=== PATIENT | female | born 1960 | race Hispanic/Latino ===

== ENCOUNTER 2018-03-04 13:10 | Emergency (ER) | payer OTHER ==
--- OUTSIDE RECORDS SUMMARY | 2018-03-04 13:13 | XMS REPORT | Clinical Summary ---
:1960 Author Organization [facility] Address [address] [place] [address] Phone Care Team Providers Name Role Phone Unavailable Primary Care Provider Unavailable Allergies Active Allergy Reactions Severity Noted Date Comments Meperidine (Pf) 02/25/2017 Morphine 02/25/2017 Promethazine-Dm 02/25/2017 Adhesive Tape 02/25/2017 Current Medications Prescription Sig. Disp. Refills Start End Status Date Date nystatin Apply topically 2 15 g 0 03/07/20 Active (MYCOSTATIN) (two) times 17 018 100,000 unit/gram daily. powder senna-docusate Take 1 tablet by 60 tablet 1 03/07/20 Active (SENOKOT S) 8.6-50 mouth 2 (two) 17 018 mg per tablet times daily. pyridoxine, Take 1 tablet (50 1 tablet 0 03/07/20 Active vitamin B6, (B-6) mg total) by 17 018 50 MG tablet mouth daily. acetaminophen Take 2 tablets 30 tablet 0 03/22/20 Active (TYLENOL) 325 MG (650 mg total) by 17 018 tablet mouth every 6 (six) hours as needed for Fever for up to 360 days. ferrous sulfate Take 1 tablet 30 tablet 1 03/22/20 Active 325 (65 FE) MG (325 mg total) by 17 018 tablet mouth daily. gabapentin Take 1 capsule 180 capsule 1 03/22/20 Active (NEURONTIN) 400 MG (400 mg total) by 17 018 capsule mouth 3 (three) times daily. dexamethasone Take 2 mg PO BID 7 tablet 0 03/22/20 Active (DECADRON) 2 MG x 2 days, then 2 17 tablet mg Po daily x 3 days then stop. cyclobenzaprine Take 1 tablet (10 30 tablet 0 03/07/20 Discontinued (FLEXERIL) 10 MG mg total) by 17 017 tablet mouth 2 (two) times daily as needed for Muscle spasms for up to 10 days. gabapentin Take 2 capsules 180 capsule 1 03/07/20 Discontinued (NEURONTIN) 100 MG (200 mg total) by 17 017 capsule mouth 3 (three) times daily. HYDROcodone-acetam Take 1 tablet by 30 tablet 0 03/07/20 Discontinued inophen (NORCO mouth every 4 17 017 10-325) 10-325 mg (four) hours as per tablet needed for up to 10 days. Max Daily Amount: 6 tablets polyethylene Take 17 g by 14 each 0 03/07/20 glycol (GLYCOLAX) mouth daily for 3 17 017 17 gram packet days. ethambutol Take 3 tablets 1 tablet 0 03/07/20 (MYAMBUTOL) 400 MG (1,200 mg total) 17 017 tablet by mouth daily for 30 days. isoniazid Take 1 tablet 1 tablet 0 03/07/20 Discontinued (NYDRAZID) 300 MG (300 mg total) by 17 017 tablet mouth daily for 14 days. pyrazinamide 500 Take 3 tablets 1 tablet 0 03/07/202 mg tablet (1,500 mg total) 17 017 by mouth daily for 30 days. rifAMPin (RIFADIN) Take 2 capsules 1 capsule 0 03/07/20 Discontinued 300 MG capsule (600 mg total) by 17 017 mouth daily for 10 days. bisacodyl Take 1 tablet (5 30 tablet 0 03/22/20 (DULCOLAX) 5 mg EC mg total) by 17 017 tablet mouth daily as needed for Constipation for up to [address] 1 12 suppository 0 03/22/20 (DULCOLAX) 10 mg suppository (10 017 suppository mg total) rectally daily as needed for up to 10 days. cyclobenzaprine Take 1 tablet (10 30 tablet 0 03/22/20 (FLEXERIL) 10 MG mg total) by 17 017 tablet mouth 2 (two) times daily as needed for Muscle spasms for up to 10 days. enoxaparin Inject 0.4 mLs 12 mL 0 03/22/20 (LOVENOX) 40 (40 mg total) 17 017 mg/0.4 mL Syrg subcutaneously daily for 30 days. isoniazid Take 1 tablet 1 tablet 0 03/22/20 (NYDRAZID) 300 MG (300 mg total) by 17 017 tablet mouth daily for [address] 2 patches 30 patch 0 03/22/20 (LIDODERM) 5 % onto the skin 017 patch daily for 30 days Remove & Discard patch within 12 hours or as directed by MD. oxyCODONE (OXY-IR) Take 1 tablet (10 30 tablet 0 03/22/20 10 mg tablet mg total) by 17 017 mouth every 4 (four) hours as needed for up to 10 days. Max Daily Amount: 60 mg oxyCODONE Take 1 tablet (15 30 tablet 0 03/22/20 (ROXICODONE) 15 MG mg total) by 17 017 immediate release mouth every 6 tablet (six) hours for 10 days. Max Daily Amount: 60 mg pantoprazole Take 1 tablet (40 30 tablet 1 03/22/20 (PROTONIX) 40 MG mg total) by 17 017 tablet mouth daily for 30 days. polyethylene Take 17 g by 14 each 0 03/22/20 glycol (GLYCOLAX) mouth daily for 3 17 017 17 gram packet days. rifAMPin (RIFADIN) Take 2 capsules 1 capsule 0 03/22/20 300 MG capsule (600 mg total) by 17 017 mouth daily for [address] rectally 2 30 g 0 03/22/20 (ANUSOL-HC) 2.5 % (two) times daily 17 017 rectal cream for 10 days. 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 Spondylodiscitis 02/25/2017 Encounters Date Type Specialty Care Team Description 06/07/2017 Outside Orders Central Scheduling Ray Villafuerte Fusion of spine, MD Gabino thoracic region (Primary Dx) 03/12/2017 - Hospital Encounter General Internal Vani Pulliam MD Acute midline back 03/22/2017 Medicine Aristides Corrigan pain, unspecified MD Jayson back location Leeann Mullins, (Primary Dx);Cord MD compression Yin Cartagena, ([facility]);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);Spina l cord injury, thoracic region, initial encounter ([facility]);Morbid obesity with BMI of 40.0-44.9, adult ([facility]);Gait abnormality;Osteomy elitis of other site, unspecified type ([facility]);Mobility impaired 03/12/2017 Anesthesia Event Krish Swan, PUBLIC SERVICE DIRECTOR 03/12/2017 Procedure Pass 03/12/2017 Surgery Ray Villafuerte LAMINECTOMY,THORACI MD Gabino C W/FUSION 02/25/2017 - Hospital Encounter General Internal Srini Rebolledo, Spondylodiscitis;Ch 03/07/2017 Medicine Tigist Wright thoracic back MMD Charlie pain;Primary Luis Elias, insomnia;Constipati on, unspecified constipation type;Acute midline back pain, unspecified back location;Lesion of vertebra;Paraspinal mass after 03/03/2017 Social History Tobacco Use Types Packs/Day Years Used Date Former Smoker Smokeless Tobacco: Never Used Alcohol Use Drinks/Week oz/Week Comments No Sex Assigned at Date Recorded Not on file Last Filed Vital Signs Vital Sign Reading Time Taken Blood Pressure 120/56 03/22/2017 11:00 AM CDT Pulse 80 03/22/2017 11:00 AM CDT Temperature 36.7 C (98.1 F) 03/22/2017 11:00 AM CDT Respiratory Rate 19 03/22/2017 11:00 AM CDT Oxygen Saturation 98% 03/22/2017 11:00 AM CDT Inhaled Oxygen Concentration - - Weight 107.4 kg (236 lb 12.4 oz) 03/13/2017 12:00 AM CDT Height 154.9 cm (5' 1") 03/12/2017 3:40 PM CDT Body Mass Index 44.74 03/13/2017 12:00 AM CDT Plan of Treatment Not on file Implants Implanted Type Area Light Technician Device Expiration Model / Serial Identifier Date / Lot Tiss Live Puty Dbm Optium 10cc Tput10 - [id number] Bone N/A: Spine LIFENET: LIFENET 10/03/2019 TPUT10 / Implanted: Qty: 1 on 03/12/2017 by Ray Villafuerte MD Thoracic TRANSPLANT SRV / Tiss Live Puty Dbm Optium 10cc Tput10 - [id number] Bone N/A: Spine LIFENET: LIFENET 10/03/2019 TPUT10 / Implanted: Qty: 1 on 03/12/2017 by Ray Villafuerte MD Thoracic TRANSPLANT SRV / Bone Chip Canc 1.7-10mm 30ml [id number] - [id number] Bone N/A: Spine MUSCULOSKELETAL 10/26/2019 [id number] / Implanted: Qty: 1 on 03/12/2017 by Ray Villafuerte MD Thoracic TRANSPLANT FND [id number] / 1110 Bone Chip Canc 1.7-10mm 30ml [id number] - [id number] Bone N/A: Spine MUSCULOSKELETAL 10/03/2019 [id number] / Implanted: Qty: 1 on 03/12/2017 by Ray Villafuerte MD Thoracic TRANSPLANT FND [id number] / 3010 Matrix Floseal Hemo W/O Ndl 10 [id number] - [id number] Cement/ N/A: Spine ORTEGA :BIOSCI 07/25/2018 [id number] / Implanted: Qty: 1 on 03/12/2017 by Ray Villafuerte MD Filler/ Thoracic / Adhesiv [id number] Scr Mas 5.5x40mm [id number] - [id number] Spine N/A: Spine MEDTRONIC:SPINAL [id number] / Implanted: Qty: 4 on 03/12/2017 by Ray Villafuerte MD Thoracic BIOLOGICS / [id number] Scr Mas 4.5x30mm [id number] - [id number] Spine N/A: Spine MEDTRONIC:SPINAL [id number] / Implanted: Qty: 2 on 03/12/2017 by Ray Villafuerte MD Thoracic BIOLOGICS / [id number] Scr Mas 4.5x25mm [id number] - [id number] Spine N/A: Spine MEDTRONIC:SPINAL [id number] / Implanted: Qty: 1 on 03/12/2017 by Ray Villafuerte MD Thoracic BIOLOGICS / [id number] Scr Mas 5.5x35mm [id number] - [id number] Spine N/A: Spine MEDTRONIC:SPINAL [id number] / Implanted: Qty: 3 on 03/12/2017 by Ray Villafuerte MD Thoracic BIOLOGICS / [id number] Scr Mas 5.5x35mm [id number] - [id number] Spine N/A: Spine MEDTRONIC:SPINAL [id number] / Implanted: Qty: 3 on 03/12/2017 by Ray Villafuerte MD Thoracic BIOLOGICS / [id number] Screw Set Ti Ns Brk Off 5.5 - [id number] Spine N/A: Spine MEDTRONIC:SPINAL [id number] / Implanted: Qty: 7 on 03/12/2017 by Ray Villafuerte MD Thoracic BIOLOGICS / [id number] Screw Set Ti Ns Brk Off 5.5 - [id number] Spine N/A: Spine MEDTRONIC:SPINAL [id number] / Implanted: Qty: 6 on 03/12/2017 by Ray Villafuerte MD Thoracic BIOLOGICS / [id number] 5.5 Ti Luis Miguel N/A: Spine MEDTRONIC [id number] / Implanted: Qty: 1 on 03/12/2017 by Ray Villafuerte MD Thoracic / [id number] Procedures Procedure Name Priority Date/Time Associated Diagnosis Comments PROCEDURE W/ STEALTH 03/12/2017 8:00 AM CDT T5 OSTEOMYELITIS Special Needs REQ KRISTI TABLE,MEDTRONIC SCREWS,O-ARM,STEALTH;REQ TF LAMINECTOMY,THORACIC W/FUSION 03/12/2017 8:00 AM CDT T5 OSTEOMYELITIS Special Needs REQ KRISTI TABLE,MEDTRONIC SCREWS,O-ARM,STEALTH;REQ TF after 03/03/2017 Results ECHOCARDIOGRAM REPORT - SCAN (04/15/2017 10:10 AM)RHYTHM STRIP - SCAN (2016 3:09 PM)Only the most recent of2 resultswithin the time period is included.POC-Glucose meter (03/22/2017 11:28 AM)Only the most recent of53 resultswithin the time period is included. Component Value Ref Range POC-Glucose Meter 113 (H)Comment: TESTED AT [address] 70 - 110 mg/[place] [address] Specimen Performing Laboratory Blood [facility] [address] [address] CBC with platelet count + automated diff (03/22/2017 4:40 AM)Only the most recent of14 resultswithin the time period is included. Component Value Ref Range WBC 6.5 3.5 - 10.5 K/L RBC 3.38 (L) 3.93 - 5.22 M/L Hemoglobin 9.6 (L) 11.2 - 15.7 GM/DL Hematocrit 30.9 (L) 34.1 - 44.9 % MCV 91.4 79.4 - 94.8 fL MCH 28.4 25.6 - 32.2 pg MCHC 31.1 (L) 32.2 - 35.5 GM/DL RDW 15.6 (H) 11.7 - 14.4 % Platelets 340 150 - 450 K/CU MM MPV 8.6 (L) 9.4 - 12.3 fL nRBC 0 0 - 0 /100 WBC % Neutros 73 % % Lymphs 14 % % Monos 7 % % Eos 3 % % Baso 1 % # Neutros 4.75 1.56 - 6.13 K/L # Lymphs 0.91 (L) 1.18 - 3.74 K/L # Monos 0.44 (H) 0.24 - 0.36 K/L # Eos 0.20 0.04 - 0.36 K/L # Baso 0.05 0.01 - 0.08 K/L Immature Granulocytes-Relative 3 (H) 0 - 1 % Specimen Performing Laboratory Blood - Arm, [address] [address] CBC with platelet count + automated diff (03/22/2017 4:40 AM)Only the most recent of14 resultswithin the time period is included. Specimen Performing Laboratory Blood Narrative The following orders were created for panel order CBC with platelet count + automated diff. Procedure Abnormality Status --------- ------ CBC with platelet count ...[[id number]]AbnormalFinal result Please view results for these tests on the individual orders. Phosphorus (03/22/2017 4:40 AM)Only the most recent of10 resultswithin the time period is included. Component Value Ref Range Phosphorus 3.9 2.3 - 4.7 mg/dL Specimen Performing Laboratory Blood - Arm, [address] [address] Magnesium (03/22/2017 4:40 AM)Only the most recent of11 resultswithin the time period is included. Component Value Ref Range Magnesium 1.8 1.6 - 2.6 mg/dL Specimen Performing Laboratory Blood - Arm, [address] [address] Basic Metabolic Panel (03/22/2017 4:40 AM)Only the most recent of10 resultswithin the time period is included. Component Value Ref Range Sodium 137 136 - 145 meq/L Potassium 4.1 3.5 - 5.1 meq/L Chloride 105 98 - 107 meq/L CO2 25 22 - 29 meq/L BUN 16 7 - 21 mg/dL Creatinine 0.63 0.57 - 1.25 mg/dL Glucose 120 (H) 70 - 105 mg/dL Calcium 8.7 8.4 - 10.2 mg/dL EGFR 97Comment: ESTIMATED GFR IS NOT ACCURATE mL/min/1.73 sq m CREATININE CLEARANCE IN PREDICTING GLOMERULAR FILTRATION RATE. ESTIMATED GFR IS NOT APPLICABLE FOR DIALYSIS PATIENTS. Specimen Performing Laboratory Blood - Arm, [address] [address] TRANSFUSION SERVICE REPORT - SCAN (03/19/2017 4:02 PM)Only the most recent of3 resultswithin the time period is included.Prepare Leuko-Red RBC (03/16/2017 11: 54 PM) Component Value Ref Range CROSSMATCH COMPATIBLE Unit ABO A Pos UNIT NUMBER [id number] Status TRANSFUSED Blood Bank Product RED BLOOD CELLS PRODUCT CODE [id number] Specimen Performing Laboratory Other [employer] [place] Manual Differential (03/16/2017 5:53 AM)Only the most recent of4 resultswithin the time period is included. Component Value Ref Range % Neutros (manual) 78 % % Lymphs (manual) 10 % % Monos (manual) 3 % % Eos (manual) 2 % % Baso (manual) 1 % % Metamyelo (manual) 1 (H) 0 - 0 % % Bands (manual) 5 0 - 10 % # Neutros (manual) 5.77 1.80 - 8.00 K/L # Lymphs (manual) 0.74 (L) 1.48 - 4.50 K/L # Monos (manual) 0.22 0.00 - 1.30 K/L # Eos (manual) 0.15 0.00 - 0.50 K/L # Baso (manual) 0.07 0.00 - 0.20 K/L # Metamyelo (manual) 0.07 (H) 0.00 - 0.00 K/L # Bands (manual) 0.4 0.0 - 0.8 K/L Total Counted 100 Bands plus Segmented Neutrophils 6.14 WBC Morphology Normal Platelet Morphology Normal Anisocytosis 1+ few Hypochromia 1+ few Poikilocytes 1+ few Polychromasia 1+ few Specimen Performing Laboratory Blood - Arm, [address] [address] Iron, TIBC, % sat. (without ferritin) (03/16/2017 5:53 AM) Component Value Ref Range Iron 28 (L) 40 - 160 ug/dL TIBC 128 (L) 250 - 450 ug/dL Iron % Saturation 22 20 - 55 % Specimen Performing Laboratory Blood - Arm, [address] [address] Comprehensive metabolic panel (03/16/2017 5:53 AM)Only the most recent of3 resultswithin the time period is included. Component Value Ref Range Protein, Total 6.4 6.0 - 8.3 gm/dL Albumin 2.6 (L) 3.5 - 5.0 g/dL Alkaline Phosphatase 72 40 - 150 U/L Total Bilirubin 0.3 0.2 - 1.2 mg/dL Sodium 134 (L) 136 - 145 meq/L Potassium 4.4 3.5 - 5.1 meq/L Chloride 106 98 - 107 meq/L CO2 21 (L) 22 - 29 meq/L BUN 10 7 - 21 mg/dL Creatinine 0.55 (L) 0.57 - 1.25 mg/dL Glucose 104 70 - 105 mg/dL Calcium 8.4 8.4 - 10.2 mg/dL AST 37 (H) 5 - 34 U/L ALT 52 6 - 55 U/L EGFR 114Comment: ESTIMATED GFR IS NOT ACCURATE mL/min/1.73 sq m CREATININE CLEARANCE IN PREDICTING GLOMERULAR FILTRATION RATE. ESTIMATED GFR IS NOT APPLICABLE FOR DIALYSIS PATIENTS. Specimen Performing Laboratory Blood - Arm, Right [address] [address] Transfuse Leuko-Red RBC (03/15/2017 12:49 PM)Hemoglobin and hematocrit (2016 4:14 PM) Component Value Ref Range Hemoglobin 7.3 (L) 11.2 - 15.7 GM/DL Hematocrit 22.8 (L) 34.1 - 44.9 % Specimen Performing Laboratory Blood - Central Venous Line [address] [address] Osmolality, urine (03/13/2017 10:59 AM) Component Value Ref Range Osmolality, Ur 295 40 - 1400 mOsm/kg Specimen Performing Laboratory Urine - Urine, [place] [address] [address] HIV-1 Antigen with HIV-1/2 Antibody (03/12/2017 8:11 PM) Component Value Ref Range HIV-1 Antigen with HIV 1&2 Antibody Nonreactive Nonreactive Specimen Performing Laboratory Blood - Line, Arterial [address] [address] XR chest 1 view portable / bedside (03/12/2017 8:00 PM) Specimen Performing Laboratory GE RIS Narrative FINAL REPORT Chest one view AP 03/12/2017 8:15 PM CLINICAL INDICATION: cough, evaluate for pneumonia COMPARISON: 03/02/2017 IMPRESSION: Subsegmental opacity in the retrocardiac left lower lobe suggests atelectasis. The right lung is well aerated. Cardiomediastinal contours are within normal limits. The central pulmonary vasculature is not engorged. There are postsurgical changes in the thoracic spine, with partially visualized catheter tubing in the right neck and upper thorax. There are surgical clips in the gallbladder fossa. Signed: Italo Vieira MD Report Verified Date/Time:03/12/2017 20:16:07 Reading Location: [facility] Radiology Reading Room Procedure Note Interface, External Ris In - 03/12/2017 8:18 PM CDT FINAL REPORT Chest one view AP 03/12/2017 8:15 PM CLINICAL INDICATION: cough, evaluate for pneumonia COMPARISON: 03/02/2017 IMPRESSION: Subsegmental opacity in the retrocardiac left lower lobe suggests atelectasis. The right lung is well aerated. Cardiomediastinal contours are within normal limits. The central pulmonary vasculature is not engorged. There are postsurgical changes in the thoracic spine, with partially visualized catheter tubing in the right neck and upper thorax. There are surgical clips in the gallbladder fossa. Signed: Italo Vieira MD Report Verified Date/Time: 03/12/2017 20:16:07 Reading Location: [facility] Radiology Reading Room radiographer cardiac catheterization in or 30 minute increments (03/12/2017 1:38 PM)Only the most recent of2 resultswithin the time period is included. Specimen Performing Laboratory GE RIS Narrative FINAL REPORT Intraoperative fluoroscopy films performed by the referring physician. Number of images: 3 Fluoroscopic time: 7.3 seconds The films were submitted to PACS postprocedure. The radiologist was not present at the time of examination. An interpretation was not requested. The submitted images are nondiagnostic without real-time visualization. Please refer to the performing physician's dictation for any and all details regarding the procedure including the submitted images. The radiologist did not perform fluoroscopy. Signed: Vandana Yung MD Report Verified Date/Time:03/12/2017 15:01:36 Reading Location: [facility] Consult Reading Room Procedure Note Interface, External Ris In - 03/12/2017 3:03 PM CDT FINAL REPORT Intraoperative fluoroscopy films performed by the referring physician. Number of images: 3 Fluoroscopic time: 7.3 seconds The films were submitted to PACS postprocedure. The radiologist was not present at the time of examination. An interpretation was not requested. The submitted images are nondiagnostic without real-time visualization. Please refer to the performing physician's dictation for any and all details regarding the procedure including the submitted images. The radiologist did not perform fluoroscopy. Signed: Vandana Yung MD Report Verified Date/Time: 03/12/2017 15:01:36 Reading Location: [facility] Consult Reading Room T LATENCY SEP ALL LIMBS (03/12/2017 1:17 PM) Specimen Performing Laboratory GE RIS Narrative INTRAOPERATIVE MONITORING REPORT Patient Name: Nannette Wolf [facility] Surgery Date: March 12, 2017 [place] [id number] Monitoring began at 09:21 and ended at 13:17 Surgeon: Ray Villafuerte M.D. Examining Neurologist: Gabino Kaye M.D. Monitoring Technologist: Byron Irwin, [facility] Procedure: T3-8 Fixation and Evacutation of Infection Stimulation Parameters: Ulnar nerves individually stimulated at the wrist Rate 4.7Hz, Intensity 35mA, Duration 0.3ms Posterior Tibial nerves individually stimulated at the ankle Rate 4.7Hz, Intensity 70mA, Duration 0.3ms Filters 30-500Hz, Notch Off Motor strip stimulated anterior to C3 and C4 with alternating polarities Intensity 100-500V, Train Rate 4-5, CATHY 2-3ms Filters 30-2KHz, Notch Off Recording Parameters: EP1, EP2, CV, CP3, CP4, CPz, and FPz Transcranial electrical Motor Evoked Potentials recorded from Abductor Pollicis Brevis referenced to the Abductor Digiti Quinti Minimi muscle groups and Tibialis Anterior, Abductor Hallucis referenced to Abductor Digiti Minimi muscle groups Description : Intraoperative neurophysiological monitoring was performed using a combination of upper and lower extremity somatosensory evoked potentials and transcranial electrical motor evoked potentials. A real-time connection with the examining neurologist was established and maintained throughout the operative procedure by the monitoring technologist. Upper extremity somatosensory evoked potentials were recorded peripherally at Erbs point and centrally at the cervical and cortical levels following ulnar nerve stimulation at the wrist. Lower extremity somatosensory evoked potentials were recorded centrally at the cervical and cortical levels following posterior tibial nerve stimulation at the ankle. TceMEPs were recorded peripherally from the upper and lower extremities following alternating polarity motor strip stimulation. TceMEP recording responses to motor cortex stimulation were attempted but not obtained from the lower extremities. Surgeon notified. No significant surgically related changes in amplitude or latency of the somatosensory evoked responses or TceMEPs were noted throughout the surgical procedure. At closing, responses were judged to be essentially unchanged from those of post-positioning baselines. Gabino Kaye M.D. G95.20 Procedure Note Interface, External Ris In - 04/16/2017 4:01 PM CDT INTRAOPERATIVE MONITORING REPORT Patient Name: Nannette Wolf [facility] Surgery Date: March 12, 2017 [place] [id number] Monitoring began at 09:21 and ended at 13:17 Surgeon: Rya Villafuerte M.D. Examining Neurologist: Gabino Kaye M.D. Monitoring Technologist: Byron Irwin, [facility] Procedure: T3-8 Fixation and Evacutation of Infection Stimulation Parameters: Ulnar nerves individually stimulated at the wrist Rate 4.7Hz, Intensity 35mA, Duration 0.3ms Posterior Tibial nerves individually stimulated at the ankle Rate 4.7Hz, Intensity 70mA, Duration 0.3ms Filters 30-500Hz, Notch Off Motor strip stimulated anterior to C3 and C4 with alternating polarities Intensity 100-500V, Train Rate 4-5, CATHY 2-3ms Filters 30-2KHz, Notch Off Recording Parameters: EP1, EP2, CV, CP3, CP4, CPz, and FPz Transcranial electrical Motor Evoked Potentials recorded from Abductor Pollicis Brevis referenced to the Abductor Digiti Quinti Minimi muscle groups and Tibialis Anterior, Abductor Hallucis referenced to Abductor Digiti Minimi muscle groups Description : Intraoperative neurophysiological monitoring was performed using a combination of upper and lower extremity somatosensory evoked potentials and transcranial electrical motor evoked potentials. A real-time connection with the examining neurologist was established and maintained throughout the operative procedure by the monitoring technologist. Upper extremity somatosensory evoked potentials were recorded peripherally at Erbs point and centrally at the cervical and cortical levels following ulnar nerve stimulation at the wrist. Lower extremity somatosensory evoked potentials were recorded centrally at the cervical and cortical levels following posterior tibial nerve stimulation at the ankle. TceMEPs were recorded peripherally from the upper and lower extremities following alternating polarity motor strip stimulation. TceMEP recording responses to motor cortex stimulation were attempted but not obtained from the lower extremities. Surgeon notified. No significant surgically related changes in amplitude or latency of the somatosensory evoked responses or TceMEPs were noted throughout the surgical procedure. At closing, responses were judged to be essentially unchanged from those of post-positioning baselines. Gabino Kaye M.D. G95.20 Tissue Exam (03/12/2017 12:43 PM) Component Value Ref Range Case Report Surgical Pathology Report Case: [id number] Authorizing Provider:Ray Villafuerte MDCollected: 03/12/2017 1243 Ordering Location: [facility] PERIOPERATIVE Received: 03/12/2017 1349 SERVICES Pathologist: Edmond Grewal MD Specimens: A) - Soft Tissue, Other, thoracic epidural tissue and bone B) - Soft Tissue, Other, thoracic epidural tissue # 2 DIAGNOSIS A. BONE, THORACIC, BIOPSY: -GRANULOMATOUS INFLAMMATION WITH NECROSIS -SPECIAL STAINS FOR ORGANISMS ARE NEGATIVE, PLEASE SEE MICROSCOPIC DESCRIPTION B.SOFT TISSUE, THORACIC, BIOPSY: -GRANULOMATOUS INFLAMMATION WITH NECROSIS -SPECIAL STAINS FOR ORGANISMS ARE NEGATIVE Signing Pathologist Direct Phone Line: [phone] CPT Code(s) 47185 [id number] x6 CLINICAL HISTORY T5 osteomyelitis SPECIMEN SOURCE A. Thoracic epidural tissue and bone; B. Thoracic epidural tissue #2 GROSS DESCRIPTION The specimen is received in a fluidless container labeled with the patient's information. Part A labeled "thoracic epidural tissue and bone" consists of a single segment of bone with attached soft tissue measuring 1.5 x 1 x 0.5 cm. The specimen is sectioned, submitted entirely A1 and A2 for decalcification. Part B labeled "thoracic epidural tissue #2" consists of red soft tissue measuring 1.2 x 1 x 0.3 cm, submitted entirely B1. There is no bone present. CG/ pl MICROSCOPIC DESCRIPTION A.The sections show bone with marrow necrosis, extensive remodeling and casseous granuloma formation.Special stains for organisms (PAS, GMS, and Maeve) are negative for organisms but these result s should be correlated with microbiologic cultures. B.The tissue consists of soft tissue with granuloma formation and the bug stains listed above are negative in this tissue as well. Specimen Performing Laboratory Tissue - Soft Tissue, Other [address] [address] AFB culture + smear (03/12/2017 12:42 PM) Component Value Ref Range Result No acid-fast bacilli isolated in 42 days AFB Smear No acid fast bacilli seen Specimen Performing Laboratory Tissue - Other [address] [address] Anaerobic culture (03/12/2017 12:42 PM) Component Value Ref Range Result No anaerobes isolated Specimen Performing Laboratory Other [address] [address] Surgically obtained culture + gram stain (03/12/2017 12:42 PM) Component Value Ref Range Result No growth Gram Stain Result <1+ WBCs Gram Stain Result No organisms seen Specimen Performing Laboratory Tissue - Other [address] [address] Fungus culture + smear (03/12/2017 12:42 PM) Component Value Ref Range Result No fungus isolated in 28 days Fungus Smear No fungi seen Specimen Performing Laboratory Tissue - Other [address] [address] SPIN/CONCENTRATION CHARGE (03/12/2017 12:42 PM) Component Value Ref Range Concentration charged Done Specimen Performing Laboratory Tissue - Other [address] [address] Type and screen, automated (03/12/2017 9:45 AM) Component Value Ref Range ABO/RH AUTOMATED (BEAKER) A POSITIVE Ab Scrn NEGATIVE Specimen Performing Laboratory Blood [address] [address] TSH/Free T4 If Indicated (03/12/2017 4:36 AM) Component Value Ref Range TSH 1.63 0.35 - 4.94 uIU/mL Specimen Performing Laboratory Blood [address] [address] Prothrombin time/INR (03/12/2017 4:36 AM) Component Value Ref Range Protime 13.5 11.7 - 14.7 seconds INR 1.0 <=5.9 Specimen Performing Laboratory Blood [address] [address] Narrative RECOMMENDED COUMADIN/WARFARIN INR THERAPY RANGES STANDARD DOSE: 2.0 - 3.0 Includes: PROPHYLAXIS for venous thrombosis, systemic embolization; TREATMENT for venous thrombosis and/or pulmonary embolus. HIGH RISK: Target INR is 2.5-3.5 for patients with mechanical heart valves. MR thoracic spine without & with IV contrast (03/12/2017 3:41 AM) Specimen Performing Laboratory GE EpiEP Narrative FINAL REPORT MRI of the thoracic spine pre and postcontrast Comparison:February 27, 2017 Reason for exam: Presurgical evaluation, newly diagnosed proximal disease, worsening lower extremity weakness Discussion: Sagittal and axial multisequence MR imaging of the thoracic spine was provided pre and postcontrast. Initial evaluation by Dr. Pitts. Details of final report discussed with neurosurgery resident at 0810 hours. There is a destructive process centered at the C5/6 disc level in keeping with discitis and osteomyelitis. Paraspinal loculated abscess collections are noted, minimally worse circumferentially. Epidural infection is noted with circumferential epidural region thickening and enhancement with probable collection loculated in the ventral, left lateral, and left posterior lateral regions. There is a moderate to severe resulting central canal stenosis with cord deformity. Intramedullary signal alterations are now seen within the cord extending from the T4/5 disc level to the T6/7 disc level. Findings are concerning for acute myelopathy. The remainder of the thoracic spine is unremarkable with no other canal or cord compromise. There is bilateral pleural effusions left greater than right. Correlate clinically for pleural space infection. 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 Signed: Barber Cooper MD Report Verified Date/Time:03/12/2017 08:16:53 Reading Location: [address] Neuro Reading Room Procedure Note Interface, External Ris In - 03/12/2017 8:18 AM CDT FINAL REPORT MRI of the thoracic spine pre and postcontrast Comparison: February 27, 2017 Reason for exam: Presurgical evaluation, newly diagnosed proximal disease, worsening lower extremity weakness Discussion: Sagittal and axial multisequence MR imaging of the thoracic spine was provided pre and postcontrast. Initial evaluation by Dr. Pitts. Details of final report discussed with neurosurgery resident at 0810 hours. There is a destructive process centered at the C5/6 disc level in keeping with discitis and osteomyelitis. Paraspinal loculated abscess collections are noted, minimally worse circumferentially. Epidural infection is noted with circumferential epidural region thickening and enhancement with probable collection loculated in the ventral, left lateral, and left posterior lateral regions. There is a moderate to severe resulting central canal stenosis with cord deformity. Intramedullary signal alterations are now seen within the cord extending from the T4/5 disc level to the T6/7 disc level. Findings are concerning for acute myelopathy. The remainder of the thoracic spine is unremarkable with no other canal or cord compromise. There is bilateral pleural effusions left greater than right. Correlate clinically for pleural space infection. 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 Signed: Barber Cooper MD Report Verified Date/Time: 03/12/2017 08:16:53 Reading Location: [place] [id number] Neuro Reading Room Vancomycin level, trough (03/05/2017 1:26 PM) Component Value Ref Range Vancomycin Tr 20.4 (H) 10.0 - 20.0 ug/mL Specimen Performing Laboratory [place] [address] Narrative IMMEDIATELY PRIOR TO NEXT DOSE 2D Echo W/O Doppler(No Doppler) (03/05/2017 9:31 AM) Component Value Ref Range Ejection Fraction Specimen Performing Laboratory [facility] ECHO [facility]ART[facility] MKCKESSON CPA Narrative Transthoracic Echocardiography Report (TTE) Demographics Patient NameNANNETTE WOLF Date of Study 03/05 GenderFemale Visit [id number] RaceUnknown Number [id number] Number Date of 1960 Referring Physician Srini Rebolledo Age 56 year(s) Gambreler Interpreting Jami Lux MD Physician Aj ONEIL Procedure Type of Study TTE procedure:ECHO2D MODE W/O DOPPLER (Routine) Indications:Suspected infective endocarditis with positive cultures or new murmur. Clinical History HGB 10.4 HCT 32.1 % Diabetes Morbid obesity Back pain Multiple back surgeries Thyroid disease Height: 61 inches Weight: 99.79 kg (220 lbs) BSA: 1.97 m^2 BMI: 41.57 kg/m^2 HR: 79 bpm BP: 119/58 mmHg Summary Technically difficult study due to patient body habitus 1. The left ventricle is chamber size (by PSLAX dimension) is normal (female - LVIDd 3.8-5.2cm) . Mild concentric LV hypertrophy. All of the LV segments contract normally . Estimated LVEF by qualitative assessment is normal (>60%) . Impaired relaxation. Undetermined filling pressures. 2. The right ventricular chamber size and systolic function are within normal limits. 3. Imaging is suboptimal to measure the LA, RA volumes. Grossly both the LA and RA are normal in size. 4. No significant valvular stenosis or regurgitation noted on limited evaluation of the valves on this technically difficult study. Previous Study No prior echocardiograms available for comparison. Signature Findings Rhythm/BPRegular sinus rhythm during the exam. Left Ventricle The LV endocardium is partially visualized by adequate parasternal but limited apical views. The left ventricle is chamber size (by PSLAX dimension) is normal (female - LVIDd 3.8-5.2cm) . Mild concentric LV hypertrophy. All of the LV segments contract normally . Estimated LVEF by qualitative assessment is normal (>60%) . Impaired relaxation. Undetermined filling pressures. Left AtriumLA is partially visualized. LA size by qualitative assessment (unable to measure). LA size is normal . Right VentricleThe right ventricular chamber size and systolic function are within normal limits. Right Atrium The RA is partially visualized. RA cavity size is normal . Aortic Valve Normal AoV structure and function by limited views and Doppler. Mitral Valve MV is partially visualized. No evidence of mitral regurgitation. No evidence of mitral stenosis. Normal MV structure. Tricuspid ValveNormal TV structure and function by available views and Doppler. No evidence of tricuspid regurgitation. Unable to estimate peak systolic PA pressure; inadequate TR velocity signal. Pulmonic Valve PV is not well visualized. PericardiumNo significant pericardial effusion is visualized. An echo lucent space is noted consistent with prominent pericardial fat pad. IVC/SVC/PA/PV/PleuralThe inferior vena cava is not well visualized. Chambers/Structures Left Ventricle LVIDd: 4.59 cm LV Septum Diastolic: 0.76 cm LV PW Diastolic: 1.32 cm LVOT Diameter: 2.4 cm Shunts QS:82.61 ml Doppler/Quantitative Measurements Mitral Valve MV Peak E-Wave: 0.6 m/sMV Peak A-Wave: 0.7 m/s E/A Ratio: 0.86 Peak Gradient: 1.45 mmHg Aortic Valve Peak Velocity: 1.16 m/sMean Velocity: 0.67 m/s Peak Gradient: 5.36 mmHg Mean Gradient: 2.21 mmHg AV Area (continuity): 4.73 cm^2 AV VTI: 17.47 cm AV DVI: 1.05 LVOT Peak Velocity: 0.86 m/s Peak Gradient: 2.96 mmHg Mean Velocity: 0.57 m/s Mean Gradient: 1.55 mmHg LVOT Diameter: 2.4 cm LVOT VTI: 18.26 cm LVOT Area: 4.52 cm^2LVOT SV:82.56 ml LVOT CO: 6.52 l/min LVOT CI: 3.31 l/min/m^2 Procedure Note Interface, External Ris In - 03/05/2017 2:08 PM CDT Transthoracic Echocardiography Report (TTE) Demographics Patient Name NANNETTE WOLF Date of Study 03/05/2017 Gender Female Visit Number [id number] Race Unknown Room Number [id number] Number Date of 1960 Referring Physician Srini Rebolledo Age 56 year(s) Gambreler Interpreting Jami Lux MD Physician Fellow Kristine ONEIL Procedure Type of Study TTE procedure:ECHO2D MODE W/O DOPPLER (Routine) Indications:Suspected infective endocarditis with positive cultures or new murmur. Clinical History HGB 10.4 HCT 32.1 % Diabetes Morbid obesity Back pain Multiple back surgeries Thyroid disease Height: 61 inches Weight: 99.79 kg (220 lbs) BSA: 1.97 m^2 BMI: 41.57 kg/m^2 HR: 79 bpm BP: 119/58 mmHg Summary Technically difficult study due to patient body habitus 1. The left ventricle is chamber size (by PSLAX dimension) is normal (female - LVIDd 3.8-5.2cm) . Mild concentric LV hypertrophy. All of the LV segments contract normally . Estimated LVEF by qualitative assessment is normal (>60%) . Impaired relaxation. Undetermined filling pressures. 2. The right ventricular chamber size and systolic function are within normal limits. 3. Imaging is suboptimal to measure the LA, RA volumes. Grossly both the LA and RA are normal in size. 4. No significant valvular stenosis or regurgitation noted on limited evaluation of the valves on this technically difficult study. Previous Study No prior echocardiograms available for comparison. Signature Findings Rhythm/BP Regular sinus rhythm during the exam. Left Ventricle The LV endocardium is partially visualized by adequate parasternal but limited apical views. The left ventricle is chamber size (by PSLAX dimension) is normal (female - LVIDd 3.8-5.2cm) . Mild concentric LV hypertrophy. All of the LV segments contract normally . Estimated LVEF by qualitative assessment is normal (>60%) . Impaired relaxation. Undetermined filling pressures. Left Atrium LA is partially visualized. LA size by qualitative assessment (unable to measure). LA size is normal . Right Ventricle The right ventricular chamber size and systolic function are within normal limits. Right Atrium The RA is partially visualized. RA cavity size is normal . Aortic Valve Normal AoV structure and function by limited views and Doppler. Mitral Valve MV is partially visualized. No evidence of mitral regurgitation. No evidence of mitral stenosis. Normal MV structure. Tricuspid Valve Normal TV structure and function by available views and Doppler. No evidence of tricuspid regurgitation. Unable to estimate peak systolic PA pressure; inadequate TR velocity signal. Pulmonic Valve PV is not well visualized. Pericardium No significant pericardial effusion is visualized. An echo lucent space is noted consistent with prominent pericardial fat pad. IVC/SVC/PA/PV/Pleural The inferior vena cava is not well visualized. Chambers/Structures Left Ventricle LVIDd: 4.59 cm LV Septum Diastolic: 0.76 cm LV PW Diastolic: 1.32 cm LVOT Diameter: 2.4 cm Shunts QS:82.61 ml Doppler/Quantitative Measurements Mitral Valve MV Peak E-Wave: 0.6 m/s MV Peak A-Wave: 0.7 m/s E/A Ratio: 0.86 Peak Gradient: 1.45 mmHg Aortic Valve Peak Velocity: 1.16 m/s Mean Velocity: 0.67 m/s Peak Gradient: 5.36 mmHg Mean Gradient: 2.21 mmHg AV Area (continuity): 4.73 cm^2 AV VTI: 17.47 cm AV DVI: 1.05 LVOT Peak Velocity: 0.86 m/s Peak Gradient: 2.96 mmHg Mean Velocity: 0.57 m/s Mean Gradient: 1.55 mmHg LVOT Diameter: 2.4 cm LVOT VTI: 18.26 cm LVOT Area: 4.52 cm^2 LVOT SV:82.56 ml LVOT CO: 6.52 l/min LVOT CI: 3.31 l/min/m^2 after 03/03/2017
--- OUTSIDE RECORDS SUMMARY | 2018-03-04 13:15 | XMS REPORT ---
:1960 [facility] Address [address] [place] [address] Dr. [address] [place] [address] Care Team Providers Name Role Phone PILAR BRISENO Unavailable Unavailable JOON ALTAMIRANO Unavailable Unavailable Problems This patient has no known problems. Allergies, Adverse Reactions, Alerts This patient has no known allergies or adverse reactions. Medications This patient has no known medications. Results Test Description Test Time Test Comments Text Results Atomic Results Result Comments AFB CULTURE + SMEAR 2017-05-10 18:02:00 Test Item Value Reference Range Comments CULTURE (BEAKER) (test cmlq=1968) Pyrazinamide (test nnck=489) Rifampin (test code=43) CULTURE (BEAKER) (test Mycobacterium tuberculosis imsh=1839) complexIdentification performed by:[facility], [address] [place] [address] AFB SMEAR (BEAKER) (test No acid fast bacilli gbaq=197) seen AFB CULTURE + [id number] 16:36:00 Test Item Value Reference Range Comments CULTURE (BEAKER) (test No acid-fast bacilli isolated ebia=9958) in 42 days AFB SMEAR (BEAKER) (test No acid fast bacilli seen lfbm=869) SHORT-LATENCY SPE, ALL [id number] 16:01:00INTRAOPERATIVE MONITORING REPORT Patient Name: Nannette Wolf [facility] Surgery Date: March 12, 2017 [employer] [place] [id number] Monitoring began at 09:21 and ended at 13:17 Surgeon: Ray Villafuerte M.D. Examining Neurologist: Gabino Kaye M.D. Monitoring Technologist: Byron Irwin, CNIM Procedure: T3-8 Fixation and Evacutation of Infection Stimulation Parameters: Ulnar nerves individually stimulated at the wrist Rate 4.7Hz, Intensity 35mA, Duration 0.3ms Posterior Tibial nerves individually stimulated at the ankle Rate 4.7Hz, Intensity 70mA, Duration 0.3ms Filters 30- 500Hz, Notch Off Motor strip stimulated anterior to C3 and C4 with alternating polarities Intensity 100-500V, Train Rate 4-5, CATHY 2-3ms Filters 30-2KHz, Notch Off Recording Parameters: EP1, EP2, CV, CP3, CP4, CPz, and FPz Transcranial electrical Motor Evoked Potentials recorded from Abductor Pollicis Brevis referenced to the Abductor Digiti Quinti Minimi musclegroups and Tibialis Anterior, Abductor Hallucis referenced to Abductor Digiti Minimi muscle groupsDescription : Intraoperative neurophysiological monitoring was performed using a combination of upper and lower extremity somatosensory evoked potentials and transcranial electrical motor evoked potentials. A real-time connection with the examining neurologist was established and maintained throughoutthe operative procedure by the monitoring technologist. Upper [...] somatosensory evoked responses or TceMEPs were noted throughoutthe surgical procedure. At closing, responses were judged to be essentially unchanged from those of post-positioning baselines. _ Gabino Kaye M.D. G95.20 FUNGUS CULTURE + [id number] 11:14:00 Test Item Value Reference Range Comments CULTURE (BEAKER) (test No fungus isolated in 28 days cvah=6506) FUNGUS SMEAR (BEAKER) (test No fungi seen orne=8729) FUNGUS CULTURE + [id number] 10:27:00 Test Item Value Reference Range Comments CULTURE (BEAKER) (test No fungus isolated in 28 days zuie=9466) FUNGUS SMEAR (BEAKER) (test No fungi seen nnuu=4316) POCT-GLUCOSE [id number] 11:56:00 Test Item Value Reference Range Comments POC-GLUCOSE METER (BEAKER) 113 mg/dL 70-110 TESTED AT [facility] [address] [facility] (test tajl=8554) [facility] [address] POCT-GLUCOSE [id number] 08:02:00 Test Item Value Reference Range Comments POC-GLUCOSE METER (BEAKER) 95 mg/dL 70-110 TESTED AT [place] [id number] [facility] (test pbbp=3767) [facility] [address] [id number] 07:03:00 Test Item Value Reference Range Comments PHOSPHORUS (BEAKER) (test fjyj=863) 3.9 mg/dL 2.3-4.7 [id number] 07:03:00 Test Item Value Reference Range Comments MAGNESIUM (BEAKER) (test mkpa=430) 1.8 mg/dL 1.6-2.6 BASIC METABOLIC [id number] 07:03:00 Test Item Value Reference Range Comments SODIUM (BEAKER) (test 137 meq/L 136-145 pwea=475) POTASSIUM (BEAKER) (test 4.1 meq/L 3.5-5.1 ypxh=638) CHLORIDE (BEAKER) (test 105 meq/L 98-107 wwbb=779) CO2 (BEAKER) (test 25 meq/L 22-29 pafx=347) BLOOD UREA NITROGEN 16 mg/dL 7-21 (BEAKER) (test anib=488) CREATININE (BEAKER) (test 0.63 mg/dL 0.57-1.25 bowq=266) GLUCOSE RANDOM (BEAKER) 120 mg/dL 70-105 (test cbtc=773) CALCIUM (BEAKER) (test 8.7 mg/dL 8.4-10.2 xxlq=122) EGFR (BEAKER) (test 97 mL/min/1.73 sq m ESTIMATED GFR IS NOT oyqq=6958) ACCURATE CREATININE CLEARANCE IN PREDICTING GLOMERULAR FILTRATION RATE. ESTIMATED GFR IS NOT APPLICABLE FOR DIALYSIS PATIENTS. CBC W/PLT COUNT & AUTO [id number] 06:36:00 Test Item Value Reference Range Comments WHITE BLOOD CELL COUNT (BEAKER) (test fobn=857) 6.5 K/ L 3.5-10.5 RED BLOOD CELL COUNT (BEAKER) (test qnfy=569) 3.38 M/ L 3.93-5.22 HEMOGLOBIN (BEAKER) (test ludr=548) 9.6 GM/DL 11.2-15.7 HEMATOCRIT (BEAKER) (test mmlk=096) 30.9 % 34.1-44.9 MEAN CORPUSCULAR VOLUME (BEAKER) (test aovk=072) 91.4 fL 79.4-94.8 MEAN CORPUSCULAR HEMOGLOBIN (BEAKER) (test 28.4 pg 25.6-32.2 hdrj=114) MEAN CORPUSCULAR HEMOGLOBIN CONC (BEAKER) (test 31.1 GM/DL 32.2-35.5 stda=352) RED CELL DISTRIBUTION WIDTH (BEAKER) (test 15.6 % 11.7-14.4 vpjr=634) PLATELET COUNT (BEAKER) (test rxco=371) 340 K/CU MM 150-450 MEAN PLATELET VOLUME (BEAKER) (test wdhf=291) 8.6 fL 9.4-12.3 NUCLEATED RED BLOOD CELLS (BEAKER) (test 0 /100 WBC 0-0 mxrl=812) NEUTROPHILS RELATIVE PERCENT (BEAKER) (test 73 % jwyc=061) LYMPHOCYTES RELATIVE PERCENT (BEAKER) (test 14 % chjk=995) MONOCYTES RELATIVE PERCENT (BEAKER) (test 7 % yufc=203) EOSINOPHILS RELATIVE PERCENT (BEAKER) (test 3 % ofdh=393) BASOPHILS RELATIVE PERCENT (BEAKER) (test 1 % dagn=713) NEUTROPHILS ABSOLUTE COUNT (BEAKER) (test 4.75 K/ L 1.56-6.13 zgtq=374) LYMPHOCYTES ABSOLUTE COUNT (BEAKER) (test 0.91 K/ L 1.18-3.74 wzsw=567) MONOCYTES ABSOLUTE COUNT (BEAKER) (test 0.44 K/ L 0.24-0.36 fpku=620) EOSINOPHILS ABSOLUTE COUNT (BEAKER) (test 0.20 K/ L 0.04-0.36 dhok=953) BASOPHILS ABSOLUTE COUNT (BEAKER) (test 0.05 K/ L 0.01-0.08 ofyg=276) IMMATURE GRANULOCYTES-RELATIVE PERCENT (BEAKER) 3 % 0-1 (test knxy=9959) POCT-GLUCOSE [id number] 05:22:00 Test Item Value Reference Range Comments POC-GLUCOSE METER (BEAKER) 186 mg/dL 70-110 TESTED AT [facility] [address] [facility] (test smkj=1510) [place] [id number] POCT-GLUCOSE [id number] 21:10:00 Test Item Value Reference Range Comments POC-GLUCOSE METER (BEAKER) 173 mg/dL 70-110 TESTED AT [facility] [address] [facility] (test nidq=2233) [place] [id number] TISSUE [id number] 13:55:00Surgical Pathology Report Case: [id number] Authorizing Provider: Ray Villafuerte MD Collected: 03/12/2017 1243 Ordering Location: [facility] PERIOPERATIVE Received: 03/12/2017 1349 SERVICES Pathologist: Edmond Gerwal MD Specimens: A) - Soft Tissue, Other, thoracic epidural tissue and bone B) -Soft Tissue , Other, thoracic epidural tissue #2 A. BONE, THORACIC, BIOPSY: -GRANULOMATOUS INFLAMMATION WITH NECROSIS -SPECIAL STAINS FOR ORGANISMS ARE NEGATIVE, PLEASE SEE MICROSCOPIC DESCRIPTIONB. SOFT TISSUE, THORACIC, BIOPSY: -GRANULOMATOUS INFLAMMATION WITH NECROSIS - SPECIAL STAINS FOR ORGANISMS ARE NEGATIVE Signing Pathologist Direct Phone Line: [phone] signed by Edmond Grewal MD on 2016 at 1:55 [id number] osteomyelitis A. Thoracic epidural tissue and bone; B. Thoracic epidural tissue #2The specimen is received in a fluidless container labeled with the patient's information.Part A labeled "thoracic epidural tissue and bone" consists of a single segment of bone with attached soft tissue measuring 1.5 x 1 x 0.5 cm. The specimen is sectioned, submitted entirely A1 and A2 for decalcification.Part B labeled "thoracic epidural tissue #2" consists of red soft tissue measuring 1.2 x 1 x 0.3 cm, submitted entirely B1. There is no bone present. CG/pl A. The sections show bone with marrow necrosis, extensive remodeling and casseous granuloma formation. Special stains for organisms (PAS, GMS, and Maeve) are negative for organisms but these results should be correlated with microbiologic cultures.B. The tissue consists of soft tissue with granuloma formation and the bug stains listed above arenegative in this tissue as well.POCT-GLUCOSE [id number] 12:31:00 Test Item Value Reference Range Comments POC-GLUCOSE METER (BEAKER) 108 mg/dL 70-110 TESTED AT [facility] [address] [facility] (test zzko=0188) [facility] [address] POCT-GLUCOSE [id number] 07:40:00 Test Item Value Reference Range Comments POC-GLUCOSE METER (BEAKER) 114 mg/dL 70-110 TESTED AT [address] (test abaa=1906) [facility] [address] [id number] 07:19:00 Test Item Value Reference Range Comments PHOSPHORUS (BEAKER) (test anwr=531) 3.7 mg/dL 2.3-4.7 [id number] 07:19:00 Test Item Value Reference Range Comments MAGNESIUM (BEAKER) (test njvx=739) 1.6 mg/dL 1.6-2.6 BASIC METABOLIC [id number] 07:19:00 Test Item Value Reference Range Comments SODIUM (BEAKER) (test 134 meq/L 136-145 uvar=263) POTASSIUM (BEAKER) (test 4.1 meq/L 3.5-5.1 uypu=383) CHLORIDE (BEAKER) (test 103 meq/L 98-107 oysv=049) CO2 (BEAKER) (test 27 meq/L 22-29 vfey=584) BLOOD UREA NITROGEN 13 mg/dL 7-21 (BEAKER) (test elyi=569) CREATININE (BEAKER) (test 0.61 mg/dL 0.57-1.25 tqoj=822) GLUCOSE RANDOM (BEAKER) 112 mg/dL 70-105 (test mfoc=739) CALCIUM (BEAKER) (test 8.6 mg/dL 8.4-10.2 gnof=433) EGFR (BEAKER) (test 101 mL/min/1.73 sq m ESTIMATED GFR IS NOT dbfy=2643) ACCURATE CREATININE CLEARANCE IN PREDICTING GLOMERULAR FILTRATION RATE. ESTIMATED GFR IS NOT APPLICABLE FOR DIALYSIS PATIENTS. CBC W/PLT COUNT & AUTO [id number] 07:01:00 Test Item Value Reference Range Comments WHITE BLOOD CELL COUNT (BEAKER) (test yidk=078) 8.0 K/ L 3.5-10.5 RED BLOOD CELL COUNT (BEAKER) (test tdki=570) 2.98 M/ L 3.93-5.22 HEMOGLOBIN (BEAKER) (test iqam=965) 8.7 GM/DL 11.2-15.7 HEMATOCRIT (BEAKER) (test ptus=943) 27.1 % 34.1-44.9 MEAN CORPUSCULAR VOLUME (BEAKER) (test wtch=150) 90.9 fL 79.4-94.8 MEAN CORPUSCULAR HEMOGLOBIN (BEAKER) (test 29.2 pg 25.6-32.2 mman=272) MEAN CORPUSCULAR HEMOGLOBIN CONC (BEAKER) (test 32.1 GM/DL 32.2-35.5 wooa=923) RED CELL DISTRIBUTION WIDTH (BEAKER) (test 15.5 % 11.7-14.4 rbpv=933) PLATELET COUNT (BEAKER) (test syhi=352) 360 K/CU MM 150-450 MEAN PLATELET VOLUME (BEAKER) (test rtjv=207) 8.6 fL 9.4-12.3 NUCLEATED RED BLOOD CELLS (BEAKER) (test 0 /100 WBC 0-0 yvml=843) NEUTROPHILS RELATIVE PERCENT (BEAKER) (test 76 % ytgu=271) LYMPHOCYTES RELATIVE PERCENT (BEAKER) (test 13 % sqqd=467) MONOCYTES RELATIVE PERCENT (BEAKER) (test 7 % umew=108) EOSINOPHILS RELATIVE PERCENT (BEAKER) (test 2 % pbgq=703) BASOPHILS RELATIVE PERCENT (BEAKER) (test 0 % lmxx=889) NEUTROPHILS ABSOLUTE COUNT (BEAKER) (test 6.04 K/ L 1.56-6.13 iwjm=592) LYMPHOCYTES ABSOLUTE COUNT (BEAKER) (test 1.00 K/ L 1.18-3.74 hdkx=472) MONOCYTES ABSOLUTE COUNT (BEAKER) (test 0.58 K/ L 0.24-0.36 uxkp=318) EOSINOPHILS ABSOLUTE COUNT (BEAKER) (test 0.17 K/ L 0.04-0.36 necr=203) BASOPHILS ABSOLUTE COUNT (BEAKER) (test 0.02 K/ L 0.01-0.08 oknd=658) IMMATURE GRANULOCYTES-RELATIVE PERCENT (BEAKER) 2 % 0-1 (test dhcw=5463) POCT-GLUCOSE [id number] 20:46:00 Test Item Value Reference Range Comments POC-GLUCOSE METER (BEAKER) 166 mg/dL 70-110 TESTED AT [facility] [address] [facility] (test buqf=1740) [facility] [address] POCT-GLUCOSE [id number] 17:33:00 Test Item Value Reference Range Comments POC-GLUCOSE METER (BEAKER) 143 mg/dL 70-110 TESTED AT [place] [id number] [facility] (test minc=2338) [facility] [address] POCT-GLUCOSE [id number] 12:40:00 Test Item Value Reference Range Comments POC-GLUCOSE METER (BEAKER) 120 mg/dL 70-110 TESTED AT [facility] [address] [facility] (test ecbp=9884) [facility] [address] [id number] 11:23:00 Test Item Value Reference Range Comments MAGNESIUM (BEAKER) (test 1.8 mg/dL 1.6-2.6 Specimen slightly hemolyzed imdv=331) [id number] 11:23:00 Test Item Value Reference Range Comments PHOSPHORUS (BEAKER) (test 3.3 mg/dL 2.3-4.7 Specimen slightly hemolyzed amda=840) BASIC METABOLIC [id number] 11:23:00 Test Item Value Reference Range Comments SODIUM (BEAKER) (test 135 meq/L 136-145 hxgc=158) POTASSIUM (BEAKER) (test 4.6 meq/L 3.5-5.1 Specimen slightly mvun=330) hemolyzed CHLORIDE (BEAKER) (test 104 meq/L 98-107 uhow=090) CO2 (BEAKER) (test 22 meq/L 22-29 ojhi=461) BLOOD UREA NITROGEN 16 mg/dL 7-21 (BEAKER) (test wwjb=900) CREATININE (BEAKER) (test 0.65 mg/dL 0.57-1.25 Specimen slightly eshz=116) hemolyzed GLUCOSE RANDOM (BEAKER) 85 mg/dL 70-105 (test sfnp=293) CALCIUM (BEAKER) (test 9.0 mg/dL 8.4-10.2 egwq=093) EGFR (BEAKER) (test 94 mL/min/1.73 sq m ESTIMATED GFR IS NOT hfle=4614) ACCURATE CREATININE CLEARANCE IN PREDICTING GLOMERULAR FILTRATION RATE. ESTIMATED GFR IS NOT APPLICABLE FOR DIALYSIS PATIENTS. CBC W/PLT COUNT & AUTO [id number] 10:48:00 Test Item Value Reference Range Comments WHITE BLOOD CELL COUNT (BEAKER) (test uqfh=915) 9.1 K/ L 3.5-10.5 RED BLOOD CELL COUNT (BEAKER) (test oeda=764) 3.44 M/ L 3.93-5.22 HEMOGLOBIN (BEAKER) (test rkxu=938) 10.0 GM/DL 11.2-15.7 HEMATOCRIT (BEAKER) (test eano=318) 32.4 % 34.1-44.9 MEAN CORPUSCULAR VOLUME (BEAKER) (test myey=741) 94.2 fL 79.4-94.8 MEAN CORPUSCULAR HEMOGLOBIN (BEAKER) (test 29.1 pg 25.6-32.2 yzwc=074) MEAN CORPUSCULAR HEMOGLOBIN CONC (BEAKER) (test 30.9 GM/DL 32.2-35.5 rrae=164) RED CELL DISTRIBUTION WIDTH (BEAKER) (test 15.5 % 11.7-14.4 jctt=130) PLATELET COUNT (BEAKER) (test tvdi=452) 423 K/CU MM 150-450 MEAN PLATELET VOLUME (BEAKER) (test fekt=463) 8.7 fL 9.4-12.3 NUCLEATED RED BLOOD CELLS (BEAKER) (test 0 /100 WBC 0-0 fdnm=620) NEUTROPHILS RELATIVE PERCENT (BEAKER) (test 73 % uois=392) LYMPHOCYTES RELATIVE PERCENT (BEAKER) (test 15 % dcnf=044) MONOCYTES RELATIVE PERCENT (BEAKER) (test 7 % keke=825) EOSINOPHILS RELATIVE PERCENT (BEAKER) (test 2 % geza=523) BASOPHILS RELATIVE PERCENT (BEAKER) (test 1 % mnwq=656) NEUTROPHILS ABSOLUTE COUNT (BEAKER) (test 6.67 K/ L 1.56-6.13 hnds=181) LYMPHOCYTES ABSOLUTE COUNT (BEAKER) (test 1.34 K/ L 1.18-3.74 vcvh=420) MONOCYTES ABSOLUTE COUNT (BEAKER) (test 0.65 K/ L 0.24-0.36 eqzj=411) EOSINOPHILS ABSOLUTE COUNT (BEAKER) (test 0.21 K/ L 0.04-0.36 pals=924) BASOPHILS ABSOLUTE COUNT (BEAKER) (test 0.06 K/ L 0.01-0.08 kewv=139) IMMATURE GRANULOCYTES-RELATIVE PERCENT (BEAKER) 2 % 0-1 (test nwla=1248) POCT-GLUCOSE [id number] 07:49:00 Test Item Value Reference Range Comments POC-GLUCOSE METER (BEAKER) 112 mg/dL 70-110 TESTED AT [address] (test xowq=6630) [facility] [address] POCT-GLUCOSE [id number] 20:36:00 Test Item Value Reference Range Comments POC-GLUCOSE METER (BEAKER) 166 mg/dL 70-110 TESTED AT [address] (test rtxp=4584) [facility] [address] POCT-GLUCOSE [id number] 16:55:00 Test Item Value Reference Range Comments POC-GLUCOSE METER (BEAKER) 131 mg/dL 70-110 TESTED AT [address] (test ozdh=0455) [facility] [address] POCT-GLUCOSE [id number] 11:56:00 Test Item Value Reference Range Comments POC-GLUCOSE METER (BEAKER) 150 mg/dL 70-110 TESTED AT [address] (test suzk=4884) [facility] [address] POCT-GLUCOSE [id number] 07:35:00 Test Item Value Reference Range Comments POC-GLUCOSE METER (BEAKER) 105 mg/dL 70-110 TESTED AT [address] (test yprk=3512) [facility] [address] [id number] 07:03:00 Test Item Value Reference Range Comments PHOSPHORUS (BEAKER) (test vckw=916) 3.6 mg/dL 2.3-4.7 [id number] 07:03:00 Test Item Value Reference Range Comments MAGNESIUM (BEAKER) (test mpbv=995) 1.6 mg/dL 1.6-2.6 BASIC METABOLIC [id number] 07:03:00 Test Item Value Reference Range Comments SODIUM (BEAKER) (test 136 meq/L 136-145 rrxm=746) POTASSIUM (BEAKER) (test 4.3 meq/L 3.5-5.1 nbiu=932) CHLORIDE (BEAKER) (test 107 meq/L 98-107 ljzf=087) CO2 (BEAKER) (test 24 meq/L 22-29 mwtf=783) BLOOD UREA NITROGEN 14 mg/dL 7-21 (BEAKER) (test iwlx=712) CREATININE (BEAKER) (test 0.59 mg/dL 0.57-1.25 knts=235) GLUCOSE RANDOM (BEAKER) 113 mg/dL 70-105 (test kqzn=002) CALCIUM (BEAKER) (test 8.7 mg/dL 8.4-10.2 mokt=953) EGFR (BEAKER) (test 105 mL/min/1.73 sq m ESTIMATED GFR IS NOT lqqg=3690) ACCURATE CREATININE CLEARANCE IN PREDICTING GLOMERULAR FILTRATION RATE. ESTIMATED GFR IS NOT APPLICABLE FOR DIALYSIS PATIENTS. CBC W/PLT COUNT & AUTO [id number] 06:49:00 Test Item Value Reference Range Comments WHITE BLOOD CELL COUNT (BEAKER) (test tscv=615) 7.9 K/ L 3.5-10.5 RED BLOOD CELL COUNT (BEAKER) (test rqbc=910) 3.10 M/ L 3.93-5.22 HEMOGLOBIN (BEAKER) (test zaex=318) 8.8 GM/DL 11.2-15.7 HEMATOCRIT (BEAKER) (test ihcu=332) 28.3 % 34.1-44.9 MEAN CORPUSCULAR VOLUME (BEAKER) (test xzqe=495) 91.3 fL 79.4-94.8 MEAN CORPUSCULAR HEMOGLOBIN (BEAKER) (test 28.4 pg 25.6-32.2 qgce=307) MEAN CORPUSCULAR HEMOGLOBIN CONC (BEAKER) (test 31.1 GM/DL 32.2-35.5 zqll=367) RED CELL DISTRIBUTION WIDTH (BEAKER) (test 14.9 % 11.7-14.4 ezdv=085) PLATELET COUNT (BEAKER) (test ydqz=463) 371 K/CU MM 150-450 MEAN PLATELET VOLUME (BEAKER) (test kpon=074) 8.5 fL 9.4-12.3 NUCLEATED RED BLOOD CELLS (BEAKER) (test 0 /100 WBC 0-0 tdej=328) NEUTROPHILS RELATIVE PERCENT (BEAKER) (test 73 % zerr=614) LYMPHOCYTES RELATIVE PERCENT (BEAKER) (test 14 % apbn=325) MONOCYTES RELATIVE PERCENT (BEAKER) (test 8 % joxs=487) EOSINOPHILS RELATIVE PERCENT (BEAKER) (test 3 % fdhz=302) BASOPHILS RELATIVE PERCENT (BEAKER) (test 0 % vyie=115) NEUTROPHILS ABSOLUTE COUNT (BEAKER) (test 5.71 K/ L 1.56-6.13 bxoz=381) LYMPHOCYTES ABSOLUTE COUNT (BEAKER) (test 1.10 K/ L 1.18-3.74 jjol=748) MONOCYTES ABSOLUTE COUNT (BEAKER) (test 0.59 K/ L 0.24-0.36 wkcu=829) EOSINOPHILS ABSOLUTE COUNT (BEAKER) (test 0.25 K/ L 0.04-0.36 vvuq=441) BASOPHILS ABSOLUTE COUNT (BEAKER) (test 0.03 K/ L 0.01-0.08 kyhn=478) IMMATURE GRANULOCYTES-RELATIVE PERCENT (BEAKER) 2 % 0-1 (test rjwj=5856) POCT-GLUCOSE [id number] 21:16:00 Test Item Value Reference Range Comments POC-GLUCOSE METER (BEAKER) 159 mg/dL 70-110 TESTED AT [address] (test tlmt=8746) [place] [id number] POCT-GLUCOSE [id number] 16:57:00 Test Item Value Reference Range Comments POC-GLUCOSE METER (BEAKER) 185 mg/dL 70-110 TESTED AT [address] (test pfbv=1191) [place] [address] POCT-GLUCOSE [id number] 11:30:00 Test Item Value Reference Range Comments POC-GLUCOSE METER (BEAKER) 142 mg/dL 70-110 TESTED AT [address] (test qvvm=0407) [place] [address] POCT-GLUCOSE [id number] 07:34:00 Test Item Value Reference Range Comments POC-GLUCOSE METER (BEAKER) 119 mg/dL 70-110 TESTED AT [address] (test twbh=6035) [place] [address] [id number] 07:15:00 Test Item Value Reference Range Comments MAGNESIUM (BEAKER) (test 1.9 mg/dL 1.6-2.6 Specimen moderately hemolyzed iuaj=749) [id number] 07:15:00 Test Item Value Reference Range Comments PHOSPHORUS (BEAKER) (test 3.9 mg/dL 2.3-4.7 Specimen moderately hemolyzed vkeh=598) BASIC METABOLIC [id number] 07:15:00 Test Item Value Reference Range Comments SODIUM (BEAKER) (test 135 meq/L 136-145 znex=396) POTASSIUM (BEAKER) (test 4.8 meq/L 3.5-5.1 Specimen moderately uens=890) hemolyzed CHLORIDE (BEAKER) (test 105 meq/L 98-107 tovf=877) CO2 (BEAKER) (test 22 meq/L 22-29 uvvw=720) BLOOD UREA NITROGEN 11 mg/dL 7-21 (BEAKER) (test prxj=198) CREATININE (BEAKER) (test 0.59 mg/dL 0.57-1.25 Specimen moderately cvbz=475) hemolyzed GLUCOSE RANDOM (BEAKER) 130 mg/dL 70-105 (test abpn=601) CALCIUM (BEAKER) (test 8.4 mg/dL 8.4-10.2 omxt=637) EGFR (BEAKER) (test 105 mL/min/1.73 sq m ESTIMATED GFR IS NOT slnu=2011) ACCURATE CREATININE CLEARANCE IN PREDICTING GLOMERULAR FILTRATION RATE. ESTIMATED GFR IS NOT APPLICABLE FOR DIALYSIS PATIENTS. CBC W/PLT COUNT & AUTO [id number] 06:34:00 Test Item Value Reference Range Comments WHITE BLOOD CELL COUNT (BEAKER) (test lejc=369) 7.7 K/ L 3.5-10.5 RED BLOOD CELL COUNT (BEAKER) (test xufo=080) 3.03 M/ L 3.93-5.22 HEMOGLOBIN (BEAKER) (test mskd=092) 8.8 GM/DL 11.2-15.7 HEMATOCRIT (BEAKER) (test xbrj=499) 27.9 % 34.1-44.9 MEAN CORPUSCULAR VOLUME (BEAKER) (test ymkx=368) 92.1 fL 79.4-94.8 MEAN CORPUSCULAR HEMOGLOBIN (BEAKER) (test 29.0 pg 25.6-32.2 zbto=888) MEAN CORPUSCULAR HEMOGLOBIN CONC (BEAKER) (test 31.5 GM/DL 32.2-35.5 rztz=249) RED CELL DISTRIBUTION WIDTH (BEAKER) (test 14.7 % 11.7-14.4 jetu=066) PLATELET COUNT (BEAKER) (test sldy=055) 361 K/CU MM 150-450 MEAN PLATELET VOLUME (BEAKER) (test qcwc=598) 9.5 fL 9.4-12.3 NUCLEATED RED BLOOD CELLS (BEAKER) (test 0 /100 WBC 0-0 aeex=965) NEUTROPHILS RELATIVE PERCENT (BEAKER) (test 76 % flrz=795) LYMPHOCYTES RELATIVE PERCENT (BEAKER) (test 12 % pqjf=296) MONOCYTES RELATIVE PERCENT (BEAKER) (test 7 % crxr=090) EOSINOPHILS RELATIVE PERCENT (BEAKER) (test 3 % ojji=602) BASOPHILS RELATIVE PERCENT (BEAKER) (test 0 % exvb=244) NEUTROPHILS ABSOLUTE COUNT (BEAKER) (test 5.86 K/ L 1.56-6.13 kimk=739) LYMPHOCYTES ABSOLUTE COUNT (BEAKER) (test 0.95 K/ L 1.18-3.74 rmzn=165) MONOCYTES ABSOLUTE COUNT (BEAKER) (test 0.54 K/ L 0.24-0.36 ujcz=157) EOSINOPHILS ABSOLUTE COUNT (BEAKER) (test 0.20 K/ L 0.04-0.36 avuu=408) BASOPHILS ABSOLUTE COUNT (BEAKER) (test 0.03 K/ L 0.01-0.08 ojgk=033) IMMATURE GRANULOCYTES-RELATIVE PERCENT (BEAKER) 2 % 0-1 (test dbyj=7227) POCT-GLUCOSE [id number] 21:24:00 Test Item Value Reference Range Comments POC-GLUCOSE METER (BEAKER) 119 mg/dL 70-110 TESTED AT [address] (test ukkr=3658) [place] [address] ANAEROBIC [id number] 18:58:00 Test Item Value Reference Range Comments CULTURE (BEAKER) (test jssb=8945) No anaerobes isolated POCT-GLUCOSE [id number] 18:10:00 Test Item Value Reference Range Comments POC-GLUCOSE METER (BEAKER) 153 mg/dL 70-110 TESTED AT [address] (test zfkp=2200) [place] [address] POCT-GLUCOSE [id number] 12:14:00 Test Item Value Reference Range Comments POC-GLUCOSE METER (BEAKER) 176 mg/dL 70-110 TESTED AT [address] (test msrv=7663) [place] [address] POCT-GLUCOSE [id number] 08:13:00 Test Item Value Reference Range Comments POC-GLUCOSE METER (BEAKER) 149 mg/dL 70-110 TESTED AT [facility] [address] (test jdow=8030) [facility] [address] [id number] 05:36:00 Test Item Value Reference Range Comments PHOSPHORUS (BEAKER) (test plcn=939) 4.1 mg/dL 2.3-4.7 [id number] 05:36:00 Test Item Value Reference Range Comments MAGNESIUM (BEAKER) (test oxew=463) 1.6 mg/dL 1.6-2.6 BASIC METABOLIC [id number] 05:36:00 Test Item Value Reference Range Comments SODIUM (BEAKER) (test 136 meq/L 136-145 sftq=340) POTASSIUM (BEAKER) (test 4.5 meq/L 3.5-5.1 dvgt=073) CHLORIDE (BEAKER) (test 104 meq/L 98-107 gkgh=586) CO2 (BEAKER) (test 26 meq/L 22-29 oazy=011) BLOOD UREA NITROGEN 12 mg/dL 7-21 (BEAKER) (test oocz=805) CREATININE (BEAKER) (test 0.61 mg/dL 0.57-1.25 trbj=835) GLUCOSE RANDOM (BEAKER) 127 mg/dL 70-105 (test yrmv=711) CALCIUM (BEAKER) (test 8.8 mg/dL 8.4-10.2 lerz=392) EGFR (BEAKER) (test 101 mL/min/1.73 sq m ESTIMATED GFR IS NOT ifcv=2816) ACCURATE CREATININE CLEARANCE IN PREDICTING GLOMERULAR FILTRATION RATE. ESTIMATED GFR IS NOT APPLICABLE FOR DIALYSIS PATIENTS. CBC W/PLT COUNT & AUTO [id number] 05:13:00 Test Item Value Reference Range Comments WHITE BLOOD CELL COUNT (BEAKER) (test tbaw=151) 9.0 K/ L 3.5-10.5 RED BLOOD CELL COUNT (BEAKER) (test ehxy=256) 3.12 M/ L 3.93-5.22 HEMOGLOBIN (BEAKER) (test teti=336) 8.9 GM/DL 11.2-15.7 HEMATOCRIT (BEAKER) (test tshr=789) 27.9 % 34.1-44.9 MEAN CORPUSCULAR VOLUME (BEAKER) (test bccv=431) 89.4 fL 79.4-94.8 MEAN CORPUSCULAR HEMOGLOBIN (BEAKER) (test 28.5 pg 25.6-32.2 thdg=400) MEAN CORPUSCULAR HEMOGLOBIN CONC (BEAKER) (test 31.9 GM/DL 32.2-35.5 taxf=532) RED CELL DISTRIBUTION WIDTH (BEAKER) (test 14.7 % 11.7-14.4 ddiq=825) PLATELET COUNT (BEAKER) (test xnln=819) 433 K/CU MM 150-450 MEAN PLATELET VOLUME (BEAKER) (test bhim=927) 8.4 fL 9.4-12.3 NUCLEATED RED BLOOD CELLS (BEAKER) (test 0 /100 WBC 0-0 mmjd=061) NEUTROPHILS RELATIVE PERCENT (BEAKER) (test 76 % gfua=048) LYMPHOCYTES RELATIVE PERCENT (BEAKER) (test 11 % mypy=259) MONOCYTES RELATIVE PERCENT (BEAKER) (test 6 % xgbb=222) EOSINOPHILS RELATIVE PERCENT (BEAKER) (test 3 % adnj=738) BASOPHILS RELATIVE PERCENT (BEAKER) (test 0 % xwpm=264) NEUTROPHILS ABSOLUTE COUNT (BEAKER) (test 6.87 K/ L 1.56-6.13 rsha=578) LYMPHOCYTES ABSOLUTE COUNT (BEAKER) (test 1.02 K/ L 1.18-3.74 vywu=676) MONOCYTES ABSOLUTE COUNT (BEAKER) (test 0.56 K/ L 0.24-0.36 mtvg=894) EOSINOPHILS ABSOLUTE COUNT (BEAKER) (test 0.29 K/ L 0.04-0.36 atbe=773) BASOPHILS ABSOLUTE COUNT (BEAKER) (test 0.03 K/ L 0.01-0.08 whth=173) IMMATURE GRANULOCYTES-RELATIVE PERCENT (BEAKER) 3 % 0-1 (test bjla=3797) POCT-GLUCOSE [id number] 21:49:00 Test Item Value Reference Range Comments POC-GLUCOSE METER (BEAKER) 175 mg/dL 70-110 TESTED AT [address] (test kfhk=3162) [place] [address] POCT-GLUCOSE [id number] 16:39:00 Test Item Value Reference Range Comments POC-GLUCOSE METER (BEAKER) 171 mg/dL 70-110 TESTED AT [address] (test afla=6827) [place] [address] CBC W/PLT COUNT & AUTO [id number] 13:31:00 Test Item Value Reference Range Comments WHITE BLOOD CELL COUNT (BEAKER) (test tbmq=834) 7.4 K/ L 3.5-10.5 RED BLOOD CELL COUNT (BEAKER) (test jpxl=381) 2.90 M/ L 3.93-5.22 HEMOGLOBIN (BEAKER) (test pdzy=578) 8.5 GM/DL 11.2-15.7 HEMATOCRIT (BEAKER) (test zkws=657) 26.2 % 34.1-44.9 MEAN CORPUSCULAR VOLUME (BEAKER) (test jodd=977) 90.3 fL 79.4-94.8 MEAN CORPUSCULAR HEMOGLOBIN (BEAKER) (test 29.3 pg 25.6-32.2 wnon=826) MEAN CORPUSCULAR HEMOGLOBIN CONC (BEAKER) (test 32.4 GM/DL 32.2-35.5 tasa=027) RED CELL DISTRIBUTION WIDTH (BEAKER) (test 14.7 % 11.7-14.4 ypce=837) PLATELET COUNT (BEAKER) (test eonj=084) 380 K/CU MM 150-450 MEAN PLATELET VOLUME (BEAKER) (test mdrb=634) 8.4 fL 9.4-12.3 NUCLEATED RED BLOOD CELLS (BEAKER) (test 0 /100 WBC 0-0 qvut=428) NEUTROPHILS RELATIVE PERCENT (BEAKER) (test 73 % tlqb=422) LYMPHOCYTES RELATIVE PERCENT (BEAKER) (test 13 % ryuv=357) MONOCYTES RELATIVE PERCENT (BEAKER) (test 7 % kapc=290) EOSINOPHILS RELATIVE PERCENT (BEAKER) (test 3 % nkdt=180) BASOPHILS RELATIVE PERCENT (BEAKER) (test 1 % tgbw=463) NEUTROPHILS ABSOLUTE COUNT (BEAKER) (test 5.37 K/ L 1.56-6.13 ojze=515) LYMPHOCYTES ABSOLUTE COUNT (BEAKER) (test 0.96 K/ L 1.18-3.74 hdex=968) MONOCYTES ABSOLUTE COUNT (BEAKER) (test 0.49 K/ L 0.24-0.36 ochu=786) EOSINOPHILS ABSOLUTE COUNT (BEAKER) (test 0.24 K/ L 0.04-0.36 noli=683) BASOPHILS ABSOLUTE COUNT (BEAKER) (test 0.04 K/ L 0.01-0.08 ccdj=937) IMMATURE GRANULOCYTES-RELATIVE PERCENT (BEAKER) 4 % 0-1 (test zqre=3157) (MANUAL DIFFERENTIAL)2017-03-16 13:31:00 Test Item Value Reference Range Comments NEUTROPHILS - REL (DIFF) (BEAKER) (test puut=8377) 78 % LYMPHOCYTES - REL (DIFF) (BEAKER) (test flmi=6030) 10 % MONOCYTES - REL (DIFF) (BEAKER) (test buyu=4117) 3 % EOSINOPHILS - REL (DIFF) (BEAKER) (test xtkg=3718) 2 % BASOPHILS - REL (DIFF) (BEAKER) (test zzvz=3776) 1 % METAMYELOCYTES-REL (DIFF) (BEAKER) (test pwud=154) 1 % 0-0 BANDS - REL (DIFF) (BEAKER) (test tbax=3188) 5 % 0-10 NEUTROPHILS - ABS (DIFF) (BEAKER) (test payz=3020) 5.77 K/ L 1.80-8.00 LYMPHOCYTES - ABS (DIFF) (BEAKER) (test tyui=7305) 0.74 K/ L 1.48-4.50 MONOCYTES - ABS (DIFF) (BEAKER) (test wnyn=0322) 0.22 K/ L 0.00-1.30 EOSINOPHILS - ABS (DIFF) (BEAKER) (test cysk=5685) 0.15 K/ L 0.00-0.50 BASOPHILS - ABS (DIFF) (BEAKER) (test ylkr=6453) 0.07 K/ L 0.00-0.20 METAMYELOCTYES - ABS (DIFF) (BEAKER) (test 0.07 K/ L 0.00-0.00 ofzj=279) BANDS-ABS (DIFF) (BEAKER) (test eful=5015) 0.4 K/ L 0.0-0.8 TOTAL COUNTED (BEAKER) (test lkon=2795) 100 BANDS + SEGMENTED NEUTROPHILS (BEAKER) (test 6.14 kqim=2047) WBC MORPHOLOGY (BEAKER) (test ucip=213) Normal PLT MORPHOLOGY (BEAKER) (test ajjg=178) Normal ANISOCYTOSIS (BEAKER) (test uzfe=621) 1+ few HYPOCHROMIA (BEAKER) (test ennw=467) 1+ few POIKILOCYTES (BEAKER) (test rhsd=803) 1+ few POLYCHROMATOPHILLIC RBCS(BEAKER) (test pmnt=386) 1+ few POCT-GLUCOSE [id number] 12:33:00 Test Item Value Reference Range Comments POC-GLUCOSE METER (BEAKER) 121 mg/dL 70-110 TESTED AT [facility] [address] [facility] (test cfou=8853) [facility] [address] POCT-GLUCOSE [id number] 08:46:00 Test Item Value Reference Range Comments POC-GLUCOSE METER (BEAKER) 94 mg/dL 70-110 TESTED AT [place] [id number] [facility] (test okpe=8996) [facility] [address] [id number] 07:18:00 Test Item Value Reference Range Comments PHOSPHORUS (BEAKER) (test iymc=447) 3.5 mg/dL 2.3-4.7 [id number] 07:18:00 Test Item Value Reference Range Comments MAGNESIUM (BEAKER) (test totn=748) 1.7 mg/dL 1.6-2.6 COMPREHENSIVE METABOLIC [id number] 07:18:00 Test Item Value Reference Range Comments TOTAL PROTEIN (BEAKER) 6.4 gm/dL 6.0-8.3 (test juof=559) ALBUMIN (BEAKER) (test 2.6 g/dL 3.5-5.0 mmbk=5539) ALKALINE PHOSPHATASE 72 U/L 40-150 (BEAKER) (test qbjr=620) BILIRUBIN TOTAL (BEAKER) 0.3 mg/dL 0.2-1.2 (test wqpd=281) SODIUM (BEAKER) (test 134 meq/L 136-145 ftso=223) POTASSIUM (BEAKER) (test 4.4 meq/L 3.5-5.1 xgyz=578) CHLORIDE (BEAKER) (test 106 meq/L 98-107 qsbu=325) CO2 (BEAKER) (test 21 meq/L 22-29 lfyp=094) BLOOD UREA NITROGEN 10 mg/dL 7-21 (BEAKER) (test arbj=531) CREATININE (BEAKER) (test 0.55 mg/dL 0.57-1.25 jrlj=809) GLUCOSE RANDOM (BEAKER) 104 mg/dL 70-105 (test kobb=353) CALCIUM (BEAKER) (test 8.4 mg/dL 8.4-10.2 qrms=013) AST (SGOT) (BEAKER) (test 37 U/L 5-34 djxk=592) ALT (SGPT) (BEAKER) (test 52 U/L 6-55 xegk=032) EGFR (BEAKER) (test 114 mL/min/1.73 sq ESTIMATED GFR IS NOT yode=6776) m ACCURATE CREATININE CLEARANCE IN PREDICTING GLOMERULAR FILTRATION RATE. ESTIMATED GFR IS NOT APPLICABLE FOR DIALYSIS PATIENTS. IRON, TIBC, % SAT. (WITHOUT FERRITIN)2017-03-16 06:46:00 Test Item Value Reference Range Comments IRON (BEAKER) (test cpwa=121) 28 ug/dL 40-160 TOTAL IRON BINDING CAPACITY (BEAKER) (test 128 ug/dL 250-450 poca=070) IRON % SATURATION (2) (BEAKER) (test drkh=7094) 22 % 20-55 POCT-GLUCOSE [id number] 23:36:00 Test Item Value Reference Range Comments POC-GLUCOSE METER (BEAKER) 174 mg/dL 70-110 TESTED AT [address] (test aetj=4505) [facility] [address] SURGICALLY OBTAINED CULTURE + GRAM [id number] 07:50:00 Test Item Value Reference Range Comments CULTURE (BEAKER) (test yzdm=1881) No growth GRAM STAIN RESULT (BEAKER) (test <1+ WBCs gljv=4327) GRAM STAIN RESULT (BEAKER) (test No organisms seen myuu=14685) [id number] 05:40:00 Test Item Value Reference Range Comments PHOSPHORUS (BEAKER) (test cncg=878) 3.2 mg/dL 2.3-4.7 [id number] 05:40:00 Test Item Value Reference Range Comments MAGNESIUM (BEAKER) (test tfte=801) 1.7 mg/dL 1.6-2.6 BASIC METABOLIC [id number] 05:40:00 Test Item Value Reference Range Comments SODIUM (BEAKER) (test 135 meq/L 136-145 dwru=158) POTASSIUM (BEAKER) (test 4.1 meq/L 3.5-5.1 vdyl=061) CHLORIDE (BEAKER) (test 104 meq/L 98-107 juwd=266) CO2 (BEAKER) (test 24 meq/L 22-29 cpiq=520) BLOOD UREA NITROGEN 11 mg/dL 7-21 (BEAKER) (test yaph=658) CREATININE (BEAKER) (test 0.56 mg/dL 0.57-1.25 drqs=887) GLUCOSE RANDOM (BEAKER) 128 mg/dL 70-105 (test kkrj=324) CALCIUM (BEAKER) (test 8.2 mg/dL 8.4-10.2 itta=502) EGFR (BEAKER) (test 112 mL/min/1.73 sq m ESTIMATED GFR IS NOT xjet=5579) ACCURATE CREATININE CLEARANCE IN PREDICTING GLOMERULAR FILTRATION RATE. ESTIMATED GFR IS NOT APPLICABLE FOR DIALYSIS PATIENTS. CBC W/PLT COUNT & AUTO [id number] 05:37:00 Test Item Value Reference Range Comments WHITE BLOOD CELL COUNT (BEAKER) (test zqay=400) 7.5 K/ L 3.5-10.5 RED BLOOD CELL COUNT (BEAKER) (test qhqy=826) 2.47 M/ L 3.93-5.22 HEMOGLOBIN (BEAKER) (test xlzk=474) 7.0 GM/DL 11.2-15.7 HEMATOCRIT (BEAKER) (test gtce=729) 21.9 % 34.1-44.9 MEAN CORPUSCULAR VOLUME (BEAKER) (test hchf=124) 88.7 fL 79.4-94.8 MEAN CORPUSCULAR HEMOGLOBIN (BEAKER) (test 28.3 pg 25.6-32.2 rfrr=602) MEAN CORPUSCULAR HEMOGLOBIN CONC (BEAKER) (test 32.0 GM/DL 32.2-35.5 ugcb=092) RED CELL DISTRIBUTION WIDTH (BEAKER) (test 14.6 % 11.7-14.4 yvmc=153) PLATELET COUNT (BEAKER) (test zdmn=724) 376 K/CU MM 150-450 MEAN PLATELET VOLUME (BEAKER) (test qgyi=313) 8.7 fL 9.4-12.3 NUCLEATED RED BLOOD CELLS (BEAKER) (test 0 /100 WBC 0-0 cwcm=640) NEUTROPHILS RELATIVE PERCENT (BEAKER) (test 74 % vpkm=052) LYMPHOCYTES RELATIVE PERCENT (BEAKER) (test 12 % kmbq=781) MONOCYTES RELATIVE PERCENT (BEAKER) (test 7 % buuw=026) EOSINOPHILS RELATIVE PERCENT (BEAKER) (test 2 % mcja=934) BASOPHILS RELATIVE PERCENT (BEAKER) (test 0 % mhdb=498) NEUTROPHILS ABSOLUTE COUNT (BEAKER) (test 5.58 K/ L 1.56-6.13 eces=487) LYMPHOCYTES ABSOLUTE COUNT (BEAKER) (test 0.90 K/ L 1.18-3.74 mqzy=903) MONOCYTES ABSOLUTE COUNT (BEAKER) (test 0.54 K/ L 0.24-0.36 npav=120) EOSINOPHILS ABSOLUTE COUNT (BEAKER) (test 0.17 K/ L 0.04-0.36 qptc=714) BASOPHILS ABSOLUTE COUNT (BEAKER) (test 0.03 K/ L 0.01-0.08 iyvd=646) IMMATURE GRANULOCYTES-RELATIVE PERCENT (BEAKER) 4 % 0-1 (test ugdg=6361) POCT-GLUCOSE [id number] 17:52:00 Test Item Value Reference Range Comments POC-GLUCOSE METER (BEAKER) 120 mg/dL 70-110 TESTED AT [address] (test pfjo=1521) [place] [address] HEMOGLOBIN AND [id number] 16:27:00 Test Item Value Reference Range Comments HEMOGLOBIN (BEAKER) (test canu=364) 7.3 GM/DL 11.2-15.7 HEMATOCRIT (BEAKER) (test hdjz=343) 22.8 % 34.1-44.9 POCT-GLUCOSE [id number] 14:45:00 Test Item Value Reference Range Comments POC-GLUCOSE METER (BEAKER) 127 mg/dL 70-110 TESTED AT [address] (test eadu=8117) [place] [address] POCT-GLUCOSE [id number] 11:32:00 Test Item Value Reference Range Comments POC-GLUCOSE METER (BEAKER) 196 mg/dL 70-110 TESTED AT [address] (test ugdf=8967) [place] [address] POCT-GLUCOSE [id number] 08:24:00 Test Item Value Reference Range Comments POC-GLUCOSE METER (BEAKER) 114 mg/dL 70-110 TESTED AT [address] (test vecj=0894) [place] [address] CBC W/PLT COUNT & AUTO [id number] 05:46:00 Test Item Value Reference Range Comments WHITE BLOOD CELL COUNT (BEAKER) (test lrir=787) 8.7 K/ L 3.5-10.5 RED BLOOD CELL COUNT (BEAKER) (test rqyr=282) 2.71 M/ L 3.93-5.22 HEMOGLOBIN (BEAKER) (test paja=047) 7.7 GM/DL 11.2-15.7 HEMATOCRIT (BEAKER) (test janm=265) 23.5 % 34.1-44.9 MEAN CORPUSCULAR VOLUME (BEAKER) (test mrom=253) 86.7 fL 79.4-94.8 MEAN CORPUSCULAR HEMOGLOBIN (BEAKER) (test 28.4 pg 25.6-32.2 oyue=202) MEAN CORPUSCULAR HEMOGLOBIN CONC (BEAKER) (test 32.8 GM/DL 32.2-35.5 seaz=704) RED CELL DISTRIBUTION WIDTH (BEAKER) (test 14.0 % 11.7-14.4 gzzh=153) PLATELET COUNT (BEAKER) (test fvoh=874) 345 K/CU MM 150-450 MEAN PLATELET VOLUME (BEAKER) (test cugt=505) 8.8 fL 9.4-12.3 NUCLEATED RED BLOOD CELLS (BEAKER) (test 0 /100 WBC 0-0 mfyb=522) NEUTROPHILS RELATIVE PERCENT (BEAKER) (test 83 % rzoa=354) LYMPHOCYTES RELATIVE PERCENT (BEAKER) (test 8 % uxnk=997) MONOCYTES RELATIVE PERCENT (BEAKER) (test 7 % pitd=576) EOSINOPHILS RELATIVE PERCENT (BEAKER) (test 1 % bshm=137) BASOPHILS RELATIVE PERCENT (BEAKER) (test 0 % khkr=814) NEUTROPHILS ABSOLUTE COUNT (BEAKER) (test 7.19 K/ L 1.56-6.13 gqxk=629) LYMPHOCYTES ABSOLUTE COUNT (BEAKER) (test 0.68 K/ L 1.18-3.74 ivtp=779) MONOCYTES ABSOLUTE COUNT (BEAKER) (test 0.63 K/ L 0.24-0.36 krfq=839) EOSINOPHILS ABSOLUTE COUNT (BEAKER) (test 0.04 K/ L 0.04-0.36 tbbe=737) BASOPHILS ABSOLUTE COUNT (BEAKER) (test 0.01 K/ L 0.01-0.08 jtmx=127) IMMATURE GRANULOCYTES-RELATIVE PERCENT (BEAKER) 2 % 0-1 (test kodk=6265) [id number] 05:39:00 Test Item Value Reference Range Comments PHOSPHORUS (BEAKER) (test teow=226) 2.8 mg/dL 2.3-4.7 [id number] 05:39:00 Test Item Value Reference Range Comments MAGNESIUM (BEAKER) (test tfud=837) 1.7 mg/dL 1.6-2.6 BASIC METABOLIC [id number] 05:39:00 Test Item Value Reference Range Comments SODIUM (BEAKER) (test 134 meq/L 136-145 tdbt=072) POTASSIUM (BEAKER) (test 4.2 meq/L 3.5-5.1 hawg=848) CHLORIDE (BEAKER) (test 104 meq/L 98-107 gqbh=600) CO2 (BEAKER) (test 25 meq/L 22-29 rdev=339) BLOOD UREA NITROGEN 10 mg/dL 7-21 (BEAKER) (test mndn=650) CREATININE (BEAKER) (test 0.57 mg/dL 0.57-1.25 vqds=133) GLUCOSE RANDOM (BEAKER) 131 mg/dL 70-105 (test oxjh=843) CALCIUM (BEAKER) (test 8.2 mg/dL 8.4-10.2 bzzw=966) EGFR (BEAKER) (test 109 mL/min/1.73 sq m ESTIMATED GFR IS NOT qupr=2578) ACCURATE CREATININE CLEARANCE IN PREDICTING GLOMERULAR FILTRATION RATE. ESTIMATED GFR IS NOT APPLICABLE FOR DIALYSIS PATIENTS. POCT-GLUCOSE [id number] 23:07:00 Test Item Value Reference Range Comments POC-GLUCOSE METER (BEAKER) 166 mg/dL 70-110 TESTED AT [address] (test zybj=2790) [place] [id number] POCT-GLUCOSE [id number] 18:11:00 Test Item Value Reference Range Comments POC-GLUCOSE METER (BEAKER) 155 mg/dL 70-110 TESTED AT [address] (test okfm=6985) [facility] [address] SPIN/CONCENTRATION [id number] 16:53:00 Test Item Value Reference Range Comments CONCENTRATION CHARGED (BEAKER) (test ttqb=9306) Done OSMOLALITY, [id number] 12:42:00 Test Item Value Reference Range Comments OSMOLALITY URINE (BEAKER) (test puku=136) 295 mOsm/kg 40-1400 POCT-GLUCOSE [id number] 12:13:00 Test Item Value Reference Range Comments POC-GLUCOSE METER (BEAKER) 137 mg/dL 70-110 TESTED AT [address] (test ziss=2651) [place] [address] [id number] 12:05:00 Test Item Value Reference Range Comments MAGNESIUM (BEAKER) (test rjgz=658) 1.8 mg/dL 1.6-2.6 POCT-GLUCOSE [id number] 08:19:00 Test Item Value Reference Range Comments POC-GLUCOSE METER (BEAKER) 151 mg/dL 70-110 TESTED AT [address] (test gizr=8891) [place] [id number] BASIC METABOLIC [id number] 04:02:00 Test Item Value Reference Range Comments SODIUM (BEAKER) (test 132 meq/L 136-145 fflo=967) POTASSIUM (BEAKER) (test 4.6 meq/L 3.5-5.1 nzie=063) CHLORIDE (BEAKER) (test 105 meq/L 98-107 zrul=082) CO2 (BEAKER) (test 21 meq/L 22-29 ffkj=008) BLOOD UREA NITROGEN 9 mg/dL 7-21 (BEAKER) (test twel=294) CREATININE (BEAKER) (test 0.62 mg/dL 0.57-1.25 ngnt=386) GLUCOSE RANDOM (BEAKER) 138 mg/dL 70-105 (test gdvv=013) CALCIUM (BEAKER) (test 8.2 mg/dL 8.4-10.2 innk=198) EGFR (BEAKER) (test 99 mL/min/1.73 sq m ESTIMATED GFR IS NOT jfnf=5755) ACCURATE CREATININE CLEARANCE IN PREDICTING GLOMERULAR FILTRATION RATE. ESTIMATED GFR IS NOT APPLICABLE FOR DIALYSIS PATIENTS. [id number] 04:00:00 Test Item Value Reference Range Comments PHOSPHORUS (BEAKER) (test wpvf=192) 3.6 mg/dL 2.3-4.7 [id number] 04:00:00 Test Item Value Reference Range Comments MAGNESIUM (BEAKER) (test vdom=267) 1.6 mg/dL 1.6-2.6 CBC W/PLT COUNT & AUTO [id number] 03:53:00 Test Item Value Reference Range Comments WHITE BLOOD CELL COUNT (BEAKER) (test tslw=966) 8.4 K/ L 3.5-10.5 RED BLOOD CELL COUNT (BEAKER) (test mlid=249) 2.92 M/ L 3.93-5.22 HEMOGLOBIN (BEAKER) (test eozr=017) 8.3 GM/DL 11.2-15.7 HEMATOCRIT (BEAKER) (test wrze=162) 25.5 % 34.1-44.9 MEAN CORPUSCULAR VOLUME (BEAKER) (test dide=464) 87.3 fL 79.4-94.8 MEAN CORPUSCULAR HEMOGLOBIN (BEAKER) (test 28.4 pg 25.6-32.2 vulu=057) MEAN CORPUSCULAR HEMOGLOBIN CONC (BEAKER) (test 32.5 GM/DL 32.2-35.5 xsnb=089) RED CELL DISTRIBUTION WIDTH (BEAKER) (test 13.4 % 11.7-14.4 kthy=442) PLATELET COUNT (BEAKER) (test ixaz=062) 327 K/CU MM 150-450 MEAN PLATELET VOLUME (BEAKER) (test nuvv=794) 8.9 fL 9.4-12.3 NUCLEATED RED BLOOD CELLS (BEAKER) (test 0 /100 WBC 0-0 teyy=743) NEUTROPHILS RELATIVE PERCENT (BEAKER) (test 92 % xjge=209) LYMPHOCYTES RELATIVE PERCENT (BEAKER) (test 4 % xcmf=203) MONOCYTES RELATIVE PERCENT (BEAKER) (test 3 % xtje=586) EOSINOPHILS RELATIVE PERCENT (BEAKER) (test 0 % fzga=216) BASOPHILS RELATIVE PERCENT (BEAKER) (test 0 % bzaf=274) NEUTROPHILS ABSOLUTE COUNT (BEAKER) (test 7.75 K/ L 1.56-6.13 xugl=582) LYMPHOCYTES ABSOLUTE COUNT (BEAKER) (test 0.37 K/ L 1.18-3.74 zlfm=858) MONOCYTES ABSOLUTE COUNT (BEAKER) (test 0.26 K/ L 0.24-0.36 awnt=793) EOSINOPHILS ABSOLUTE COUNT (BEAKER) (test 0.00 K/ L 0.04-0.36 nded=321) BASOPHILS ABSOLUTE COUNT (BEAKER) (test 0.01 K/ L 0.01-0.08 mcov=785) IMMATURE GRANULOCYTES-RELATIVE PERCENT (BEAKER) 1 % 0-1 (test qbnk=6253) POCT-GLUCOSE [id number] 22:18:00 Test Item Value Reference Range Comments POC-GLUCOSE METER (BEAKER) 178 mg/dL 70-110 TESTED AT [address] (test prfa=9765) [facility] [address] HIV-1 ANTIGEN WITH HIV-1/2 [id number] 21:37:00 Test Item Value Reference Range Comments HIV-1 ANTIGEN WITH HIV 1\\T\\2 ANTIBODY (2) Nonreactive Nonreactive (BEAKER) (test tvmf=0960) RAD, CHEST, 1 VIEW, NON [id number] 20:16:00Reason for exam:->cough, evaluate for pneumoniaShould this be performed at the bedside?->YesFINAL REPORT Chest one view AP 03/12/2017 8:15 PM CLINICAL INDICATION: cough, evaluate for pneumonia COMPARISON: 03/02/2017 IMPRESSION: Subsegmental opacity in the retrocardiac leftlower lobe suggests atelectasis. The right lung is well aerated. Cardiomediastinal contours are within normal limits. The central pulmonary vasculature is not engorged. There are postsurgical changes in the thoracic spine, with partially visualized catheter tubing in the right neck and upper thorax. There are surgical clips in the gallbladder fossa. Signed: Italo Vieira Verified Date/Time: 2016 20:16:07 Reading Location: [facility] Radiology Reading Room POCT- GLUCOSE [id number] 16:53:00 Test Item Value Reference Range Comments POC-GLUCOSE METER (BEAKER) 139 mg/dL 70-110 TESTED AT [address] (test hdqu=8087) [facility] [address] [place] [employer] IN OR/30 MINUTE [id number] 15:01:00Reason for exam:-> stenosisIs the patient ?->NoWhen was patient's last menstrual cycle?- >03/12/17FINAL REPORT Intraoperative fluoroscopy films performed by the referring physician. Number of images: 3Fluoroscopic time: 7.3 seconds The films were submitted to PACS postprocedure. The radiologist was not present at the time of examination. An interpretation was not requested.The submitted images are nondiagnostic without real-time visualization. Please refer to the performing physician's dictation for any and all details regarding the procedure including the submitted images. The radiologist did not perform fluoroscopy. Signed: Vandana Yung Verified Date/Time:03/12/2017 15:01 :36 Reading Location: [address] Consult Reading Room [facility], [employer] IN OR/30 MINUTE [id number] 11:28:00Reason for exam:->thoracic laminectomy; fusion.FINAL REPORT Single fluoroscopic frontal upper thoracic spine image. Fluoroscopy was not performed by the undersigned. Fluoroscopy time 4.8 seconds. A curette projects along the upper thoracic paraspinal region. Vertebral level determination is not definitive. Curette is probably at the T2 level. Imaging details and level uncertainty were discussed with Dr. Villafuerte in the operating room who was in agreement. Signed: Barber Cooper Verified Date/Time: 03/12/2017 11:28:06Reading Location: [facility] C013V Neuro Reading Room Electronically signed by: BARBER COOPER M.D.on 11:28 AMTSH/FREE T4 IF [id number] 05:48:00 Test Item Value Reference Range Comments THYROID STIMULATING HORMONE (BEAKER) (test 1.63 uIU/mL 0.35-4.94 esvi=560) COMPREHENSIVE METABOLIC [id number] 05:18:00 Test Item Value Reference Range Comments TOTAL PROTEIN (BEAKER) 8.1 gm/dL 6.0-8.3 (test xgrm=926) ALBUMIN (BEAKER) (test 3.3 g/dL 3.5-5.0 chmx=6668) ALKALINE PHOSPHATASE 125 U/L 40-150 (BEAKER) (test ndqc=916) BILIRUBIN TOTAL (BEAKER) 0.4 mg/dL 0.2-1.2 (test oojn=275) SODIUM (BEAKER) (test 136 meq/L 136-145 aogw=908) POTASSIUM (BEAKER) (test 4.4 meq/L 3.5-5.1 bnyx=890) CHLORIDE (BEAKER) (test 104 meq/L 98-107 awaz=047) CO2 (BEAKER) (test 23 meq/L 22-29 eafs=764) BLOOD UREA NITROGEN 8 mg/dL 7-21 (BEAKER) (test pimv=776) CREATININE (BEAKER) (test 0.67 mg/dL 0.57-1.25 kshx=393) GLUCOSE RANDOM (BEAKER) 115 mg/dL 70-105 (test bqqo=035) CALCIUM (BEAKER) (test 9.7 mg/dL 8.4-10.2 siao=407) AST (SGOT) (BEAKER) (test 61 U/L 5-34 revp=368) ALT (SGPT) (BEAKER) (test 63 U/L 6-55 fpsq=412) EGFR (BEAKER) (test 91 mL/min/1.73 sq m ESTIMATED GFR IS NOT uctv=1714) ACCURATE CREATININE CLEARANCE IN PREDICTING GLOMERULAR FILTRATION RATE. ESTIMATED GFR IS NOT APPLICABLE FOR DIALYSIS PATIENTS. CBC W/PLT COUNT & AUTO [id number] 05:04:00 Test Item Value Reference Range Comments WHITE BLOOD CELL COUNT (BEAKER) (test coeh=310) 7.0 K/ L 3.5-10.5 RED BLOOD CELL COUNT (BEAKER) (test afns=419) 3.92 M/ L 3.93-5.22 HEMOGLOBIN (BEAKER) (test mwjs=676) 11.1 GM/DL 11.2-15.7 HEMATOCRIT (BEAKER) (test cwtv=321) 33.5 % 34.1-44.9 MEAN CORPUSCULAR VOLUME (BEAKER) (test qtif=647) 85.5 fL 79.4-94.8 MEAN CORPUSCULAR HEMOGLOBIN (BEAKER) (test 28.3 pg 25.6-32.2 hxlr=035) MEAN CORPUSCULAR HEMOGLOBIN CONC (BEAKER) (test 33.1 GM/DL 32.2-35.5 rerk=006) RED CELL DISTRIBUTION WIDTH (BEAKER) (test 13.4 % 11.7-14.4 teku=404) PLATELET COUNT (BEAKER) (test kmfm=807) 362 K/CU MM 150-450 MEAN PLATELET VOLUME (BEAKER) (test focm=264) 9.0 fL 9.4-12.3 NUCLEATED RED BLOOD CELLS (BEAKER) (test 0 /100 WBC 0-0 doai=407) NEUTROPHILS RELATIVE PERCENT (BEAKER) (test 84 % tjuw=188) LYMPHOCYTES RELATIVE PERCENT (BEAKER) (test 9 % sbto=996) MONOCYTES RELATIVE PERCENT (BEAKER) (test 4 % gdad=793) EOSINOPHILS RELATIVE PERCENT (BEAKER) (test 3 % umlp=602) BASOPHILS RELATIVE PERCENT (BEAKER) (test 0 % sslp=787) NEUTROPHILS ABSOLUTE COUNT (BEAKER) (test 5.88 K/ L 1.56-6.13 cmrj=629) LYMPHOCYTES ABSOLUTE COUNT (BEAKER) (test 0.63 K/ L 1.18-3.74 hhwc=540) MONOCYTES ABSOLUTE COUNT (BEAKER) (test 0.29 K/ L 0.24-0.36 ghyv=486) EOSINOPHILS ABSOLUTE COUNT (BEAKER) (test 0.18 K/ L 0.04-0.36 oahx=038) BASOPHILS ABSOLUTE COUNT (BEAKER) (test 0.01 K/ L 0.01-0.08 kknq=130) IMMATURE GRANULOCYTES-RELATIVE PERCENT (BEAKER) 1 % 0-1 (test nrvj=2213) PROTHROMBIN [id number] 05:01:00 Test Item Value Reference Range Comments PROTIME (BEAKER) (test dqni=784) 13.5 seconds 11.7-14.7 INR (BEAKER) (test hsey=585) 1.0 <=5.9 RECOMMENDED COUMADIN/WARFARIN INR THERAPY RANGESSTANDARD DOSE: 2.0 - 3.0 Includes: PROPHYLAXIS forvenous thrombosis, systemic embolization; TREATMENT for venous thrombosis and/or pulmonary embolus.HIGH RISK: Target INR is 2.5-3.5 for patients with mechanical heart valves.CBC W/PLT COUNT & AUTO [id number] 12:19:00 Test Item Value Reference Range Comments WHITE BLOOD CELL COUNT (BEAKER) (test vfvr=713) 5.5 K/ L 3.5-10.5 RED BLOOD CELL COUNT (BEAKER) (test dfpw=476) 3.27 M/ L 3.93-5.22 HEMOGLOBIN (BEAKER) (test mufg=051) 9.2 GM/DL 11.2-15.7 HEMATOCRIT (BEAKER) (test hrwb=975) 28.2 % 34.1-44.9 MEAN CORPUSCULAR VOLUME (BEAKER) (test zvtc=403) 86.2 fL 79.4-94.8 MEAN CORPUSCULAR HEMOGLOBIN (BEAKER) (test 28.1 pg 25.6-32.2 zovh=030) MEAN CORPUSCULAR HEMOGLOBIN CONC (BEAKER) (test 32.6 GM/DL 32.2-35.5 sdmb=433) RED CELL DISTRIBUTION WIDTH (BEAKER) (test 13.2 % 11.7-14.4 rksk=996) PLATELET COUNT (BEAKER) (test dwkp=778) 147 K/CU MM 150-450 MEAN PLATELET VOLUME (BEAKER) (test jhfb=423) 9.6 fL 9.4-12.3 NUCLEATED RED BLOOD CELLS (BEAKER) (test 0 /100 WBC 0-0 fzej=852) NEUTROPHILS RELATIVE PERCENT (BEAKER) (test 83 % bgnf=885) LYMPHOCYTES RELATIVE PERCENT (BEAKER) (test 12 % mrcg=422) MONOCYTES RELATIVE PERCENT (BEAKER) (test 4 % cyqo=590) EOSINOPHILS RELATIVE PERCENT (BEAKER) (test 1 % wmwi=226) BASOPHILS RELATIVE PERCENT (BEAKER) (test 0 % hnes=136) NEUTROPHILS ABSOLUTE COUNT (BEAKER) (test 4.59 K/ L 1.56-6.13 evpm=807) LYMPHOCYTES ABSOLUTE COUNT (BEAKER) (test 0.64 K/ L 1.18-3.74 xvee=631) MONOCYTES ABSOLUTE COUNT (BEAKER) (test 0.24 K/ L 0.24-0.36 wiax=635) EOSINOPHILS ABSOLUTE COUNT (BEAKER) (test 0.03 K/ L 0.04-0.36 wdxa=582) BASOPHILS ABSOLUTE COUNT (BEAKER) (test 0.00 K/ L 0.01-0.08 ztoj=209) IMMATURE GRANULOCYTES-RELATIVE PERCENT (BEAKER) 0 % 0-1 (test smqb=1853) (MANUAL DIFFERENTIAL)2017-03-07 12:19:00 Test Item Value Reference Range Comments TOTAL COUNTED (BEAKER) (test zzna=4424) WBC MORPHOLOGY (BEAKER) (test wrqo=463) Normal PLT MORPHOLOGY (BEAKER) (test jaly=442) Normal RBC MORPHOLOGY (BEAKER) (test mdih=091) Normal POCT-GLUCOSE [id number] 11:50:00 Test Item Value Reference Range Comments POC-GLUCOSE METER (BEAKER) 138 mg/dL 70-110 TESTED AT [facility] [address] [facility] (test yghu=1314) [facility] [address] POCT-GLUCOSE [id number] 07:31:00 Test Item Value Reference Range Comments POC-GLUCOSE METER (BEAKER) 98 mg/dL 70-110 TESTED AT [place] [id number] [facility] (test qycf=4567) [facility] [address] (MANUAL DIFFERENTIAL)2017-03-07 07:10:00 Test Item Value Reference Range Comments TOTAL COUNTED (BEAKER) (test xunx=6725) BANDS + SEGMENTED NEUTROPHILS (BEAKER) (test c jwsn=9079) MANUAL NRBC PER 100 CELLS (BEAKER) (test /100 WBC 0-0 c izzx=9281) WBC MORPHOLOGY (BEAKER) (test seyj=002) Normal PLT MORPHOLOGY (BEAKER) (test lrso=477) Normal RBC MORPHOLOGY (BEAKER) (test oepd=589) Normal CBC W/PLT COUNT & AUTO [id number] 07:09:00 Test Item Value Reference Range Comments WHITE BLOOD CELL COUNT K/ L 3.5-10.5 cThis is a corrected result. (BEAKER) (test kxsu=225) Previous result was 5.4 K/ L on 03/07/2017 at 0455 CDT RED BLOOD CELL COUNT (BEAKER) M/ L 3.93-5.22 cThis is a corrected result. (test jgnr=808) Previous result was 3.50 M/ L on 03/07/2017 at 0455 CDT HEMOGLOBIN (BEAKER) (test GM/DL 11.2-15.7 cThis is a corrected result. rjtr=811) Previous result was 9.9 GM/DL on 03/07/2017 at 0455 CDT HEMATOCRIT (BEAKER) (test % 34.1-44.9 clottedThis is a corrected pqnb=698) result. Previous result was 30.8 % on 03/07/2017 at 0455 CDT MEAN CORPUSCULAR VOLUME fL 79.4-94.8 cThis is a corrected result. (BEAKER) (test moln=325) Previous result was 88.0 fL on 03/07/2017 at 0455 CDT MEAN CORPUSCULAR HEMOGLOBIN pg 25.6-32.2 cThis is a corrected result. (BEAKER) (test cqjr=949) Previous result was 28.3 pg on 03/07/2017 at 0455 CDT MEAN CORPUSCULAR HEMOGLOBIN GM/DL 32.2-35.5 cThis is a corrected result. CONC (BEAKER) (test fuws=172) Previous result was 32.1 GM/DL on 03/07/2017 at 0455 CDT RED CELL DISTRIBUTION WIDTH % 11.7-14.4 cThis is a corrected result. (BEAKER) (test qpvf=116) Previous result was 13.2 % on 03/07/2017 at 0455 CDT PLATELET COUNT (BEAKER) (test K/CU MM 150-450 cThis is a corrected result. mgkr=180) Previous result was 55 K/CU MM on 03/07/2017 at 0455 CDT MEAN PLATELET VOLUME (BEAKER) fL 9.4-12.3 cThis is a corrected result. (test buqr=389) Previous result was 11.5 fL on 03/07/2017 at 0455 CDT NUCLEATED RED BLOOD CELLS /100 WBC 0-0 cThis is a corrected result. (BEAKER) (test ewod=936) Previous result was 0 /100 WBC on 03/07/2017 at 0455 CDT NEUTROPHILS RELATIVE PERCENT % c (BEAKER) (test vgdo=656) LYMPHOCYTES RELATIVE PERCENT % c (BEAKER) (test rjyn=529) MONOCYTES RELATIVE PERCENT % c (BEAKER) (test ogvb=782) EOSINOPHILS RELATIVE PERCENT % c (BEAKER) (test qpsv=357) BASOPHILS RELATIVE PERCENT % c (BEAKER) (test kdfv=725) NEUTROPHILS ABSOLUTE COUNT K/ L 1.56-6.13 c (BEAKER) (test btyn=402) LYMPHOCYTES ABSOLUTE COUNT K/ L 1.18-3.74 cc (BEAKER) (test fuiw=167) MONOCYTES ABSOLUTE COUNT K/ L 0.24-0.36 c (BEAKER) (test bquh=923) EOSINOPHILS ABSOLUTE COUNT K/ L 0.04-0.36 c (BEAKER) (test gdbw=634) BASOPHILS ABSOLUTE COUNT K/ L 0.01-0.08 c (BEAKER) (test xnvr=317) IMMATURE GRANULOCYTES-RELATIVE % 0-1 cThis is a corrected result. PERCENT (BEAKER) (test Previous result was 1 % on yxhi=3995) 03/07/2017 at 0455 CDT Clotted specimen called to Faith at 0545.COMPREHENSIVE METABOLIC [id number] 05:05:00 Test Item Value Reference Range Comments TOTAL PROTEIN (BEAKER) 6.3 gm/dL 6.0-8.3 (test fcrc=270) ALBUMIN (BEAKER) (test 2.9 g/dL 3.5-5.0 zodf=5677) ALKALINE PHOSPHATASE 77 U/L 40-150 (BEAKER) (test wrgg=818) BILIRUBIN TOTAL (BEAKER) 0.8 mg/dL 0.2-1.2 (test zrms=236) SODIUM (BEAKER) (test 133 meq/L 136-145 bnng=773) POTASSIUM (BEAKER) (test 4.3 meq/L 3.5-5.1 dnik=491) CHLORIDE (BEAKER) (test 104 meq/L 98-107 mfqk=913) CO2 (BEAKER) (test 22 meq/L 22-29 zltp=490) BLOOD UREA NITROGEN 13 mg/dL 7-21 (BEAKER) (test yosy=523) CREATININE (BEAKER) (test 0.60 mg/dL 0.57-1.25 tayh=076) GLUCOSE RANDOM (BEAKER) 111 mg/dL 70-105 (test kgsn=992) CALCIUM (BEAKER) (test 8.2 mg/dL 8.4-10.2 fram=209) AST (SGOT) (BEAKER) (test 25 U/L 5-34 zpix=965) ALT (SGPT) (BEAKER) (test 22 U/L 6-55 usrq=866) EGFR (BEAKER) (test 103 mL/min/1.73 sq ESTIMATED GFR IS NOT ekqe=3758) m ACCURATE CREATININE CLEARANCE IN PREDICTING GLOMERULAR FILTRATION RATE. ESTIMATED GFR IS NOT APPLICABLE FOR DIALYSIS PATIENTS. POCT-GLUCOSE [id number] 16:45:00 Test Item Value Reference Range Comments POC-GLUCOSE METER (BEAKER) 135 mg/dL 70-110 TESTED AT [facility] [address] (test njih=5861) [facility] [address] TISSUE [id number] 15:53:00Surgical Pathology Report Case: [id number] Authorizing Provider: Jaycob Cifuentes MD Collected: 02/28/2017 1050 Ordering Location: [address] Received: 03/01/2017 0743 Service Pathologist: Pritesh Ahn MD Specimen: Spine, Thoracic, T Spine biopsy BONE, THORACIC SPINE, BIOPSY: - GRANULOMATOUS INFLAMMATION - ACID FAST ORGANISMS IDENTIFIED (SEE COMMENT) - NEGATIVE FOR MALIGNANCY Signing Pathologist Direct Phone Line: Preliminary result electronically signed by Pritesh Ahn MD on 2016 at 11:42 AMCorrelation with culture results is recommended to confirm the etiology of the acid fast organisms. Dr. Marilia Dewitt of the neurosurgery service was verbally notified ofthe diagnosis on 03/06/17 at 3:50 pm.[id number], [id number] , [address] biopsy of T-spineThe specimen isreceived in a formalin- filled container labeled with the patient's information and labeled "CT biopsy T -spine" and consists of an off-white bone core biopsy measuring 1.1 cm, submitted entirely in A1 for light decalcification. CG/ewThe bone biopsy contain several well-formed non-caseating granulomas composed of epithelioid histiocytes and multinucleated giant cells surrounded by chronic inflammation. Separate foci of necrosis are identified in the fibrous tissue. No polarizable foreign material isidentified in the granulomas. The AFB stain demonstrates groups thin acid fast organisms. The GMS stain is negative for fungal organisms. In addition, there is no malignancyANAEROBIC [id number] 15:34 :00 Test Item Value Reference Range Comments CULTURE (BEAKER) (test ptwf=1459) No anaerobes isolated POCT-GLUCOSE [id number] 12:23:00 Test Item Value Reference Range Comments POC-GLUCOSE METER (BEAKER) 137 mg/dL 70-110 TESTED AT [facility] [address] (test caao=3768) [facility] [address] POCT-GLUCOSE [id number] 08:35:00 Test Item Value Reference Range Comments POC-GLUCOSE METER (BEAKER) 111 mg/dL 70-110 TESTED AT [facility] [address] (test nlqj=0393) [place] [address] CBC W/PLT COUNT & AUTO [id number] 08:14:00 Test Item Value Reference Range Comments WHITE BLOOD CELL COUNT (BEAKER) (test qnvx=188) 3.6 K/ L 3.5-10.5 RED BLOOD CELL COUNT (BEAKER) (test nuxe=386) 3.00 M/ L 3.93-5.22 HEMOGLOBIN (BEAKER) (test rsfu=964) 8.4 GM/DL 11.2-15.7 HEMATOCRIT (BEAKER) (test qfjj=162) 26.7 % 34.1-44.9 MEAN CORPUSCULAR VOLUME (BEAKER) (test pmpa=098) 89.0 fL 79.4-94.8 MEAN CORPUSCULAR HEMOGLOBIN (BEAKER) (test 28.0 pg 25.6-32.2 xhgv=665) MEAN CORPUSCULAR HEMOGLOBIN CONC (BEAKER) (test 31.5 GM/DL 32.2-35.5 rnif=088) RED CELL DISTRIBUTION WIDTH (BEAKER) (test 13.1 % 11.7-14.4 kmuw=484) PLATELET COUNT (BEAKER) (test spcw=422) 72 K/CU MM 150-450 MEAN PLATELET VOLUME (BEAKER) (test dsio=076) 12.3 fL 9.4-12.3 NUCLEATED RED BLOOD CELLS (BEAKER) (test 0 /100 WBC 0-0 lkap=640) IMMATURE GRANULOCYTES-RELATIVE PERCENT (BEAKER) 3 % 0-1 (test iuqp=7637) (MANUAL DIFFERENTIAL)2017-03-06 08:14:00 Test Item Value Reference Range Comments NEUTROPHILS - REL (DIFF) (BEAKER) (test rerx=5376) 87 % LYMPHOCYTES - REL (DIFF) (BEAKER) (test zhjy=1068) 5 % MONOCYTES - REL (DIFF) (BEAKER) (test wnvc=8092) 5 % METAMYELOCYTES-REL (DIFF) (BEAKER) (test lieo=264) 3 % 0-0 NEUTROPHILS - ABS (DIFF) (BEAKER) (test joli=7275) 3.13 K/ L 1.80-8.00 LYMPHOCYTES - ABS (DIFF) (BEAKER) (test gxiz=5361) 0.18 K/ L 1.48-4.50 MONOCYTES - ABS (DIFF) (BEAKER) (test uqtv=3750) 0.18 K/ L 0.00-1.30 METAMYELOCTYES - ABS (DIFF) (BEAKER) (test 0.11 K/ L 0.00-0.00 mfis=891) TOTAL COUNTED (BEAKER) (test qeve=8030) 100 WBC MORPHOLOGY (BEAKER) (test ewzx=138) Normal PLT MORPHOLOGY (BEAKER) (test urqh=935) Normal RBC MORPHOLOGY (BEAKER) (test wwix=690) Normal BASIC METABOLIC [id number] 05:47:00 Test Item Value Reference Range Comments SODIUM (BEAKER) (test 131 meq/L 136-145 kjvw=599) POTASSIUM (BEAKER) (test 3.2 meq/L 3.5-5.1 cbrm=485) CHLORIDE (BEAKER) (test 109 meq/L 98-107 njpb=865) CO2 (BEAKER) (test 17 meq/L 22-29 lzqr=755) BLOOD UREA NITROGEN 11 mg/dL 7-21 (BEAKER) (test hpwl=412) CREATININE (BEAKER) (test 0.53 mg/dL 0.57-1.25 lute=108) GLUCOSE RANDOM (BEAKER) 101 mg/dL 70-105 (test efng=692) CALCIUM (BEAKER) (test 6.4 mg/dL 8.4-10.2 boud=480) EGFR (BEAKER) (test 119 mL/min/1.73 sq m ESTIMATED GFR IS NOT irre=7718) ACCURATE CREATININE CLEARANCE IN PREDICTING GLOMERULAR FILTRATION RATE. ESTIMATED GFR IS NOT APPLICABLE FOR DIALYSIS PATIENTS. BODY FLUID CULTURE + GRAM [id number] 22:47:00 Test Item Value Reference Range Comments CULTURE (BEAKER) (test mals=9799) No growth GRAM STAIN RESULT (BEAKER) (test <1+ White blood cells seen vxvi=9198) GRAM STAIN RESULT (BEAKER) (test No organisms seen rcua=55947) POCT-GLUCOSE [id number] 21:43:00 Test Item Value Reference Range Comments POC-GLUCOSE METER (BEAKER) 164 mg/dL 70-110 TESTED AT [address] (test yavt=1162) [facility] [address] POCT-GLUCOSE [id number] 18:43:00 Test Item Value Reference Range Comments POC-GLUCOSE METER (BEAKER) 140 mg/dL 70-110 TESTED AT [address] (test irrq=3799) [facility] [address] VANCOMYCIN LEVEL, [id number] 13:59:00 Test Item Value Reference Range Comments VANCOMYCIN TROUGH (BEAKER) (test vngs=542) 20.4 ug/mL 10.0-20.0 IMMEDIATELY PRIOR TO NEXT DOSEPOCT-GLUCOSE [id number] 11:57:00 Test Item Value Reference Range Comments POC-GLUCOSE METER (BEAKER) 146 mg/dL 70-110 TESTED AT [address] (test gdbb=8685) [facility] [address] POCT-GLUCOSE [id number] 08:34:00 Test Item Value Reference Range Comments POC-GLUCOSE METER (BEAKER) 130 mg/dL 70-110 TESTED AT [address] (test opqw=9472) [facility] [address] POCT-GLUCOSE [id number] 21:38:00 Test Item Value Reference Range Comments POC-GLUCOSE METER (BEAKER) 187 mg/dL 70-110 TESTED AT [address] (test kekr=5455) [facility] [address] POCT-GLUCOSE [id number] 12:24:00 Test Item Value Reference Range Comments POC-GLUCOSE METER (BEAKER) 121 mg/dL 70-110 TESTED AT [address] (test eqgv=4685) [facility] [address] POCT-GLUCOSE [id number] 08:47:00 Test Item Value Reference Range Comments POC-GLUCOSE METER (BEAKER) 144 mg/dL 70-110 TESTED AT [address] (test iyym=9796) [facility] [address] POCT-GLUCOSE [id number] 23:49:00 Test Item Value Reference Range Comments POC-GLUCOSE METER (BEAKER) 135 mg/dL 70-110 TESTED AT [address] (test omik=2921) [facility] [address] POCT-GLUCOSE [id number] 20:50:00 Test Item Value Reference Range Comments POC-GLUCOSE METER (BEAKER) 151 mg/dL 70-110 TESTED AT [address] (test djmn=9392) [place] [address] POCT-GLUCOSE [id number] 17:58:00 Test Item Value Reference Range Comments POC-GLUCOSE METER (BEAKER) 129 mg/dL 70-110 TESTED AT [address] (test uenz=3271) [place] [address] BLOOD [id number] 11:00:00 Test Item Value Reference Range Comments CULTURE (BEAKER) (test stvc=8269) No growth in 5 days BLOOD [id number] 11:00:00 Test Item Value Reference Range Comments CULTURE (BEAKER) (test vujb=8879) No growth in 5 days POCT-GLUCOSE [id number] 07:42:00 Test Item Value Reference Range Comments POC-GLUCOSE METER (BEAKER) 108 mg/dL 70-110 TESTED AT [address] (test yghp=7369) [place] [address] POCT-GLUCOSE [id number] 20:59:00 Test Item Value Reference Range Comments POC-GLUCOSE METER (BEAKER) 131 mg/dL 70-110 TESTED AT [address] (test fflx=2847) [place] [address] BASIC METABOLIC [id number] 13:38:00 Test Item Value Reference Range Comments SODIUM (BEAKER) (test 133 meq/L 136-145 yemw=667) POTASSIUM (BEAKER) (test 4.1 meq/L 3.5-5.1 ckft=118) CHLORIDE (BEAKER) (test 103 meq/L 98-107 zpmg=808) CO2 (BEAKER) (test 24 meq/L 22-29 hnne=230) BLOOD UREA NITROGEN 12 mg/dL 7-21 (BEAKER) (test fgxz=843) CREATININE (BEAKER) (test 0.66 mg/dL 0.57-1.25 jtxu=677) GLUCOSE RANDOM (BEAKER) 109 mg/dL 70-105 (test sife=900) CALCIUM (BEAKER) (test 8.5 mg/dL 8.4-10.2 snyj=541) EGFR (BEAKER) (test 92 mL/min/1.73 sq m ESTIMATED GFR IS NOT vvrv=7367) ACCURATE CREATININE CLEARANCE IN PREDICTING GLOMERULAR FILTRATION RATE. ESTIMATED GFR IS NOT APPLICABLE FOR DIALYSIS PATIENTS. VANCOMYCIN LEVEL, [id number] 13:35:00 Test Item Value Reference Range Comments VANCOMYCIN TROUGH (BEAKER) (test oihc=773) 14.0 ug/mL 10.0-20.0 Draw before vanc doseCBC W/PLT COUNT & AUTO [id number] 13:15:00 Test Item Value Reference Range Comments WHITE BLOOD CELL COUNT (BEAKER) (test vzyk=104) 5.0 K/ L 3.5-10.5 RED BLOOD CELL COUNT (BEAKER) (test flqn=206) 3.70 M/ L 3.93-5.22 HEMOGLOBIN (BEAKER) (test tlad=164) 10.4 GM/DL 11.2-15.7 HEMATOCRIT (BEAKER) (test hddx=119) 32.1 % 34.1-44.9 MEAN CORPUSCULAR VOLUME (BEAKER) (test mqvp=297) 86.8 fL 79.4-94.8 MEAN CORPUSCULAR HEMOGLOBIN (BEAKER) (test 28.1 pg 25.6-32.2 nyma=831) MEAN CORPUSCULAR HEMOGLOBIN CONC (BEAKER) (test 32.4 GM/DL 32.2-35.5 alnb=629) RED CELL DISTRIBUTION WIDTH (BEAKER) (test 13.1 % 11.7-14.4 gdye=895) PLATELET COUNT (BEAKER) (test qzjr=528) 262 K/CU MM 150-450 MEAN PLATELET VOLUME (BEAKER) (test wrqx=372) 9.0 fL 9.4-12.3 NUCLEATED RED BLOOD CELLS (BEAKER) (test 0 /100 WBC 0-0 dbgh=069) NEUTROPHILS RELATIVE PERCENT (BEAKER) (test 74 % inlz=378) LYMPHOCYTES RELATIVE PERCENT (BEAKER) (test 15 % pqmv=946) MONOCYTES RELATIVE PERCENT (BEAKER) (test 8 % ybtw=257) EOSINOPHILS RELATIVE PERCENT (BEAKER) (test 3 % sszu=814) BASOPHILS RELATIVE PERCENT (BEAKER) (test 0 % vpww=103) NEUTROPHILS ABSOLUTE COUNT (BEAKER) (test 3.65 K/ L 1.56-6.13 ktnu=797) LYMPHOCYTES ABSOLUTE COUNT (BEAKER) (test 0.74 K/ L 1.18-3.74 pbgo=773) MONOCYTES ABSOLUTE COUNT (BEAKER) (test 0.39 K/ L 0.24-0.36 fvda=554) EOSINOPHILS ABSOLUTE COUNT (BEAKER) (test 0.14 K/ L 0.04-0.36 fulw=653) BASOPHILS ABSOLUTE COUNT (BEAKER) (test 0.02 K/ L 0.01-0.08 wahh=391) IMMATURE GRANULOCYTES-RELATIVE PERCENT (BEAKER) 1 % 0-1 (test qmrw=1256) VANCOMYCIN LEVEL, [id number] 08:53:00 Test Item Value Reference Range Comments VANCOMYCIN TROUGH (BEAKER) (test gcuk=958) 5.5 ug/mL 10.0-20.0 BASIC METABOLIC [id number] 09:17:00 Test Item Value Reference Range Comments SODIUM (BEAKER) (test 133 meq/L 136-145 xknl=881) POTASSIUM (BEAKER) (test 4.2 meq/L 3.5-5.1 tvcu=496) CHLORIDE (BEAKER) (test 104 meq/L 98-107 csns=469) CO2 (BEAKER) (test 23 meq/L 22-29 eoad=085) BLOOD UREA NITROGEN 11 mg/dL 7-21 (BEAKER) (test broo=686) CREATININE (BEAKER) (test 0.69 mg/dL 0.57-1.25 pygf=565) GLUCOSE RANDOM (BEAKER) 101 mg/dL 70-105 (test oyjb=556) CALCIUM (BEAKER) (test 8.2 mg/dL 8.4-10.2 zveh=204) EGFR (BEAKER) (test 88 mL/min/1.73 sq m ESTIMATED GFR IS NOT nikz=6784) ACCURATE CREATININE CLEARANCE IN PREDICTING GLOMERULAR FILTRATION RATE. ESTIMATED GFR IS NOT APPLICABLE FOR DIALYSIS PATIENTS. PROTHROMBIN [id number] 09:12:00 Test Item Value Reference Range Comments PROTIME (BEAKER) (test lazw=613) 14.0 seconds 11.7-14.7 INR (BEAKER) (test jkat=095) 1.1 <=5.9 RECOMMENDED COUMADIN/WARFARIN INR THERAPY RANGESSTANDARD DOSE: 2.0 - 3.0 Includes: PROPHYLAXIS forvenous thrombosis, systemic embolization; TREATMENT for venous thrombosis and/or pulmonary embolus.HIGH RISK: Target INR is 2.5-3.5 for patients with mechanical heart valves.CBC W/PLT COUNT & AUTO [id number] 09:00:00 Test Item Value Reference Range Comments WHITE BLOOD CELL COUNT (BEAKER) (test fmlg=758) 4.3 K/ L 3.5-10.5 RED BLOOD CELL COUNT (BEAKER) (test fcel=085) 3.76 M/ L 3.93-5.22 HEMOGLOBIN (BEAKER) (test nwpo=379) 10.7 GM/DL 11.2-15.7 HEMATOCRIT (BEAKER) (test sfdo=513) 32.4 % 34.1-44.9 MEAN CORPUSCULAR VOLUME (BEAKER) (test wcsj=607) 86.2 fL 79.4-94.8 MEAN CORPUSCULAR HEMOGLOBIN (BEAKER) (test 28.5 pg 25.6-32.2 lrcn=893) MEAN CORPUSCULAR HEMOGLOBIN CONC (BEAKER) (test 33.0 GM/DL 32.2-35.5 uvja=639) RED CELL DISTRIBUTION WIDTH (BEAKER) (test 13.2 % 11.7-14.4 ekfw=448) PLATELET COUNT (BEAKER) (test zhxm=014) 295 K/CU MM 150-450 MEAN PLATELET VOLUME (BEAKER) (test tbug=056) 8.9 fL 9.4-12.3 NUCLEATED RED BLOOD CELLS (BEAKER) (test 0 /100 WBC 0-0 nbqe=662) NEUTROPHILS RELATIVE PERCENT (BEAKER) (test 71 % dhpv=736) LYMPHOCYTES RELATIVE PERCENT (BEAKER) (test 17 % clgq=404) MONOCYTES RELATIVE PERCENT (BEAKER) (test 10 % iwjv=498) EOSINOPHILS RELATIVE PERCENT (BEAKER) (test 1 % osmi=069) BASOPHILS RELATIVE PERCENT (BEAKER) (test 1 % xsoq=451) NEUTROPHILS ABSOLUTE COUNT (BEAKER) (test 3.07 K/ L 1.56-6.13 rguy=108) LYMPHOCYTES ABSOLUTE COUNT (BEAKER) (test 0.72 K/ L 1.18-3.74 ciuz=934) MONOCYTES ABSOLUTE COUNT (BEAKER) (test 0.42 K/ L 0.24-0.36 jqol=895) EOSINOPHILS ABSOLUTE COUNT (BEAKER) (test 0.05 K/ L 0.04-0.36 byxp=362) BASOPHILS ABSOLUTE COUNT (BEAKER) (test 0.02 K/ L 0.01-0.08 bjnt=464) IMMATURE GRANULOCYTES-RELATIVE PERCENT (BEAKER) 1 % 0-1 (test mwzl=2660) POCT-GLUCOSE [id number] 18:20:00 Test Item Value Reference Range Comments POC-GLUCOSE METER (BEAKER) 96 mg/dL 70-110 TESTED AT [facility] [address] (test mtie=9319) [facility] [address] URINE [id number] 11:20:00 Test Item Value Reference Range Comments CULTURE (BEAKER) (test gcfq=8433) No growth [id number] 16:14:00 Test Item Value Reference Range Comments PROTIME (BEAKER) (test kvrn=212) 13.8 seconds 11.7-14.7 INR (BEAKER) (test hern=116) 1.1 <=5.9 PARTIAL THROMBOPLASTIN TIME (BEAKER) (test 34.7 seconds 22.5-36.0 jmyg=647) RECOMMENDED COUMADIN/WARFARIN INR THERAPY RANGESSTANDARD DOSE: 2.0 - 3.0 Includes: PROPHYLAXIS forvenous thrombosis, systemic embolization; TREATMENT for venous thrombosis and/or pulmonary embolus.HIGH RISK: Target INR is 2.5-3.5 for patients with mechanical heart valves.PROTHROMBIN TIME/[id number] 16:12: 00 Test Item Value Reference Range Comments PROTIME (BEAKER) (test gyik=866) 13.8 seconds 11.7-14.7 INR (BEAKER) (test lcik=472) 1.1 <=5.9 RECOMMENDED COUMADIN/WARFARIN INR THERAPY RANGESSTANDARD DOSE: 2.0 - 3.0 Includes: PROPHYLAXIS forvenous thrombosis, systemic embolization; TREATMENT for venous thrombosis and/or pulmonary embolus.HIGH RISK: Target INR is 2.5-3.5 for patients with mechanical heart valves.HEMOGLOBIN [id number] 08:32:00 Test Item Value Reference Range Comments HEMOGLOBIN A1C (BEAKER) (test fsqd=885) 5.9 % 4.3-6.1 C-REACTIVE [id number] 07:46:00 Test Item Value Reference Range Comments C-REACTIVE PROTEIN (BEAKER) (test jsts=714) 4.38 mg/dL 0.00-0.50 CBC W/PLT COUNT & AUTO [id number] 07:37:00 Test Item Value Reference Range Comments WHITE BLOOD CELL COUNT (BEAKER) (test dicu=795) 4.1 K/ L 3.5-10.5 RED BLOOD CELL COUNT (BEAKER) (test xyso=120) 4.26 M/ L 3.93-5.22 HEMOGLOBIN (BEAKER) (test fkpe=949) 12.0 GM/DL 11.2-15.7 HEMATOCRIT (BEAKER) (test bulb=676) 36.1 % 34.1-44.9 MEAN CORPUSCULAR VOLUME (BEAKER) (test jmtz=063) 84.7 fL 79.4-94.8 MEAN CORPUSCULAR HEMOGLOBIN (BEAKER) (test 28.2 pg 25.6-32.2 erud=584) MEAN CORPUSCULAR HEMOGLOBIN CONC (BEAKER) (test 33.2 GM/DL 32.2-35.5 bpaw=878) RED CELL DISTRIBUTION WIDTH (BEAKER) (test 12.9 % 11.7-14.4 jasl=800) PLATELET COUNT (BEAKER) (test unoh=726) 400 K/CU MM 150-450 MEAN PLATELET VOLUME (BEAKER) (test temq=196) 9.2 fL 9.4-12.3 NUCLEATED RED BLOOD CELLS (BEAKER) (test 0 /100 WBC 0-0 sruu=470) NEUTROPHILS RELATIVE PERCENT (BEAKER) (test 87 % snpr=611) LYMPHOCYTES RELATIVE PERCENT (BEAKER) (test 11 % crwo=356) MONOCYTES RELATIVE PERCENT (BEAKER) (test 2 % ysrv=505) EOSINOPHILS RELATIVE PERCENT (BEAKER) (test 0 % ubdg=260) BASOPHILS RELATIVE PERCENT (BEAKER) (test 0 % oefj=883) NEUTROPHILS ABSOLUTE COUNT (BEAKER) (test 3.56 K/ L 1.56-6.13 lzax=747) LYMPHOCYTES ABSOLUTE COUNT (BEAKER) (test 0.45 K/ L 1.18-3.74 ebqh=898) MONOCYTES ABSOLUTE COUNT (BEAKER) (test 0.06 K/ L 0.24-0.36 efwe=460) EOSINOPHILS ABSOLUTE COUNT (BEAKER) (test 0.00 K/ L 0.04-0.36 houl=488) BASOPHILS ABSOLUTE COUNT (BEAKER) (test 0.00 K/ L 0.01-0.08 mqww=585) IMMATURE GRANULOCYTES-RELATIVE PERCENT (BEAKER) 1 % 0-1 (test cgwn=0504) HEPATIC FUNCTION [id number] 06:20:00 Test Item Value Reference Range Comments TOTAL PROTEIN (BEAKER) (test hugi=119) 8.0 gm/dL 6.0-8.3 ALBUMIN (BEAKER) (test cyjl=7790) 3.6 g/dL 3.5-5.0 BILIRUBIN TOTAL (BEAKER) (test pexj=770) 0.3 mg/dL 0.2-1.2 BILIRUBIN DIRECT (BEAKER) (test fqcm=603) 0.2 mg/dL 0.1-0.5 ALKALINE PHOSPHATASE (BEAKER) (test pqll=453) 107 U/L 40-150 AST (SGOT) (BEAKER) (test tctp=673) 44 U/L 5-34 ALT (SGPT) (BEAKER) (test wuja=083) 61 U/L 6-55 BASIC METABOLIC [id number] 06:20:00 Test Item Value Reference Range Comments SODIUM (BEAKER) (test 135 meq/L 136-145 npds=211) POTASSIUM (BEAKER) (test 4.6 meq/L 3.5-5.1 qipg=833) CHLORIDE (BEAKER) (test 106 meq/L 98-107 ryfm=527) CO2 (BEAKER) (test 20 meq/L 22-29 pvss=264) BLOOD UREA NITROGEN 13 mg/dL 7-21 (BEAKER) (test hkwe=410) CREATININE (BEAKER) (test 0.79 mg/dL 0.57-1.25 ehbu=023) GLUCOSE RANDOM (BEAKER) 196 mg/dL 70-105 (test oyeo=407) CALCIUM (BEAKER) (test 8.9 mg/dL 8.4-10.2 ntqa=979) EGFR (BEAKER) (test 75 mL/min/1.73 sq m ESTIMATED GFR IS NOT rysd=2345) ACCURATE CREATININE CLEARANCE IN PREDICTING GLOMERULAR FILTRATION RATE. ESTIMATED GFR IS NOT APPLICABLE FOR DIALYSIS PATIENTS.
--- NOTE | 2018-03-04 13:46 | RAD REPORT ---
EXAM DESCRIPTION: CT - Abdomen Pelvis Wo Contrast - 03/04/2018 1:38 pm CLINICAL HISTORY: Abdominal pain. ABD PAIN COMPARISON: [facility] Protocol dated 03/24/2017 TECHNIQUE: CT imaging of the abdomen and pelvis was performed without contrast. Solid organ, bowel a nd vascular assessment is limited due to lack of IV and oral contrast. All CT scans are performed using dose optimization technique as appropriate and may include automated exposure control or mA/KV adjustment according to patient size. FINDINGS: The lower lung noble are clear.Cholecystectomy clips. The liver, spleen, pancreas, adrenal glands and kidneys are within normal limits for a limited non-co ntrast examination. No bowel obstruction, free air, free fluid or abscess. Appendectomy. Prominent degenerative change in the lumbar spine. IMPRESSION: An acute abnormality is not identified. A limited non-contrast examination was performed as detailed.
--- NOTE | 2018-03-04 13:49 | RAD REPORT ---
EXAM DESCRIPTION: CT - Thoracic Spine W/o Cont - 03/04/2018 1:35 pm CLINICAL HISTORY: Radiculopathy. PAIN. History of Jiang disease. COMPARISON: Head C Spine Mpr Wo Con dated 02/25/2017; [id number] dated 02/02/2010; Thoracic Spine W/Wo Contr dated 03/11/2017; Thoracic Spine W/Wo Contr dated 02/25/2017 TECHNIQUE: Axial CT imaging through the thoracic spine was performed with coronal and sagittal re-fo rmatted images. All CT scans are performed using dose optimization technique as appropriate and may include automated exposure control or mA/KV adjustment according to patient size. 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 No hardware fractures present. No paraspinal fluid collec tions or hematoma. No evidence of spinal canal compromise seen. IMPRESSION: No acute abnormality is discerned.
[2018-03-04] MEDS ORDERED: FENTANYL CITR 100 MCG/2 ML ONE (14:28)
--- NOTE | 2018-03-04 14:45 | ER ---
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 Transition of care: patient was not received from another setting of care. Onset of symptoms was March 04, 2018. Risk Assessment: Do you want to hurt yourself or someone else? Patient reports no desire to harm self or others. Initial Sepsis Screen: Does the patient meet any 2 criteria? No. Patient's initial sepsis screen is negative. Does the patient have a suspected source of infection? No. Patient's initial sepsis screen is negative. Care prior to arrival: None. 14:14 Method Of Arrival: EMS kr2 14:14 Acuity: TRAN 4 kr2 Triage Assessment: 14:15 General: Appears in no apparent distress. uncomfortable, obese, well groomed, Behavior kr2 is calm, cooperative, appropriate for age. Pain: Complains of pain in mid lower back Pain currently is 8 out of 10 on a pain scale. Quality of pain is described as aching, Is continuous, Alleviated by nothing. Aggravated by increased activity, repositioning. EENT: Oral mucosa is moist. Lesions noted. Neuro: Level of Consciousness is awake, alert, obeys commands, Intact. Cardiovascular: Capillary refill < 3 seconds in bilateral fingers Patient's skin is warm and dry. Respiratory: Airway is patent Respiratory effort is even, unlabored, Respiratory pattern is regular, symmetrical. GI: Abdomen is non-distended, obese. : Urine is cloudy, Denies burning with urination. Derm: Skin is intact, is healthy with good turgor, Skin is pink, warm \T\ dry. Musculoskeletal: Circulation, motion, and sensation intact. Historical: - Allergies: 14:20 Morphine; kr2 14:20 Phenergan; kr2 14:20 surgical tape; kr2 - Home Meds: 14:20 acetaminophen 325 mg Oral tab 2 tabs every 6 hours [Active]; kr2 - PMHx: 14:20 Diabetes - IDDM; insomnia; Pott's Disease-TB of spine; Thyroid problem; kr2 - PSHx: 14:20 Back surgery; kr2 - Immunization history:: Adult Immunizations unknown. - Social history:: Smoking status: Patient/guardian denies using tobacco. - Ebola Screening: : No symptoms or risks identified at this time. Screenin:15 Abuse screen: Denies threats or abuse. Denies injuries from another. Nutritional kr2 screening: No deficits noted. Tuberculosis screening: No symptoms or risk factors identified. Fall Risk None identified. Assessment: 13:20 Reassessment: See triage assessment. kr2 14:30 Reassessment: Patient appears in no apparent distress at this time. Patient and/or kr2 family updated on plan of care and expected duration. Pain level reassessed. Patient is alert, oriented x 3, equal unlabored respirations, skin warm/dry/pink. Patient states symptoms have improved. 15:06 Reassessment: Patient states her will be picking her up. Reports she is unable kr2 to sit up and cannot walk. Awaiting transportation prior to discharge. 16:30 Reassessment: Patient appears in no apparent distress at this time. Patient and/or kr2 family updated on plan of care and expected duration. Pain level reassessed. Patient is alert, oriented x 3, equal unlabored respirations, skin warm/dry/pink. Patient states feeling better. Vital Signs: 13:20 BP 111 / 62; Pulse 90; Resp 17; Temp 98.2; Pulse Ox 100% ; Pain 8/10; kr2 14:30 BP 108 / 56; Pulse 86; Resp 17; Pulse Ox 99% on R/A; kr2 15:17 BP 114 / 61; Pulse 87; Resp 16; Pulse Ox 99% on R/A; kr2 ED Course: 13:16 Patient arrived in ED. iw 13:17 [facility] snw 13:17 Wiley Jain MD is Attending Physician. snw 13:36 CT Thoracic Spine Wo Cont In Process Unspecified. EDMS 13:36 CT Abd/Pelvis - Without Cont In Process Unspecified. EDMS 13:51 Abbey Scales, RN is Primary Nurse. kr2 14:15 Triage completed. kr2 14:18 Arm band placed on left wrist. kr2 14:20 Patient has correct armband on for positive identification. Bed in low position. Call kr2 light in reach. Side rails up X 1. Pulse ox on. NIBP on. 15:44 No provider procedures requiring assistance completed. Patient did not have IV access mg2 during this emergency room visit. Administered Medications: 10:24 Drug: Rocephin (cefTRIAXone) 1 grams Route: IM; Site: right gluteus; aj 16:31 Follow up: Response: No adverse reaction aj 14:31 Drug: fentaNYL (PF) 75 mcg Route: IM; Site: left gluteus; kr2 16:28 Follow up: Response: Pain is decreased aj 14:48 Drug: Flexeril 10 mg Route: PO; aj 16:28 Follow up: Response: Pain is decreased aj Outcome: 14:44 Discharge ordered by MD. snw 15:44 Discharged to home mg2 16:30 Condition: good aj 16:30 Discharge instructions given to patient, family, Instructed on discharge instructions, follow up and referral plans. medication usage, Demonstrated understanding of instructions, follow-up care, medications, Prescriptions given X 3. 16:31 Patient left the ED. aj Signatures: Dispatcher [employer] EDRI Ophelia Dey RN RN aj Ivania Caballero, CAREGIVER ASSISTED LIVING-C C[employer]IST[employer]IVING-Csnw Rossy Vásquez RN RN Abbey Scales, RN RN kr2 Per Monahan RN RN mg2 Corrections: (The following items were deleted from the chart) 15:08 14:22 BP 111 / 62; Pulse 90bpm; Resp 17bpm; Pulse Ox 100%; Temp 98.2F; Pain 8/10; kr2 kr2 15:10 14:14 Presenting complaint: Patient states: she has a history of multiple back kr2 surgeries due to Pott's disease, when she was turning in bed today, she felt a pop and started having severe pain kr2 15:10 14:14 Transition of care: patient was not received from another setting of care. kr2 kr2 15:10 14:14 Onset of symptoms was March 04, 2018 kr2 kr2 15:10 14:14 Risk Assessment: Do you want to hurt yourself or someone else? Patient reports no kr2 desire to harm self or others. kr2 15:10 14:14 Initial Sepsis Screen: Does the patient meet any 2 criteria? No. Patient's kr2 initial sepsis screen is negative. Does the patient have a suspected source of infection? No. Patient's initial sepsis screen is negative. kr2 15:10 14:14 Care prior to arrival: None. kr2 kr2 16:31 16:30 Discharge instructions given to patient, family, Instructed on discharge aj instructions, follow up and referral plans. medication usage, Demonstrated understanding of instructions, follow-up care, medications, Prescriptions given X 2, aj
--- NOTE | 2018-03-04 14:45 | EDPHYS ---
Physician Documentation [facility] Name: Nannette Hampton Age: 57 yrs Sex: Female : 1960 Arrival Date: 03/04/2018 Time: 13:16 Bed 11 Private MD: ED Physician Wiley Jain HPI: 03/04 13:20 This 57 yrs old Female presents to ER via Unassigned with complaints of back snw pain, lower abdominal pain. 13:20 The patient presents with pain that is acute, and decreased range of motion, and snw tenderness. The symptoms are located in the thoracic area. Onset: The symptoms/episode began/occurred suddenly, 1 week(s) ago, and became persistent. Associated signs and symptoms: The patient has no apparent associated signs or symptoms. The problem was sustained from twisting. Modifying factors: The patient symptoms are alleviated by nothing, the patient symptoms are aggravated by movement. Severity of symptoms: At their worst the symptoms were moderate, severe. The patient has experienced similar episodes in the past. The patient has not recently seen a physician. Pain to right lower quadrant as well as mid-upper back. Historical: - Allergies: 14:20 Morphine; kr2 14:20 Phenergan; kr2 14:20 surgical tape; kr2 - Home Meds: 14:20 acetaminophen 325 mg Oral tab 2 tabs every 6 hours [Active]; kr2 - PMHx: 14:20 Diabetes - IDDM; insomnia; Pott's Disease-TB of spine; Thyroid problem; kr2 - PSHx: 14:20 Back surgery; kr2 - Immunization history:: Adult Immunizations unknown. - Social history:: Smoking status: Patient/guardian denies using tobacco. - Ebola Screening: : No symptoms or risks identified at this time. ROS: 13:23 Constitutional: Negative for fever, chills, and weight loss, Eyes: Negative for injury, snw pain, redness, and discharge, ENT: Negative for injury, pain, and discharge, Neck: Negative for injury, pain, and swelling, Cardiovascular: Negative for chest pain, palpitations, and edema, Respiratory: Negative for shortness of breath, cough, wheezing, and pleuritic chest pain, : Negative for injury, bleeding, discharge, and swelling, MS/Extremity: Negative for injury and deformity, Skin: Negative for injury, rash, and discoloration, Neuro: Negative for headache, weakness, numbness, tingling, and seizure. 13:23 Abdomen/GI: Positive for abdominal pain. 13:23 Back: Positive for decreased range of motion, pain at rest, pain with movement, of the thoracic area. Exam: 13:24 Constitutional: This is a well developed, well nourished patient who is awake, alert, snw and in no acute distress. Head/Face: Normocephalic, atraumatic. Eyes: Pupils equal round and reactive to light, extra-ocular motions intact. Lids and lashes normal. Conjunctiva and sclera are non-icteric and not injected. Cornea within normal limits. Periorbital areas with no swelling, redness, or edema. ENT: Nares patent. No nasal discharge, no septal abnormalities noted. Tympanic membranes are normal and external auditory canals are clear. Oropharynx with no redness, swelling, or masses, exudates, or evidence of obstruction, uvula midline. Mucous membranes moist. Neck: Trachea midline, no thyromegaly or masses palpated, and no cervical lymphadenopathy. Supple, full range of motion without nuchal rigidity, or vertebral point tenderness. No Meningismus. Chest/axilla: Normal chest wall appearance and motion. Nontender with no deformity. No lesions are appreciated. Cardiovascular: Regular rate and rhythm with a normal S1 and S2. No gallops, murmurs, or rubs. Normal PMI, no JVD. No pulse deficits. Respiratory: Lungs have equal breath sounds bilaterally, clear to auscultation and percussion. No rales, rhonchi or wheezes noted. No increased work of breathing, no retractions or nasal flaring. Skin: Warm, dry with normal turgor. Normal color with no rashes, no lesions, and no evidence of cellulitis. MS/ Extremity: Pulses equal, no cyanosis. Neurovascular intact. Full, normal range of motion. Neuro: Awake and alert, GCS 15, oriented to person, place, time, and situation. Cranial nerves II-XII grossly intact. Motor strength 5/5 in all extremities. Sensory grossly intact. Cerebellar exam normal. Normal gait. Psych: Awake, alert, with orientation to person, place and time. Behavior, mood, and affect are within normal limits. 13:24 Abdomen/GI: Inspection: obese Bowel sounds: normal, Palpation: moderate abdominal tenderness, in the right lower quadrant. 13:24 Back: ROM is painful, with all movement, normal spinal alignment noted. Vital Signs: 13:20 BP 111 / 62; Pulse 90; Resp 17; Temp 98.2; Pulse Ox 100% ; Pain 8/10; kr2 14:30 BP 108 / 56; Pulse 86; Resp 17; Pulse Ox 99% on R/A; kr2 15:17 BP 114 / 61; Pulse 87; Resp 16; Pulse Ox 99% on R/A; kr2 MDM: 13:17 Patient medically screened. snw 15:10 Data reviewed: vital signs, nurses notes. Data interpreted: Pulse oximetry: on room air snw is 100 %. Interpretation: normal. Counseling: I had a detailed discussion with the patient and/or guardian regarding: the historical points, exam findings, and any diagnostic results supporting the discharge/admit diagnosis, lab results, radiology results, the need for outpatient follow up, to return to the emergency department if symptoms worsen or persist or if there are any questions or concerns that arise at home. Special discussion: Based on the patient's Hx, exam, and Dx evaluation, there is no indication for emergent surgery or inpatient Tx. It is understood by the patient/guardian that if the Sx's persist or worsen they need to return immediately for re-evaluation. Based on the history and exam findings, there is no indication for further emergent testing or inpatient evaluation. I discussed with the patient/guardian the need to see the primary care provider for further evaluation of the symptoms. 03/04 15:29 Order name: Urine Dipstick--Ancillary (enter results); Complete Time: 16:01 bd 03/04 13:17 Order name: CT Thoracic Spine Wo Cont; Complete Time: 13:54 snw 03/04 13:17 Order name: CT Abd/Pelvis - Without Cont; Complete Time: 13:47 snw 03/04 13:55 Order name: Urine Dipstick-Ancillary (obtain specimen); Complete Time: 14:13 snw Administered Medications: 10:24 Drug: Rocephin (cefTRIAXone) 1 grams Route: IM; Site: right gluteus; aj 16:31 Follow up: Response: No adverse reaction aj 14:31 Drug: fentaNYL (PF) 75 mcg Route: IM; Site: left gluteus; kr2 16:28 Follow up: Response: Pain is decreased aj 14:48 Drug: Flexeril 10 mg Route: PO; aj 16:28 Follow up: Response: Pain is decreased aj Disposition: 16:36 Co-signature as Attending Physician, Wiley Jain MD I agree with the assessment and kdr plan of care. Disposition: 03/04/18 14:44 Discharged to Home. Impression: Thoracic, thoracolumbar and lumbosacral intervertebral disc disorders with radiculopathy, Lower abdominal pain, unspecified, Urinary tract infection, site not specified. - Condition is Stable. - Discharge Instructions: Abdominal Pain, Adult, Back Pain, Adult, Pain Without a Known Cause, Urinary Tract Infection, Adult. - Prescriptions for Diclofenac Sodium 75 mg Oral Tablet Sustained Release - take 1 tablet by ORAL route 2 times per day; 30 tablet. orphenadrine citrate 100 mg Oral Tablet Sustained Release - take 1 tablet by ORAL route 2 times per day As needed; 20 tablet. Macrobid 100 mg Oral Capsule - take 1 capsule by ORAL route every 12 hours for 10 days; 20 capsule. - Medication Reconciliation Form, Thank You Letter, Antibiotic Education, Prescription Opioid Use form. - Follow up: Private Physician; When: 2 - 3 days; Reason: Recheck today's complaints, Continuance of care, Re-evaluation by your physician. Follow up: Emergency Department; When: As needed; Reason: Worsening of condition. Signatures: Dispatcher [employer] EDOphelia Prather RN RN aj Rittger, Kevin, MD MD [facility] Ivania Caballero, NATURAL GAS TREATING UNIT OPERATOR-C NATURAL GAS TREATING UNIT OPERATOR-Csnw Abbey Scales RN RN kr2 Corrections: (The following items were deleted from the chart) 16:04 14:44 03/04/2018 14:44 Discharged to Home. Impression: Thoracic, thoracolumbar and snw lumbosacral intervertebral disc disorders with radiculopathy; Lower abdominal pain, unspecified. Condition is Stable. Forms are Medication Reconciliation Form, Thank You Letter, Antibiotic Education, Prescription Opioid Use. Follow up: Private Physician; When: 2 - 3 days; Reason: Recheck today's complaints, Continuance of care, Re-evaluation by your physician. Follow up: Emergency Department; When: As needed; Reason: Worsening of condition. snw 16:31 16:04 03/04/2018 14:44 Discharged to Home. Impression: Thoracic, thoracolumbar and aj lumbosacral intervertebral disc disorders with radiculopathy; Lower abdominal pain, unspecified; Urinary tract infection, site not specified. Condition is Stable. Discharge Instructions: Abdominal Pain, Adult, Back Pain, Adult, Pain Without a Known Cause. Prescriptions for Diclofenac Sodium 75 mg Oral Tablet Sustained Release - take 1 tablet by ORAL route 2 times per day; 30 tablet, orphenadrine citrate 100 mg Oral Tablet Sustained Release - take 1 tablet by ORAL route 2 times per day As needed; 20 tablet, Macrobid 100 mg Oral Capsule - take 1 capsule by ORAL route every 12 hours for 10 days; 20 capsule. and Forms are Medication Reconciliation Form, Thank You Letter, Antibiotic Education, Prescription Opioid Use. Follow up: Private Physician; When: 2 - 3 days; Reason: Recheck today's complaints, Continuance of care, Re-evaluation by your physician. Follow up: Emergency Department; When: As needed; Reason: Worsening of condition. chintan
[2018-03-04] MEDS ORDERED: CYCLOBENZAPRINE 10 MG TAB ONE (14:52)
[2018-03-04 15:41] LABS: Urine Blood NEGATIVE (NEG); Urine Glucose NEGATIVE (NEG); Urine Protein NEGATIVE (NEG)
[2018-03-04] MEDS ORDERED: CEFTRIAXONE 1000 MG/VIAL ONE (16:19)
[2018-03-04] MEDS ORDERED: WATER FOR INJ,STERILE 10 ML ONE (16:20)
[2018-03-04 16:44] VITALS: TEMP 98.2
[2018-03-04 16:45] VITALS: O2SAT 99
[2018-03-04 16:46] VITALS: BP 114/61
== END 2018-03-04 16:31 | disposition home or self-care (01) ==
LOC: ER 13:10
DX: M51.14 Intervertebral disc disorders with radiculopathy, thoracic region (principal); M51.15 Intervertebral disc disorders with radiculopathy, thoracolumbar region; M51.16 Intervertebral disc disorders with radiculopathy, lumbar region; N39.0 Urinary tract infection, site not specified; Z88.5 Allergy status to narcotic agent; Z88.8 Allergy status to other drugs, medicaments and biological substances; Z91.048 Other nonmedicinal substance allergy status
CPT/HCPCS: 72128; 74176; 81003; J3010; 96372; 99284

== ENCOUNTER 2019-03-28 13:16 | Observation (INO) | payer OTHER ==
--- OUTSIDE RECORDS SUMMARY | 2019-03-28 13:17 | XMS REPORT | Clinical Summary ---
:1960 Author Organization [facility] Address [address] [place] [id number] Care Team Providers Name Role Phone Hardeep Primary Care Provider Allergies Active Allergy Reactions Severity Noted Date Comments Meperidine (Pf) 02/25/2017 Morphine 02/25/2017 Promethazine-Dm 02/25/2017 Adhesive Tape 02/25/2017 Medications Medication Sig Dispensed Refills Start Date End Date Status dexamethasone (DECADRON) Take 2 mg PO BID 7 tablet 0 03/22/2017 Active 2 MG tablet x 2 days, then 2 mg Po daily x 3 days then stop. Active Problems Problem Noted Date Acute midline back pain, unspecified back location 03/12/2017 Hypoalbuminemia 03/11/2017 Morbid obesity with BMI of 40.0-44.9, adult 03/11/2017 Hypokalemia 03/06/2017 Back pain, acute 03/06/2017 Rash 03/06/2017 Paraspinal mass 03/06/2017 Lesion of vertebra 03/06/2017 Retroperitoneal lymphadenopathy 03/06/2017 Anemia 03/06/2017 Hyponatremia 03/06/2017 History of back surgery 03/06/2017 Rib pain 03/06/2017 Fall 03/06/2017 TB lung, latent 03/06/2017 Cord compression 03/06/2017 Elevated LFTs 03/06/2017 Insomnia 03/06/2017 Pott's disease 03/06/2017 Spondylodiscitis 02/25/2017 Social History Tobacco Use Types Packs/Day Years Used Date Former Smoker Smokeless Tobacco: Never Used Alcohol Use Drinks/Week oz/Week Comments No Sex Assigned at Date Recorded Not on file Job Start Date Occupation Industry Not on file Not on file Not on file Travel History Travel Start Travel End No recent travel history available. Last Filed Vital Signs Not on file Plan of Treatment Not on file Implants Implanted Type Area Water Quality Technician Device Shelf Model / Serial Identifier Expiration / Lot Date Tiss Live Puty Dbm Optium 10cc Tput10 - [id number] Bone N/A: Spine LIFENET: LIFENET 10/03/2019 TPUT10 / Implanted: Qty: 1 on 03/12/2017 by Ray Villafuerte MD Thoracic TRANSPLANT SRV / Tiss Live Puty Dbm Optium 10cc Tput10 - [id number] Bone N/A: Spine LIFENET: LIFENET 10/03/2019 TPUT10 / Implanted: Qty: 1 on 03/12/2017 by Ray Villafuerte MD Thoracic TRANSPLANT SRV / Bone Chip Canc 1.7-10mm 30ml [id number] - [id number] Bone N/A: Spine MUSCULOSKELETAL 10/26/2019 [id number] / Implanted: Qty: 1 on 03/12/2017 by Ray Villafuerte MD Thoracic TRANSPLANT FND [id number] / 1110 Bone Chip Canc 1.7-10mm 30ml [id number] - [id number] Bone N/A: Spine MUSCULOSKELETAL 10/03/2019 [id number] / Implanted: Qty: 1 on 03/12/2017 by Ray Villafuerte MD Thoracic TRANSPLANT FND [id number] / 3010 Matrix Floseal Hemo W/O Ndl 10 [id number] - [id number] Cement/ N/A: Spine ORTEGA :BIOSCI 07/25/2018 [id number] / Implanted: Qty: 1 on 03/12/2017 by Ray Villafuerte MD Filler/ Thoracic / Adhesiv [id number] Scr Mas 5.5x40mm [id number] - [id number] Spine N/A: Spine MEDTRONIC:SPINAL [id number] / Implanted: Qty: 4 on 03/12/2017 by Ray Villafuerte MD Thoracic BIOLOGICS / [id number] Scr Mas 4.5x30mm [id number] - [id number] Spine N/A: Spine MEDTRONIC:SPINAL [id number] / Implanted: Qty: 2 on 03/12/2017 by Ray Villafuerte MD Thoracic BIOLOGICS / [id number] Scr Mas 4.5x25mm [id number] - [id number] Spine N/A: Spine MEDTRONIC:SPINAL [id number] / Implanted: Qty: 1 on 03/12/2017 by Ray Villafuerte MD Thoracic BIOLOGICS / [id number] Scr Mas 5.5x35mm [id number] - [id number] Spine N/A: Spine MEDTRONIC:SPINAL [id number] / Implanted: Qty: 3 on 03/12/2017 by Ray Villafuerte MD Thoracic BIOLOGICS / [id number] Scr Mas 5.5x35mm [id number] - [id number] Spine N/A: Spine MEDTRONIC:SPINAL [id number] / Implanted: Qty: 3 on 03/12/2017 by Ray Villafuerte MD Thoracic BIOLOGICS / [id number] Screw Set Ti Ns Brk Off 5.5 - [id number] Spine N/A: Spine MEDTRONIC:SPINAL [id number] / Implanted: Qty: 7 on 03/12/2017 by Ray Villafuerte MD Thoracic BIOLOGICS / [id number] Screw Set Ti Ns Brk Off 5.5 - [id number] Spine N/A: Spine MEDTRONIC:SPINAL [id number] / Implanted: Qty: 6 on 03/12/2017 by Ray Villafuerte MD Thoracic BIOLOGICS / [id number] 5.5 Ti Luis Miguel N/A: Spine MEDTRONIC [id number] / Implanted: Qty: 1 on 03/12/2017 by Ray Villafuerte MD Thoracic / [id number] Results Not on fileafter 03/27/2018 Insurance Payer Benefit Plan / Group Subscriber ID Type Phone Address MEDICARE MEDICARE A B xxxxxxxxxx Medicare MEDICAID [place]ICAID [place] xxxxxxxxx Medicaid (Home) [id number] [place] [address] Advance Directives For more information, please contact:[place] [address] [address] [facility] [place] [phone] Code Status Date Activated Date Inactivated Comments Full Code 03/12/2017 1:52 AM 03/22/2017 3:44 PM This code status was determined by: Patient Full Code 02/25/2017 11:16 PM 03/07/2017 5:36 PM This code status was determined by: Patient
--- OUTSIDE RECORDS SUMMARY | 2019-03-28 13:20 | XMS REPORT ---
:1960 [facility] Address [address] [place] [address] Dr. Alaniz [address] [place] [address] Care Team Providers Name Role Phone PILAR [...] Value Reference Range Comments CULTURE (BEAKER) (test xdmh=8921) Pyrazinamide (test nwvp=141) Rifampin (test code=43) CULTURE (BEAKER) (test Mycobacterium tuberculosis dpel=8920) complexIdentification performed by:[facility], [address] [place] [address] AFB SMEAR (BEAKER) (test No acid fast bacilli nxnu=204) seen AFB CULTURE + [id number] 16:36:00 Test Item Value Reference Range Comments CULTURE (BEAKER) (test No acid-fast bacilli isolated gmrn=7854) in 42 days AFB SMEAR (BEAKER) (test No acid fast bacilli seen ggso=090) SHORT-LATENCY SPE, ALL [id number] 16:01:00INTRAOPERATIVE MONITORING REPORT Patient Name: Nannette Wolf [facility] Surgery Date: March 12, 2017 [place] [id number] Monitoring began at 09:21 and ended at 13:17 Surgeon: Ray Villafuerte M.D. Examining Neurologist: Gabino Kaye M.D. Monitoring Technologist: Byron Irwin, CN Procedure: T3-8 Fixation and Evacutation of Infection [...] Gabino Kaye M.D. G95.20 FUNGUS CULTURE + [id number] 11:14:00 Test Item Value Reference Range Comments CULTURE (BEAKER) (test No fungus isolated in 28 days cwyb=2686) FUNGUS SMEAR (BEAKER) (test No fungi seen nkan=6077) FUNGUS CULTURE + [id number] 10:27:00 Test Item Value Reference Range Comments CULTURE (BEAKER) (test No fungus isolated in 28 days oqnp=1535) FUNGUS SMEAR (BEAKER) (test No fungi seen pwuz=7623) POCT-GLUCOSE [id number] 11:56:00 Test Item Value Reference Range Comments POC-GLUCOSE METER (BEAKER) 113 mg/dL 70-110 TESTED AT [address] (test wbxd=1488) [facility] [address] POCT-GLUCOSE [id number] 08:02:00 Test Item Value Reference Range Comments POC-GLUCOSE METER (BEAKER) 95 mg/dL 70-110 TESTED AT [address] (test tbfs=1668) [facility] [address] [id number] 07:03:00 Test Item Value Reference Range Comments PHOSPHORUS (BEAKER) (test qkli=961) 3.9 mg/dL 2.3-4.7 [id number] 07:03:00 Test Item Value Reference Range Comments MAGNESIUM (BEAKER) (test xgnt=668) 1.8 mg/dL 1.6-2.6 BASIC METABOLIC [id number] 07:03:00 Test Item Value Reference Range Comments SODIUM (BEAKER) (test 137 meq/L 136-145 mfgf=377) POTASSIUM (BEAKER) (test 4.1 meq/L 3.5-5.1 ahck=567) CHLORIDE (BEAKER) (test 105 meq/L 98-107 opnn=560) CO2 (BEAKER) (test 25 meq/L 22-29 hcnl=450) BLOOD UREA NITROGEN 16 mg/dL 7-21 (BEAKER) (test imlo=078) CREATININE (BEAKER) (test 0.63 mg/dL 0.57-1.25 phmn=966) GLUCOSE RANDOM (BEAKER) 120 mg/dL 70-105 (test jmwy=113) CALCIUM (BEAKER) (test 8.7 mg/dL 8.4-10.2 apac=486) EGFR (BEAKER) (test 97 mL/min/1.73 sq m ESTIMATED GFR IS NOT cwvg=8403) ACCURATE CREATININE CLEARANCE IN PREDICTING GLOMERULAR FILTRATION RATE. ESTIMATED GFR IS NOT APPLICABLE FOR DIALYSIS PATIENTS. CBC W/PLT COUNT & AUTO [id number] 06:36:00 Test Item Value Reference Range Comments WHITE BLOOD CELL COUNT (BEAKER) (test onuj=861) 6.5 K/ L 3.5-10.5 RED BLOOD CELL COUNT (BEAKER) (test qsls=479) 3.38 M/ L 3.93-5.22 HEMOGLOBIN (BEAKER) (test jdvp=077) 9.6 GM/DL 11.2-15.7 HEMATOCRIT (BEAKER) (test qpsj=496) 30.9 % 34.1-44.9 MEAN CORPUSCULAR VOLUME (BEAKER) (test wgvm=820) 91.4 fL 79.4-94.8 MEAN CORPUSCULAR HEMOGLOBIN (BEAKER) (test 28.4 pg 25.6-32.2 owuj=145) MEAN CORPUSCULAR HEMOGLOBIN CONC (BEAKER) (test 31.1 GM/DL 32.2-35.5 bttw=381) RED CELL DISTRIBUTION WIDTH (BEAKER) (test 15.6 % 11.7-14.4 rfig=241) PLATELET COUNT (BEAKER) (test fzui=235) 340 K/CU MM 150-450 MEAN PLATELET VOLUME (BEAKER) (test nnly=387) 8.6 fL 9.4-12.3 NUCLEATED RED BLOOD CELLS (BEAKER) (test 0 /100 WBC 0-0 akin=627) NEUTROPHILS RELATIVE PERCENT (BEAKER) (test 73 % dzgz=040) LYMPHOCYTES RELATIVE PERCENT (BEAKER) (test 14 % nqcm=129) MONOCYTES RELATIVE PERCENT (BEAKER) (test 7 % aimy=771) EOSINOPHILS RELATIVE PERCENT (BEAKER) (test 3 % bfoh=179) BASOPHILS RELATIVE PERCENT (BEAKER) (test 1 % uzti=569) NEUTROPHILS ABSOLUTE COUNT (BEAKER) (test 4.75 K/ L 1.56-6.13 hgmm=300) LYMPHOCYTES ABSOLUTE COUNT (BEAKER) (test 0.91 K/ L 1.18-3.74 sbrg=554) MONOCYTES ABSOLUTE COUNT (BEAKER) (test 0.44 K/ L 0.24-0.36 orfw=745) EOSINOPHILS ABSOLUTE COUNT (BEAKER) (test 0.20 K/ L 0.04-0.36 hzcs=309) BASOPHILS ABSOLUTE COUNT (BEAKER) (test 0.05 K/ L 0.01-0.08 ssqs=193) IMMATURE GRANULOCYTES-RELATIVE PERCENT (BEAKER) 3 % 0-1 (test nedp=9572) POCT-GLUCOSE [id number] 05:22:00 Test Item Value Reference Range Comments POC-GLUCOSE METER (BEAKER) 186 mg/dL 70-110 [facility]ED AT [facility] [address] [facility] (test bpje=2901) [facility] [address] POCT-GLUCOSE [id number] 21:10:00 Test Item Value Reference Range Comments POC-GLUCOSE METER (BEAKER) 173 mg/dL 70-110 TESTED AT [facility] [address] (test tgih=1724) [facility] [address] TISSUE [id number] 13:55:00Surgical Pathology Report Case: [id number] Authorizing Provider: Ray Villafuerte MD Collected: 03/12/2017 1243 Ordering Location: [facility] PERIOPERATIVE Received: 03/12/2017 1349 SERVICES [...] ARE NEGATIVE Signing Pathologist Direct Phone Line: [phone] signed by Edmond Grewal MD on 2016 at 1:55 [id number] osteomyelitis A. Thoracic epidural tissue and [...] above arenegative in this tissue as well.POCT-GLUCOSE [id number] 12:31:00 Test Item Value Reference Range Comments POC-GLUCOSE METER (BEAKER) 108 mg/dL 70-110 TESTED AT [facility] [address] (test hnbl=4080) [facility] [address] POCT-GLUCOSE [id number] 07:40:00 Test Item Value Reference Range Comments POC-GLUCOSE METER (BEAKER) 114 mg/dL 70-110 TESTED AT [facility] [address] (test lame=6864) [facility] [address] [id number] 07:19:00 Test Item Value Reference Range Comments PHOSPHORUS (BEAKER) (test whwv=584) 3.7 mg/dL 2.3-4.7 [id number] 07:19:00 Test Item Value Reference Range Comments MAGNESIUM (BEAKER) (test beri=254) 1.6 mg/dL 1.6-2.6 BASIC METABOLIC [id number] 07:19:00 Test Item Value Reference Range Comments SODIUM (BEAKER) (test 134 meq/L 136-145 aetk=924) POTASSIUM (BEAKER) (test 4.1 meq/L 3.5-5.1 whsd=331) CHLORIDE (BEAKER) (test 103 meq/L 98-107 faak=785) CO2 (BEAKER) (test 27 meq/L 22-29 pgaz=464) BLOOD UREA NITROGEN 13 mg/dL 7-21 (BEAKER) (test osub=515) CREATININE (BEAKER) (test 0.61 mg/dL 0.57-1.25 fnaj=399) GLUCOSE RANDOM (BEAKER) 112 mg/dL 70-105 (test ywml=653) CALCIUM (BEAKER) (test 8.6 mg/dL 8.4-10.2 tfnc=492) EGFR (BEAKER) (test 101 mL/min/1.73 sq m ESTIMATED GFR IS NOT lwlj=5537) ACCURATE CREATININE CLEARANCE IN PREDICTING GLOMERULAR FILTRATION RATE. ESTIMATED GFR IS NOT APPLICABLE FOR DIALYSIS PATIENTS. CBC W/PLT COUNT & AUTO [id number] 07:01:00 Test Item Value Reference Range Comments WHITE BLOOD CELL COUNT (BEAKER) (test ydtv=129) 8.0 K/ L 3.5-10.5 RED BLOOD CELL COUNT (BEAKER) (test tody=037) 2.98 M/ L 3.93-5.22 HEMOGLOBIN (BEAKER) (test irmv=848) 8.7 GM/DL 11.2-15.7 HEMATOCRIT (BEAKER) (test dayu=219) 27.1 % 34.1-44.9 MEAN CORPUSCULAR VOLUME (BEAKER) (test xary=771) 90.9 fL 79.4-94.8 MEAN CORPUSCULAR HEMOGLOBIN (BEAKER) (test 29.2 pg 25.6-32.2 xbce=702) MEAN CORPUSCULAR HEMOGLOBIN CONC (BEAKER) (test 32.1 GM/DL 32.2-35.5 ncws=056) RED CELL DISTRIBUTION WIDTH (BEAKER) (test 15.5 % 11.7-14.4 nrff=229) PLATELET COUNT (BEAKER) (test vkww=720) 360 K/CU MM 150-450 MEAN PLATELET VOLUME (BEAKER) (test gzmn=264) 8.6 fL 9.4-12.3 NUCLEATED RED BLOOD CELLS (BEAKER) (test 0 /100 WBC 0-0 mlrq=535) NEUTROPHILS RELATIVE PERCENT (BEAKER) (test 76 % tmta=052) LYMPHOCYTES RELATIVE PERCENT (BEAKER) (test 13 % mwvx=586) MONOCYTES RELATIVE PERCENT (BEAKER) (test 7 % wihl=141) EOSINOPHILS RELATIVE PERCENT (BEAKER) (test 2 % sijr=898) BASOPHILS RELATIVE PERCENT (BEAKER) (test 0 % hurp=588) NEUTROPHILS ABSOLUTE COUNT (BEAKER) (test 6.04 K/ L 1.56-6.13 yafr=547) LYMPHOCYTES ABSOLUTE COUNT (BEAKER) (test 1.00 K/ L 1.18-3.74 lneh=698) MONOCYTES ABSOLUTE COUNT (BEAKER) (test 0.58 K/ L 0.24-0.36 enxk=807) EOSINOPHILS ABSOLUTE COUNT (BEAKER) (test 0.17 K/ L 0.04-0.36 vpqw=437) BASOPHILS ABSOLUTE COUNT (BEAKER) (test 0.02 K/ L 0.01-0.08 ruwf=257) IMMATURE GRANULOCYTES-RELATIVE PERCENT (BEAKER) 2 % 0-1 (test cmmi=5137) POCT-GLUCOSE [id number] 20:46:00 Test Item Value Reference Range Comments POC-GLUCOSE METER (BEAKER) 166 mg/dL 70-110 TESTED AT [address] (test ntog=6631) [facility] [address] POCT-GLUCOSE [id number] 17:33:00 Test Item Value Reference Range Comments POC-GLUCOSE METER (BEAKER) 143 mg/dL 70-110 TESTED AT [address] (test kfke=8509) [facility] [address] POCT-GLUCOSE [id number] 12:40:00 Test Item Value Reference Range Comments POC-GLUCOSE METER (BEAKER) 120 mg/dL 70-110 TESTED AT [address] (test liws=0841) [facility] [address] [id number] 11:23:00 Test Item Value Reference Range Comments MAGNESIUM (BEAKER) (test 1.8 mg/dL 1.6-2.6 Specimen slightly hemolyzed gyxi=749) [id number] 11:23:00 Test Item Value Reference Range Comments PHOSPHORUS (BEAKER) (test 3.3 mg/dL 2.3-4.7 Specimen slightly hemolyzed zmay=202) BASIC METABOLIC [id number] 11:23:00 Test Item Value Reference Range Comments SODIUM (BEAKER) (test 135 meq/L 136-145 jgrj=279) POTASSIUM (BEAKER) (test 4.6 meq/L 3.5-5.1 Specimen slightly edgc=781) hemolyzed CHLORIDE (BEAKER) (test 104 meq/L 98-107 vcoa=794) CO2 (BEAKER) (test 22 meq/L 22-29 fwon=067) BLOOD UREA NITROGEN 16 mg/dL 7-21 (BEAKER) (test kgmx=793) CREATININE (BEAKER) (test 0.65 mg/dL 0.57-1.25 Specimen slightly tqqo=488) hemolyzed GLUCOSE RANDOM (BEAKER) 85 mg/dL 70-105 (test bcga=773) CALCIUM (BEAKER) (test 9.0 mg/dL 8.4-10.2 fqse=706) EGFR (BEAKER) (test 94 mL/min/1.73 sq m ESTIMATED GFR IS NOT aoxn=8870) ACCURATE CREATININE CLEARANCE IN PREDICTING GLOMERULAR FILTRATION RATE. ESTIMATED GFR IS NOT APPLICABLE FOR DIALYSIS PATIENTS. CBC W/PLT COUNT & AUTO [id number] 10:48:00 Test Item Value Reference Range Comments WHITE BLOOD CELL COUNT (BEAKER) (test lzvk=614) 9.1 K/ L 3.5-10.5 RED BLOOD CELL COUNT (BEAKER) (test grqb=639) 3.44 M/ L 3.93-5.22 HEMOGLOBIN (BEAKER) (test omzy=734) 10.0 GM/DL 11.2-15.7 HEMATOCRIT (BEAKER) (test ffyx=612) 32.4 % 34.1-44.9 MEAN CORPUSCULAR VOLUME (BEAKER) (test ltwc=579) 94.2 fL 79.4-94.8 MEAN CORPUSCULAR HEMOGLOBIN (BEAKER) (test 29.1 pg 25.6-32.2 dtrq=450) MEAN CORPUSCULAR HEMOGLOBIN CONC (BEAKER) (test 30.9 GM/DL 32.2-35.5 wpew=457) RED CELL DISTRIBUTION WIDTH (BEAKER) (test 15.5 % 11.7-14.4 nbqf=335) PLATELET COUNT (BEAKER) (test pitr=601) 423 K/CU MM 150-450 MEAN PLATELET VOLUME (BEAKER) (test uiem=647) 8.7 fL 9.4-12.3 NUCLEATED RED BLOOD CELLS (BEAKER) (test 0 /100 WBC 0-0 trcy=280) NEUTROPHILS RELATIVE PERCENT (BEAKER) (test 73 % kilp=238) LYMPHOCYTES RELATIVE PERCENT (BEAKER) (test 15 % oaxc=270) MONOCYTES RELATIVE PERCENT (BEAKER) (test 7 % jump=074) EOSINOPHILS RELATIVE PERCENT (BEAKER) (test 2 % susz=177) BASOPHILS RELATIVE PERCENT (BEAKER) (test 1 % grqb=242) NEUTROPHILS ABSOLUTE COUNT (BEAKER) (test 6.67 K/ L 1.56-6.13 forg=132) LYMPHOCYTES ABSOLUTE COUNT (BEAKER) (test 1.34 K/ L 1.18-3.74 lxou=814) MONOCYTES ABSOLUTE COUNT (BEAKER) (test 0.65 K/ L 0.24-0.36 kmwd=028) EOSINOPHILS ABSOLUTE COUNT (BEAKER) (test 0.21 K/ L 0.04-0.36 yoie=837) BASOPHILS ABSOLUTE COUNT (BEAKER) (test 0.06 K/ L 0.01-0.08 kuip=476) IMMATURE GRANULOCYTES-RELATIVE PERCENT (BEAKER) 2 % 0-1 (test vasp=3335) POCT-GLUCOSE [id number] 07:49:00 Test Item Value Reference Range Comments POC-GLUCOSE METER (BEAKER) 112 mg/dL 70-110 TESTED AT [address] (test ibji=2896) [facility] [address] POCT-GLUCOSE [id number] 20:36:00 Test Item Value Reference Range Comments POC-GLUCOSE METER (BEAKER) 166 mg/dL 70-110 TESTED AT [address] (test nwul=8077) [place] [address] POCT-GLUCOSE [id number] 16:55:00 Test Item Value Reference Range Comments POC-GLUCOSE METER (BEAKER) 131 mg/dL 70-110 TESTED AT [address] (test uskl=2886) [place] [address] POCT-GLUCOSE [id number] 11:56:00 Test Item Value Reference Range Comments POC-GLUCOSE METER (BEAKER) 150 mg/dL 70-110 TESTED AT [address] (test zwrm=6961) [place] [address] POCT-GLUCOSE [id number] 07:35:00 Test Item Value Reference Range Comments POC-GLUCOSE METER (BEAKER) 105 mg/dL 70-110 TESTED AT [address] (test ncbw=6267) [place] [address] [id number] 07:03:00 Test Item Value Reference Range Comments PHOSPHORUS (BEAKER) (test rpbm=435) 3.6 mg/dL 2.3-4.7 [id number] 07:03:00 Test Item Value Reference Range Comments MAGNESIUM (BEAKER) (test zter=210) 1.6 mg/dL 1.6-2.6 BASIC METABOLIC [id number] 07:03:00 Test Item Value Reference Range Comments SODIUM (BEAKER) (test 136 meq/L 136-145 alty=478) POTASSIUM (BEAKER) (test 4.3 meq/L 3.5-5.1 nuxr=600) CHLORIDE (BEAKER) (test 107 meq/L 98-107 bnpb=795) CO2 (BEAKER) (test 24 meq/L 22-29 mavi=411) BLOOD UREA NITROGEN 14 mg/dL 7-21 (BEAKER) (test axqy=030) CREATININE (BEAKER) (test 0.59 mg/dL 0.57-1.25 ghbh=611) GLUCOSE RANDOM (BEAKER) 113 mg/dL 70-105 (test jyse=487) CALCIUM (BEAKER) (test 8.7 mg/dL 8.4-10.2 qljz=752) EGFR (BEAKER) (test 105 mL/min/1.73 sq m ESTIMATED GFR IS NOT qmni=1341) ACCURATE CREATININE CLEARANCE IN PREDICTING GLOMERULAR FILTRATION RATE. ESTIMATED GFR IS NOT APPLICABLE FOR DIALYSIS PATIENTS. CBC W/PLT COUNT & AUTO [id number] 06:49:00 Test Item Value Reference Range Comments WHITE BLOOD CELL COUNT (BEAKER) (test yjqx=421) 7.9 K/ L 3.5-10.5 RED BLOOD CELL COUNT (BEAKER) (test mvpz=715) 3.10 M/ L 3.93-5.22 HEMOGLOBIN (BEAKER) (test czax=165) 8.8 GM/DL 11.2-15.7 HEMATOCRIT (BEAKER) (test lsmh=007) 28.3 % 34.1-44.9 MEAN CORPUSCULAR VOLUME (BEAKER) (test wvlk=583) 91.3 fL 79.4-94.8 MEAN CORPUSCULAR HEMOGLOBIN (BEAKER) (test 28.4 pg 25.6-32.2 zops=869) MEAN CORPUSCULAR HEMOGLOBIN CONC (BEAKER) (test 31.1 GM/DL 32.2-35.5 ixpa=557) RED CELL DISTRIBUTION WIDTH (BEAKER) (test 14.9 % 11.7-14.4 qamd=955) PLATELET COUNT (BEAKER) (test fcxj=199) 371 K/CU MM 150-450 MEAN PLATELET VOLUME (BEAKER) (test qfiu=195) 8.5 fL 9.4-12.3 NUCLEATED RED BLOOD CELLS (BEAKER) (test 0 /100 WBC 0-0 kkjk=096) NEUTROPHILS RELATIVE PERCENT (BEAKER) (test 73 % kpwb=747) LYMPHOCYTES RELATIVE PERCENT (BEAKER) (test 14 % zaxi=716) MONOCYTES RELATIVE PERCENT (BEAKER) (test 8 % ktva=610) EOSINOPHILS RELATIVE PERCENT (BEAKER) (test 3 % rocr=595) BASOPHILS RELATIVE PERCENT (BEAKER) (test 0 % fgdx=183) NEUTROPHILS ABSOLUTE COUNT (BEAKER) (test 5.71 K/ L 1.56-6.13 zkrh=866) LYMPHOCYTES ABSOLUTE COUNT (BEAKER) (test 1.10 K/ L 1.18-3.74 tvhj=747) MONOCYTES ABSOLUTE COUNT (BEAKER) (test 0.59 K/ L 0.24-0.36 dlhf=126) EOSINOPHILS ABSOLUTE COUNT (BEAKER) (test 0.25 K/ L 0.04-0.36 oslv=060) BASOPHILS ABSOLUTE COUNT (BEAKER) (test 0.03 K/ L 0.01-0.08 soip=438) IMMATURE GRANULOCYTES-RELATIVE PERCENT (BEAKER) 2 % 0-1 (test wmro=2780) POCT-GLUCOSE [id number] 21:16:00 Test Item Value Reference Range Comments POC-GLUCOSE METER (BEAKER) 159 mg/dL 70-110 TESTED AT [address] (test egzw=4389) [place] [id number] POCT-GLUCOSE [id number] 16:57:00 Test Item Value Reference Range Comments POC-GLUCOSE METER (BEAKER) 185 mg/dL 70-110 TESTED AT [address] (test bsol=5257) [place] [address] POCT-GLUCOSE [id number] 11:30:00 Test Item Value Reference Range Comments POC-GLUCOSE METER (BEAKER) 142 mg/dL 70-110 TESTED AT [address] (test dxkk=0573) [place] [address] POCT-GLUCOSE [id number] 07:34:00 Test Item Value Reference Range Comments POC-GLUCOSE METER (BEAKER) 119 mg/dL 70-110 TESTED AT [address] (test xfto=5998) [place] [address] [id number] 07:15:00 Test Item Value Reference Range Comments MAGNESIUM (BEAKER) (test 1.9 mg/dL 1.6-2.6 Specimen moderately hemolyzed gdga=867) [id number] 07:15:00 Test Item Value Reference Range Comments PHOSPHORUS (BEAKER) (test 3.9 mg/dL 2.3-4.7 Specimen moderately hemolyzed ysld=298) BASIC METABOLIC [id number] 07:15:00 Test Item Value Reference Range Comments SODIUM (BEAKER) (test 135 meq/L 136-145 iyyc=467) POTASSIUM (BEAKER) (test 4.8 meq/L 3.5-5.1 Specimen moderately vnbs=533) hemolyzed CHLORIDE (BEAKER) (test 105 meq/L 98-107 zqzo=638) CO2 (BEAKER) (test 22 meq/L 22-29 xpkr=295) BLOOD UREA NITROGEN 11 mg/dL 7-21 (BEAKER) (test zxxz=539) CREATININE (BEAKER) (test 0.59 mg/dL 0.57-1.25 Specimen moderately qmtq=506) hemolyzed GLUCOSE RANDOM (BEAKER) 130 mg/dL 70-105 (test yidr=135) CALCIUM (BEAKER) (test 8.4 mg/dL 8.4-10.2 amvk=380) EGFR (BEAKER) (test 105 mL/min/1.73 sq m ESTIMATED GFR IS NOT zxmu=4515) ACCURATE CREATININE CLEARANCE IN PREDICTING GLOMERULAR FILTRATION RATE. ESTIMATED GFR IS NOT APPLICABLE FOR DIALYSIS PATIENTS. CBC W/PLT COUNT & AUTO [id number] 06:34:00 Test Item Value Reference Range Comments WHITE BLOOD CELL COUNT (BEAKER) (test iicz=048) 7.7 K/ L 3.5-10.5 RED BLOOD CELL COUNT (BEAKER) (test qtoq=864) 3.03 M/ L 3.93-5.22 HEMOGLOBIN (BEAKER) (test egvj=066) 8.8 GM/DL 11.2-15.7 HEMATOCRIT (BEAKER) (test wdwy=601) 27.9 % 34.1-44.9 MEAN CORPUSCULAR VOLUME (BEAKER) (test aeyl=855) 92.1 fL 79.4-94.8 MEAN CORPUSCULAR HEMOGLOBIN (BEAKER) (test 29.0 pg 25.6-32.2 hmne=744) MEAN CORPUSCULAR HEMOGLOBIN CONC (BEAKER) (test 31.5 GM/DL 32.2-35.5 hvyl=306) RED CELL DISTRIBUTION WIDTH (BEAKER) (test 14.7 % 11.7-14.4 rzbx=815) PLATELET COUNT (BEAKER) (test xrfc=705) 361 K/CU MM 150-450 MEAN PLATELET VOLUME (BEAKER) (test hanq=921) 9.5 fL 9.4-12.3 NUCLEATED RED BLOOD CELLS (BEAKER) (test 0 /100 WBC 0-0 rmdu=387) NEUTROPHILS RELATIVE PERCENT (BEAKER) (test 76 % cqay=756) LYMPHOCYTES RELATIVE PERCENT (BEAKER) (test 12 % qgkw=949) MONOCYTES RELATIVE PERCENT (BEAKER) (test 7 % xkmy=665) EOSINOPHILS RELATIVE PERCENT (BEAKER) (test 3 % ieng=912) BASOPHILS RELATIVE PERCENT (BEAKER) (test 0 % dhfb=463) NEUTROPHILS ABSOLUTE COUNT (BEAKER) (test 5.86 K/ L 1.56-6.13 xmks=488) LYMPHOCYTES ABSOLUTE COUNT (BEAKER) (test 0.95 K/ L 1.18-3.74 xbcu=091) MONOCYTES ABSOLUTE COUNT (BEAKER) (test 0.54 K/ L 0.24-0.36 hmvn=180) EOSINOPHILS ABSOLUTE COUNT (BEAKER) (test 0.20 K/ L 0.04-0.36 fsrk=673) BASOPHILS ABSOLUTE COUNT (BEAKER) (test 0.03 K/ L 0.01-0.08 xiwt=795) IMMATURE GRANULOCYTES-RELATIVE PERCENT (BEAKER) 2 % 0-1 (test jhki=6303) POCT-GLUCOSE [id number] 21:24:00 Test Item Value Reference Range Comments POC-GLUCOSE METER (BEAKER) 119 mg/dL 70-110 TESTED AT [address] (test vgii=9750) [place] [address] ANAEROBIC [id number] 18:58:00 Test Item Value Reference Range Comments CULTURE (BEAKER) (test uisf=2078) No anaerobes isolated POCT-GLUCOSE [id number] 18:10:00 Test Item Value Reference Range Comments POC-GLUCOSE METER (BEAKER) 153 mg/dL 70-110 TESTED AT [address] (test qeuv=1601) [place] [address] POCT-GLUCOSE [id number] 12:14:00 Test Item Value Reference Range Comments POC-GLUCOSE METER (BEAKER) 176 mg/dL 70-110 TESTED AT [address] (test lqyj=2123) [place] [address] POCT-GLUCOSE [id number] 08:13:00 Test Item Value Reference Range Comments POC-GLUCOSE METER (BEAKER) 149 mg/dL 70-110 TESTED AT [address] (test dtks=0533) [place] [address] [id number] 05:36:00 Test Item Value Reference Range Comments PHOSPHORUS (BEAKER) (test rdhl=501) 4.1 mg/dL 2.3-4.7 [id number] 05:36:00 Test Item Value Reference Range Comments MAGNESIUM (BEAKER) (test blbb=373) 1.6 mg/dL 1.6-2.6 BASIC METABOLIC [id number] 05:36:00 Test Item Value Reference Range Comments SODIUM (BEAKER) (test 136 meq/L 136-145 slyi=080) POTASSIUM (BEAKER) (test 4.5 meq/L 3.5-5.1 xpgq=862) CHLORIDE (BEAKER) (test 104 meq/L 98-107 pbph=834) CO2 (BEAKER) (test 26 meq/L 22-29 qmpg=728) BLOOD UREA NITROGEN 12 mg/dL 7-21 (BEAKER) (test ujmh=984) CREATININE (BEAKER) (test 0.61 mg/dL 0.57-1.25 xfiv=743) GLUCOSE RANDOM (BEAKER) 127 mg/dL 70-105 (test rpjp=160) CALCIUM (BEAKER) (test 8.8 mg/dL 8.4-10.2 xbyz=190) EGFR (BEAKER) (test 101 mL/min/1.73 sq m ESTIMATED GFR IS NOT hecn=0493) ACCURATE CREATININE CLEARANCE IN PREDICTING GLOMERULAR FILTRATION RATE. ESTIMATED GFR IS NOT APPLICABLE FOR DIALYSIS PATIENTS. CBC W/PLT COUNT & AUTO [id number] 05:13:00 Test Item Value Reference Range Comments WHITE BLOOD CELL COUNT (BEAKER) (test xczr=978) 9.0 K/ L 3.5-10.5 RED BLOOD CELL COUNT (BEAKER) (test vovi=304) 3.12 M/ L 3.93-5.22 HEMOGLOBIN (BEAKER) (test mxhy=475) 8.9 GM/DL 11.2-15.7 HEMATOCRIT (BEAKER) (test unbq=190) 27.9 % 34.1-44.9 MEAN CORPUSCULAR VOLUME (BEAKER) (test mtmy=737) 89.4 fL 79.4-94.8 MEAN CORPUSCULAR HEMOGLOBIN (BEAKER) (test 28.5 pg 25.6-32.2 astg=145) MEAN CORPUSCULAR HEMOGLOBIN CONC (BEAKER) (test 31.9 GM/DL 32.2-35.5 jocz=316) RED CELL DISTRIBUTION WIDTH (BEAKER) (test 14.7 % 11.7-14.4 vbhm=741) PLATELET COUNT (BEAKER) (test yvwe=876) 433 K/CU MM 150-450 MEAN PLATELET VOLUME (BEAKER) (test xvtq=116) 8.4 fL 9.4-12.3 NUCLEATED RED BLOOD CELLS (BEAKER) (test 0 /100 WBC 0-0 wvlf=253) NEUTROPHILS RELATIVE PERCENT (BEAKER) (test 76 % lxho=708) LYMPHOCYTES RELATIVE PERCENT (BEAKER) (test 11 % yssg=329) MONOCYTES RELATIVE PERCENT (BEAKER) (test 6 % zujg=838) EOSINOPHILS RELATIVE PERCENT (BEAKER) (test 3 % bzzg=536) BASOPHILS RELATIVE PERCENT (BEAKER) (test 0 % uynu=505) NEUTROPHILS ABSOLUTE COUNT (BEAKER) (test 6.87 K/ L 1.56-6.13 kwan=719) LYMPHOCYTES ABSOLUTE COUNT (BEAKER) (test 1.02 K/ L 1.18-3.74 bdqk=032) MONOCYTES ABSOLUTE COUNT (BEAKER) (test 0.56 K/ L 0.24-0.36 wcdu=590) EOSINOPHILS ABSOLUTE COUNT (BEAKER) (test 0.29 K/ L 0.04-0.36 jvbf=562) BASOPHILS ABSOLUTE COUNT (BEAKER) (test 0.03 K/ L 0.01-0.08 pyjk=868) IMMATURE GRANULOCYTES-RELATIVE PERCENT (BEAKER) 3 % 0-1 (test cbjj=6052) POCT-GLUCOSE [id number] 21:49:00 Test Item Value Reference Range Comments POC-GLUCOSE METER (BEAKER) 175 mg/dL 70-110 TESTED AT [address] (test zrab=8096) [place] [id number] POCT-GLUCOSE [id number] 16:39:00 Test Item Value Reference Range Comments POC-GLUCOSE METER (BEAKER) 171 mg/dL 70-110 TESTED AT [address] (test dkck=4341) [facility] [address] CBC W/PLT COUNT & AUTO [id number] 13:31:00 Test Item Value Reference Range Comments WHITE BLOOD CELL COUNT (BEAKER) (test ttpc=613) 7.4 K/ L 3.5-10.5 RED BLOOD CELL COUNT (BEAKER) (test lahz=842) 2.90 M/ L 3.93-5.22 HEMOGLOBIN (BEAKER) (test qpeg=095) 8.5 GM/DL 11.2-15.7 HEMATOCRIT (BEAKER) (test lwgu=629) 26.2 % 34.1-44.9 MEAN CORPUSCULAR VOLUME (BEAKER) (test qrdv=050) 90.3 fL 79.4-94.8 MEAN CORPUSCULAR HEMOGLOBIN (BEAKER) (test 29.3 pg 25.6-32.2 dgbk=269) MEAN CORPUSCULAR HEMOGLOBIN CONC (BEAKER) (test 32.4 GM/DL 32.2-35.5 sxqp=634) RED CELL DISTRIBUTION WIDTH (BEAKER) (test 14.7 % 11.7-14.4 ltcm=789) PLATELET COUNT (BEAKER) (test onhh=769) 380 K/CU MM 150-450 MEAN PLATELET VOLUME (BEAKER) (test ghia=226) 8.4 fL 9.4-12.3 NUCLEATED RED BLOOD CELLS (BEAKER) (test 0 /100 WBC 0-0 ofkg=455) NEUTROPHILS RELATIVE PERCENT (BEAKER) (test 73 % uwwk=775) LYMPHOCYTES RELATIVE PERCENT (BEAKER) (test 13 % oonn=766) MONOCYTES RELATIVE PERCENT (BEAKER) (test 7 % hdti=843) EOSINOPHILS RELATIVE PERCENT (BEAKER) (test 3 % wcoz=064) BASOPHILS RELATIVE PERCENT (BEAKER) (test 1 % nrue=279) NEUTROPHILS ABSOLUTE COUNT (BEAKER) (test 5.37 K/ L 1.56-6.13 nsml=939) LYMPHOCYTES ABSOLUTE COUNT (BEAKER) (test 0.96 K/ L 1.18-3.74 hbsj=191) MONOCYTES ABSOLUTE COUNT (BEAKER) (test 0.49 K/ L 0.24-0.36 ngbm=705) EOSINOPHILS ABSOLUTE COUNT (BEAKER) (test 0.24 K/ L 0.04-0.36 kzdx=881) BASOPHILS ABSOLUTE COUNT (BEAKER) (test 0.04 K/ L 0.01-0.08 mbgg=624) IMMATURE GRANULOCYTES-RELATIVE PERCENT (BEAKER) 4 % 0-1 (test hqht=8781) (MANUAL DIFFERENTIAL)2017-03-16 13:31:00 Test Item Value Reference Range Comments NEUTROPHILS - REL (DIFF) (BEAKER) (test pqvb=2518) 78 % LYMPHOCYTES - REL (DIFF) (BEAKER) (test wsjn=8735) 10 % MONOCYTES - REL (DIFF) (BEAKER) (test trfe=8595) 3 % EOSINOPHILS - REL (DIFF) (BEAKER) (test dckb=8204) 2 % BASOPHILS - REL (DIFF) (BEAKER) (test wqgu=5975) 1 % METAMYELOCYTES-REL (DIFF) (BEAKER) (test rlmb=723) 1 % 0-0 BANDS - REL (DIFF) (BEAKER) (test vglr=3955) 5 % 0-10 NEUTROPHILS - ABS (DIFF) (BEAKER) (test sgbz=3437) 5.77 K/ L 1.80-8.00 LYMPHOCYTES - ABS (DIFF) (BEAKER) (test dvok=5277) 0.74 K/ L 1.48-4.50 MONOCYTES - ABS (DIFF) (BEAKER) (test gnmw=1105) 0.22 K/ L 0.00-1.30 EOSINOPHILS - ABS (DIFF) (BEAKER) (test obyh=4439) 0.15 K/ L 0.00-0.50 BASOPHILS - ABS (DIFF) (BEAKER) (test kamw=7403) 0.07 K/ L 0.00-0.20 METAMYELOCTYES - ABS (DIFF) (BEAKER) (test 0.07 K/ L 0.00-0.00 vnhg=563) BANDS-ABS (DIFF) (BEAKER) (test rydl=2198) 0.4 K/ L 0.0-0.8 TOTAL COUNTED (BEAKER) (test xujd=1654) 100 BANDS + SEGMENTED NEUTROPHILS (BEAKER) (test 6.14 owoq=4852) WBC MORPHOLOGY (BEAKER) (test smaz=388) Normal PLT MORPHOLOGY (BEAKER) (test ysyk=388) Normal ANISOCYTOSIS (BEAKER) (test kzlb=988) 1+ few HYPOCHROMIA (BEAKER) (test ivok=440) 1+ few POIKILOCYTES (BEAKER) (test hzux=993) 1+ few POLYCHROMATOPHILLIC RBCS(BEAKER) (test ooya=939) 1+ few POCT-GLUCOSE [id number] 12:33:00 Test Item Value Reference Range Comments POC-GLUCOSE METER (BEAKER) 121 mg/dL 70-110 TESTED AT [facility] [address] (test fxvs=2397) [facility] [address] POCT-GLUCOSE [id number] 08:46:00 Test Item Value Reference Range Comments POC-GLUCOSE METER (BEAKER) 94 mg/dL 70-110 TESTED AT [place] [id number] (test qlav=2374) [facility] [address] [id number] 07:18:00 Test Item Value Reference Range Comments PHOSPHORUS (BEAKER) (test uawt=852) 3.5 mg/dL 2.3-4.7 [id number] 07:18:00 Test Item Value Reference Range Comments MAGNESIUM (BEAKER) (test xnbx=090) 1.7 mg/dL 1.6-2.6 COMPREHENSIVE METABOLIC [id number] 07:18:00 Test Item Value Reference Range Comments TOTAL PROTEIN (BEAKER) 6.4 gm/dL 6.0-8.3 (test hptj=835) ALBUMIN (BEAKER) (test 2.6 g/dL 3.5-5.0 jhiy=5182) ALKALINE PHOSPHATASE 72 U/L 40-150 (BEAKER) (test txmj=990) BILIRUBIN TOTAL (BEAKER) 0.3 mg/dL 0.2-1.2 (test strl=657) SODIUM (BEAKER) (test 134 meq/L 136-145 yggw=121) POTASSIUM (BEAKER) (test 4.4 meq/L 3.5-5.1 vcfi=612) CHLORIDE (BEAKER) (test 106 meq/L 98-107 irgg=611) CO2 (BEAKER) (test 21 meq/L 22-29 qolr=936) BLOOD UREA NITROGEN 10 mg/dL 7-21 (BEAKER) (test hdxy=280) CREATININE (BEAKER) (test 0.55 mg/dL 0.57-1.25 acvy=232) GLUCOSE RANDOM (BEAKER) 104 mg/dL 70-105 (test fhhr=869) CALCIUM (BEAKER) (test 8.4 mg/dL 8.4-10.2 ptqm=165) AST (SGOT) (BEAKER) (test 37 U/L 5-34 ltmx=461) ALT (SGPT) (BEAKER) (test 52 U/L 6-55 ucqw=737) EGFR (BEAKER) (test 114 mL/min/1.73 sq ESTIMATED GFR IS NOT xlot=7411) m ACCURATE CREATININE CLEARANCE IN PREDICTING GLOMERULAR FILTRATION RATE. ESTIMATED GFR IS NOT APPLICABLE FOR DIALYSIS PATIENTS. IRON, TIBC, % SAT. (WITHOUT FERRITIN)2017-03-16 06:46:00 Test Item Value Reference Range Comments IRON (BEAKER) (test tpvh=660) 28 ug/dL 40-160 TOTAL IRON BINDING CAPACITY (BEAKER) (test 128 ug/dL 250-450 dxzw=043) IRON % SATURATION (2) (BEAKER) (test oixo=7191) 22 % 20-55 POCT-GLUCOSE [id number] 23:36:00 Test Item Value Reference Range Comments POC-GLUCOSE METER (BEAKER) 174 mg/dL 70-110 TESTED AT [address] (test oaxh=1530) [facility] [address] SURGICALLY OBTAINED CULTURE + GRAM [id number] 07:50:00 Test Item Value Reference Range Comments CULTURE (BEAKER) (test iwpf=0932) No growth GRAM STAIN RESULT (BEAKER) (test <1+ WBCs akyx=4012) GRAM STAIN RESULT (BEAKER) (test No organisms seen zsxo=45605) [id number] 05:40:00 Test Item Value Reference Range Comments PHOSPHORUS (BEAKER) (test mvtf=822) 3.2 mg/dL 2.3-4.7 [id number] 05:40:00 Test Item Value Reference Range Comments MAGNESIUM (BEAKER) (test luui=429) 1.7 mg/dL 1.6-2.6 BASIC METABOLIC [id number] 05:40:00 Test Item Value Reference Range Comments SODIUM (BEAKER) (test 135 meq/L 136-145 uzuu=973) POTASSIUM (BEAKER) (test 4.1 meq/L 3.5-5.1 rtzm=865) CHLORIDE (BEAKER) (test 104 meq/L 98-107 irck=498) CO2 (BEAKER) (test 24 meq/L 22-29 gyhe=019) BLOOD UREA NITROGEN 11 mg/dL 7-21 (BEAKER) (test bemg=379) CREATININE (BEAKER) (test 0.56 mg/dL 0.57-1.25 hwev=071) GLUCOSE RANDOM (BEAKER) 128 mg/dL 70-105 (test olvt=327) CALCIUM (BEAKER) (test 8.2 mg/dL 8.4-10.2 lgyq=387) EGFR (BEAKER) (test 112 mL/min/1.73 sq m ESTIMATED GFR IS NOT fzpw=1505) ACCURATE CREATININE CLEARANCE IN PREDICTING GLOMERULAR FILTRATION RATE. ESTIMATED GFR IS NOT APPLICABLE FOR DIALYSIS PATIENTS. CBC W/PLT COUNT & AUTO [id number] 05:37:00 Test Item Value Reference Range Comments WHITE BLOOD CELL COUNT (BEAKER) (test jeaz=660) 7.5 K/ L 3.5-10.5 RED BLOOD CELL COUNT (BEAKER) (test huxy=049) 2.47 M/ L 3.93-5.22 HEMOGLOBIN (BEAKER) (test nloh=753) 7.0 GM/DL 11.2-15.7 HEMATOCRIT (BEAKER) (test fsjv=493) 21.9 % 34.1-44.9 MEAN CORPUSCULAR VOLUME (BEAKER) (test mfmc=027) 88.7 fL 79.4-94.8 MEAN CORPUSCULAR HEMOGLOBIN (BEAKER) (test 28.3 pg 25.6-32.2 hdxi=457) MEAN CORPUSCULAR HEMOGLOBIN CONC (BEAKER) (test 32.0 GM/DL 32.2-35.5 xifo=050) RED CELL DISTRIBUTION WIDTH (BEAKER) (test 14.6 % 11.7-14.4 lkyi=077) PLATELET COUNT (BEAKER) (test qkyx=095) 376 K/CU MM 150-450 MEAN PLATELET VOLUME (BEAKER) (test jusn=305) 8.7 fL 9.4-12.3 NUCLEATED RED BLOOD CELLS (BEAKER) (test 0 /100 WBC 0-0 nsvy=263) NEUTROPHILS RELATIVE PERCENT (BEAKER) (test 74 % njnd=062) LYMPHOCYTES RELATIVE PERCENT (BEAKER) (test 12 % rcck=967) MONOCYTES RELATIVE PERCENT (BEAKER) (test 7 % cwop=554) EOSINOPHILS RELATIVE PERCENT (BEAKER) (test 2 % xvqv=119) BASOPHILS RELATIVE PERCENT (BEAKER) (test 0 % qwnq=469) NEUTROPHILS ABSOLUTE COUNT (BEAKER) (test 5.58 K/ L 1.56-6.13 vtwi=510) LYMPHOCYTES ABSOLUTE COUNT (BEAKER) (test 0.90 K/ L 1.18-3.74 yejd=555) MONOCYTES ABSOLUTE COUNT (BEAKER) (test 0.54 K/ L 0.24-0.36 duhl=432) EOSINOPHILS ABSOLUTE COUNT (BEAKER) (test 0.17 K/ L 0.04-0.36 vtlw=124) BASOPHILS ABSOLUTE COUNT (BEAKER) (test 0.03 K/ L 0.01-0.08 rpbl=001) IMMATURE GRANULOCYTES-RELATIVE PERCENT (BEAKER) 4 % 0-1 (test lknn=3730) POCT-GLUCOSE [id number] 17:52:00 Test Item Value Reference Range Comments POC-GLUCOSE METER (BEAKER) 120 mg/dL 70-110 TESTED AT [address] (test ztrz=3400) [place] [address] HEMOGLOBIN AND [id number] 16:27:00 Test Item Value Reference Range Comments HEMOGLOBIN (BEAKER) (test cqup=357) 7.3 GM/DL 11.2-15.7 HEMATOCRIT (BEAKER) (test dpwn=650) 22.8 % 34.1-44.9 POCT-GLUCOSE [id number] 14:45:00 Test Item Value Reference Range Comments POC-GLUCOSE METER (BEAKER) 127 mg/dL 70-110 TESTED AT [address] (test qpvj=9565) [place] [id number] POCT-GLUCOSE [id number] 11:32:00 Test Item Value Reference Range Comments POC-GLUCOSE METER (BEAKER) 196 mg/dL 70-110 TESTED AT [address] (test zpym=2376) [place] [id number] POCT-GLUCOSE [id number] 08:24:00 Test Item Value Reference Range Comments POC-GLUCOSE METER (BEAKER) 114 mg/dL 70-110 TESTED AT [address] (test dwmy=0413) [place] [id number] CBC W/PLT COUNT & AUTO [id number] 05:46:00 Test Item Value Reference Range Comments WHITE BLOOD CELL COUNT (BEAKER) (test pwkl=869) 8.7 K/ L 3.5-10.5 RED BLOOD CELL COUNT (BEAKER) (test rxyl=178) 2.71 M/ L 3.93-5.22 HEMOGLOBIN (BEAKER) (test rmds=163) 7.7 GM/DL 11.2-15.7 HEMATOCRIT (BEAKER) (test kfdn=386) 23.5 % 34.1-44.9 MEAN CORPUSCULAR VOLUME (BEAKER) (test pokm=399) 86.7 fL 79.4-94.8 MEAN CORPUSCULAR HEMOGLOBIN (BEAKER) (test 28.4 pg 25.6-32.2 okya=931) MEAN CORPUSCULAR HEMOGLOBIN CONC (BEAKER) (test 32.8 GM/DL 32.2-35.5 tyma=356) RED CELL DISTRIBUTION WIDTH (BEAKER) (test 14.0 % 11.7-14.4 bjkl=645) PLATELET COUNT (BEAKER) (test rjji=723) 345 K/CU MM 150-450 MEAN PLATELET VOLUME (BEAKER) (test hghb=974) 8.8 fL 9.4-12.3 NUCLEATED RED BLOOD CELLS (BEAKER) (test 0 /100 WBC 0-0 ljsb=216) NEUTROPHILS RELATIVE PERCENT (BEAKER) (test 83 % ypim=290) LYMPHOCYTES RELATIVE PERCENT (BEAKER) (test 8 % xrnq=582) MONOCYTES RELATIVE PERCENT (BEAKER) (test 7 % tdkd=334) EOSINOPHILS RELATIVE PERCENT (BEAKER) (test 1 % sske=250) BASOPHILS RELATIVE PERCENT (BEAKER) (test 0 % tqfm=470) NEUTROPHILS ABSOLUTE COUNT (BEAKER) (test 7.19 K/ L 1.56-6.13 fxlo=372) LYMPHOCYTES ABSOLUTE COUNT (BEAKER) (test 0.68 K/ L 1.18-3.74 oxdu=944) MONOCYTES ABSOLUTE COUNT (BEAKER) (test 0.63 K/ L 0.24-0.36 mqjv=234) EOSINOPHILS ABSOLUTE COUNT (BEAKER) (test 0.04 K/ L 0.04-0.36 cpfo=568) BASOPHILS ABSOLUTE COUNT (BEAKER) (test 0.01 K/ L 0.01-0.08 xmvi=241) IMMATURE GRANULOCYTES-RELATIVE PERCENT (BEAKER) 2 % 0-1 (test ndjc=7788) [id number] 05:39:00 Test Item Value Reference Range Comments PHOSPHORUS (BEAKER) (test inud=700) 2.8 mg/dL 2.3-4.7 [id number] 05:39:00 Test Item Value Reference Range Comments MAGNESIUM (BEAKER) (test ulby=684) 1.7 mg/dL 1.6-2.6 BASIC METABOLIC [id number] 05:39:00 Test Item Value Reference Range Comments SODIUM (BEAKER) (test 134 meq/L 136-145 iaca=036) POTASSIUM (BEAKER) (test 4.2 meq/L 3.5-5.1 bvpg=237) CHLORIDE (BEAKER) (test 104 meq/L 98-107 yboe=580) CO2 (BEAKER) (test 25 meq/L 22-29 hjfx=593) BLOOD UREA NITROGEN 10 mg/dL 7-21 (BEAKER) (test ofkt=133) CREATININE (BEAKER) (test 0.57 mg/dL 0.57-1.25 lrwc=952) GLUCOSE RANDOM (BEAKER) 131 mg/dL 70-105 (test flww=916) CALCIUM (BEAKER) (test 8.2 mg/dL 8.4-10.2 kkxl=786) EGFR (BEAKER) (test 109 mL/min/1.73 sq m ESTIMATED GFR IS NOT wptm=8684) ACCURATE CREATININE CLEARANCE IN PREDICTING GLOMERULAR FILTRATION RATE. ESTIMATED GFR IS NOT APPLICABLE FOR DIALYSIS PATIENTS. POCT-GLUCOSE [id number] 23:07:00 Test Item Value Reference Range Comments POC-GLUCOSE METER (BEAKER) 166 mg/dL 70-110 TESTED AT [address] (test fmvz=3616) [facility] [address] POCT-GLUCOSE [id number] 18:11:00 Test Item Value Reference Range Comments POC-GLUCOSE METER (BEAKER) 155 mg/dL 70-110 TESTED AT [address] (test imsq=1709) [place] [id number] SPIN/CONCENTRATION [id number] 16:53:00 Test Item Value Reference Range Comments CONCENTRATION CHARGED (BEAKER) (test bmyc=3735) Done OSMOLALITY, [id number] 12:42:00 Test Item Value Reference Range Comments OSMOLALITY URINE (BEAKER) (test nkkg=463) 295 mOsm/kg 40-1400 POCT-GLUCOSE [id number] 12:13:00 Test Item Value Reference Range Comments POC-GLUCOSE METER (BEAKER) 137 mg/dL 70-110 TESTED AT [address] (test bbls=6105) [place] [address] [id number] 12:05:00 Test Item Value Reference Range Comments MAGNESIUM (BEAKER) (test jcik=303) 1.8 mg/dL 1.6-2.6 POCT-GLUCOSE [id number] 08:19:00 Test Item Value Reference Range Comments POC-GLUCOSE METER (BEAKER) 151 mg/dL 70-110 TESTED AT [address] (test kjle=4879) [place] [id number] BASIC METABOLIC [id number] 04:02:00 Test Item Value Reference Range Comments SODIUM (BEAKER) (test 132 meq/L 136-145 ojpb=028) POTASSIUM (BEAKER) (test 4.6 meq/L 3.5-5.1 yhzl=705) CHLORIDE (BEAKER) (test 105 meq/L 98-107 mmwg=217) CO2 (BEAKER) (test 21 meq/L 22-29 obdt=159) BLOOD UREA NITROGEN 9 mg/dL 7-21 (BEAKER) (test mbxr=723) CREATININE (BEAKER) (test 0.62 mg/dL 0.57-1.25 fwxs=214) GLUCOSE RANDOM (BEAKER) 138 mg/dL 70-105 (test teks=421) CALCIUM (BEAKER) (test 8.2 mg/dL 8.4-10.2 gezt=689) EGFR (BEAKER) (test 99 mL/min/1.73 sq m ESTIMATED GFR IS NOT hlzz=5456) ACCURATE CREATININE CLEARANCE IN PREDICTING GLOMERULAR FILTRATION RATE. ESTIMATED GFR IS NOT APPLICABLE FOR DIALYSIS PATIENTS. [id number] 04:00:00 Test Item Value Reference Range Comments PHOSPHORUS (BEAKER) (test hbnk=355) 3.6 mg/dL 2.3-4.7 [id number] 04:00:00 Test Item Value Reference Range Comments MAGNESIUM (BEAKER) (test ufes=101) 1.6 mg/dL 1.6-2.6 CBC W/PLT COUNT & AUTO [id number] 03:53:00 Test Item Value Reference Range Comments WHITE BLOOD CELL COUNT (BEAKER) (test rmex=363) 8.4 K/ L 3.5-10.5 RED BLOOD CELL COUNT (BEAKER) (test wnoy=099) 2.92 M/ L 3.93-5.22 HEMOGLOBIN (BEAKER) (test sruy=581) 8.3 GM/DL 11.2-15.7 HEMATOCRIT (BEAKER) (test noez=422) 25.5 % 34.1-44.9 MEAN CORPUSCULAR VOLUME (BEAKER) (test bpik=029) 87.3 fL 79.4-94.8 MEAN CORPUSCULAR HEMOGLOBIN (BEAKER) (test 28.4 pg 25.6-32.2 awtv=198) MEAN CORPUSCULAR HEMOGLOBIN CONC (BEAKER) (test 32.5 GM/DL 32.2-35.5 iudw=773) RED CELL DISTRIBUTION WIDTH (BEAKER) (test 13.4 % 11.7-14.4 ikks=743) PLATELET COUNT (BEAKER) (test vapc=485) 327 K/CU MM 150-450 MEAN PLATELET VOLUME (BEAKER) (test dzjf=104) 8.9 fL 9.4-12.3 NUCLEATED RED BLOOD CELLS (BEAKER) (test 0 /100 WBC 0-0 eaep=170) NEUTROPHILS RELATIVE PERCENT (BEAKER) (test 92 % qwam=828) LYMPHOCYTES RELATIVE PERCENT (BEAKER) (test 4 % elyh=992) MONOCYTES RELATIVE PERCENT (BEAKER) (test 3 % hbre=797) EOSINOPHILS RELATIVE PERCENT (BEAKER) (test 0 % jnml=422) BASOPHILS RELATIVE PERCENT (BEAKER) (test 0 % skhe=001) NEUTROPHILS ABSOLUTE COUNT (BEAKER) (test 7.75 K/ L 1.56-6.13 yoai=448) LYMPHOCYTES ABSOLUTE COUNT (BEAKER) (test 0.37 K/ L 1.18-3.74 fhox=777) MONOCYTES ABSOLUTE COUNT (BEAKER) (test 0.26 K/ L 0.24-0.36 kesy=495) EOSINOPHILS ABSOLUTE COUNT (BEAKER) (test 0.00 K/ L 0.04-0.36 tsho=298) BASOPHILS ABSOLUTE COUNT (BEAKER) (test 0.01 K/ L 0.01-0.08 lbsn=821) IMMATURE GRANULOCYTES-RELATIVE PERCENT (BEAKER) 1 % 0-1 (test bzrg=9137) POCT-GLUCOSE [id number] 22:18:00 Test Item Value Reference Range Comments POC-GLUCOSE METER (BEAKER) 178 mg/dL 70-110 TESTED AT [address] (test tcmi=4793) [facility] [address] HIV-1 ANTIGEN WITH HIV-1/2 [id number] 21:37:00 Test Item Value Reference Range Comments HIV-1 ANTIGEN WITH HIV 1\\T\\2 ANTIBODY (2) Nonreactive Nonreactive (BEAKER) (test ybnr=4688) RAD, CHEST, 1 VIEW, NON [id number] 20:16:00Reason for exam:->cough, evaluate for pneumoniaShould this [...] clips in the gallbladder fossa. Signed: Italo Vieiraort Verified Date/Time: 2016 20:16:07 Reading Location: [facility] Radiology Reading Room POCT- GLUCOSE [id number] 16:53:00 Test Item Value Reference Range Comments POC-GLUCOSE METER (BEAKER) 139 mg/dL 70-110 TESTED AT [address] (test syvx=4753) [facility] [address] [place], [employer]ER IN OR/30 MINUTE [id number] 15:01:00Reason for exam:-> stenosisIs the patient ?->NoWhen [...] Yung Verified Date/Time:03/12/2017 15:01 :36 Reading Location: [place] [id number] Consult Reading Room [facility] [place] [employer] IN OR/30 MINUTE [id number] 11:28:00Reason for exam:->thoracic laminectomy; fusion.FINAL REPORT Single [...] Barber Cooper Verified Date/Time: 03/12/2017 11:28:06Reading Location: [facility] [id number] Neuro Reading Room Electronically signed by: BARBER COOPER M.D.on 11:28 AMTSH/FREE T4 IF [id number] 05:48:00 Test Item Value Reference Range Comments THYROID STIMULATING HORMONE (BEAKER) (test 1.63 uIU/mL 0.35-4.94 yrlk=775) COMPREHENSIVE METABOLIC [id number] 05:18:00 Test Item Value Reference Range Comments TOTAL PROTEIN (BEAKER) 8.1 gm/dL 6.0-8.3 (test nall=587) ALBUMIN (BEAKER) (test 3.3 g/dL 3.5-5.0 ynoc=8824) ALKALINE PHOSPHATASE 125 U/L 40-150 (BEAKER) (test rers=092) BILIRUBIN TOTAL (BEAKER) 0.4 mg/dL 0.2-1.2 (test nhxj=034) SODIUM (BEAKER) (test 136 meq/L 136-145 pmlv=896) POTASSIUM (BEAKER) (test 4.4 meq/L 3.5-5.1 hepb=226) CHLORIDE (BEAKER) (test 104 meq/L 98-107 gpkj=666) CO2 (BEAKER) (test 23 meq/L 22-29 frzl=306) BLOOD UREA NITROGEN 8 mg/dL 7-21 (BEAKER) (test wkud=773) CREATININE (BEAKER) (test 0.67 mg/dL 0.57-1.25 xzvh=401) GLUCOSE RANDOM (BEAKER) 115 mg/dL 70-105 (test mzzm=717) CALCIUM (BEAKER) (test 9.7 mg/dL 8.4-10.2 wckr=003) AST (SGOT) (BEAKER) (test 61 U/L 5-34 yuuv=790) ALT (SGPT) (BEAKER) (test 63 U/L 6-55 snwb=977) EGFR (BEAKER) (test 91 mL/min/1.73 sq m ESTIMATED GFR IS NOT avyq=1757) ACCURATE CREATININE CLEARANCE IN PREDICTING GLOMERULAR FILTRATION RATE. ESTIMATED GFR IS NOT APPLICABLE FOR DIALYSIS PATIENTS. CBC W/PLT COUNT & AUTO [id number] 05:04:00 Test Item Value Reference Range Comments WHITE BLOOD CELL COUNT (BEAKER) (test wycv=249) 7.0 K/ L 3.5-10.5 RED BLOOD CELL COUNT (BEAKER) (test yasz=965) 3.92 M/ L 3.93-5.22 HEMOGLOBIN (BEAKER) (test vtzn=914) 11.1 GM/DL 11.2-15.7 HEMATOCRIT (BEAKER) (test fffi=405) 33.5 % 34.1-44.9 MEAN CORPUSCULAR VOLUME (BEAKER) (test nfex=749) 85.5 fL 79.4-94.8 MEAN CORPUSCULAR HEMOGLOBIN (BEAKER) (test 28.3 pg 25.6-32.2 cbfy=144) MEAN CORPUSCULAR HEMOGLOBIN CONC (BEAKER) (test 33.1 GM/DL 32.2-35.5 ocww=500) RED CELL DISTRIBUTION WIDTH (BEAKER) (test 13.4 % 11.7-14.4 fqwq=291) PLATELET COUNT (BEAKER) (test rcud=062) 362 K/CU MM 150-450 MEAN PLATELET VOLUME (BEAKER) (test xlxc=126) 9.0 fL 9.4-12.3 NUCLEATED RED BLOOD CELLS (BEAKER) (test 0 /100 WBC 0-0 rsqg=606) NEUTROPHILS RELATIVE PERCENT (BEAKER) (test 84 % bbdr=765) LYMPHOCYTES RELATIVE PERCENT (BEAKER) (test 9 % wisf=993) MONOCYTES RELATIVE PERCENT (BEAKER) (test 4 % fxlx=947) EOSINOPHILS RELATIVE PERCENT (BEAKER) (test 3 % pfpc=575) BASOPHILS RELATIVE PERCENT (BEAKER) (test 0 % ctpu=961) NEUTROPHILS ABSOLUTE COUNT (BEAKER) (test 5.88 K/ L 1.56-6.13 yxzn=188) LYMPHOCYTES ABSOLUTE COUNT (BEAKER) (test 0.63 K/ L 1.18-3.74 rziu=420) MONOCYTES ABSOLUTE COUNT (BEAKER) (test 0.29 K/ L 0.24-0.36 qrvk=180) EOSINOPHILS ABSOLUTE COUNT (BEAKER) (test 0.18 K/ L 0.04-0.36 qfab=455) BASOPHILS ABSOLUTE COUNT (BEAKER) (test 0.01 K/ L 0.01-0.08 vstq=139) IMMATURE GRANULOCYTES-RELATIVE PERCENT (BEAKER) 1 % 0-1 (test epvq=4171) PROTHROMBIN [id number] 05:01:00 Test Item Value Reference Range Comments PROTIME (BEAKER) (test lljs=735) 13.5 seconds 11.7-14.7 INR (BEAKER) (test jvwc=068) 1.0 <=5.9 RECOMMENDED COUMADIN/WARFARIN INR THERAPY RANGESSTANDARD DOSE: 2.0 - 3.0 Includes: PROPHYLAXIS forvenous thrombosis, systemic embolization; TREATMENT for venous thrombosis and/or pulmonary embolus.HIGH RISK: Target INR is 2.5-3.5 for patients with mechanical heart valves.CBC W/PLT COUNT & AUTO [id number] 12:19:00 Test Item Value Reference Range Comments WHITE BLOOD CELL COUNT (BEAKER) (test rqso=576) 5.5 K/ L 3.5-10.5 RED BLOOD CELL COUNT (BEAKER) (test gjxd=474) 3.27 M/ L 3.93-5.22 HEMOGLOBIN (BEAKER) (test vpuj=709) 9.2 GM/DL 11.2-15.7 HEMATOCRIT (BEAKER) (test hcod=701) 28.2 % 34.1-44.9 MEAN CORPUSCULAR VOLUME (BEAKER) (test kchc=857) 86.2 fL 79.4-94.8 MEAN CORPUSCULAR HEMOGLOBIN (BEAKER) (test 28.1 pg 25.6-32.2 zuff=808) MEAN CORPUSCULAR HEMOGLOBIN CONC (BEAKER) (test 32.6 GM/DL 32.2-35.5 ibmc=782) RED CELL DISTRIBUTION WIDTH (BEAKER) (test 13.2 % 11.7-14.4 tsjw=069) PLATELET COUNT (BEAKER) (test vutb=660) 147 K/CU MM 150-450 MEAN PLATELET VOLUME (BEAKER) (test hamg=167) 9.6 fL 9.4-12.3 NUCLEATED RED BLOOD CELLS (BEAKER) (test 0 /100 WBC 0-0 kxiy=218) NEUTROPHILS RELATIVE PERCENT (BEAKER) (test 83 % nfwk=971) LYMPHOCYTES RELATIVE PERCENT (BEAKER) (test 12 % xdsu=187) MONOCYTES RELATIVE PERCENT (BEAKER) (test 4 % qfps=284) EOSINOPHILS RELATIVE PERCENT (BEAKER) (test 1 % zxxk=638) BASOPHILS RELATIVE PERCENT (BEAKER) (test 0 % fjca=960) NEUTROPHILS ABSOLUTE COUNT (BEAKER) (test 4.59 K/ L 1.56-6.13 lrfl=759) LYMPHOCYTES ABSOLUTE COUNT (BEAKER) (test 0.64 K/ L 1.18-3.74 tfsc=177) MONOCYTES ABSOLUTE COUNT (BEAKER) (test 0.24 K/ L 0.24-0.36 zmjo=771) EOSINOPHILS ABSOLUTE COUNT (BEAKER) (test 0.03 K/ L 0.04-0.36 sblf=243) BASOPHILS ABSOLUTE COUNT (BEAKER) (test 0.00 K/ L 0.01-0.08 uvea=475) IMMATURE GRANULOCYTES-RELATIVE PERCENT (BEAKER) 0 % 0-1 (test ngzj=9943) (MANUAL DIFFERENTIAL)2017-03-07 12:19:00 Test Item Value Reference Range Comments TOTAL COUNTED (BEAKER) (test tpzy=6867) WBC MORPHOLOGY (BEAKER) (test wgsf=728) Normal PLT MORPHOLOGY (BEAKER) (test vtxj=710) Normal RBC MORPHOLOGY (BEAKER) (test qsek=271) Normal POCT-GLUCOSE [id number] 11:50:00 Test Item Value Reference Range Comments POC-GLUCOSE METER (BEAKER) 138 mg/dL 70-110 TESTED AT [facility] [address] (test ofmp=9568) [facility] [address] POCT-GLUCOSE [id number] 07:31:00 Test Item Value Reference Range Comments POC-GLUCOSE METER (BEAKER) 98 mg/dL 70-110 TESTED AT [address] (test qwfb=5772) [facility] [address] (MANUAL DIFFERENTIAL)2017-03-07 07:10:00 Test Item Value Reference Range Comments TOTAL COUNTED (BEAKER) (test azap=2699) BANDS + SEGMENTED NEUTROPHILS (BEAKER) (test c adlw=2495) MANUAL NRBC PER 100 CELLS (BEAKER) (test /100 WBC 0-0 c djwo=0904) WBC MORPHOLOGY (BEAKER) (test bixu=129) Normal PLT MORPHOLOGY (BEAKER) (test lady=045) Normal RBC MORPHOLOGY (BEAKER) (test opfq=504) Normal CBC W/PLT COUNT & AUTO [id number] 07:09:00 Test Item Value Reference Range Comments WHITE BLOOD CELL COUNT K/ L 3.5-10.5 cThis is a corrected result. (BEAKER) (test mgop=702) Previous result was 5.4 K/ L on 03/07/2017 at 0455 CDT RED BLOOD CELL COUNT (BEAKER) M/ L 3.93-5.22 cThis is a corrected result. (test mbbo=847) Previous result was 3.50 M/ L on 03/07/2017 at 0455 CDT HEMOGLOBIN (BEAKER) (test GM/DL 11.2-15.7 cThis is a corrected result. klbv=517) Previous result was 9.9 GM/DL on 03/07/2017 at 0455 CDT HEMATOCRIT (BEAKER) (test % 34.1-44.9 clottedThis is a corrected gvup=884) result. Previous result was 30.8 % on 03/07/2017 at 0455 CDT MEAN CORPUSCULAR VOLUME fL 79.4-94.8 cThis is a corrected result. (BEAKER) (test nsmb=226) Previous result was 88.0 fL on 03/07/2017 at 0455 CDT MEAN CORPUSCULAR HEMOGLOBIN pg 25.6-32.2 cThis is a corrected result. (BEAKER) (test gpel=537) Previous result was 28.3 pg on 03/07/2017 at 0455 CDT MEAN CORPUSCULAR HEMOGLOBIN GM/DL 32.2-35.5 cThis is a corrected result. CONC (BEAKER) (test qflz=602) Previous result was 32.1 GM/DL on 03/07/2017 at 0455 CDT RED CELL DISTRIBUTION WIDTH % 11.7-14.4 cThis is a corrected result. (BEAKER) (test kodp=167) Previous result was 13.2 % on 03/07/2017 at 0455 CDT PLATELET COUNT (BEAKER) (test K/CU MM 150-450 cThis is a corrected result. wvnf=136) Previous result was 55 K/CU MM on 03/07/2017 at 0455 CDT MEAN PLATELET VOLUME (BEAKER) fL 9.4-12.3 cThis is a corrected result. (test xrtc=865) Previous result was 11.5 fL on 03/07/2017 at 0455 CDT NUCLEATED RED BLOOD CELLS /100 WBC 0-0 cThis is a corrected result. (BEAKER) (test xtba=936) Previous result was 0 /100 WBC on 03/07/2017 at 0455 CDT NEUTROPHILS RELATIVE PERCENT % c (BEAKER) (test zany=014) LYMPHOCYTES RELATIVE PERCENT % c (BEAKER) (test iyvh=297) MONOCYTES RELATIVE PERCENT % c (BEAKER) (test cdpt=167) EOSINOPHILS RELATIVE PERCENT % c (BEAKER) (test qymo=842) BASOPHILS RELATIVE PERCENT % c (BEAKER) (test pesv=811) NEUTROPHILS ABSOLUTE COUNT K/ L 1.56-6.13 c (BEAKER) (test jlox=197) LYMPHOCYTES ABSOLUTE COUNT K/ L 1.18-3.74 cc (BEAKER) (test amtg=698) MONOCYTES ABSOLUTE COUNT K/ L 0.24-0.36 c (BEAKER) (test ualb=313) EOSINOPHILS ABSOLUTE COUNT K/ L 0.04-0.36 c (BEAKER) (test hesk=598) BASOPHILS ABSOLUTE COUNT K/ L 0.01-0.08 c (BEAKER) (test vhxl=423) IMMATURE GRANULOCYTES-RELATIVE % 0-1 cThis is a corrected result. PERCENT (BEAKER) (test Previous result was 1 % on hsrv=5512) 03/07/2017 at 0455 CDT Clotted specimen called to Faith at 0545.COMPREHENSIVE METABOLIC [id number] 05:05:00 Test Item Value Reference Range Comments TOTAL PROTEIN (BEAKER) 6.3 gm/dL 6.0-8.3 (test ddjn=567) ALBUMIN (BEAKER) (test 2.9 g/dL 3.5-5.0 cgrp=3487) ALKALINE PHOSPHATASE 77 U/L 40-150 (BEAKER) (test xrum=397) BILIRUBIN TOTAL (BEAKER) 0.8 mg/dL 0.2-1.2 (test aign=790) SODIUM (BEAKER) (test 133 meq/L 136-145 sikz=167) POTASSIUM (BEAKER) (test 4.3 meq/L 3.5-5.1 gqoe=683) CHLORIDE (BEAKER) (test 104 meq/L 98-107 tevb=759) CO2 (BEAKER) (test 22 meq/L 22-29 pyuj=708) BLOOD UREA NITROGEN 13 mg/dL 7-21 (BEAKER) (test cwgc=135) CREATININE (BEAKER) (test 0.60 mg/dL 0.57-1.25 qpcm=649) GLUCOSE RANDOM (BEAKER) 111 mg/dL 70-105 (test bnwb=167) CALCIUM (BEAKER) (test 8.2 mg/dL 8.4-10.2 nqlb=938) AST (SGOT) (BEAKER) (test 25 U/L 5-34 uffb=904) ALT (SGPT) (BEAKER) (test 22 U/L 6-55 tqqz=601) EGFR (BEAKER) (test 103 mL/min/1.73 sq ESTIMATED GFR IS NOT rfty=2731) m ACCURATE CREATININE CLEARANCE IN PREDICTING GLOMERULAR FILTRATION RATE. ESTIMATED GFR IS NOT APPLICABLE FOR DIALYSIS PATIENTS. POCT-GLUCOSE [id number] 16:45:00 Test Item Value Reference Range Comments POC-GLUCOSE METER (BEAKER) 135 mg/dL 70-110 TESTED AT [facility] [address] (test xcqx=2390) [facility] [address] TISSUE [id number] 15:53:00Surgical Pathology Report Case: [id number] Authorizing Provider: Jaycob Cifuentes MD Collected: 02/28/2017 1050 Ordering Location: [address] Received: 03/01/2017 0743 Service Pathologist: Pritesh [...] notified ofthe diagnosis on 03/06/17 at 3:50 pm.[id number], [id number] , [id number] biopsy of T-spineThe specimen isreceived in [...] organisms. In addition, there is no malignancyANAEROBIC [id number] 15:34 :00 Test Item Value Reference Range Comments CULTURE (BEAKER) (test sxdq=6195) No anaerobes isolated POCT-GLUCOSE [id number] 12:23:00 Test Item Value Reference Range Comments POC-GLUCOSE METER (BEAKER) 137 mg/dL 70-110 TESTED AT [facility] [address] (test uach=3535) [facility] [address] POCT-GLUCOSE [id number] 08:35:00 Test Item Value Reference Range Comments POC-GLUCOSE METER (BEAKER) 111 mg/dL 70-110 TESTED AT [facility] [address] (test jxlr=2481) [place] [address] CBC W/PLT COUNT & AUTO [id number] 08:14:00 Test Item Value Reference Range Comments WHITE BLOOD CELL COUNT (BEAKER) (test clne=462) 3.6 K/ L 3.5-10.5 RED BLOOD CELL COUNT (BEAKER) (test cxll=344) 3.00 M/ L 3.93-5.22 HEMOGLOBIN (BEAKER) (test iyto=834) 8.4 GM/DL 11.2-15.7 HEMATOCRIT (BEAKER) (test mbxc=931) 26.7 % 34.1-44.9 MEAN CORPUSCULAR VOLUME (BEAKER) (test tzyj=037) 89.0 fL 79.4-94.8 MEAN CORPUSCULAR HEMOGLOBIN (BEAKER) (test 28.0 pg 25.6-32.2 hppt=311) MEAN CORPUSCULAR HEMOGLOBIN CONC (BEAKER) (test 31.5 GM/DL 32.2-35.5 disr=981) RED CELL DISTRIBUTION WIDTH (BEAKER) (test 13.1 % 11.7-14.4 fyll=423) PLATELET COUNT (BEAKER) (test zomp=904) 72 K/CU MM 150-450 MEAN PLATELET VOLUME (BEAKER) (test uird=126) 12.3 fL 9.4-12.3 NUCLEATED RED BLOOD CELLS (BEAKER) (test 0 /100 WBC 0-0 auul=070) IMMATURE GRANULOCYTES-RELATIVE PERCENT (BEAKER) 3 % 0-1 (test tkgj=7873) (MANUAL DIFFERENTIAL)2017-03-06 08:14:00 Test Item Value Reference Range Comments NEUTROPHILS - REL (DIFF) (BEAKER) (test dspy=4224) 87 % LYMPHOCYTES - REL (DIFF) (BEAKER) (test ktzp=2038) 5 % MONOCYTES - REL (DIFF) (BEAKER) (test qubv=8048) 5 % METAMYELOCYTES-REL (DIFF) (BEAKER) (test vwbd=483) 3 % 0-0 NEUTROPHILS - ABS (DIFF) (BEAKER) (test filn=2497) 3.13 K/ L 1.80-8.00 LYMPHOCYTES - ABS (DIFF) (BEAKER) (test dkcc=0225) 0.18 K/ L 1.48-4.50 MONOCYTES - ABS (DIFF) (BEAKER) (test zrjh=0844) 0.18 K/ L 0.00-1.30 METAMYELOCTYES - ABS (DIFF) (BEAKER) (test 0.11 K/ L 0.00-0.00 dolj=245) TOTAL COUNTED (BEAKER) (test mobd=8770) 100 WBC MORPHOLOGY (BEAKER) (test yyxm=013) Normal PLT MORPHOLOGY (BEAKER) (test fssw=752) Normal RBC MORPHOLOGY (BEAKER) (test spao=871) Normal BASIC METABOLIC [id number] 05:47:00 Test Item Value Reference Range Comments SODIUM (BEAKER) (test 131 meq/L 136-145 jomq=623) POTASSIUM (BEAKER) (test 3.2 meq/L 3.5-5.1 qodh=753) CHLORIDE (BEAKER) (test 109 meq/L 98-107 gjzv=722) CO2 (BEAKER) (test 17 meq/L 22-29 kukd=213) BLOOD UREA NITROGEN 11 mg/dL 7-21 (BEAKER) (test wfrl=910) CREATININE (BEAKER) (test 0.53 mg/dL 0.57-1.25 rphp=126) GLUCOSE RANDOM (BEAKER) 101 mg/dL 70-105 (test enfa=838) CALCIUM (BEAKER) (test 6.4 mg/dL 8.4-10.2 yean=189) EGFR (BEAKER) (test 119 mL/min/1.73 sq m ESTIMATED GFR IS NOT tzac=2179) ACCURATE CREATININE CLEARANCE IN PREDICTING GLOMERULAR FILTRATION RATE. ESTIMATED GFR IS NOT APPLICABLE FOR DIALYSIS PATIENTS. BODY FLUID CULTURE + GRAM [id number] 22:47:00 Test Item Value Reference Range Comments CULTURE (BEAKER) (test swum=6823) No growth GRAM STAIN RESULT (BEAKER) (test <1+ White blood cells seen husg=7386) GRAM STAIN RESULT (BEAKER) (test No organisms seen xjdz=56820) POCT-GLUCOSE [id number] 21:43:00 Test Item Value Reference Range Comments POC-GLUCOSE METER (BEAKER) 164 mg/dL 70-110 TESTED AT [facility] [address] (test dmur=4526) [facility] [address] POCT-GLUCOSE [id number] 18:43:00 Test Item Value Reference Range Comments POC-GLUCOSE METER (BEAKER) 140 mg/dL 70-110 TESTED AT [address] (test yndl=5890) [facility] [address] VANCOMYCIN LEVEL, [id number] 13:59:00 Test Item Value Reference Range Comments VANCOMYCIN TROUGH (BEAKER) (test uyxq=571) 20.4 ug/mL 10.0-20.0 IMMEDIATELY PRIOR TO NEXT DOSEPOCT-GLUCOSE [id number] 11:57:00 Test Item Value Reference Range Comments POC-GLUCOSE METER (BEAKER) 146 mg/dL 70-110 TESTED AT [address] (test hmwm=5635) [facility] [address] POCT-GLUCOSE [id number] 08:34:00 Test Item Value Reference Range Comments POC-GLUCOSE METER (BEAKER) 130 mg/dL 70-110 TESTED AT [address] (test ugos=5049) [facility] [address] POCT-GLUCOSE [id number] 21:38:00 Test Item Value Reference Range Comments POC-GLUCOSE METER (BEAKER) 187 mg/dL 70-110 TESTED AT [address] (test wmar=1964) [facility] [address] POCT-GLUCOSE [id number] 12:24:00 Test Item Value Reference Range Comments POC-GLUCOSE METER (BEAKER) 121 mg/dL 70-110 TESTED AT [address] (test jnxv=6262) [facility] [address] POCT-GLUCOSE [id number] 08:47:00 Test Item Value Reference Range Comments POC-GLUCOSE METER (BEAKER) 144 mg/dL 70-110 TESTED AT [address] (test gmco=0583) [facility] [address] POCT-GLUCOSE [id number] 23:49:00 Test Item Value Reference Range Comments POC-GLUCOSE METER (BEAKER) 135 mg/dL 70-110 TESTED AT [address] (test fvoa=5850) [facility] [address] POCT-GLUCOSE [id number] 20:50:00 Test Item Value Reference Range Comments POC-GLUCOSE METER (BEAKER) 151 mg/dL 70-110 TESTED AT [address] (test tpfn=8412) [place] [address] POCT-GLUCOSE [id number] 17:58:00 Test Item Value Reference Range Comments POC-GLUCOSE METER (BEAKER) 129 mg/dL 70-110 TESTED AT [address] (test qzuw=5049) [place] [id number] BLOOD [id number] 11:00:00 Test Item Value Reference Range Comments CULTURE (BEAKER) (test jads=1193) No growth in 5 days BLOOD [id number] 11:00:00 Test Item Value Reference Range Comments CULTURE (BEAKER) (test oexu=1200) No growth in 5 days POCT-GLUCOSE [id number] 07:42:00 Test Item Value Reference Range Comments POC-GLUCOSE METER (BEAKER) 108 mg/dL 70-110 TESTED AT [address] (test ztjp=6532) [place] [address] POCT-GLUCOSE [id number] 20:59:00 Test Item Value Reference Range Comments POC-GLUCOSE METER (BEAKER) 131 mg/dL 70-110 TESTED AT [address] (test xpnt=2274) [place] [address] BASIC METABOLIC [id number] 13:38:00 Test Item Value Reference Range Comments SODIUM (BEAKER) (test 133 meq/L 136-145 wtqd=596) POTASSIUM (BEAKER) (test 4.1 meq/L 3.5-5.1 locb=780) CHLORIDE (BEAKER) (test 103 meq/L 98-107 mtge=708) CO2 (BEAKER) (test 24 meq/L 22-29 fbro=559) BLOOD UREA NITROGEN 12 mg/dL 7-21 (BEAKER) (test zsce=088) CREATININE (BEAKER) (test 0.66 mg/dL 0.57-1.25 lidp=592) GLUCOSE RANDOM (BEAKER) 109 mg/dL 70-105 (test bnvs=315) CALCIUM (BEAKER) (test 8.5 mg/dL 8.4-10.2 ivjw=247) EGFR (BEAKER) (test 92 mL/min/1.73 sq m ESTIMATED GFR IS NOT pegu=7633) ACCURATE CREATININE CLEARANCE IN PREDICTING GLOMERULAR FILTRATION RATE. ESTIMATED GFR IS NOT APPLICABLE FOR DIALYSIS PATIENTS. VANCOMYCIN LEVEL, [id number] 13:35:00 Test Item Value Reference Range Comments VANCOMYCIN TROUGH (BEAKER) (test jtkk=438) 14.0 ug/mL 10.0-20.0 Draw before vanc doseCBC W/PLT COUNT & AUTO [id number] 13:15:00 Test Item Value Reference Range Comments WHITE BLOOD CELL COUNT (BEAKER) (test puih=404) 5.0 K/ L 3.5-10.5 RED BLOOD CELL COUNT (BEAKER) (test mfte=333) 3.70 M/ L 3.93-5.22 HEMOGLOBIN (BEAKER) (test jksr=301) 10.4 GM/DL 11.2-15.7 HEMATOCRIT (BEAKER) (test xgup=356) 32.1 % 34.1-44.9 MEAN CORPUSCULAR VOLUME (BEAKER) (test tphr=307) 86.8 fL 79.4-94.8 MEAN CORPUSCULAR HEMOGLOBIN (BEAKER) (test 28.1 pg 25.6-32.2 tuub=110) MEAN CORPUSCULAR HEMOGLOBIN CONC (BEAKER) (test 32.4 GM/DL 32.2-35.5 tdkz=653) RED CELL DISTRIBUTION WIDTH (BEAKER) (test 13.1 % 11.7-14.4 zadm=333) PLATELET COUNT (BEAKER) (test eeme=302) 262 K/CU MM 150-450 MEAN PLATELET VOLUME (BEAKER) (test mopq=882) 9.0 fL 9.4-12.3 NUCLEATED RED BLOOD CELLS (BEAKER) (test 0 /100 WBC 0-0 iwsb=308) NEUTROPHILS RELATIVE PERCENT (BEAKER) (test 74 % carh=193) LYMPHOCYTES RELATIVE PERCENT (BEAKER) (test 15 % ozyb=467) MONOCYTES RELATIVE PERCENT (BEAKER) (test 8 % zbvs=970) EOSINOPHILS RELATIVE PERCENT (BEAKER) (test 3 % msss=085) BASOPHILS RELATIVE PERCENT (BEAKER) (test 0 % fhlu=404) NEUTROPHILS ABSOLUTE COUNT (BEAKER) (test 3.65 K/ L 1.56-6.13 ltby=977) LYMPHOCYTES ABSOLUTE COUNT (BEAKER) (test 0.74 K/ L 1.18-3.74 qrhh=845) MONOCYTES ABSOLUTE COUNT (BEAKER) (test 0.39 K/ L 0.24-0.36 hdvz=811) EOSINOPHILS ABSOLUTE COUNT (BEAKER) (test 0.14 K/ L 0.04-0.36 uxkp=132) BASOPHILS ABSOLUTE COUNT (BEAKER) (test 0.02 K/ L 0.01-0.08 xkup=413) IMMATURE GRANULOCYTES-RELATIVE PERCENT (BEAKER) 1 % 0-1 (test xwwf=0597) VANCOMYCIN LEVEL, [id number] 08:53:00 Test Item Value Reference Range Comments VANCOMYCIN TROUGH (BEAKER) (test zapd=476) 5.5 ug/mL 10.0-20.0 BASIC METABOLIC [id number] 09:17:00 Test Item Value Reference Range Comments SODIUM (BEAKER) (test 133 meq/L 136-145 myna=526) POTASSIUM (BEAKER) (test 4.2 meq/L 3.5-5.1 orui=266) CHLORIDE (BEAKER) (test 104 meq/L 98-107 dbhf=191) CO2 (BEAKER) (test 23 meq/L 22-29 xdko=036) BLOOD UREA NITROGEN 11 mg/dL 7-21 (BEAKER) (test aigw=694) CREATININE (BEAKER) (test 0.69 mg/dL 0.57-1.25 tiiv=470) GLUCOSE RANDOM (BEAKER) 101 mg/dL 70-105 (test ovkm=401) CALCIUM (BEAKER) (test 8.2 mg/dL 8.4-10.2 jlas=996) EGFR (BEAKER) (test 88 mL/min/1.73 sq m ESTIMATED GFR IS NOT zume=9152) ACCURATE CREATININE CLEARANCE IN PREDICTING GLOMERULAR FILTRATION RATE. ESTIMATED GFR IS NOT APPLICABLE FOR DIALYSIS PATIENTS. PROTHROMBIN [id number] 09:12:00 Test Item Value Reference Range Comments PROTIME (BEAKER) (test nvrx=256) 14.0 seconds 11.7-14.7 INR (BEAKER) (test yamj=034) 1.1 <=5.9 RECOMMENDED COUMADIN/WARFARIN INR THERAPY RANGESSTANDARD DOSE: 2.0 - 3.0 Includes: PROPHYLAXIS forvenous thrombosis, systemic embolization; TREATMENT for venous thrombosis and/or pulmonary embolus.HIGH RISK: Target INR is 2.5-3.5 for patients with mechanical heart valves.CBC W/PLT COUNT & AUTO [id number] 09:00:00 Test Item Value Reference Range Comments WHITE BLOOD CELL COUNT (BEAKER) (test ytbk=232) 4.3 K/ L 3.5-10.5 RED BLOOD CELL COUNT (BEAKER) (test ggyb=259) 3.76 M/ L 3.93-5.22 HEMOGLOBIN (BEAKER) (test ahkt=087) 10.7 GM/DL 11.2-15.7 HEMATOCRIT (BEAKER) (test ohyz=370) 32.4 % 34.1-44.9 MEAN CORPUSCULAR VOLUME (BEAKER) (test yqse=827) 86.2 fL 79.4-94.8 MEAN CORPUSCULAR HEMOGLOBIN (BEAKER) (test 28.5 pg 25.6-32.2 movp=743) MEAN CORPUSCULAR HEMOGLOBIN CONC (BEAKER) (test 33.0 GM/DL 32.2-35.5 apgc=012) RED CELL DISTRIBUTION WIDTH (BEAKER) (test 13.2 % 11.7-14.4 whwg=451) PLATELET COUNT (BEAKER) (test huma=479) 295 K/CU MM 150-450 MEAN PLATELET VOLUME (BEAKER) (test xsam=119) 8.9 fL 9.4-12.3 NUCLEATED RED BLOOD CELLS (BEAKER) (test 0 /100 WBC 0-0 mxrf=322) NEUTROPHILS RELATIVE PERCENT (BEAKER) (test 71 % yrps=111) LYMPHOCYTES RELATIVE PERCENT (BEAKER) (test 17 % clfl=129) MONOCYTES RELATIVE PERCENT (BEAKER) (test 10 % nruu=492) EOSINOPHILS RELATIVE PERCENT (BEAKER) (test 1 % oprv=644) BASOPHILS RELATIVE PERCENT (BEAKER) (test 1 % wzjy=595) NEUTROPHILS ABSOLUTE COUNT (BEAKER) (test 3.07 K/ L 1.56-6.13 llfl=475) LYMPHOCYTES ABSOLUTE COUNT (BEAKER) (test 0.72 K/ L 1.18-3.74 xfmr=978) MONOCYTES ABSOLUTE COUNT (BEAKER) (test 0.42 K/ L 0.24-0.36 pkec=248) EOSINOPHILS ABSOLUTE COUNT (BEAKER) (test 0.05 K/ L 0.04-0.36 zaaa=128) BASOPHILS ABSOLUTE COUNT (BEAKER) (test 0.02 K/ L 0.01-0.08 yeap=565) IMMATURE GRANULOCYTES-RELATIVE PERCENT (BEAKER) 1 % 0-1 (test clqd=2461) POCT-GLUCOSE [id number] 18:20:00 Test Item Value Reference Range Comments POC-GLUCOSE METER (BEAKER) 96 mg/dL 70-110 TESTED AT [facility] [address] (test xvav=4628) [facility] [address] URINE [id number] 11:20:00 Test Item Value Reference Range Comments CULTURE (BEAKER) (test kfqz=7762) No growth [id number] 16:14:00 Test Item Value Reference Range Comments PROTIME (BEAKER) (test aqqr=946) 13.8 seconds 11.7-14.7 INR (BEAKER) (test rdqn=715) 1.1 <=5.9 PARTIAL THROMBOPLASTIN TIME (BEAKER) (test 34.7 seconds 22.5-36.0 txko=054) RECOMMENDED COUMADIN/WARFARIN INR THERAPY RANGESSTANDARD DOSE: 2.0 - 3.0 Includes: PROPHYLAXIS forvenous thrombosis, systemic embolization; TREATMENT for venous thrombosis and/or pulmonary embolus.HIGH RISK: Target INR is 2.5-3.5 for patients with mechanical heart valves.PROTHROMBIN [id number] 16:12: 00 Test Item Value Reference Range Comments PROTIME (BEAKER) (test rzdm=332) 13.8 seconds 11.7-14.7 INR (BEAKER) (test zlgn=532) 1.1 <=5.9 RECOMMENDED COUMADIN/WARFARIN INR THERAPY RANGESSTANDARD DOSE: 2.0 - 3.0 Includes: PROPHYLAXIS forvenous thrombosis, systemic embolization; TREATMENT for venous thrombosis and/or pulmonary embolus.HIGH RISK: Target INR is 2.5-3.5 for patients with mechanical heart valves.HEMOGLOBIN [id number] 08:32:00 Test Item Value Reference Range Comments HEMOGLOBIN A1C (BEAKER) (test imwc=439) 5.9 % 4.3-6.1 C-REACTIVE [id number] 07:46:00 Test Item Value Reference Range Comments C-REACTIVE PROTEIN (BEAKER) (test cyry=691) 4.38 mg/dL 0.00-0.50 CBC W/PLT COUNT & AUTO [id number] 07:37:00 Test Item Value Reference Range Comments WHITE BLOOD CELL COUNT (BEAKER) (test yuyl=122) 4.1 K/ L 3.5-10.5 RED BLOOD CELL COUNT (BEAKER) (test koax=756) 4.26 M/ L 3.93-5.22 HEMOGLOBIN (BEAKER) (test clkv=004) 12.0 GM/DL 11.2-15.7 HEMATOCRIT (BEAKER) (test dprq=113) 36.1 % 34.1-44.9 MEAN CORPUSCULAR VOLUME (BEAKER) (test dbao=253) 84.7 fL 79.4-94.8 MEAN CORPUSCULAR HEMOGLOBIN (BEAKER) (test 28.2 pg 25.6-32.2 zlkb=602) MEAN CORPUSCULAR HEMOGLOBIN CONC (BEAKER) (test 33.2 GM/DL 32.2-35.5 ztwd=832) RED CELL DISTRIBUTION WIDTH (BEAKER) (test 12.9 % 11.7-14.4 prdq=310) PLATELET COUNT (BEAKER) (test xffb=443) 400 K/CU MM 150-450 MEAN PLATELET VOLUME (BEAKER) (test buqw=156) 9.2 fL 9.4-12.3 NUCLEATED RED BLOOD CELLS (BEAKER) (test 0 /100 WBC 0-0 yypd=244) NEUTROPHILS RELATIVE PERCENT (BEAKER) (test 87 % quxy=243) LYMPHOCYTES RELATIVE PERCENT (BEAKER) (test 11 % jyxi=141) MONOCYTES RELATIVE PERCENT (BEAKER) (test 2 % mllh=497) EOSINOPHILS RELATIVE PERCENT (BEAKER) (test 0 % ynqm=766) BASOPHILS RELATIVE PERCENT (BEAKER) (test 0 % lguu=526) NEUTROPHILS ABSOLUTE COUNT (BEAKER) (test 3.56 K/ L 1.56-6.13 xmdb=961) LYMPHOCYTES ABSOLUTE COUNT (BEAKER) (test 0.45 K/ L 1.18-3.74 oqkx=479) MONOCYTES ABSOLUTE COUNT (BEAKER) (test 0.06 K/ L 0.24-0.36 rdvf=275) EOSINOPHILS ABSOLUTE COUNT (BEAKER) (test 0.00 K/ L 0.04-0.36 kfbc=321) BASOPHILS ABSOLUTE COUNT (BEAKER) (test 0.00 K/ L 0.01-0.08 hang=195) IMMATURE GRANULOCYTES-RELATIVE PERCENT (BEAKER) 1 % 0-1 (test sjha=2837) HEPATIC FUNCTION [id number] 06:20:00 Test Item Value Reference Range Comments TOTAL PROTEIN (BEAKER) (test uqcc=669) 8.0 gm/dL 6.0-8.3 ALBUMIN (BEAKER) (test hxxw=9321) 3.6 g/dL 3.5-5.0 BILIRUBIN TOTAL (BEAKER) (test tzvk=798) 0.3 mg/dL 0.2-1.2 BILIRUBIN DIRECT (BEAKER) (test cfrv=685) 0.2 mg/dL 0.1-0.5 ALKALINE PHOSPHATASE (BEAKER) (test fijn=768) 107 U/L 40-150 AST (SGOT) (BEAKER) (test vbdz=530) 44 U/L 5-34 ALT (SGPT) (BEAKER) (test zety=601) 61 U/L 6-55 BASIC METABOLIC [id number] 06:20:00 Test Item Value Reference Range Comments SODIUM (BEAKER) (test 135 meq/L 136-145 lcsp=792) POTASSIUM (BEAKER) (test 4.6 meq/L 3.5-5.1 fimx=087) CHLORIDE (BEAKER) (test 106 meq/L 98-107 sapl=260) CO2 (BEAKER) (test 20 meq/L 22-29 mysq=898) BLOOD UREA NITROGEN 13 mg/dL 7-21 (BEAKER) (test xpus=446) CREATININE (BEAKER) (test 0.79 mg/dL 0.57-1.25 mgsp=845) GLUCOSE RANDOM (BEAKER) 196 mg/dL 70-105 (test ryrr=958) CALCIUM (BEAKER) (test 8.9 mg/dL 8.4-10.2 ovmz=176) EGFR (BEAKER) (test 75 mL/min/1.73 sq m ESTIMATED GFR IS NOT qzzr=0005) ACCURATE CREATININE CLEARANCE IN PREDICTING GLOMERULAR FILTRATION RATE. ESTIMATED GFR IS NOT APPLICABLE FOR DIALYSIS PATIENTS.
[2019-03-28 13:52] LABS: Basophils % 0.8 % (0-1.3); Hematocrit 42.6 % (36.0-45.0); Lymphocytes % 17.7 % (15.3-44.8); MPV 7.7 fL (7.6-11.3); RBC Red Blood Cell Count 4.84 M/uL (3.86-4.86)
[2019-03-28 14:02] LABS: Protime INR 1.11
--- NOTE | 2019-03-28 14:14 | RAD REPORT ---
EXAM DESCRIPTION: RAD - Chest Single View - 03/28/2019 2:08 pm CLINICAL HISTORY: CHEST PAIN Chest pain. COMPARISON: <Comparisons> FINDINGS: Portable technique limits examination quality. The lungs are grossly clear. The heart is normal in size. No displaced fractures.Thoracic spine hardw are. IMPRESSION: No acute intrathoracic process suspected.
[2019-03-28 14:17] LABS: ALT/SGPT 84 U/L (12-78); AST/SGOT 88 U/L (15-37); Albumin 3.5 g/dL (3.4-5.0); Alkaline Phosphatase 170 U/L (45-117); BUN Blood Urea Nitrogen 9 mg/dL (7-18); Bicarbonate 23 mmol/L (21-32); Bilirubin Direct 0.2 mg/dL (0-0.2); Bilirubin Total 0.5 mg/dL (0.2-1.0); Glucose Level 166 mg/dL (74-106); Magnesium 1.9 mg/dL (1.8-2.4); NT PRO-BNP 33 pg/mL (<125); Potassium 3.8 mmol/L (3.5-5.1); Protein, Total 8.9 g/dL (6.4-8.2); Sodium Level 137 mmol/L (136-145); Troponin (Emerg Dept Use Only) < 0.02 ng/mL (0.0-0.045)
[2019-03-28] MEDS ORDERED: LORazepam 2 MG/ML VIAL ONE (14:18)
[2019-03-28] MEDS ORDERED: MORPHINE 4 MG/ML SYR ONE (14:18)
[2019-03-28] MEDS ORDERED: HYDROMORPHONE HCL 0.5 MG/0.5 ML INJ ONE (14:45)
--- NOTE | 2019-03-28 15:30 | EDPHYS ---
Physician Documentation [facility] Name: Nannette Hampton Age: 58 yrs Sex: Female : 1960 Arrival Date: 03/28/2019 Time: 13:17 Bed 5 Private MD: ED Physician Betito Duque HPI: 03/28 15:00 This 58 yrs old Female presents to ER via Wheelchair with complaints of Chest ma2 Pain. 15:00 The patient or guardian reports chest pain that is located primarily in the substernal ma2 area. Onset: gradually, 1 day(s) ago. The pain does not radiate. The chest pain is described as crushing. Severity of pain: At its worst the pain was mild in the emergency department the pain is unchanged. Historical: - Allergies: 13:45 Morphine; ae4 13:45 Phenergan; ae4 13:45 surgical tape; ae4 13:45 Demerol; ae4 - Home Meds: 13:45 acetaminophen 325 mg Oral tab 2 tabs every 6 hours [Active]; ae4 - PMHx: 13:45 Diabetes - IDDM; insomnia; Pott's Disease-TB of spine; Thyroid problem; unknown; ae4 - Immunization history:: Adult Immunizations up to date. - Social history:: Patient/guardian denies using alcohol, street drugs, The patient lives with family, Smoking status: Patient/guardian denies using tobacco. - Ebola Screening: : Patient denies travel to an Ebola-affected area in the 21 days before illness onset No symptoms or risks identified at this time. - Family history:: not pertinent. - Hospitalizations: : No recent hospitalization is reported. ROS: 15:00 Constitutional: Negative for fever, chills, and weight loss, Neck: Negative for injury, ma2 pain, and swelling, Cardiovascular: Negative for chest pain, palpitations, and edema, Respiratory: Negative for shortness of breath, cough, wheezing, and pleuritic chest pain, Abdomen/GI: Negative for abdominal pain, nausea, diarrhea, and constipation, Back: Negative for injury and pain, : Negative for injury, bleeding, discharge, and swelling, MS/Extremity: Negative for injury and deformity, Skin: Negative for injury, rash, and discoloration, Neuro: Negative for headache, weakness, numbness, tingling, and seizure, Allergy/Immunology: Negative for hives, rash, and allergies, Endocrine: Negative for neck swelling, polydipsia, polyuria, polyphagia, and marked weight changes. Exam: 15:00 Constitutional: This is a well developed, well nourished patient who is awake, alert, ma2 and in no acute distress. Chest/axilla: Normal chest wall appearance and motion. Nontender with no deformity. No lesions are appreciated. Cardiovascular: Regular rate and rhythm with a normal S1 and S2. No gallops, murmurs, or rubs. Normal PMI, no JVD. No pulse deficits. Respiratory: Lungs have equal breath sounds bilaterally, clear to auscultation and percussion. No rales, rhonchi or wheezes noted. No increased work of breathing, no retractions or nasal flaring. Abdomen/GI: Soft, non-tender, with normal bowel sounds. No distension or tympany. No guarding or rebound. No evidence of tenderness throughout. Skin: Warm, dry with normal turgor. Normal color with no rashes, no lesions, and no evidence of cellulitis. MS/ Extremity: Pulses equal, no cyanosis. Neurovascular intact. Full, normal range of motion. Vital Signs: 13:42 BP 143 / 75; Pulse 94; Resp 19; Pulse Ox 97% on R/A; Weight 145.15 kg (R); Pain 7/10; ae4 14:15 Temp 98.4(O); ae4 14:54 BP 130 / 80; Pulse 99; Resp 20; Pulse Ox 97% on R/A; ae4 15:00 BP 124 / 78; Pulse 97; Resp 18; Pulse Ox 98% on R/A; ae4 15:15 BP 134 / 70; Pulse 97; Resp 17; Pulse Ox 98% on R/A; ae4 15:45 BP 150 / 75; Pulse 106; Resp 19; Pulse Ox 96% on R/A; ae4 16:00 BP 115 / 83; Pulse 98; Resp 15; Pulse Ox 98% on R/A; ae4 MDM: 13:19 Patient medically screened. ma2 15:00 Differential diagnosis: abnormal EKG, acute pericarditis, anxiety, coronary artery ma2 disease gastroesophageal reflux disease (GERD). Data reviewed: vital signs, nurses notes. 15:28 MELVA Risk Score: 1 - patient's age is greater or equal to 65 years, 1 - Recent [<24hrs] ma2 Severe Angina. Counseling: I had a detailed discussion with the patient and/or guardian regarding: the historical points, exam findings, and any diagnostic results supporting the discharge/admit diagnosis, the presence of at least one elevated blood pressure reading (>120/80) during this emergency department visit, the need for further work-up and treatment in the hospital. 03/28 13:20 Order name: Basic Metabolic Panel; Complete Time: 14:41 [facility] 03/28 13:20 Order name: CBC with Diff; Complete Time: 14:41 [facility] 03/28 13:20 Order name: LFT's; Complete Time: 14:41 [facility] 03/28 13:20 Order name: Magnesium; Complete Time: 14:41 [place]03/28 13:20 Order name: NT PRO-BNP; Complete Time: 14:41 [facility] 03/28 13:20 Order name: PT-INR; Complete Time: 14:41 [facility] 03/28 13:20 Order name: Troponin (emerg Dept Use Only); Complete Time: 14:41 [facility] 03/28 13:20 Order name: XRAY Chest (1 view); Complete Time: 14:41 [facility] 03/28 16:19 Order name: Urine Culture [facility] 03/28 16:19 Order name: Urine Microscopic Only [facility] 03/28 16:20 Order name: Urine Dipstick--Ancillary (enter results) 03/28 16:45 Order name: Urine Microscopic Only [facility] 03/28 18:10 Order name: Urine Dipstick-Ancillary [facility] 03/28 13:20 Order name: EKG; Complete Time: 13:22 [facility] 03/28 13:20 Order name: Cardiac monitoring; Complete Time: 13:42 [facility] 03/28 13:20 Order name: EKG - Nurse/Tech; Complete Time: 13:42 [facility] 03/28 13:20 Order name: IV Saline Lock; Complete Time: 13:42 il03/28 13:20 Order name: Labs collected and sent; Complete Time: 13:42 [facility] 03/28 13:20 Order name: O2 Per Protocol; Complete Time: 13:42 [facility] 03/28 13:20 Order name: O2 Sat Monitoring; Complete Time: 13:42 ma2 03/28 14:01 Order name: Urine Dipstick-Ancillary (obtain specimen); Complete Time: 16:20 ma2 Administered Medications: 14:35 Drug: Ativan 1 mg Route: IVP; Site: left antecubital; ae4 15:59 Follow up: Response: Anxiety decreased ae4 14:40 Drug: Dilaudid 0.5 mg Route: IVP; Site: left antecubital; ae4 15:59 Follow up: Response: Pain is decreased ae4 14:54 Not Given (Physician Discretion): morphine 4 mg IVP once; RASS on ADMIN: Combtv4, Very ae4 Agttd3, Agttd2, Rstlss1, AlertClm0, Drwsy-1, Lt Sdtn-2, Mod Sdtn-3, Dp Sdtn-4, UnArsble-5 Disposition: 03/28/19 15:30 Hospitalization ordered by Jennifer Salas for Observation. Preliminary diagnosis is Other chest pain. - Bed requested for Telemetry/MedSurg (observation). - Status is Observation. ae4 - Condition is Stable. - Problem is new. - Symptoms are unchanged. UTI on Admission? No Signatures: Dispatcher [employer] EDMS Betito Duque MD MD ma2 Sun Davidson Andrea, RN RN ae4 Corrections: (The following items were deleted from the chart) 15:29 15:29 03/28/2019 15:29 Discharged to Home. Impression: Other chest pain. Condition is ma2 Stable. Forms are Medication Reconciliation Form, Thank You Letter, Antibiotic Education, Prescription Opioid Use. Follow up: Private Physician; When: Tomorrow; Reason: Continuance of care. ma2 15:50 15:30 Hospitalization Ordered by Jennifer Salas MD for Observation. Preliminary diagnosis eb is Other chest pain. Bed requested for Telemetry/MedSurg (observation). Status is Observation. Condition is Stable. Problem is new. Symptoms are unchanged. UTI on Admission? No. ma2 17:16 15:50 03/28/2019 15:30 Hospitalization Ordered by Jennifer Salas MD for Observation. eb Preliminary diagnosis is Other chest pain. Bed requested for Telemetry/MedSurg (observation). Status is Observation. Condition is Stable. Problem is new. Symptoms are unchanged. UTI on Admission? No. eb 17:38 17:16 03/28/2019 15:30 Hospitalization Ordered by Jennifer Salas MD for Observation. eb Preliminary diagnosis is Other chest pain. Bed requested for Telemetry/MedSurg (observation). Status is Observation. Condition is Stable. Problem is new. Symptoms are unchanged. UTI on Admission? No. eb 18:14 17:38 03/28/2019 15:30 Hospitalization Ordered by Jennifer Salas MD for Observation. ae4 Preliminary diagnosis is Other chest pain. Bed requested for Telemetry/MedSurg (observation). Status is Observation. Condition is Stable. Problem is new. Symptoms are unchanged. UTI on Admission? No. eb
--- NOTE | 2019-03-28 15:30 | ER ---
Nurse's Notes [facility] Name: Nannette Hampton Age: 58 yrs Sex: Female : 1960 Arrival Date: 03/28/2019 Time: 13:17 Bed 5 Private MD: Diagnosis: Other chest pain Presentation: 03/28 13:43 Presenting complaint: Patient states: Patient reports chest pain to mid-sternal chest ae4 area that radiates from right anterior neck and jaw area. Patient denies nausea, denies SOB. Transition of care: patient was not received from another setting of care. Onset of symptoms was March 27, 2019 at 22:00. 13:43 Acuity: TRAN 3 ae4 13:43 Method Of Arrival: Wheelchair ae4 14:30 Risk Assessment: Do you want to hurt yourself or someone else? Patient reports no ae4 desire to harm self or others. Initial Sepsis Screen: Does the patient meet any 2 criteria? HR > 90 bpm. Does the patient have a suspected source of infection? No. Patient's initial sepsis screen is negative. Care prior to arrival: None. Historical: - Allergies: 13:45 Morphine; ae4 13:45 Phenergan; ae4 13:45 surgical tape; ae4 13:45 Demerol; ae4 - Home Meds: 13:45 acetaminophen 325 mg Oral tab 2 tabs every 6 hours [Active]; ae4 - PMHx: 13:45 Diabetes - IDDM; insomnia; Pott's Disease-TB of spine; Thyroid problem; unknown; ae4 - Immunization history:: Adult Immunizations up to date. - Social history:: Patient/guardian denies using alcohol, street drugs, The patient lives with family, Smoking status: Patient/guardian denies using tobacco. - Ebola Screening: : Patient denies travel to an Ebola-affected area in the 21 days before illness onset No symptoms or risks identified at this time. - Family history:: not pertinent. - Hospitalizations: : No recent hospitalization is reported. Screenin:30 Abuse screen: Denies threats or abuse. Nutritional screening: No deficits noted. ae4 Tuberculosis screening: No symptoms or risk factors identified. Fall Risk Fall in past 12 months (25 points). Secondary diagnosis (15 points) impaired mobility, IV access (20 points). Ambulatory Aid- None/Bed Rest/Nurse Assist (0 pts). Gait- Impaired (20 pts.). Mental Status- Oriented to own ability (0 pts). Assessment: 13:46 General: Appears in no apparent distress. uncomfortable, obese, Behavior is ae4 cooperative, anxious. Pain: Complains of pain in mid-sternal area Pain radiates to neck Radiates FROM neck to midsternal chest. Pain: Pain currently is 7 out of 10 on a pain scale. Pain began suddenly, 1 day ago. Neuro: Level of Consciousness is awake, alert, obeys commands, Oriented to person, place, time, situation, Appropriate for age. Cardiovascular: Patient's skin is warm and dry. Cardiovascular: Heart tones S1 S2 present. Respiratory: Airway is patent Respiratory effort is even, unlabored, Respiratory pattern is regular, symmetrical, Breath sounds are clear bilaterally. GI: Abdomen is round obese. : No signs and/or symptoms were reported regarding the genitourinary system. EENT: No signs and/or symptoms were reported regarding the EENT system. Derm: Skin is pink, warm \T\ dry. 14:29 Reassessment: Patient appears in no apparent distress at this time. Patient and/or ae4 family updated on plan of care and expected duration. Pain level reassessed. Patient assisted onto bedpan to urinate. 14:54 Reassessment: Patient states she is unable to urinate at this time. ae4 17:47 Reassessment: report called to gela German nurse. ae4 Vital Signs: 13:42 BP 143 / 75; Pulse 94; Resp 19; Pulse Ox 97% on R/A; Weight 145.15 kg (R); Pain 7/10; ae4 14:15 Temp 98.4(O); ae4 14:54 BP 130 / 80; Pulse 99; Resp 20; Pulse Ox 97% on R/A; ae4 15:00 BP 124 / 78; Pulse 97; Resp 18; Pulse Ox 98% on R/A; ae4 15:15 BP 134 / 70; Pulse 97; Resp 17; Pulse Ox 98% on R/A; ae4 15:45 BP 150 / 75; Pulse 106; Resp 19; Pulse Ox 96% on R/A; ae4 16:00 BP 115 / 83; Pulse 98; Resp 15; Pulse Ox 98% on R/A; ae4 ED Course: 13:17 Patient arrived in ED. as 13:19 Betito Duque MD is Attending Physician. ma2 13:24 Oral Pollock, RN is Primary Nurse. bp 13:42 Inserted saline lock: 20 gauge in left antecubital area, using aseptic technique. Blood ae4 collected. Missed attempt(s): 22 gauge in left antecubital area. Patient maintains SpO2 saturation greater than 95% on room air. 13:45 Triage completed. ae4 13:45 Patient has correct armband on for positive identification. route sales trainee on. Pulse ae4 ox on. NIBP on. 13:46 Arm band placed on right wrist. EKG completed in triage. Results shown to MD. ae4 14:10 XRAY Chest (1 view) In Process Unspecified. EDMS 15:30 Jennifer Salas MD is Hospitalizing Provider. ma2 16:19 Urine collected: clean catch specimen, cloudy, suman colored. jb1 18:13 No provider procedures requiring assistance completed. Patient admitted, IV remains in ae4 place. Administered Medications: 14:35 Drug: Ativan 1 mg Route: IVP; Site: left antecubital; ae4 15:59 Follow up: Response: Anxiety decreased ae4 14:40 Drug: Dilaudid 0.5 mg Route: IVP; Site: left antecubital; ae4 15:59 Follow up: Response: Pain is decreased ae4 14:54 Not Given (Physician Discretion): morphine 4 mg IVP once; RASS on ADMIN: Combtv4, Very ae4 Agttd3, Agttd2, Rstlss1, AlertClm0, Drwsy-1, Lt Sdtn-2, Mod Sdtn-3, Dp Sdtn-4, UnArsble-5 Outcome: 15:29 Discharge ordered by . ma2 15:30 Decision to Hospitalize by Provider. ma2 18:13 Admitted to Med/surg accompanied by tech, family with patient, via stretcher, room 222, ae4 with chart, Report called to Monserrat 18:13 Condition: stable 18:13 Instructed on the need for admit, Demonstrated understanding of instructions. 18:14 Patient left the ED. ae4 Signatures: Dispatcher [employer] EDMS Aaron Davis jb1 Mecca Miranda Brian, RN RN bp Betito Duque MD MD ma2 Bryant Gordon RN RN ae4
[2019-03-28 16:44] LABS: Urine Bacteria >50 /HPF (<20); Urine Culture Reflex Order REFLEXED; Urine RBC <5 /HPF (NONE SEEN)
[2019-03-28 18:09] LABS: Urine Blood 1+ (NEG); Urine Glucose NEGATIVE (NEG); Urine Protein 1+ (NEG); Urine Specific Gravity 1.025 (1.005-1.030)
[2019-03-28] MEDS: INSULIN -REGULAR HUMAN 50 UNIT/0.5 ML ML SQ SCH ×2 (20:02→21:00)
[2019-03-28] MEDS ORDERED: NITROGLYCERIN 0.4 MG/TAB SL PRN (20:02)
[2019-03-28] MEDS ORDERED: ACETAMINOPHEN 500 MG TAB PO PRN (20:02)
[2019-03-28] MEDS: ATORVASTATIN 40 MG TAB PO SCH (21:29)
[2019-03-28] MEDS: METOPROLOL TAR 50 MG TAB PO SCH (21:30)
[2019-03-28] MEDS: HYDROCODONE/APAP 7.5/325 MG TAB PO PRN (21:30)
[2019-03-28] MEDS: ENOXAPARIN 40 MG/0.4 ML SQ SCH (23:24)
--- NOTE | 2019-03-29 02:10 | HP ---
Date of Admission: 03/28/2019 Chief Complaint: Chest pain. Consultants: Rocky Land MD Primary Care Physician: None. History Of Present Illness: Patient is a 58-year-old female with past medical history of chronic back pain, Pott disease, non insulin-dependent diabetes, chronic back pain, who was in her usual state of health until the day of the night prior to admission when the patient woke up with chest pain. Patient states the pain was intermittent, constant, moderate. Patient did not take any medications to help alleviate her pain. No aggravating or alleviating factors. Patient did not report any nausea, vomiting, fever, chills. Patient did report some shortness of breath. Pain was nonradiating. In the ER, her vital signs were stable. She was afebrile. Her workup revealed negative cardiac enzymes and EKG did not show any ST elevation. Patient was referred for admission. Past Medical History: Chronic back pain, [id number] diabetes, Pott disease, morbid obesity, anemia. Surgical History: Patient has had 8 surgeries on her back, 3 right shoulder surgeries, breast lumpectomy bilaterally, carpal tunnel repair, cysts from the hands and foot removed, and tummy tuck. Allergies: MORPHINE, DEMEROL, AND PHENERGAN. Social History: Patient denies any tobacco use or alcohol use. Patient is , is limited in her inability to ambulate due to her Pott disease. Medications: List reviewed. Family History: Father had heart attack at age of 38, had bypass at the age of 50 and was at age 65. Mother and brother also have coronary artery disease. Review of Systems: Ten-point system reviewed, negative except as per HPI. Physical Examination: Vital Signs: Blood pressure 143/75, pulse 94, respirations 19, OS 97% on room air, temperature 98.4. General: Awake, alert, oriented x3, in some mild distress morbidly obese female. HEENT: Normocephalic, atraumatic, PERRLA, EOMI. Moist mucous membranes. Oropharynx is clear. Poor dentition. Conjunctivae anicteric. Neck: Supple. No JVD. Trachea midline. CV: S1, S2. Regular rate and rhythm. Peripheral pulses present. Respiratory: Moving air well bilaterally. No wheezing or stridor. No use of accessory muscles. Distant breath sounds. Extremities: No clubbing or cyanosis. Trace pedal edema. No calf tenderness. Neurological: Cranial nerves 2 through 12 intact grossly. No focal neurological deficit. The patient does have generalized weakness of the lower extremities. Speech is normal. Skin: No rashes. Normal skin turgor. Psychiatric: Mood is okay. Affect is full. Insight and judgment are good. Laboratory Data: INR 1.11. Sodium 137, potassium 3.8, chloride 103, CO2 of 23 , BUN 9, creatinine 0.93, glucose 166, calcium 8.6, magnesium 1.9, AST 88, ALT 84, alkaline phosphatase 170, total bilirubin 0.5. Troponin less than 0.02, albumin 3.5. WBC 5.7, H and H 14.6 and 42.6, platelets 266. Assessment And Plan: A 58-year-old female with: 1. Chest pain, rule out acute coronary syndrome. Patient has multiple risk factors including morbid obesity. Her father had heart attack at age of 38, has diabetes, high heart score. Patient will be admitted for further evaluation , and we will obtain serial cardiac enzymes and EKG to rule out acute coronary syndrome. We will consult Cardiology. We will start on chest pain guidelines, beta-marylu, aspirin, statin, and MELY inhibitor. 2. Pott disease. Patient is on Downey. 3. Diabetes mellitus [id number]-lmcgacfus with hyperglycemia. We will check hemoglobin A1c. 4. Chronic back pain, midline, with sciatica. We will continue Downey and gabapentin. Patient is also on muscle relaxant. 5. Anemia, likely anemia of chronic disease. We will continue to monitor H and H, transfuse as needed. 6. Morbid obesity. Plan: Admit patient to [facility] as observation. DANIELA Voice ID: [id number] MTDD
[2019-03-29] MEDS: HYDROCODONE/APAP 7.5/325 MG TAB PO PRN ×5 (02:54→19:53)
[2019-03-29 07:01] LABS: Potassium 4.2 mmol/L (3.5-5.1)
[2019-03-29 07:03] LABS: Absolute Lymphocytes (CBC) 1.6 K/uL (0.7-4.9); Basophils % 0.8 % (0-1.3); Hematocrit 39.8 % (36.0-45.0); Lymphocytes % 24.4 % (15.3-44.8); MPV 8.7 fL (7.6-11.3)
[2019-03-29] MEDS: INSULIN -REGULAR HUMAN 50 UNIT/0.5 ML ML SQ SCH ×4 (07:30→21:00)
[2019-03-29] MEDS: ASPIRIN EC 81 MG TAB PO SCH (08:59)
[2019-03-29] MEDS: ENOXAPARIN 40 MG/0.4 ML SQ SCH (08:59)
[2019-03-29] MEDS: METOPROLOL TAR 50 MG TAB PO SCH ×2 (08:59→21:39)
[2019-03-29] MEDS: LISINOPRIL 10 MG TAB PO SCH (08:59)
--- NOTE | 2019-03-29 13:20 | EKG ---
Test Date: 2019-03-28 Test Time: 13:29:05 Cubing Machine Tender: LILLIANA MEASUREMENT RESULTS: Intervals: Rate: 98 KS: 156 QRSD: 90 QT: 362 QTc: 462 [place]: P: 35 KS: 156 QRS: -15 T: 44 INTERPRETIVE STATEMENTS: Normal sinus rhythm Normal ECG Compared to ECG 02/25/2017 14:29:20 Incomplete right bundle-branch block no longer present Electronically Signed On 03-29-19 13:18:49 CDT by Rocky Land
[2019-03-29] MEDS: GABAPENTIN 100 MG CAP PO SCH ×2 (14:58→21:43)
[2019-03-29] MEDS ORDERED: AMITRIPTYLINE 25 MG TAB PO SCH (21:00)
[2019-03-29] MEDS: ATORVASTATIN 40 MG TAB PO SCH (21:39)
[2019-03-29] MEDS: BACLOFEN 10 MG TAB PO SCH (21:39)
[2019-03-30] MEDS: HYDROCODONE/APAP 7.5/325 MG TAB PO PRN ×4 (00:36→13:07)
[2019-03-30 03:06] VITALS: O2SAT 96
--- NOTE | 2019-03-30 03:34 | DS ---
Consultants: Dr. Land. Procedures: None. Discharge Diagnoses: 1. Chest pain, acute coronary syndrome ruled out. 2. Pott disease. 3. Diabetes mellitus type 2, non-insulin requiring with hyperglycemia, stable. 4. Chronic back pain, midline with sciatica. 5. Anemia due to anemia of chronic disease, stable. 6. Morbid obesity, body mass index is 62. Hospital Course: Patient is a 58-year-old female, comes in with chest pain, patient was admitted to the hospital to rule out ACS. Her EKG did not show any acute changes. Cardiac enzymes were negative. Patient was evaluated by Cardiology. Her symptoms improved. She was then cleared for discharge. Patient was sent home in a stable condition. Medications: As per medication reconciliation list. Followup: Follow up with primary care physician 2-3 days. Follow up with packer operator automatic, Dr. Land in 2 weeks, return to ER for worsening condition. Activity: Fall precautions. Physical Examination: General: Awake, alert, oriented, morbidly obese female. CV: S1-S2, no murmurs. Respiratory: Moving air well bilaterally. No wheezing or stridor. Gastrointestinal: Abdomen is soft, nontender, nondistended. Positive bowel sounds. Extremities: No clubbing, cyanosis, edema. Neurologic: Nonfocal. SA/MODL Voice ID: [id number] Report ID: [id number] MTDD
[2019-03-30 04:56] VITALS: BMI 7165.0
[2019-03-30] MEDS: INSULIN -REGULAR HUMAN 50 UNIT/0.5 ML ML SQ SCH ×2 (07:30→11:30)
[2019-03-30] MEDS: LISINOPRIL 10 MG TAB PO SCH (09:00)
[2019-03-30] MEDS: METOPROLOL TAR 50 MG TAB PO SCH (09:23)
[2019-03-30] MEDS: BACLOFEN 10 MG TAB PO SCH (09:24)
[2019-03-30] MEDS: GABAPENTIN 100 MG CAP PO SCH ×2 (09:24→13:08)
[2019-03-30] MEDS: ASPIRIN EC 81 MG TAB PO SCH (09:24)
[2019-03-30] MEDS: ENOXAPARIN 40 MG/0.4 ML SQ SCH (10:34)
--- NOTE | 2019-03-30 10:42 | RAD REPORT ---
EXAM DESCRIPTION: CT - Chest Angio - 03/30/2019 10:22 am CLINICAL HISTORY: Chest pain/elevated D-dimer COMPARISON: None. TECHNIQUE: Dynamically enhanced axial 3 mm thick images of the chest were obtained during administra tion of <100> mL Isovue 370 IV contrast. Coronal and oblique reconstruction images were generated and reviewed. Exam utilizes a protocol for optimal evaluation of pulmonary arterial tree. Maximum intensity projections 3D imaging was utilized All CT scans are performed using dose optimization technique as appropriate and may include automated exposure control or mA/KV adjustment according to patient size. FINDINGS: A pulmonary embolus is not seen. A thoracic aortic aneurysm is not noted. A pleural effusion is not seen. A pericardial effusion is not seen. A lung consolidation is not present. Postsurgical changes involve the spine Fatty liver IMPRESSION: Negative for a pulmonary embolism.
--- NOTE | 2019-03-30 10:56 | CON ---
Date of Consultation: 03/29/[address] Salas's service on 03/28/2019. I saw the patient on 03/29/2019. Reason For Consultation: Chest pain. History Of Present Illness: Ms. Hampton is a 58-year-old woman who has a rather complicated past med ical history, but is noncardiac. She does have a positive family history of heart disease. She smok es. She has a history of diabetes. 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 She also had a history of Pott disease. She has chronic pain from her spine and she is planning to have a pain pump at [place]. She described her chest pain as a Charley horse that com es and goes and occasionally radiates to the right neck. She occasionally has some throat pain. Her symptoms occur intermittently and when they do come, they last about 10 to 15 minutes with some naus ea, but no other symptoms. Denies any diaphoresis. Denies any PND, orthopnea, pedal edema, palpitat ion, or syncope. Past Medical History: As stated above. Allergies: SHE IS ALLERGIC TO MORPHINE, DEMEROL, AND ADHESIVE TAPE. Medications: Medications at home include Elavil and Neurontin. Review of Systems: Negative. Social History: Negative. Family History: Positive for heart disease. Physical Examination: General: Ms. Hampton weighs 320 pounds. HEENT: Negative. Neck: Supple. No bruit. Chest: Clear. Cardiac: Regular rhythm and rate. No murmurs, gallops, or rubs. Abdomen: Obese, but no hepatosplenomegaly. Extremities: No clubbing, cyanosis, or edema. Diagnostic Data: Normal except for mild elevation in liver function test. Impression And Plan: 1.Atypical chest pain in a patient with obesity and diabetes. I am not so sure , she is a candidate for a stress test, but apparently she says she has had some in the past that has been nega tive. 2.History of tobacco use. 3.Family history of heart disease. 4.History of tuberculosis of the spine. 5.Hypothyroidism. 6.History of Pott disease. Ms. Hampton has elevated liver function tests, unknown etiology . She is aware of that. T here is an echocardiogram pending for tomorrow. If her echocardiogram is normal, she can probably go home and follow up with other physicians that I believe she sees in [facility]. I will ch christopher with the nuclear department and see if she can have a stress test that she was recommended to hav e that done as an outpatient. I will discuss the case further with Dr. Salas. RENO/JUNE Voice ID: [id number] Report ID: [id number]
[2019-03-30 12:03] VITALS: BP 104/68; TEMP 97.3
--- NOTE | 2019-03-30 12:31 | RAD REPORT ---
EXAM DESCRIPTION: US - Extrem Venous W Compress Ron - 03/30/2019 12:25 pm CLINICAL HISTORY: lower ext swelling, elevated D dimer Bilateral leg edema and swelling. COMPARISON: Chest Angio dated 03/30/2019 TECHNIQUE: Real-time sonographic interrogation of the left and right lower extremity deep venous sys tems was performed. FINDINGS: Normal compressibility, flow augmentation, phasic flow and spontaneous flow is identified in both the left and right lower extremity deep venous systems. IMPRESSION: No sonographic evidence of left or right lower extremity deep venous thrombosis.
[2019-03-30] MEDS ORDERED: CEFTRIAXONE/SWI 1gm 1 GM/10 ML SYR IV SCH (13:00)
--- NOTE | 2019-03-30 13:09 | ECHO ---
HEIGHT: 5 ft 0 in WEIGHT: 254 lb 0 oz DATE OF STUDY: 03/30/[address]: Jennifer Salas MD 2-DIMENSIONAL: YES M.MODE: YES DOPPLER: YES COLOR FLOW: YES TDS: YES PORTABLE: NO DEFINITY: NO BUBBLE STUDY: NO DIAGNOSIS: CHEST PAIN CARDIAC HISTORY: CATHERIZATION: NO SURGERY: NO PROSTHETIC VALVE: NO PACEMAKER: NO MEASUREMENTS (cm) DIASTOLIC (NORMALS) SYSTOLIC (NORMALS) IVSd 1.0 (0.6-1.2) LA Diam (1.9-4.0) LVEF 54% LVIDd 4.4 (3.5-5.7) LVIDs 3.2 (2.0-3.5) %FS % LVPWd (0.6-1.2) Ao Diam 2.8 (2.0-3.7) 2 DIMENSIONAL ASSESSMENT: RIGHT ATRIUM: NORMAL LEFT ATRIUM: NORMAL RIGHT VENTRICLE: NORMAL LEFT VENTRICLE: NORMAL TRICUSPID VALVE: NORMAL MITRAL VALVE: NORMAL PULMONIC VALVE: NORMAL AORTIC VALVE: NORMAL PERICARDIAL EFFUSION: NONE AORTIC ROOT: NORMAL LEFT VENTRICULAR WALL MOTION: NORMAL. DOPPLER/COLOR FLOW: PHYSIOLOGIC TRICUSPID REGURGITATION. NORMAL RIGHT VENTRICULAR SYSTOLIC PRESSURE. COMMENTS: NORMAL 2D ECHO WITH DOPPLER. TECHNOLOGIST: PHILOMENA SMITH
--- NOTE | 2019-03-30 14:02 | PN ---
Date of Progress Note: 03/30/2019 Subjective: Patient seen and examined. Chart reviewed and case discussed with RN. Patient not discharged yesterday due to continued symptoms. Awaiting echo to rule out wall motion abnormality. Patient is still having some intermittent chest pain seems to be atypical. Medications: List reviewed. Physical Examination: Vital Signs: Temperature 97.1, heart rate 75, blood pressure 98/58, respirations 18, O2 96% on room air. General: Awake, alert, oriented x3. Does not appear to be in any acute distress. Mild discomfort due to pain. Morbidly obese female. CV: S1 and S2. Regular rate and rhythm. Peripheral pulses present. Respiratory: Moving air well bilaterally. No wheezing or stridor. Gastrointestinal: Abdomen is soft, nontender, nondistended. Positive bowel sounds. Extremities: No clubbing, cyanosis, edema. Neurologic: Patient has generalized weakness of the lower extremities. Laboratory Data: D-dimer 1340. Blood sugar levels between 157 and 187. UTI shows E coli, is pansensitive. Imaging studies: CT angio chest shows no pleural effusion. No pulmonary embolism. Doppler sonogram of the lower extremities does not show any DVT. Assessment: A 58-year-old female with: 1. Atypical chest pain. Acute coronary syndrome has been ruled out. Patient continues to have symptoms, especially with deep breathing. D-dimer was checked , which was elevated. CT angio chest was negative for pulmonary embolism, may be related to gastroesophageal reflux disease or esophageal disease. I would recommend GI followup as an outpatient for atypical chest pain. 2. Acute cystitis without hematuria secondary to Escherichia coli. We will start on Rocephin. 3. Diabetes mellitus type 2 [id number] with hyperglycemia, stable. Hemoglobin A1c is 6.9%, well controlled. 4. Chronic back pain, midline with sciatica. We will continue [place]. 5. Pott disease. 6. Anemia of chronic disease, stable. We will monitor her H and H. 7. Morbid obesity, BMI 62. Plan: Follow up on echocardiogram. If there is no wall motion abnormality, we will likely discharge if okay with Cardiology. Patient will likely be set up for stress test as an outpatient. We will transition to oral antibiotics for UTI on discharge. SA/MODL Voice ID: [id number] Report ID: [id number]
== END 2019-03-30 14:03 | disposition home or self-care (01) ==
LOC: ER 13:16 → ERHOLD 15:59 → 2ND 17:47
PROVIDERS: ADMIT Family Medicine; ATTEND Family Medicine
DX: R07.89 Other chest pain (principal); N30.00 Acute cystitis without hematuria; A18.01 Tuberculosis of spine; E66.01 Morbid (severe) obesity due to excess calories; Z68.42 Body mass index [BMI] 45.0-49.9, adult; E11.65 Type 2 diabetes mellitus with hyperglycemia; D63.8 Anemia in other chronic diseases classified elsewhere; M54.30 Sciatica, unspecified side; G89.29 Other chronic pain; E03.9 Hypothyroidism, unspecified; B96.20 Unspecified Escherichia coli [E. coli] as the cause of diseases classified elsewhere
CPT/HCPCS: 36415; 71045; 71275; 80048; 80061; 80076; 81003; 81015; 82962; 83036; 83735; 83880; 84484; 85025; 85379; 85610; 87077; 87086; 87088; 87186; 93005; 93306; 93970; 94760; 96374; 96375; 99285; G0378; J0696; J1170; J1650; Q9967

== ENCOUNTER 2021-03-21 21:33 | Emergency (ER) | payer OTHER ==
--- OUTSIDE RECORDS SUMMARY | 2021-03-21 21:47 | XMS REPORT | Continuity of Care Document ---
:1960 Author Organization [facility] t Address [address] [place] [id number] Care Team Providers Name Role Phone Sam KULKARNI, April Primary Care Physician CHANDRAKANT Attending Clinician Unavailable Leeanne KULKARNI S Attending Clinician Oleg CORONADO, N Attending Clinician Unavailable Sam KULKARNI, April Attending Clinician Chandrakant KULKARNI Attending Clinician Tulio Attending Clinician Doctor Unassigned, Name Attending Clinician Unavailable Chandrakant KULKARNI Attending Clinician Alondra BRISENO Attending Clinician Unavailable Tabatha ALTAMIRANO Attending Clinician Unavailable CHANDRAKANT Admitting Clinician Unavailable Alondra BRISENO Admitting Clinician Unavailable Tabatha ALTAMIRANO Admitting Clinician Unavailable Payers Payer Name Policy Type Policy Number Effective Date Expiration Date S ource Problems Condition Condition Condition Status Onset Resolution Last Treating Co mments Source Name Details Category Date Date Treatment Clinician Date Chronic Chronic Disease Active 2019-[address] [facility] pain pain 1-11 [facility] - disorder disorder 00:00: Medica l 00 [place] Chronic Chronic Disease Active 2019-[address] [facility] pain pain 1-11 [facility] - 00:00: Medical 00 [place] Seborrheic Seborrheic Disease Active U nivers dermatitis dermatitis 4-03 it y of of scalp of scalp 00:00: [place] 00 [facility] Allergic Allergic Disease Active Unive rs conjunctiv conjunctiv 4-03 it y of itis of itis of 00:00: [place] both eyes both eyes 00 [facility] Branch Chronic Chronic Disease Active Univers pain pain 1-16 ity of disorder disorder 00:00: [place] 00 [facility] Pain Pain Disease Active Univers 7-08 ity of 00:00: [place] 00 [facility] Acute Acute Disease Active [facility] midline midline 9 [facility] - back pain, back pain, 00:00: Me dical unspecifie unspecifie 00 Ce nter d back d back location location Hypoalbumi Hypoalbumi Disease Active [facility] nemia nemia 03-11 Lu - 00:00: Medical 00 [place] Morbid Morbid Disease Active [facility] obesity obesity 03-11 Lu - with BMI with BMI 00:00: Medica l of of 00 Center 40.0-44.9, 40.0-44.9, adult adult Hypokalemi Hypokalemi Disease Active [facility] a a 03-06 [facility] - 00:00: Medical 00 Center Back pain, Back pain, Disease Active [facility] acute acute 03-06 [facility] - 00:00: Medical 00 [place] Rash Rash Disease Active [facility] - 00:[facility]: Medical 00 [place] Paraspinal Paraspinal Disease Active [facility] mass mass 03-06 [facility] - 00:00: Medical 00 [place] Lesion of Lesion of Disease Active [facility] vertebra vertebra 03-06 [facility] - 00:00: Medical 00 [place] Retroperit Retroperit Disease Active [facility] urena urena 03-06 [facility] - lymphadeno lymphadeno 00:00: Me dical saloni saloni 00 [place] Anemia Anemia Disease Active [facility] - 00:00: Medical [place] Hyponatrem Hyponatrem Disease Active [facility] ia ia 03-06 [facility] - 00:00: Medical [place] History of History of Disease Active [facility] back back 30 [facility] - surgery surgery 00:00: Medical 00 [place] Rib pain Rib pain Disease Active [facility] - 00:00: Medical [place] Fall Fall Disease Active [facility] 03-06 [facility] - 00:00: Medical [place] TB lung, TB lung, 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 03-06 [facility] - 00:00: Medical [place] 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 Anxiety [facility] All[facility]ies, Adverse Reactions, Alerts Allergy Allergy Status Severity Reaction(s) Onset Inactive Treating Comm ents Source Name Type Date Date Clinician Meperidi Drug Active Palpitations Un bia ne Hcl Allergy 01-05 ity of 00:00: [address] Meperidi Propensi Active Hives [facility] ne (Pf) ty to 8 [facility] - adverse 00:00: Medical reaction 00 [place] s Morphine Propensi Active Hives [facility] ty to 821 [facility] - adverse 00:00: Medical reaction 00 [place] s Adhesive Propensi Active Rash Tolerates [facility] Tape ty to 8-21 paper [facility] - adverse 00:00: tape Medical reaction 00 [place] s Adhesive Propensi Active Itching 2017-0 Unive rs Tape-Constanza ty to 8-12 ity of icones adverse 00:00: [place] reaction 00 Medical s to Branch drug Prometha Propensi Active Hives 2016-0 Univer s zine Hcl ty to 7-30 ity of adverse 00:00: [place] reaction 00 Medical s Branch Morphine Propensi Active Hives 2014- Univer s ty to 1-09 ity of adverse 00:00: [place] reaction 00 Medical s Branch Social History Social Habit Start Date Stop Date Quantity Comments Source History of Cigarette Smoker Universi ty of tobacco use [facility] Exposure to Not sure University of SARS-CoV-2 [facility] (event) [place] Alcohol intake 2020-05-20 2020-05-20 Current non-drinker [facility] - 00:[facility]:00 00:00:00 of alcohol (finding) [facility] Tobacco use and 2020-05-17 2020-05-[address] [facility] [address] Krysta kes - exposure 00:00:00 00:00:00 [facility] Tobacco Comment 2019-09-11 2019-09-[address] [facility] - 00:00:00 00:00:00 as of 09/11/2019 Medical Ce nter Alcohol Comment 2015-05-17 2015-05-17 rarely Universit y of 00:00:00 00:00:00 [facility] Sex Assigned At [address] Krysta kes - 00:00:00 00:00:00 [facility] Smoking Status Start Date Stop Date Source Current some day smoker 2021-03-17 00:00:00 [facility] of [facility] Medications Ordered Filled Start Stop Current Ordering Indication Dosage Frequency Signature Comments Components Source Medication Medication Date Date Medication? Clinician (SIG) Name Name iopamidol 2020- No [id number] 120mL 120 mL, Univers (ISOVUE 03-17 Intravenou ity o f 370-500 mL) 10:00: 08:51 s, ONCE, 1 [place] injection 00 :00 dose, Fri Medic al 120 mL 03/17/21 at [place] 0500, Routine ondansetron 2020- No 4mg 4 mg, Slow Univers (ZOFRAN 03-17 IV Push, ity of (PF)) 09:30: 08:40 ONCE, 1 [place] injection 4 00 :00 dose, Fri Med ical mg 03/17/21 at Branch 0430, KARLO FENTanyl PF 2020-0 2020- No 50ug 50 mcg, Un bia (SUBLIMAZE 03-17 Slow IV ity o f (PF)) 09:30: 08:42 Push, [place] injection 00 :00 ONCE, 1 Medical 50 mcg dose, Fri Branch 03/17/21 at 0430, Routine gabapentin 2019-07 Yes 300mg [id number] Take [address] (NEURONTIN) 1-16 [id number] mg by L ukes - 300 MG 18:12: 3D mouth 3 Medical capsule 31 (three) Center times daily. amitriptyli 2019-07 Yes 25mg QD Take [address] ne (ELAVIL) 1-16 by mouth Luke s - 25 MG 18:12: nightly. Medical tablet 31 Center tiZANidine 2019-07 Yes 2mg Take [address] (ZANAFLEX) 1-16 by mouth [facility] - 2 MG tablet 18:12: every 6 Med ical 31 (six) Center hours as needed. baclofen 2019-07 Yes 10mg Q.[id number] Take [address] [facility] (LIORESAL) 1-16 [id number] by mouth 3 [facility] - 10 MG 18:12: 3D (three) Medical tablet 31 times Center daily. diphenhydrA 2019-07 Yes 25mg Take [address] MINE 1-16 by mouth [facility]ukes - (BENADRYL) 18:12: as needed Me dical 25 mg 31 for Sleep. Center tablet DM/p-ephed/ 2019-07 Yes Take by [facility] acetaminoph 1-16 mouth [facility] - /doxylam 18:12: daily as Medic al (VICKS 31 needed. Center NYQUIL ORAL) gabapentin 2019-07 Yes 300mg Q.[id number] Take [address] (NEURONTIN) 1-16 [id number] mg by L ukes - 300 MG 18:12: 3D mouth 3 Medical capsule 31 (three) Center times daily. amitriptyli 2019-07 Yes 25mg QD Take [address] ne (ELAVIL) 1-16 by mouth Luke s - 25 MG 18:12: nightly. Medical tablet 31 Center tiZANidine 2019-07 Yes 2mg Take [address] (ZANAFLEX) 1-16 by mouth [facility] - 2 MG tablet 18:12: every 6 Med ical 31 (six) Center hours as needed. baclofen 2019-07 Yes 10mg Q.[id number] Take [address] (LIORESAL) 1-16 [id number] by mouth 3 [facility] - 10 MG 18:12: 3D (three) Medical tablet 31 times Center daily. diphenhydrA 2019-07 Yes 25mg Take [address] MINE 1-16 by mouth [facility]ukes - (BENADRYL) 18:12: as needed Me dical 25 mg 31 for Sleep. Center tablet DM/p-ephed/ 2019-07 Yes Take by [facility] acetaminoph 1-16 mouth [facility] - /doxylam 18:12: daily as Medic al (VICKS 31 needed. Center NYQUIL ORAL) HYDROcodone 2019-07 2020- No 1{tbl} Take [address] -acetaminop 1-16 11-16 tablet by Krysta ogden (NORCO 09:05: 00:00 mouth Medic al 7.5-325) 54 :00 every 6 Center 7.5-325 mg (six) per tablet hours as needed for Pain. HYDROcodone 2019-07 2020- No 1{tbl} Take [address] -acetaminop 1-16 11-16 tablet by Krysta ogden (NORCO 09:05: 00:00 mouth Medic al 7.5-325) 54 :00 every 6 Center 7.5-325 mg (six) per tablet hours as needed for Pain. blood sugar 2019-07 Yes 1{strip [address] diagnostic 1-16 } Miscellane Adilia es - (glucose 00:00: ous route Medi izzy blood) Strp 00 4 (four) Cent er times daily with meals and nightly for 30 days. glucometer 2019-[address] (FREESTYLE) 1-16 blood [facility]ukes - Misc 00:00: sugar Medical 00 before Center each meal. lancets 2019-[address] Misc 1-16 blood [facility]ukes - 00:00: sugar Medical 00 before Center each meal. blood sugar 2019-07 Yes 1{strip [address] diagnostic 1-16 } Miscellane Adilia es - (glucose 00:00: ous route Medi izzy blood) Strp 00 4 (four) Cent er times daily with meals and nightly for 30 days. glucometer 2019-[address] [facility] (FREESTYLE) 07-23 blood [facility]ukes - Misc 00:00: sugar Medical 00 before Center each meal. lancets 2019-[address] Misc 07-23 blood [facility]ukes - 00:00: sugar Medical 00 before Center each meal. blood-gluco 2019-07- No Use as [facility] se meter 07-23 instructed Luke s - kit 00:00: 23:59 . Medical 00 :00 Center blood-gluco 2019-07- No Use as [facility] se meter 07-23 instructed Luke s - kit 00:00: 23:59 . Medical 00 :00 Center metFORMIN 2019-07- No 500mg Take [address] [facility] (GLUCOPHAGE 07-23 tablet [facility]ukes - ) 500 MG 00:00: 23:59 (500 mg Medic al tablet 00 :00 total) by Center mouth 2 (two) times daily with breakfast and dinner for 30 days. metFORMIN 2019-07- No 500mg Take [address] [facility] (GLUCOPHAGE 07-23 tablet [facility]ukes - ) 500 MG 00:00: 23:59 (500 mg Medic al tablet 00 :00 total) by Center mouth 2 (two) times daily with breakfast and dinner for 30 days. acetaminoph 2019-07- No 500mg Take [address] en 07-23 tablet [facility]ukes - (TYLENOL) 00:00: 23:59 (500 mg Medi izzy 500 MG 00 :00 total) by Center tablet mouth every 6 (six) hours as needed for Pain for up to 10 days. acetaminoph 2019-07- No 500mg Take [address] en 07-23 tablet [facility]ukes - (TYLENOL) 00:00: 23:59 (500 mg Medi izzy 500 MG 00 :00 total) by Center tablet mouth every 6 (six) hours as needed for Pain for up to 10 days. lancets 2019-07- No Check [facility] Misc 07-23 blood [facility]ukes - 00:00: 00:00 sugar Medical 00 :00 before Center each meal. blood-gluco 2019-07- No Use as [facility] se meter 07-23 instructed Luke s - kit 00:00: 00:00 . Medical 00 :00 Center glucometer 2019-07- No Check [facility]I S t (FREESTYLE) 07-23 blood [facility]ukes - Misc 00:00: 00:00 sugar Medical 00 :00 before Center each meal. lancets 2019-07- No Check [facility] Misc 07-23 blood [facility]ukes - 00:00: 00:00 sugar Medical 00 :00 before Center each meal. blood-gluco 2019-07- No Use as [facility] se meter 07-23 instructed Luke s - kit 00:00: 00:00 . Medical 00 :00 Center glucometer 2019-07- No Check [facility]I S t (FREESTYLE) 07-23 blood [facility]ukes - Misc 00:00: 00:00 sugar Medical 00 :00 before Center each meal. Olopatadine Yes [id number] 1[drp] Place 1 [facility] (PATADAY) 10-08 9102 Drop in ity of 0.2 % 00:00: both eyes [place] ophthalmic 00 daily. Medical drops Branch betamethaso Yes [id number] Apply to [facility] ne, 10-07 area(s) ity of augmented, 00:00: once daily [place] (DIPROLENE) 00 as needed Med ical 0.05 % (scalp Branch lotion irritation ). ketoconazol Yes [id number] Wash hair Univers e 2 % 10-07 with ity of shampoo 00:00: product 2 [place] 00 x a week Medical Branch Immunizations Ordered Filled Immunization Date Status Comments Sour e Immunization Name Name Td 2015-05-17 Completed [facility] 00:00:00 [facility] Vital Signs Vital Name Observation Time Observation Value Comments Source Systolic blood 2021-03-17 10:29:00 125 mm[Hg] Univer sity of pressure [facility] Diastolic blood 2021-03-17 10:29:00 95 mm[Hg] Unive rsity of pressure [facility] Heart rate 2021-03-17 10:29:00 91 /min [facility] Respiratory rate 2021-03-17 10:29:00 18 /min [facility] Oxygen saturation in 2021-03-17 10:29:00 96 /min [facility] Arterial blood by [facility] Pulse oximetry Branch Body temperature 2021-03-17 07:33:00 37.17 Ashley [facility] Body height 2021-03-17 07:33:00 154.9 cm [facility] Body weight 2021-03-17 07:33:00 104.327 kg [facility] BMI 2021-03-17 07:33:00 43.46 kg/m2 [facility] Systolic blood 2020-05-23 14:37:00 159 mm[Hg] [facility] Diastolic blood 2020-05-23 14:37:00 72 mm[Hg] [facility] Heart rate 2020-05-23 14:37:00 66 /min [facility] Body temperature 2020-05-23 14:32:00 36.39 Ashley [facility] Respiratory rate 2020-05-23 14:32:00 18 /min [facility] Oxygen saturation in 2020-05-23 14:32:00 92 /min [facility] Arterial blood by Medical Ce nter Pulse oximetry Body height 2020-05-18 06:00:00 152.4 cm [facility] Body weight 2020-05-18 06:00:00 109.9 kg [facility] BMI 2020-05-18 06:00:00 47.32 kg/m2 [facility] Procedures Procedure Date / Time Performing Clinician Source Performed CT ABDOMEN PELVIS W 2021-03-17 08:54:43 Jo[facility] Fall[facility] CONTR[facility] URINALYSIS 2021-03-17 08:44:00 Jonaie Fallon [facility] [place] LIPASE 2021-03-17 07:46:00 Joanie Fallon [facility] [place] COMP. METABOLIC PANEL 2021-03-17 07:46:00 Joanie Fallon [facility] ([id number]) [facility] CBC WITH DIFF 2021-03-17 07:46:00 Joanie Fallon [facility] [place] [facility] COVID-19 (ID NOW RAPID 2021-03-17 07:46:00 Joanie Fallon [facility] TESTING) Medical Branch NOTICE OF PRIVACY 2021-03-17 07:31:54 [facility] PRACT[facility] [place] [facility] CONSENT/REFUSAL FOR 2021-03-17 07:30:51 Doctor Unassigned, [facility] DIAGNOSIS AND TREATMENT [place] [facility] CONSENT/REFUSAL FOR 2021-03-17 07:30:50 Doctor Unassigned, [facility] DIAGNOSIS AND TREATMENT [place] [facility] CONSENT/REFUSAL FOR 2021-03-17 07:30:48 Doctor Unassigned, [facility] DIAGNOSIS AND TREATMENT [place] [facility] POCT-GLUCOSE METER 2020-05-23 12:24:00 Chandrakant [facility] POCT-GLUCOSE METER 2020-05-23 08:37:00 Chandrakant, [facility] POCT-GLUCOSE METER 2020-05-22 21:25:00 [facility] POCT-GLUCOSE METER 2020-05-22 09:29:00 [facility] CBC W/PLT COUNT & AUTO 2020-05-22 05:55:00 Srini Altamirano [facility] CBC W/PLT COUNT & AUTO 2020-05-22 05:55:00 Srini Altamirano [facility] BASIC METABOLIC PANEL (7) 2020-05-22 05:55:00 Srini Altamirano [facility] VANCOMYCIN LEVEL, TROUGH 2020-05-22 05:55:00 Vanessa Galaviz [facility] POCT-GLUCOSE METER 2020-05-22 00:20:00 [facility] XR CHEST 1 VIEW PORTABLE 2020-05-21 10:35:[address] [facility] / BEDSIDE [facility] POCT-GLUCOSE METER 2020-05-21 09:42:00 [facility] CBC W/PLT COUNT & AUTO 2020-05-21 05:37:00 Srini Altamirano [facility] HEMOGLOBIN A1C 2020-05-21 05:37:00 Srini Altamirano [facility] BASIC METABOLIC PANEL (7) 2020-05-21 05:37:00 Srini Altamirano [facility] CBC W/PLT COUNT & AUTO 2020-05-21 05:37:00 Srini Altamirano [facility] POCT-GLUCOSE METER 2020-05-20 07:56:00 Jerry Stallings [facility] CBC W/PLT COUNT & AUTO 2020-05-20 06:13:00 [facility] W/PLT COUNT & AUTO 2020-05-20 06:13:00 [facility] BASIC METABOLIC PANEL (7) 2020-05-20 06:13:00 Darrius Craven [facility] BLOOD CULTURE 2020-05-20 01:30:00 [facility] BASIC METABOLIC PANEL (7) 2020-05-20 01:14:00 Darrius Craven [facility] CBC W/PLT COUNT & AUTO 2020-05-19 18:31:00 [facility] 2020-05-19 18:31:00 [facility] BLOOD [facility] 2020-05-19 18:31:00 [facility] LACTIC ACID, VENOUS 2020-05-19 18:31:00 [facility] BASIC METABOLIC PANEL (7) 2020-05-19 18:31:00 [facility] CBC W/PLT COUNT & AUTO 2020-05-19 18:31:00 [facility] DIFFERENTIAL [facility] US RENAL COMPLETE 2020-05-19 17:12:00 [facility] SARS-COV2/RT-PCR ([facility] & 2020-05-19 15:58:00 [facility], [facility] - REF LABS) [facility] URINE CULTURE 2020-05-19 14:42:00 Jerry Stallings [facility] URINALYSIS W/ REFLEX 2020-05-19 14:42:[address] [facility] URINE CULTURE [facility] EOSINOPHIL SMEAR, URINE 2020-05-19 14:42:00 [facility] OSMOLALITY, URINE 2020-05-19 14:42:00 [facility] SODIUM, RANDOM URINE 2020-05-19 14:42:00 [facility] CREATININE, RANDOM URINE 2020-05-19 14:42:00 [facility] Osiel, [facility] XR CHEST 1 VIEW PORTABLE 2020-05-19 13:49:00 [facility] Osiel I [facility] - / BEDSIDE [facility] CBC W/PLT COUNT & AUTO 2020-05-19 09:34:[address] [facility] CBC W/PLT COUNT & AUTO 2020-05-19 09:34:[address] [facility] BASIC METABOLIC PANEL (7) 2020-05-19 09:34:00 [place] Stallings [facility] CT BRAIN WITHOUT IV 2020-05-18 16:57:[address] [facility] CONTRAST [facility] FL FLUORO NON-SPECIFIC UP 2020-05-18 08:40:00 [place] Stallings [facility] - TO 1 HOUR Medical Center INSERTION,INTRATHECAL 2020-05-18 07:14:00 Jerry Stallings [facility] PUMP [facility] INSERTION,INTRATHECAL/ 2020-05-18 07:14:[address] [facility] EPIDURAL CATHETER [facility] PROCEDURE W/ C-ARM 2020-05-18 07:14:00 Jerry Stallings [facility] ECG 12-LEAD 2020-05-13 13:04:41 Jerry Stallings [facility] ECG 12-LEAD 2020-05-13 13:04:41 Unknown, Hl7 Doctor [facility] ECG 12-LEAD 2020-05-13 13:04:41 Unknown, Hl7 Doctor [facility] XR CHEST 2 VIEWS 2020-05-13 12:38:00 Chandrakant, Jerry [facility] TYPE AND SCREEN, 2020-05-13 12:04:[address] [facility] AUTOMATED [facility] CBC W/PLT COUNT & AUTO 2020-05-13 12:04:[address] [facility] DIFFERENTIAL [facility] SARS-COV2/RT-PCR ([facility] & 2020-05-13 12:04:00 Chandrakant [facility] - REF LABS) [facility] BASIC METABOLIC PANEL (7) 2020-05-13 12:04:00 [place] Stallings [facility] CBC W/PLT COUNT & AUTO 2020-05-13 12:04:[address] [facility] PT/APTT 2020-05-13 12:04:00 [facility] Jerry [facility] REPORT OF PROCEDURE - 2020-04-14 16:10:19 Provider, Robin [facility] - ENDOSCOPY SCAN Scanning [facility] Plan of Care Planned Activity Planned Date Details Comments Source Future Scheduled 2025-05-17 DTAP/TDAP/TD VACCINES I [facility] - Test 00:00:00 (2 - Td) [code = Medical [facility] ter DTAP/TDAP/TD VACCINES (2 - Td)] Future Scheduled 2025-05-17 DTAP/TDAP/TD VACCINES [facility] Test 00:00:00 (2 - Td) [code = Medical [facility] DTAP/TDAP/TD VACCINES (2 - Td)] Future Scheduled 2020-07-[address] [facility] - Test 00:00:00 (12+) [code = Medical Center DEPRESSION SCREENING (12+)] Future Scheduled 2020-07-[address] [facility] - Test 00:00:00 (12+) [code = Medical Center DEPRESSION SCREENING (12+)] Future Scheduled 2020-03-08 INFLUENZA VACCINE (#1) [facility] - Test 00:00:00 [code = INFLUENZA Medical Ce nter VACCINE (#1)] Future Scheduled 2020-03-08 INFLUENZA VACCINE (#1) [facility] - Test 00:00:00 [code = INFLUENZA Medical Ce nter VACCINE (#1)] Future Scheduled 2011-02-[address] [facility] - Test 00:00:00 WELLNESS (YEAR 2 or Medical Center FIRST YEAR if no IPPE) [code = MEDICARE ANNUAL WELLNESS (YEAR 2 or FIRST YEAR if no IPPE)] Future Scheduled 2011-02-[address] [facility] - Test 00:00:00 WELLNESS (YEAR 2 or Medical Center FIRST YEAR if no IPPE) [code = MEDICARE ANNUAL WELLNESS (YEAR 2 or FIRST YEAR if no IPPE)] Future Scheduled 2009 SHINGLES VACCINES ([address] [facility] - Test 00:00:00 of 2) [code = SHINGLES Medic al Center VACCINES (1 of 2)] Future Scheduled 2009 SHINGLES VACCINES ([address] [facility] - Test 00:00:00 of 2) [code = SHINGLES Medic al Center VACCINES (1 of 2)] Future Scheduled [address] [facility] - Test 00:00:00 (procedure) [code = [facility] [id number]] Future Scheduled [address] [facility] - Test 00:00:00 (procedure) [code = [facility] [id number]] Future Scheduled [address] [facility] - Test 00:00:00 malignant neoplasm of Medica l Center cervix (procedure) [code = 379665437] Future Scheduled [address] [facility] - Test 00:00:00 malignant neoplasm of Medica l Center cervix (procedure) [code = 608067209] Future Scheduled 1977 HEPATITIS C SCREENING [facility] - Test 00:00:00 [code = HEPATITIS C Medical Center SCREENING] Future Scheduled 1977 HEPATITIS C [facility]CRE[facility]ING [facility] - Test 00:00:00 [code = HEPATITIS C Medical Center SCREENING] Future Scheduled [address] [facility] - Test 00:00:00 0-64 YRS (1 of 1 - Medical C enter PPSV23) [code = PNEUMOCOCCAL VACCINE 0-64 YRS (1 of 1 - PPSV23)] Future Scheduled [address] [facility] - Test 00:00:00 0-64 YRS (1 of 1 - Medical C enter PPSV23) [code = PNEUMOCOCCAL VACCINE 0-64 YRS (1 of 1 - PPSV23)] Future Scheduled [address] [facility] - Test 00:00:00 malignant neoplasm of Medica l Center breast (procedure) [code = 656300524] Future Scheduled [address] [facility] - Test 00:00:00 malignant neoplasm of Medica l Center colon (procedure) [code = 520039226] Future Scheduled [address] [facility] - Test 00:00:00 malignant neoplasm of Medica l Center breast (procedure) [code = 963658171] Future Scheduled [address] [facility] - Test 00:00:00 malignant ne[facility] colon (procedure) [code = 975653424] Encounters Start End Encounter Admission Attending Care Care Encounter Source Date/Time Date/Time Type Type Clinicians Facility Department ID 2021-03-17 2021-03-17 Emergency [facility] [id number] [facility] 02:22:00 05:36:00 Joanie Edwards 350.1.13.10 [place] 4.2.7.2.686 [facility] [phone] [facility] 084 Branch 2020-06-06 2020-06-[address] [facility] [id number] [facility] 00[facility]00 [facility] 2020-06-06 2020-06-06 Telephone Oleg [facility] [id number] [facility] 00[facility]00 [facility] 2020-06-06 2020-06-06 Telephone Oleg [facility] [id number] [facility]00 00:[facility]:00 [facility] 2020-06-06 2020-06-06 Telephone Oleg [facility] [id number] [facility]00 00[facility]00 [facility] 2020-05-25 2020-05-25 [facility] [id number] 00:00:00 00:00:00 [facility] 350.1.13.10 [place] 4.2.7.2.686 Professio [phone] nal 044 Office Building One 2020-05-18 2020-05-23 [facility] [id number] [id number] 05:16:00 18:12:00 Encounter , [facility] 2020-05-18 2020-05-23 [facility] [id number] [id number] 05:16:00 18:12:00 Encounter , [facility] 2020-05-19 2020-05-19 [facility] [id number] 00:00:00 00:00:00 [facility] 350.1.13.10 [place] 4.2.7.2.686 Professio [phone] nal 044 Office Building One 2020-05-18 2020-05-18 [id number] [id number] 07:30:00 09:25:00 Event [facility] 2020-05-18 2020-05-18 [facility] [id number] [id number] 07:30:00 09:25:00 Event [facility] 2020-05-18 2020-05-18 Surgery [facility] [id number] 07:30:00 09:05:00 , [facility] 2020-05-18 2020-05-18 Surgery [facility] [id number] 07:30:00 09:05:00 , [facility] 2020-05-18 2020-05-18 Travel [facility] [id number] [facility] 00:[facility]00 00:00:00 [facility] 2020-05-18 2020-05-18 Travel [facility] [id number] [facility] 00:[facility]00 00:00:00 [facility] 2020-05-17 2020-05-17 [facility] [id number] 08:05:00 23:59:00 Encounter [facility] 2020-05-17 2020-05-17 [facility] [id number] 08:05:00 23:59:00 Encounter [facility] 2020-05-13 2020-05-13 [facility] [id number] [id number] 11:49:50 23:59:00 Encounter , [facility] 2020-05-13 2020-05-13 [facility] [id number] [id number] 11:49:50 23:59:00 Encounter , [facility] 2020-05-13 2020-05-13 [facility] [id number] [id number] 11:49:43 23:59:00 Encounter , [facility] 2020-05-13 2020-05-13 [facility] [id number] [id number] 11:49:43 23:59:00 Encounter , [facility] 2020-05-13 2020-05-13 [facility] [id number] [id number] 11:00:00 11:48:00 Encounter , [facility] 2020-05-13 2020-05-13 Hospital [facility] [id number] [id number] 11:00:00 11:48:00 Encounter , [facility] 2020-04-24 2020-04-24 Orders [facility] [id number] 00:00:00 00:00:00 Only , [facility] 2020-04-24 2020-04-24 Orders [facility] [id number] 00:00:00 00:00:00 Only , [facility] 2020-03-15 2020-03-15 Orders Doctor BLANDON 1.2.840.114 [id number] 00:00:00 00:00:00 Only Unassigned, LINDY 350.1.13.10 [place] [facility] 4.2.7.2.686 [id number] 2020-02-26 2020-02-26 Orders Doctor BLANDON 1.2.840.114 [id number] 00:00:00 00:00:00 Only Unassigned, LINDY 350.1.13.10 [place] [facility] 4.2.7.2.686 [id number] 2019-10-08 2019-10-08 [facility] 1.2.840.114 [id number] 07:31:41 17:01:11 ne Visit [facility] [place] 350.1.13.10 [place] 4.2.7.2.686 Professio [phone] [place] [address] Building 2019-10-08 2019-10-08 [facility] 1.2.840.114 [id number] 00:00:00 00:00:00 [facility] [place] 350.1.13.10 [place] 4.2.7.2.686 Professio [phone] [place] [address] Building 2019-10-06 2019-10-06 [facility] 1.2.840.114 [id number] 00:00:00 00:00:00 [facility] 350.1.13.10 [place] 4.2.7.2.686 Professio [phone] [place] [address] Office Building One 2019-07-20 2019-07-20 Office Chandrakant [facility] 1.2.840.114 [id number] 14:09:34 15:51:14 Visit , Jerry AMBULATOR 350.1.13.21 Y 0.2.7.2.686 [id number] Results Test Description Test Test Results Result Source Time Comments Comments CT ABDOMEN 2021-03-08. No acute findings Un iversity of PELVIS W 10 of the abdomen or [place] [facility] CONTRAST 10:03:37 pelvis.2. Diffuse fatty B ranch infiltration of the liver. Indication: Abdominal distension ? Comparison: None RL: [id number] ORDERING PHYSICIAN: AMARJIT LI TECHNIQUE: Axial CT images of the abdomen and pelvis were performed with ivcontrast. Sagittal and coronal reformats were created. Dose reductiontechniques were used (ALARA). FINDINGS: ?There is bibasilar dependent atelectasis. Abdomen/pelvis:Liver: There is diffuse fatty infiltration of the liver. Gallbladder: Normally distended. No calcified stones. Spleen: Normal. Pancreas: Normal. Adrenal glands: Normal. Kidneys: Normal Vasculature: Abdominal aorta is normal in caliber. Bowel: No evidence of bowel obstruction.The appendix is not visualized butno secondary signs of appendicitis. Bladder/reproductive organs: Urinary bladder is unremarkable. Bone and soft tissue: Multilevel degenerative changes of the lumbar spine.Thoracic fusion hardware is partially visualized. [facility], Radiant Results Inft User - 03/17/2021 5:06 AM CDT Indication: Abdominal distension Comparison: NoneRL: [id number] PHYSICIAN: JOANIE FALLON TECHNIQUE: Axial CT images of the abdomen and pelvis were performed with ivcontrast. Sagittal and coronal reformats were created. Dose reductiontechniques were used (ALARA).FINDINGS: There is bibasilar dependent atelectasis.Abdomen/pel vis:Liver: There is diffuse fatty infiltration of the liver.Gallbladder: Normally distended. No calcified stones.Spleen: Normal.Pancreas: Normal.Adrenal glands: Normal.Kidneys: NormalVasculature: Abdominal aorta is normal in caliber.Bowel: No evidence of bowel obstruction.The appendix is not visualized butno secondary signs of appendicitis.Bladder/re productive organs: Urinary bladder is unremarkable. Bone and soft tissue: Multilevel degenerative changes of the lumbar spine.Thoracic fusion hardware is partially visualized.IMPRESSION1. No acute findings of the abdomen or pelvis.2. Diffuse fatty infiltration of the liver. ALYSIS 2021-03-17 08:56:35 Test Item Value Reference Range Interpretation Comme nts APPEARANCE (test code = Clear Clear 2376106822) COLOR (test code = 9711415326) Yellow Yellow PH (test code = 6275013353) 4.8-8.0 SP GRAVITY (test code = 1.003-1.030 1732631855) GLU U QUAL (test code = Normal Normal 2655789419) BLOOD (test code = 7071269967) Negative Negative KETONES (test code = 7034122827) Negative Negative PROTEIN (test code = 2887-8) Negative Negative UROBILIN (test code = Normal Normal 3105545801) BILIRUBIN (test code = Negative Negative 2516509523) NITRITE (test code = 6845627405) Negative Negative LEUK BRENT (test code = Negative Negative 5154606317) RBC/HPF (test code = 7616818453) See_Comment [Automated message] The system which Spontacts nerated this result transmit herlinda reference range: 0 - 3 HP F. The reference range was not used to interpret th is result as normal/abnormal . WBC/HPF (test code = 4383541108) <1 See_Comment [Automated message] The system which Spontacts nerated this result transmit herlinda reference range: 0 - 5 HP F. The reference range was not used to interpret th is result as normal/abnormal . BACTERIA (test code = Negative Negative 5544158667) MUCOUS (test code = 3155661642) Slight Negative LPF A SQ EPITH (test code = HPF 1638874010) Lab Interpretation (test code = Abnormal 92994-6) [facility] TexasComplete Metabolic [id number] 08:14:14 Test Item Value Reference Range Interpretation Comments NA (test code = 136 mmol/L 135-145 0611592464) K (test code = 4.5 mmol/L 3.5-5.0 1051532761) CL (test code = 103 mmol/L 98-108 7234658266) CO2 TOTAL (test code = 28 mmol/L 23-31 2739114478) AGAP (test code = 2-16 5194695224) BUN (test code = 12 mg/dL 7-23 5643630007) GLUCOSE (test code = 145 mg/dL 70-110 H 7808637485) CREATININE (test code = 0.58 mg/dL 0.50-1.04 6302227578) TOTAL BILI (test code = 0.4 mg/dL 0.1-1.7 3576680692) CALCIUM (test code = 8.6 mg/dL 8.6-10.6 0242708945) T PROTEIN (test code = 8.6 g/dL 6.3-8.2 H 8064112714) ALBUMIN (test code = 4.1 g/dL 3.5-5.0 3074465289) ALK PHOS (test code = 110 U/L 34-122 4872995443) ALTv (test code = 20 U/L 5-35 2-6) AST(SGOT) (test code = 33 U/L 13-40 6256077643) eGFR (test code = mL/min/1.73m2 7375725122) ALIE (test code = ALIE) Association of Glomerular Filtration Rate (GFR) and Staging of Kidney Disease* + --+ --+ ------+| GFR (mL/min/1.73 m2) ?| With Kidney Damage ?| ?Without Kidney Damage+ --------+ --------+ +| ?>90 ?| ?Stage one ?| ? Normal ?+ ---+ ---+ -------+| ?60-89 ?| ?Stage two ?| ? Decreased GFR ? + --+ --+ ------+| ?30-59 ?| ?Stage three ?| ? Stage three ? + --+ --+ ------+| ?15-29 ?| ?Stage four ? | ? Stage four ?+ ---+ ---+ -------+| ?<15 (or dialysis) ? ?| ?Stage five ? | ? Stage five ?+ ---+ ---+ -------+ *Each stage assumes the associated GFR level has been in effect for at least three months. ?Stages 1 to 5, with or without kidney disease, indicate chronic kidney disease. Notes: Determination of stages one and two (with eGFR >59mL/min/1.73 m2) requires estimation of kidney damage for at least three months as defined by structural or functional abnormalities of the kidney, manifested by either:Pathological abnormalities or Markers of kidney damage (including abnormalities in the composition of the blood or urine or abnormalities in imaging tests). Lab Interpretation Abnormal (test code = 41413-2) [facility] TexasLipase, [id number] 08:13:39 Test Item Value Reference Range Interpretation Comments LIPASE (test code = 5520652715) 55 U/L 0-220 Lab Interpretation (test code = Normal 41860-1) [facility] TexasCOVID-19 (ID NOW RAPID TESTING)2021-03-17 08:09:37 Test Item Value Reference Range Interpretation Comments SARS-CoV-2 Rapid ID NOW Not Detected Not Detected (test code = 21520-0) ALIE (test code = ALIE) ID NOW COVID-19 Assay is an isothermal nucleic acid amplification test intended for the qualitative detection of nucleic acid from SARS-CoV-2 viral RNA in nasopharyngeal (LANGUAGES AND LITERATURE INSTRUCTOR) specimens. It is used under Emergency Use Authorization (EUA) by FDA. The limit of detection (LOD) of the assay is 125 Genome Equivalents/mL. A positive result is indicative of the presence of SARS-CoV-2 RNA. ?Clinical correlation with patient history and other diagnostic information is necessary to determine patient infection status. A negative (Not Detected) result does not preclude SARS-CoV-2 infection. In patients with a high suspicion of SARS-CoV-2 infection, negative results should be treated as presumptive negative and a new specimen should be tested with alternative nucleic acid amplification molecular test. Invalid: Please collect a new specimen for repeat patient testing if clinically indicated. Lab Interpretation Normal (test code = 50819-7) [facility] TexasCBC with [id number] 07:56:16 Test Item Value Reference Range Interpretation Comments WBC (test code = See_Comment [Automated 8655-2) message] The sy stem which generated this result transmitted reference range : 4.30 - 11.10 10*3/?L. The reference range was not used to interpret this result as normal/abnormal . RBC (test code = See_Comment [Automated 789-8) message] The sy stem which generated this result transmitted reference range : 3.93 - 5.25 10*6/?L. The reference range was not used to interpret this result as normal/abnormal . HGB (test code = 12.6 g/dL 11.6-15.0 718-7) HCT (test code = 37.9 % 35.7-45.2 4544-3) MCV (test code = 89.4 fL 80.6-95.5 787-2) MCH (test code = 29.7 pg 25.9-32.8 785-6) MCHC (test code = 33.2 g/dL 31.6-35.1 786-4) RDW-SD (test code = 43.1 fL 39.0-49.9 12150-1) RDW-CV (test code = 13.2 % 12.0-15.5 788-0) PLT (test code = See_Comment [Automated 777-3) message] The sy stem which generated this result transmitted reference range : 166 - 358 10*3/ ?L. The reference r isaías was not used to interpret this result as normal/abnormal . MPV (test code = 8.6 fL 9.5-12.9 L 18142-9) NRBC/100 WBC (test See_Comment [Automat ed code = 2182084502) message] The system which generated this result transmitted reference range : 0.0 - 10.0 /100 WBCs. The refer ence range was not u sed to interpret th is result as normal/abnormal . NRBC x10^3 (test code <0.01 See_Comment [Auto mated = 9310883332) message] The s ystem which generated this result transmitted reference range : 10*3/?L. The reference range was not used to interpret this result as normal/abnormal . GRAN MAT (NEUT) % 78.3 % (test code = 770-8) IMM GRAN % (test code 0.60 % = 1769512863) LYMPH % (test code = 14.2 % 736-9) MONO % (test code = 3.6 % 5905-5) EOS % (test code = 3.1 % 713-8) BASO % (test code = 0.2 % 706-2) GRAN MAT x10^3(ANC) 7.02 10*3/uL 1.88-7.09 (test code = 6653288330) IMM GRAN x10^3 (test 0.05 10*3/uL 0.00-0.06 code = 7189573680) LYMPH x10^3 (test code 1.27 10*3/uL 1.32-3.29 L = 731-0) MONO x10^3 (test code 0.32 10*3/uL 0.33-0.92 L = 742-7) EOS x10^3 (test code = 0.28 10*3/uL 0.03-0.39 711-2) BASO x10^3 (test code <0.03 0.01-0.07 = 704-7) Lab Interpretation Abnormal (test code = 60636-7) [facility] TexasBLOOD [id number] 09:20:00 Test Item Value Reference Range Interpretation Comments CULTURE (BEAKER) A From Anaero bic (test code = Bottle Only 1095) Bacillus specie s, not anthracis GRAM STAIN RESULT From anaerobic (BEAKER) (test bottle only: gram code = 1123) positive rods Blood Culture - Routine (Left Venipuncture)2020-05-25 03:00:00 Test Item Value Reference Range Interpretation Comments Result (test code = No growth in 5 days 6463-4) [facility] 2020-05-25 03:00:00 Test Item Value Reference Range Interpretation Comments Result (test code = No growth in 5 days 6463-4) [facility] [id number] 03:00:00 Test Item Value Reference Range Interpretation Comments CULTURE (BEAKER) (test No growth in 5 days code = 1095) BLOOD CULTURE IDENTIFICATION [id number] 15:10:00 Test Item Value Reference Range Interpretation Comments LISTERIA MONOCYTOGENES (test code = 20160409) STAPHYLOCOCCUS (test code = 9845551) STAPHYLOCOCCUS AUREUS (test code = 1074324) STREPTOCOCCUS (test code = 9111210) STREPTOCOCCUS AGALACTIAE (GROUP B) (test code = 9080381) STREPTOCOCCUS PNEUMONIAE (test code = 2697457) STREPTOCOCCUS PYOGENES (GROUP A) (test code = 6950471) ACINETOBACTER BAUMANNII (test code = 8659955) HAEMOPHILUS INFLUENZAE (test code = 1866793) NEISSERIA MENINGITIDIS (test code = 0418727) ENTEROBACTERIACEAE (test code = 5073337) ENTEROBACTER CLOACOE COMPLEX (test code = 4305894) KLEBSIELLA OXYTOCA (test code = 7932929) KLEBSIELLA PNEUMONIAE (test code = 1650) PROTEUS (test code = 5965710) SERRATIA MARCESCENS (test code = 0189876) YUMIKO ALBICANS (test code = 2891353) YUMIKO GLABRATA (test code = 9513217) YUMIKO KRUSEI (test code = 5205273) YUMIKO PARAPSILOSIS (test code = 0884726) YUMIKO TROPICALIS (test code = 7988379) ESCHERICHIA COLI (test code = 2747962) METHICILLIN-RESISTANCE GENE (test code = 9805185) VANCOMYCIN-RESISTANCE GENE (test code = 1954811) CARBAPENEM-RESISTANCE GENE (test code = 9157627) ENTEROCOCCUS-BEAKER (test code = 2164048) PSEUDOMONAS AERUGINOSA-BEAKER (test code = 0388041) Charges for this BCID panel are being canceled.Other bacteria and resistance markers not targeted bythis PCR panel cannot be excluded; therefore clinical correlation and follow up of serology, cultureresults, and other molecular studies is required. The results are not intended to be used as the sole means for clinical diagnosis or patient management decisions. This sample was tested at the [facility] using the Sportlyzer Blood Culture ID Panel. It is FDA clearedand has been verified and approved by the [facility] for clinical use. This laboratory is CLIA-certified and [employer] (CAP)-accredited to perform high complexity testing.Blood Culture Panel(BioFire)2020-05-24 15:10:00LISTERIA MONOCYTOGENESCHI [facility] MEDICAL CENTERSTAPHYLOCOCCUSCHI [facility]ALTAPHYLOCOCCUS AUREUSCHI [facility]ITALtreptococcusCHI [facility]ITALTREPTOCOCCUS AGALACTIAE (GROUP B)[facility]ITALTREPTOCOCCUS PNEUMONIAECHI [facility] MEDICAL CENTERtreptococcus pyogenes (Group A)[facility] HOSPITALACINETOBACTER BAUMANNIICHI [facility] MEDICAL MEXIAHAEMOPHILUS INFLUENZAECHI [facility] MEDICAL CENTERNEISSERIA MENINGITIDISCHI [facility] MEDICAL CENTERENTEROBACTERIACEAECHI [facility] MEDICAL CENTERENTEROBACTER CLOACOE COMPLEXCHI [facility] MEDICAL MEXIAKLEBSIELLA OXYTOCACHI [facility] MEDICAL MEXIAKLEBSIELLA PNEUMONIAECHI [facility] MEDICAL CENTERPROTEUSCHI [facility] MEDICAL CENTERSERRATIA MARCESCENSCHI [facility] MEDICAL MEXIACANDIDA ALBICANSCHI [facility] MEDICAL MEXIACANDIDA GLABRATACHI [facility] MEDICAL MEXIACANDIDA KRUSEICHI [facility]ITALEDICAL CENTERCANDIDA PARAPSILOSISCHI [facility] MEDICAL CENTERCANDIDA TROPICALISCHI [facility] MEDICAL CENTERESCHERICHIA COLICHI [facility] MEDICAL MEXIAMETHICILLIN-RESISTANCE GENECHI [facility] MEDICAL MEXIAVANCOMYCIN-RESISTANCE GENECHI [facility] MEDICAL MEXIACARBAPENEM-RESISTANCE GENECHI [facility] MEDICAL CENTERENTEROCOCCUSCHI [facility] MEDICAL CENTERPSEUDOMONAS AERUGINOSACHI [facility] MEDICAL CENTERCharges forthis BCID panel are being canceled.Other bacteria and resistance markers not targeted by this PCR panel cannot be excluded; therefore clinical correlation and follow up of serology, culture results, and other molecular studies is required. The results are not intended to be used as the sole means for clinical diagnosis or patient management decisions. This sample was tested at the [facility]ostics Laboratory using the Sportlyzer Blood Culture ID Panel. It is FDA cleared and has been verified and approved by the [facility] for clinical use. This laboratory is CLIA-certified and [employer] (CAP)-accredited to perform high complexitytesting.[facility] Panel(Astonish ResultsFirIVFXPERT)2020-05-24 15:10:00LISTERIA MONOCYTOGENESCHI [facility]ICAL [facility]ITALTAPHYLOCOCCUSCHI [facility]ITALTAPHYLOCOCCUS AUREUSCHI [facility] MEDICAL CENTERStreptococcusCHI [facility] MEDICAL CENTERSTREPTOCOCCUS AGALACTIAE (GROUP B)[facility] MEDICAL CENTERSTREPTOCOCCUS PNEUMONIAECHI [facility] MEDICAL CENTERStreptococcus pyogenes (Group A)[facility] MEDICAL CENTERACINETOBACTER BAUMANNIICHI [facility] MEDICAL CENTERHAEMOPHILUS INFLUENZAECHI [facility] MEDICAL CENTERNEISSERIA MENINGITIDISCHI [facility] MEDICAL CENTERENTEROBACTERIACEAECHI [facility] MEDICAL CENTERENTEROBACTER CLOACOE COMPLEXCHI [facility] MEDICAL CENTERKLEBSIELLA OXYTOCACHI [facility] MEDICAL CENTERKLEBSIELLA PNEUMONIAENORTHEAST [facility]ISS[facility] MEDICAL CENTERPROTEUSCHI [facility] MEDICAL CENTERSERRATIA MARCESCENSCHI [facility] MEDICAL CENTERCANDIDA ALBICANSCHI [facility] MEDICAL CENTERCANDIDA GLABRATACHI [facility] MEDICAL CENTERCANDIDA KRUSEICHI [facility]ITALEDICAL CENTERCANDIDA PARAPSILOSISCHI [facility] MEDICAL CENTERCANDIDA TROPICALISCHI [facility] MEDICAL CENTERESCHERICHIA COLICHI [facility] MEDICAL CENTERMETHICILLIN-RESISTANCE GENECHI [facility] MEDICAL CENTERVANCOMYCIN-RESISTANCE GENECHI [facility] MEDICAL CENTERCARBAPENEM-RESISTANCE GENECHI [facility] MEDICAL CENTERENTEROCOCCUSCHI [facility] MEDICAL CENTERPSEUDOMONAS AERUGINOSACHI [facility] MEDICAL CENTERCharges forthis BCID panel are being canceled.Other bacteria and resistance markers not targeted by this PCR panel cannot be excluded; therefore clinical correlation and follow up of serology, culture results, and other molecular studies is required. The results are not intended to be used as the sole means for clinical diagnosis or patient management decisions. This sample was tested at the [facility]ostics Laboratory using the Sportlyzer Blood Culture ID Panel. It is FDA cleared and has been verified and approved by the [facility] for clinical use. This laboratory is CLIA-certified and [employer] (CAP)-accredited to perform high complexitytesting.[facility]-Glucose [id number] 12:35:00 Test Item Value Reference Range Interpretation Comments POC-Glucose Meter (test 144 mg/dL 70-110 H : TE STED AT [facility] code = 1538) [address] [facility], 770 30: Solution Coordinator/Techni mirza ID = [id number] for BROWN, ALECIA Lab Interpretation (test Abnormal code = 11089-2) [facility]-Glucose [id number] 12:35:00 Test Item Value Reference Range Interpretation Comments POC-Glucose Meter (test 144 mg/dL 70-110 H : TE STED AT [facility] code = 1538) [address] [facility], 770 30: Solution Coordinator/Techni mirza ID = [id number] for BROWN, ALECIA Lab Interpretation (test Abnormal code = 71579-5) [facility]-GLUCOSE [id number] 12:35:00 Test Item Value Reference Range Interpretation Comments POC-GLUCOSE METER 144 mg/dL 70-110 H : TESTED A T [facility] 6720 (BEAKER) (test code = [facility], 153) 61628: Solution Coordinator/Techni mirza ID = [id number] for BR OWN, ALECIA POCT-GLUCOSE [id number] 08:49:00 Test Item Value Reference Range Interpretation Comments POC-GLUCOSE METER 160 mg/dL 70-110 H : TESTED A T [facility] 6720 (BEAKER) (test code = [facility], 153) 02903: Solution Coordinator/Techni mirza ID = [id number] for BR OWN, ALECIA POCT-GLUCOSE [id number] 21:45:00 Test Item Value Reference Range Interpretation Comments POC-GLUCOSE METER 123 mg/dL 70-110 H : TESTED A T [facility] 6720 (BEAKER) (test code = [facility], 153) 38271: Solution Coordinator/Techni mirza ID = [id number] for DO VE, CHEKARA Urine [id number] 10:14:00 Test Item Value Reference Range Interpretation Comments Result (test code = 6463-4) No growth ALIE (test code = ALIE) [facility] [id number] 10:14:00 Test Item Value Reference Range Interpretation Comments Result (test code = 6463-4) No growth ALIE (test code = ALIE) [facility] [id number] 09:40:00 Test Item Value Reference Range Interpretation Comments POC-GLUCOSE METER 166 mg/dL 70-110 H : TESTED A T [facility] 6720 (BEAKER) (test code = SARAH Fall [place], 1538) [address]: Solution Coordinator/Techni mirza ID = [id number] for BR OWN, ALECIA Vancomycin level, [id number] 07:21:00 Test Item Value Reference Range Interpretation Comments Vancomycin Tr (test code = 13.6 ug/mL 10.0-20.0 4092-3) ALIE (test code = ALIE) Solution Coordinator ID - EDASI Lab Interpretation (test Normal code = 54739-4) [facility] [id number] 07:21:00 Test Item Value Reference Range Interpretation Comments Vancomycin Tr (test code = 13.6 ug/mL 10.0-20.0 4092-3) ALIE (test code = ALIE) Solution Coordinator ID - EDASI Lab Interpretation (test Normal code = 55463-1) [facility] [id number] 07:21:00 Test Item Value Reference Range Interpretation Comments VANCOMYCIN TROUGH (BEAKER) (test 13.6 ug/mL 10.0-20.0 code = 522) Solution Coordinator ID - EDASIBasic Metabolic [id number] 07:00:00 Test Item Value Reference Range Interpretation Comments Sodium (test code = 137 meq/L 432-809 1383-2) Potassium (test code = 4.7 meq/L 3.5-5.1 Speci men slightly 2823-3) hemolyzed Chloride (test code = 112 meq/L 98-107 H 5-0) CO2 (test code = 20 meq/L 22-29 L 8-9) BUN (test code = 9 mg/dL 7-21 3094-0) Creatinine (test code 0.67 mg/dL 0.57-1.25 Specim en slightly = 2160-0) hemolyzed Glucose (test code = 146 mg/dL 70-105 H 2345-7) Calcium (test code = 8.2 mg/dL 8.4-10.2 L 93318-5) EGFR (test code = 90 mL/min/1.73 [place] [address]-5) NOT ACCURATE CREATININE CLEARANCE IN PREDICTING GLOMERULAR FILTRATION RATE . ESTIMATED GFR I S NOT APPLICABLE FOR DIALYSIS PATIENTS. ALIE (test code = ALIE) Solution Coordinator ID - EDASI Lab Interpretation Abnormal (test code = 72778-1) [facility] Metabolic [id number] 07:00:00 Test Item Value Reference Range Interpretation Comments Sodium (test code = 137 meq/L 278-222 5357-2) Potassium (test code = 4.7 meq/L 3.5-5.1 Speci men slightly 2823-3) hemolyzed Chloride (test code = 112 meq/L 98-107 H 5-0) CO2 (test code = 20 meq/L 22-29 L 8-9) BUN (test code = 9 mg/dL 7-21 3094-0) Creatinine (test code 0.67 mg/dL 0.57-1.25 Specim en slightly = 2160-0) hemolyzed Glucose (test code = 146 mg/dL 70-105 H 2345-7) Calcium (test code = 8.2 mg/dL 8.4-10.2 L 17828-9) EGFR (test code = 90 mL/min/1.73 [place] [address]-4) NOT ACCURATE CREATININE CLEARANCE IN PREDICTING GLOMERULAR FILTRATION RATE . ESTIMATED GFR I S NOT APPLICABLE FOR DIALYSIS PATIENTS. ALIE (test code = LAIE) Solution Coordinator ID - EDASI Lab Interpretation Abnormal (test code = 49269-2) [facility] METABOLIC [id number] 07:00:00 Test Item Value Reference Range Interpretation Comments SODIUM (BEAKER) 137 meq/L 136-145 (test code = 381) POTASSIUM (BEAKER) 4.7 meq/L 3.5-5.1 Specimen slightly (test code = 379) hemolyzed CHLORIDE (BEAKER) 112 meq/L 98-107 H (test code = 382) CO2 (BEAKER) (test 20 meq/L 22-29 L code = 355) BLOOD UREA NITROGEN 9 mg/dL 7-21 (BEAKER) (test code = 354) CREATININE (BEAKER) 0.67 mg/dL 0.57-1.25 Specimen slightly (test code = 358) hemolyzed GLUCOSE RANDOM 146 mg/dL 70-105 H (BEAKER) (test code = 652) CALCIUM (BEAKER) 8.2 mg/dL 8.4-10.2 L (test code = 697) EGFR (BEAKER) (test 90 mL/min/1.73 ESTIMA HERLINDA GFR IS code = 1092) sq m NOT ACCURATE CREATININE CLEARANCE IN PREDICTING GLOMERULAR FILTRATION RATE . ESTIMATED GFR I S NOT APPLICABLE FOR DIALYSIS PATIEN TS. Solution Coordinator ID - EDASICBC with platelet count + automated [id number] 06:33:00 Test Item Value Reference Range Interpretation Comments WBC (test code = 6690-2) 4.1 See_Comment [A utomated message] The system [employer] generated this result transmitted ref erence range: 3.5 - 10 .5 K/L. The refe rence range was not u sed to interpret this result as normal/abnor mal. RBC (test code = 789-8) 3.93 See_Comment [Au tomated message] The system [employer] generated this result transmitted ref erence range: 3.93 - 5 .22 M/L. The refe rence range was not u sed to interpret this result as normal/abnor mal. MCHC (test code = 786-4) 31.2 See_Comment L [A utomated message] The system [employer] generated this result transmitted ref erence range: 32.2 - 3 5.5 GM/DL. The refe rence range was not u sed to interpret this result as normal/abnor mal. Hematocrit (test code = 37.5 % 34.1-44.9 4544-3) MCV (test code = 787-2) 95.4 fL 79.4-94.8 H MCH (test code = 785-6) 29.8 pg 25.6-32.2 RDW (test code = 788-0) 13.8 % 11.7-14.4 Platelets (test code = 138 See_Comment L [Aut omated message] 697-3) The system [employer] generated this result transmitted ref erence range: 150 - 45 0 K/CU MM. The referen ce range was not u sed to interpret this result as normal/abnor mal. MPV (test code = 9.4 fL 9.4-12.3 00415-4) nRBC (test code = 413) 0 See_Comment [Aut omated message] The system [employer] generated this result transmitted ref erence range: 0 - 0 /1 00 WBC. The refere nce range was not u sed to interpret this result as normal/abnor mal. % Neutros (test code = 65 % 429) % Lymphs (test code = 26 % 430) % Monos (test code = 5 % 431) % Eos (test code = 432) 4 % % Baso (test code = 437) 0 % # Neutros (test code = 2.65 See_Comment [Aut omated message] 670) The system [employer] generated this result transmitted ref erence range: 1.56 - 6 .13 K/L. The refe rence range was not u sed to interpret this result as normal/abnor mal. # Lymphs (test code = 1.07 See_Comment L [Auto mated message] 414) The system [employer] generated this result transmitted ref erence range: 1.18 - 3 .74 K/L. The refe rence range was not u sed to interpret this result as normal/abnor mal. # Monos (test code = 0.20 See_Comment L [Autom ated message] 415) The system [employer] generated this result transmitted ref erence range: 0.24 - 0 .36 K/L. The refe rence range was not u sed to interpret this result as normal/abnor mal. # Eos (test code = 416) 0.16 See_Comment [Au tomated message] The system [employer] generated this result transmitted ref erence range: 0.04 - 0 .36 K/L. The refe rence range was not u sed to interpret this result as normal/abnor mal. # Baso (test code = 417) 0.01 See_Comment [A utomated message] The system [employer] generated this result transmitted ref erence range: 0.01 - 0 .08 K/L. The refe rence range was not u sed to interpret this result as normal/abnor mal. Immature 1 % 0-1 Granulocytes-Relative (test code = 2801) Lab Interpretation (test Abnormal code = 18580-3) [facility] with platelet count + automated [id number] 06:33:00 Test Item Value Reference Range Interpretation Comments WBC (test code = 6690-2) 4.1 See_Comment [A utomated message] The system [employer] generated this result transmitted ref erence range: 3.5 - 10 .5 K/L. The refe rence range was not u sed to interpret this result as normal/abnor mal. RBC (test code = 789-8) 3.93 See_Comment [Au tomated message] The system [employer] generated this result transmitted ref erence range: 3.93 - 5 .22 M/L. The refe rence range was not u sed to interpret this result as normal/abnor mal. MCHC (test code = 786-4) 31.2 See_Comment L [A utomated message] The system [employer] generated this result transmitted ref erence range: 32.2 - 3 5.5 GM/DL. The refe rence range was not u sed to interpret this result as normal/abnor mal. Hematocrit (test code = 37.5 % 34.1-44.9 4544-3) MCV (test code = 787-2) 95.4 fL 79.4-94.8 H MCH (test code = 785-6) 29.8 pg 25.6-32.2 RDW (test code = 788-0) 13.8 % 11.7-14.4 Platelets (test code = 138 See_Comment L [Aut omated message] 777-3) The system [employer] generated this result transmitted ref erence range: 150 - 45 0 K/CU MM. The referen ce range was not u sed to interpret this result as normal/abnor mal. MPV (test code = 9.4 fL 9.4-12.3 02826-1) nRBC (test code = 413) 0 See_Comment [Aut omated message] The system [employer] generated this result transmitted ref erence range: 0 - 0 /1 00 WBC. The refere nce range was not u sed to interpret this result as normal/abnor mal. % Neutros (test code = 65 % 429) % Lymphs (test code = 26 % 430) % Monos (test code = 5 % 431) % Eos (test code = 432) 4 % % Baso (test code = 437) 0 % # Neutros (test code = 2.65 See_Comment [Aut omated message] 670) The system [employer] generated this result transmitted ref erence range: 1.56 - 6 .13 K/L. The refe rence range was not u sed to interpret this result as normal/abnor mal. # Lymphs (test code = 1.07 See_Comment L [Auto mated message] 414) The system [employer] generated this result transmitted ref erence range: 1.18 - 3 .74 K/L. The refe rence range was not u sed to interpret this result as normal/abnor mal. # Monos (test code = 0.20 See_Comment L [Autom ated message] 415) The system [employer] generated this result transmitted ref erence range: 0.24 - 0 .36 K/L. The refe rence range was not u sed to interpret this result as normal/abnor mal. # Eos (test code = 416) 0.16 See_Comment [Au tomated message] The system [employer] generated this result transmitted ref erence range: 0.04 - 0 .36 K/L. The refe rence range was not u sed to interpret this result as normal/abnor mal. # Baso (test code = 417) 0.01 See_Comment [A utomated message] The system [employer] generated this result transmitted ref erence range: 0.01 - 0 .08 K/L. The refe rence range was not u sed to interpret this result as normal/abnor mal. Immature 1 % 0-1 Granulocytes-Relative (test code = 2801) Lab Interpretation (test Abnormal code = 90023-0) [facility] W/PLT COUNT & AUTO [id number] 06:33:00 Test Item Value Reference Range Interpretation Comments WHITE BLOOD CELL COUNT (BEAKER) 4.1 K/ L 3.5-10.5 (test code = 775) RED BLOOD CELL COUNT (BEAKER) 3.93 M/ L 3.93-5.22 (test code = 761) HEMOGLOBIN (BEAKER) (test code = 11.7 GM/DL 11.2-15.7 410) HEMATOCRIT (BEAKER) (test code = 37.5 % 34.1-44.9 411) MEAN CORPUSCULAR VOLUME (BEAKER) 95.4 fL 79.4-94.8 H (test code = 753) MEAN CORPUSCULAR HEMOGLOBIN 29.8 pg 25.6-32.2 (BEAKER) (test code = 751) MEAN CORPUSCULAR HEMOGLOBIN CONC 31.2 GM/DL 32.2-35.5 L (BEAKER) (test code = 752) RED CELL DISTRIBUTION WIDTH 13.8 % 11.7-14.4 (BEAKER) (test code = 412) PLATELET COUNT (BEAKER) (test 138 K/CU MM 150-450 L code = 756) MEAN PLATELET VOLUME (BEAKER) 9.4 fL 9.4-12.3 (test code = 754) NUCLEATED RED BLOOD CELLS 0 /100 WBC 0-0 (BEAKER) (test code = 413) NEUTROPHILS RELATIVE PERCENT 65 % (BEAKER) (test code = 429) LYMPHOCYTES RELATIVE PERCENT 26 % (BEAKER) (test code = 430) MONOCYTES RELATIVE PERCENT 5 % (BEAKER) (test code = 431) EOSINOPHILS RELATIVE PERCENT 4 % (BEAKER) (test code = 432) BASOPHILS RELATIVE PERCENT 0 % (BEAKER) (test code = 437) NEUTROPHILS ABSOLUTE COUNT 2.65 K/ L 1.56-6.13 (BEAKER) (test code = 670) LYMPHOCYTES ABSOLUTE COUNT 1.07 K/ L 1.18-3.74 L (BEAKER) (test code = 414) MONOCYTES ABSOLUTE COUNT (BEAKER) 0.20 K/ L 0.24-0.36 L (test code = 415) EOSINOPHILS ABSOLUTE COUNT 0.16 K/ L 0.04-0.36 (BEAKER) (test code = 416) BASOPHILS ABSOLUTE COUNT (BEAKER) 0.01 K/ L 0.01-0.08 (test code = 417) IMMATURE GRANULOCYTES-RELATIVE 1 % 0-1 PERCENT (BEAKER) (test code = 2801) POCT-GLUCOSE [id number] 00:32:00 Test Item Value Reference Range Interpretation Comments POC-GLUCOSE METER 170 mg/dL 70-110 H : TESTED A T [facility] 6720 (JOAQUÍN) (test code = SARAH [place], 1538) [address]: Solution Coordinator/Techni mirza ID = [id number] for CANDELARIO HOANG Hemoglobin [id number] 11:58:00 Test Item Value Reference Range Interpretation Comments Hemoglobin A1C (test code = 4548-4) 8.9 % 4.3-6.1 H Lab Interpretation (test code = Abnormal 13650-4) [facility] [id number] 11:58:00 Test Item Value Reference Range Interpretation Comments Hemoglobin A1C (test code = 4548-4) 8.9 % 4.3-6.1 H Lab Interpretation (test code = Abnormal 16189-1) [facility] [id number] 11:58:00 Test Item Value Reference Range Interpretation Comments HEMOGLOBIN A1C (JOAQUÍN) (test code = 8.9 % 4.3-6.1 H 368) RAD, CHEST, 1 VIEW, NON [id number] 11:04:00Reason for exam:- >dyspneaShould this be performed at the bedside?->Yes [facility] : 1960 Sex: FFINAL REPORT Chest dated 05/21/2020 COMPARISON: May 19, 2020 Clinical Information: dyspnea Comment: Heart is enlarged. Pulmonary vasculature is indistinct. Interstitial disease is seen bilaterally suggestive of vascular congestion unchanged from prior study. No pleural effusion or pneumothorax is seen. Impression: No interval change. Signed: Cecy Garza MDReport Verified Date/Time: 05/21/2020 11:04:19 Reading Location: [facility] C013Y CT Body Reading Room -GLUCOSE [id number] 09:54:00 Test Item Value Reference Range Interpretation Comments POC-GLUCOSE METER 117 mg/dL 70-110 H : TESTED A T [facility] 6720 (BEAKER) (test code = SARAH [place], 1538) [address]: Solution Coordinator/Techni mirza ID = [id number] for BR ALECIA GONSALES BASIC METABOLIC [id number] 07:24:00 Test Item Value Reference Range Interpretation Comments SODIUM (BEAKER) 137 meq/L 136-145 (test code = 381) POTASSIUM (BEAKER) 4.3 meq/L 3.5-5.1 (test code = 379) CHLORIDE (BEAKER) 112 meq/L 98-107 H (test code = 382) CO2 (BEAKER) (test 20 meq/L 22-29 L code = 355) BLOOD UREA NITROGEN 12 mg/dL 7-21 (BEAKER) (test code = 354) CREATININE (BEAKER) 0.71 mg/dL 0.57-1.25 (test code = 358) GLUCOSE RANDOM 173 mg/dL 70-105 H (BEAKER) (test code = 652) CALCIUM (BEAKER) 7.5 mg/dL 8.4-10.2 L (test code = 697) EGFR (BEAKER) (test 84 mL/min/1.73 ESTIMA HERLINDA GFR IS code = 1092) sq m NOT ACCURATE CREATININE CLEARANCE IN PREDICTING GLOMERULAR FILTRATION RATE . ESTIMATED GFR I S NOT APPLICABLE FOR DIALYSIS PATIEN TS. Solution Coordinator ID - ADMINCBC W/PLT COUNT & AUTO [id number] 06:11:00 Test Item Value Reference Range Interpretation Comments WHITE BLOOD CELL COUNT (BEAKER) 4.9 K/ L 3.5-10.5 (test code = 775) RED BLOOD CELL COUNT (BEAKER) 3.61 M/ L 3.93-5.22 L (test code = 761) HEMOGLOBIN (BEAKER) (test code = 11.0 GM/DL 11.2-15.7 L 410) HEMATOCRIT (BEAKER) (test code = 34.6 % 34.1-44.9 411) MEAN CORPUSCULAR VOLUME (BEAKER) 95.8 fL 79.4-94.8 H (test code = 753) MEAN CORPUSCULAR HEMOGLOBIN 30.5 pg 25.6-32.2 (BEAKER) (test code = 751) MEAN CORPUSCULAR HEMOGLOBIN CONC 31.8 GM/DL 32.2-35.5 L (BEAKER) (test code = 752) RED CELL DISTRIBUTION WIDTH 14.3 % 11.7-14.4 (BEAKER) (test code = 412) PLATELET COUNT (BEAKER) (test 133 K/CU MM 150-450 L code = 756) MEAN PLATELET VOLUME (BEAKER) 9.3 fL 9.4-12.3 L (test code = 754) NUCLEATED RED BLOOD CELLS 0 /100 WBC 0-0 (BEAKER) (test code = 413) NEUTROPHILS RELATIVE PERCENT 59 % (BEAKER) (test code = 429) LYMPHOCYTES RELATIVE PERCENT 32 % (BEAKER) (test code = 430) MONOCYTES RELATIVE PERCENT 6 % (BEAKER) (test code = 431) EOSINOPHILS RELATIVE PERCENT 3 % (BEAKER) (test code = 432) BASOPHILS RELATIVE PERCENT 0 % (BEAKER) (test code = 437) NEUTROPHILS ABSOLUTE COUNT 2.89 K/ L 1.56-6.13 (BEAKER) (test code = 670) LYMPHOCYTES ABSOLUTE COUNT 1.54 K/ L 1.18-3.74 (BEAKER) (test code = 414) MONOCYTES ABSOLUTE COUNT (BEAKER) 0.28 K/ L 0.24-0.36 (test code = 415) EOSINOPHILS ABSOLUTE COUNT 0.14 K/ L 0.04-0.36 (BEAKER) (test code = 416) BASOPHILS ABSOLUTE COUNT (BEAKER) 0.01 K/ L 0.01-0.08 (test code = 417) IMMATURE GRANULOCYTES-RELATIVE 0 % 0-1 PERCENT (BEAKER) (test code = 2801) BASIC METABOLIC [id number] 10:43:00 Test Item Value Reference Range Interpretation Comments SODIUM (BEAKER) 137 meq/L 136-145 (test code = 381) POTASSIUM (BEAKER) 4.7 meq/L 3.5-5.1 (test code = 379) CHLORIDE (BEAKER) 112 meq/L 98-107 H (test code = 382) CO2 (BEAKER) (test 18 meq/L 22-29 L code = 355) BLOOD UREA NITROGEN 29 mg/dL 7-21 H (BEAKER) (test code = 354) CREATININE (BEAKER) 1.19 mg/dL 0.57-1.25 (test code = 358) GLUCOSE RANDOM 126 mg/dL 70-105 H (BEAKER) (test code = 652) CALCIUM (BEAKER) 7.5 mg/dL 8.4-10.2 L (test code = 697) EGFR (BEAKER) (test 46 mL/min/1.73 ESTIMA HERLINDA GFR IS code = 1092) sq m NOT ACCURATE CREATININE CLEARANCE IN PREDICTING GLOMERULAR FILTRATION RATE . ESTIMATED GFR I S NOT APPLICABLE FOR DIALYSIS PATIEN TS. Solution Coordinator ID - MARLYS CPOCT-GLUCOSE [id number] 08:21:00 Test Item Value Reference Range Interpretation Comments POC-GLUCOSE METER 109 mg/dL 70-110 : TESTED A T [facility] 6720 (BEAKER) (test code [facility], = 1538) [address]: Solution Coordinator/Techni mirza ID = [id number] for LAURIE ABEL SARS-CoV2/RT-PCR (Asymptomatic ONLY)2020-05-20 07:33:00 Test Item Value Reference Range Interpretation Comments SARS-COV2/RT-PCR Negative Not Detected, (test code = Negative, See 89097-4) external report for linked test SARS-COV-2 [facility] AN[facility] PERFORMING LAB (test code = 23653-8) ALIE (test code = Negative result for this ALIE) test determines that SARS-CoV-2 RNA was not present in the specimen above the Limit of Detection (LOD). However, Negative results do not preclude SARS-CoV-2 infection and should not be used as the sole basis for treatment or patient management decisions. Negative results must be combined with clinical observations, patient history, and epidemiological information. A false negative result may occur if a specimen is improperly collected, transported or handled. A false negative result should be considered if patient's recent exposures or clinical presentation indicate that COVID-19 (SARS-CoV-2) is likely and diagnostic tests for other causes of illness are negative. Re-testing should be considered in cases of suspected false negatives. The limit of detection for this assay is 800 copies/mL. This SARS CoV-2 test is a real-time RT-PCR test intended for the qualitative detection of nucleic acid from SARS-CoV-2 in a nasopharyngeal swab specimen collected from individuals suspected of COVID-19 by their healthcare provider. This test has not been Food and Drug Administration (FDA) cleared or approved. This is a modified version of an approved Emergency Use Authorization (EUA) and is in the process of review by the FDA. Once authorized by the FDA, the issued EUA will be effective until the declaration that circumstances exist justifying the authorization of the emergency use of in vitro diagnostic tests for detection and/or diagnosis of COVID-19 is terminated under Section 564(b)(2) of the Act or the EUA is revoked under Section 564(g) of the Act. Fact Sheet for Healthcare Providers:https://www.[employer]/sites/default/f renan/product/documents/F act_Sheet_HC_Providers_L buy_GHQQ-GrG-9.pdf Fact Sheet for Healthcare Patients:https://www.[employer]/sites/default/fi les/product/documents/Fa ct_Sheet_Patients_Lyra_S ARS-CoV-2.pdf Performing Laboratory:[id number] [place], [place] [address]ARS-CoV2/RT-PCR (Asymptomatic ONLY)2020-05-20 07:33:00 Test Item Value Reference Range Interpretation Comments SARS-COV2/RT-PCR Negative Not Detected, (test code = Negative, See 59049-0) external report for linked test SARS-COV-2 [facility] PERFORMING LAB (test code = 49932-9) ALIE (test code = Negative result for this ALIE) test determines that SARS-CoV-2 RNA was not present in the specimen above the Limit of Detection (LOD). However, Negative results do not preclude SARS-CoV-2 infection and should not be used as the sole basis for treatment or patient management decisions. Negative results must be combined with clinical observations, patient history, and epidemiological information. A false negative result may occur if a specimen is improperly collected, transported or handled. A false negative result should be considered if patient's recent exposures or clinical presentation indicate that COVID-19 (SARS-CoV-2) is likely and diagnostic tests for other causes of illness are negative. Re-testing should be considered in cases of suspected false negatives. The limit of detection for this assay is 800 copies/mL. This SARS CoV-2 test is a real-time RT-PCR test intended for the qualitative detection of nucleic acid from SARS-CoV-2 in a nasopharyngeal swab specimen collected from individuals suspected of COVID-19 by their healthcare provider. This test has not been Food and Drug Administration (FDA) cleared or approved. This is a modified version of an approved Emergency Use Authorization (EUA) and is in the process of review by the FDA. Once authorized by the FDA, the issued EUA will be effective until the declaration that circumstances exist justifying the authorization of the emergency use of in vitro diagnostic tests for detection and/or diagnosis of COVID-19 is terminated under Section 564(b)(2) of the Act or the EUA is revoked under Section 564(g) of the Act. Fact Sheet for Healthcare Providers:https://www.[employer]/sites/default/f renan/product/documents/F act_Sheet_HC_Providers_L kkh_LGNB-GcA-1.pdf Fact Sheet for Healthcare Patients:https://www.[employer]/sites/default/fi les/product/documents/Fa ct_Sheet_Patients_Lyra_S ARS-CoV-2.pdf Performing Laboratory:[facility] [place]ía[place], [place] [id number] [place], [place] [address]ARS-COV2/RT-PCR ([facility])2020-05-20 07:33:00 Test Item Value Reference Range Interpretation Comments SARS-COV2/RT-PCR (test Negative Not Detected, Negative, code = 4266512) See external report for linked test SARS-COV-2 PERFORMING LAB [facility] ANUSHA (test code = 9973845) Negative result for this test determines that SARS-CoV-2 RNA was not present in the specimen above the Limit of Detection (LOD). However, Negative results do not preclude SARS-CoV-2 infection and should not be used as the sole basis for treatment or patient management decisions. Negative results mustbe combined with clinical observations, patient history, and epidemiological information. A false negative result may occur if a specimen is improperly collected, transported or handled. A false negative result should be considered if patient's recent exposures or clinical presentation indicate that COVID-19 (SARS-CoV-2) is likely and diagnostic tests for other causes of illness are negative. Re-testing should be considered in cases of suspected false negatives.The limit of detection for this assay is 800 copies/mL.This SARS CoV-2 test is a real-time RT-PCR test intended for the qualitative detection of nucleic acid from SARS-CoV-2 in a nasopharyngeal swab specimen collected from individuals susp ected of COVID-19 by their healthcare provider.This test has not been Food and Drug Administration (FDA) cleared or approved. This is a modified version of an approved Emergency Use Authorization (EUA) and is in the process of review by the FDA. Once authorized by the FDA, the issued EUA will be effective until the declaration that circumstances exist justifying the authorization of the emergency use of in vitro diagnostic tests for detection and/or diagnosis of COVID-19 is terminated under Section 564(b)(2) of the Act or the EUA is revoked under Section 564(g) of the Act.Fact Sheet for Healthcare Providers:https://www.[employer]/sites/default/files/product/documents/Fact_Shee q_FZ_Xfxkguvpk_Rquq_MJEB-QsV-7.pdfFact Sheet for Healthcare Patients:https://www.[employer]/sites/default/files/product/ documents/Suhv_Odpte_Vjmmwacg_Wugp_RTGW-UmU-6.pdfPerforming Laboratory:[facility]. [address] W/PLT COUNT & AUTO [id number] 07:12:00 Test Item Value Reference Range Interpretation Comments WHITE BLOOD CELL COUNT (BEAKER) 6.9 K/ L 3.5-10.5 (test code = 775) RED BLOOD CELL COUNT (BEAKER) 4.09 M/ L 3.93-5.22 (test code = 761) HEMOGLOBIN (BEAKER) (test code = 12.3 GM/DL 11.2-15.7 410) HEMATOCRIT (BEAKER) (test code = 40.7 % 34.1-44.9 411) MEAN CORPUSCULAR VOLUME (BEAKER) 99.5 fL 79.4-94.8 H (test code = 753) MEAN CORPUSCULAR HEMOGLOBIN 30.1 pg 25.6-32.2 (BEAKER) (test code = 751) MEAN CORPUSCULAR HEMOGLOBIN CONC 30.2 GM/DL 32.2-35.5 L (BEAKER) (test code = 752) RED CELL DISTRIBUTION WIDTH 14.4 % 11.7-14.4 (BEAKER) (test code = 412) PLATELET COUNT (BEAKER) (test 120 K/CU MM 150-450 L code = 756) MEAN PLATELET VOLUME (BEAKER) 9.5 fL 9.4-12.3 (test code = 754) NUCLEATED RED BLOOD CELLS 0 /100 WBC 0-0 (BEAKER) (test code = 413) NEUTROPHILS RELATIVE PERCENT 73 % (BEAKER) (test code = 429) LYMPHOCYTES RELATIVE PERCENT 21 % (BEAKER) (test code = 430) MONOCYTES RELATIVE PERCENT 5 % (BEAKER) (test code = 431) EOSINOPHILS RELATIVE PERCENT 0 % (BEAKER) (test code = 432) BASOPHILS RELATIVE PERCENT 0 % (BEAKER) (test code = 437) NEUTROPHILS ABSOLUTE COUNT 5.08 K/ L 1.56-6.13 (BEAKER) (test code = 670) LYMPHOCYTES ABSOLUTE COUNT 1.45 K/ L 1.18-3.74 (BEAKER) (test code = 414) MONOCYTES ABSOLUTE COUNT (BEAKER) 0.36 K/ L 0.24-0.36 (test code = 415) EOSINOPHILS ABSOLUTE COUNT 0.01 K/ L 0.04-0.36 L (BEAKER) (test code = 416) BASOPHILS ABSOLUTE COUNT (BEAKER) 0.01 K/ L 0.01-0.08 (test code = 417) IMMATURE GRANULOCYTES-RELATIVE 0 % 0-1 PERCENT (BEAKER) (test code = 2801) BASIC METABOLIC [id number] 02:09:00 Test Item Value Reference Range Interpretation Comments SODIUM (BEAKER) 136 meq/L 136-145 (test code = 381) POTASSIUM (BEAKER) 5.1 meq/L 3.5-5.1 (test code = 379) CHLORIDE (BEAKER) 111 meq/L 98-107 H (test code = 382) CO2 (BEAKER) (test 19 meq/L 22-29 L code = 355) BLOOD UREA NITROGEN 33 mg/dL 7-21 H (BEAKER) (test code = 354) CREATININE (BEAKER) 1.55 mg/dL 0.57-1.25 H (test code = 358) GLUCOSE RANDOM 161 mg/dL 70-105 H (BEAKER) (test code = 652) CALCIUM (BEAKER) 7.0 mg/dL 8.4-10.2 L (test code = 697) EGFR (BEAKER) (test 34 mL/min/1.73 ESTIMA HERLINDA GFR IS code = 1092) sq m NOT ACCURATE CREATININE CLEARANCE IN PREDICTING GLOMERULAR FILTRATION RATE . ESTIMATED GFR I S NOT APPLICABLE FOR DIALYSIS PATIEN TS. Solution Coordinator ID - DBBASIC METABOLIC [id number] 19:00:00 Test Item Value Reference Range Interpretation Comments SODIUM (BEAKER) 137 meq/L 136-145 (test code = 381) POTASSIUM (BEAKER) 5.2 meq/L 3.5-5.1 H Specimen slightly (test code = 379) hemolyzed CHLORIDE (BEAKER) 107 meq/L 98-107 (test code = 382) CO2 (BEAKER) (test 20 meq/L 22-29 L code = 355) BLOOD UREA NITROGEN 36 mg/dL 7-21 H (BEAKER) (test code = 354) CREATININE (BEAKER) 2.25 mg/dL 0.57-1.25 H Specimen slightly (test code = 358) hemolyzed GLUCOSE RANDOM 123 mg/dL 70-105 H (BEAKER) (test code = 652) CALCIUM (BEAKER) 8.1 mg/dL 8.4-10.2 L (test code = 697) EGFR (BEAKER) (test 22 mL/min/1.73 ESTIMA HERLINDA GFR IS code = 1092) sq m NOT ACCURATE CREATININE CLEARANCE IN PREDICTING GLOMERULAR FILTRATION RATE . ESTIMATED GFR I S NOT APPLICABLE FOR DIALYSIS PATIEN TS. Solution Coordinator ID - DBLactic acid, [id number] 18:56:00 Test Item Value Reference Range Interpretation Comments Lactate, Venous (test code = 1.38 mmol/L 0.50-2.20 2872) ALIE (test code = ALIE) Solution Coordinator ID - DB Lab Interpretation (test Normal code = 33466-6) [facility] [id number] 18:56:00 Test Item Value Reference Range Interpretation Comments Lactate, Venous (test code = 1.38 mmol/L 0.50-2.20 2872) ALIE (test code = ALIE) Solution Coordinator ID - DB Lab Interpretation (test Normal code = 79716-6) [facility], [id number] 18:56:00 Test Item Value Reference Range Interpretation Comments LACTATE BLOOD VENOUS (2) (BEAKER) 1.38 mmol/L 0.50-2.20 (test code = 2872) Solution Coordinator ID - DBCBC W/PLT COUNT & AUTO [id number] 18:51:00 Test Item Value Reference Range Interpretation Comments WHITE BLOOD CELL COUNT (BEAKER) 10.4 K/ L 3.5-10.5 (test code = 775) RED BLOOD CELL COUNT (BEAKER) 4.50 M/ L 3.93-5.22 (test code = 761) HEMOGLOBIN (BEAKER) (test code = 13.3 GM/DL 11.2-15.7 410) HEMATOCRIT (BEAKER) (test code = 42.8 % 34.1-44.9 411) MEAN CORPUSCULAR VOLUME (BEAKER) 95.1 fL 79.4-94.8 H (test code = 753) MEAN CORPUSCULAR HEMOGLOBIN 29.6 pg 25.6-32.2 (BEAKER) (test code = 751) MEAN CORPUSCULAR HEMOGLOBIN CONC 31.1 GM/DL 32.2-35.5 L (BEAKER) (test code = 752) RED CELL DISTRIBUTION WIDTH 14.4 % 11.7-14.4 (BEAKER) (test code = 412) PLATELET COUNT (BEAKER) (test 146 K/CU MM 150-450 L code = 756) MEAN PLATELET VOLUME (BEAKER) 9.3 fL 9.4-12.3 L (test code = 754) NUCLEATED RED BLOOD CELLS 0 /100 WBC 0-0 (BEAKER) (test code = 413) NEUTROPHILS RELATIVE PERCENT 82 % (BEAKER) (test code = 429) LYMPHOCYTES RELATIVE PERCENT 13 % (BEAKER) (test code = 430) MONOCYTES RELATIVE PERCENT 4 % (BEAKER) (test code = 431) EOSINOPHILS RELATIVE PERCENT 0 % (BEAKER) (test code = 432) BASOPHILS RELATIVE PERCENT 0 % (BEAKER) (test code = 437) NEUTROPHILS ABSOLUTE COUNT 8.52 K/ L 1.56-6.13 H (BEAKER) (test code = 670) LYMPHOCYTES ABSOLUTE COUNT 1.39 K/ L 1.18-3.74 (BEAKER) (test code = 414) MONOCYTES ABSOLUTE COUNT (BEAKER) 0.42 K/ L 0.24-0.36 H (test code = 415) EOSINOPHILS ABSOLUTE COUNT 0.00 K/ L 0.04-0.36 L (BEAKER) (test code = 416) BASOPHILS ABSOLUTE COUNT (BEAKER) 0.01 K/ L 0.01-0.08 (test code = 417) IMMATURE GRANULOCYTES-RELATIVE 0 % 0-1 PERCENT (BEAKER) (test code = 2801) Eosinophil [id number] 18:21:00 Test Item Value Reference Range Interpretation Comments Eosinophil Smear (test No EOS seen No EOS seen code = 21781-4) ALIE (test code = ALIE) Many crystals seen Lab Interpretation (test Normal code = 20236-6) [facility] [id number] 18:21:00 Test Item Value Reference Range Interpretation Comments Eosinophil Smear (test No EOS seen No EOS seen code = 93810-3) ALIE (test code = ALIE) Many crystals seen Lab Interpretation (test Normal code = 98645-8) [facility]EOS[facility]HIL SMEAR, [id number] 18:21:00 Test Item Value Reference Range Interpretation Comments EOSINOPHIL SMEAR, URINE (BEAKER) No EOS seen No EOS seen (test code = 1851) Many crystals seenU/S, RENAL, [id number] 17:38:00Reason for exam:->[facility] : 1960 Sex: FFINAL REPORT TECHNIQUE: Grayscale ultrasound of the kidneys and bladder. INDICATION: BIJAN. COMPARISON: None. FINDINGS: RIGHT KIDNEY: The right kidney measures 9.9 x 4.9 x 5.3 cm with a cortical thickness of 1.3 cm. No solid mass lesions. No hydronephrosis. Renal artery andvein are patent. LEFT KIDNEY: The left kidney measures 9.9 x 4.8 x 4.2 cm with a cortical thickness of 1.4 cm. No solid mass lesions. No hydronephrosis. Renal artery and vein are patent. BLADDER: Decompressed by Lind catheter. The liver is diffusely increased in echogenicity. IMPRESSION: 1.No explanation on this ultrasound for the acute kidney injury. Specifically, no hydronephrosis. 2.Diffuse fattyinfiltration of the liver. Signed: Delmar Buchanan MDReport Verified Date/Time: 05/19/2020 17:38:48 Creatinine, random [id number] 17:33:00 Test Item Value Reference Range Interpretation Comments Creatinine, Ur 362.4 mg/dL (test code = 2161-8) ALIE (test code = Reference Range: No ALIE) NormalsOperator ID - DB [facility] [id number] 17:33:00 Test Item Value Reference Range Interpretation Comments Sodium Urine (test 31 meq/L code = 2955-3) ALIE (test code = Reference Range: No ALIE) NormalsOperator ID - DB [facility] HospitalCreatinine, random [id number] 17:33:00 Test Item Value Reference Range Interpretation Comments Creatinine, Ur 362.4 mg/dL (test code = 2161-8) ALIE (test code = Reference Range: No ALIE) NormalsOperator ID - DB [facility], [facility] [id number] 17:33:00 Test Item Value Reference Range Interpretation Comments Sodium Urine (test 31 meq/L code = 2955-3) ALIE (test code = Reference Range: No ALIE) NormalsOperator ID - DB [facility]ANDOM [id number] 17:33:00 Test Item Value Reference Range Interpretation Comments SODIUM URINE (BEAKER) (test code = 31 meq/L 243) Reference Range: No NormalsOperator ID - DBCREATININE, RANDOM [id number] 17:33:00 Test Item Value Reference Range Interpretation Comments CREATININE URINE (BEAKER) (test 362.4 mg/dL code = 375) Reference Range: No NormalsOperator ID - DBUrinalysis w/Microscopic + Reflex to [id number] 16:45:00 Test Item Value Reference Range Interpretation Comments Color, UA (test code Yellow = 5778-6) Clarity, UA (test Cloudy code = 5767-9) Specific [place], UA 1.026 1.001-1.035 (test code = 5811-5) pH, UA (test code = 5.5 5.0-8.0 5803-2) Protein, UA (test 100 mg/dL Negative A code = 53329-3) Glucose, UA (test 30 mg/dL Negative A code = 365) Ketones, UA (test 10 mg/dL Negative A code = 2514-8) Bilirubin, UA (test Negative Negative code = 72842-9) Blood, UA (test code Moderate Negative A = 14974-9) Nitrite, UA (test Negative Negative code = 5802-4) Leukocytes, UA (test Trace Negative A code = 5799-2) Urobilinogen, UA 2.0 mg/dL 0.2-1.0 H (test code = 09271-6) RBC, UA (test code = 5 See_Comment [Autom ated 13711-0) message] The system which generated this result transmit herlinda reference range : /HPF. The reference range was not used to interpret this result as normal/abnormal . WBC, UA (test code = 10 See_Comment [Autom ated 5821-4) message] The system which generated this result transmit herlinda reference range : /HPF. The reference range was not used to interpret this result as normal/abnormal . Bacteria, UA (test Rare code = 10887-6) Mucus (test code = Many 8247-9) Squam Epithel, UA 2 See_Comment [Automate d (test code = 40374-5) messag e] The system which generated this result transmit herlinda reference range : /HPF. The reference range was not used to interpret this result as normal/abnormal . Hyaline Casts, UA 3 See_Comment [Automate d (test code = 91473-2) messag e] The system which generated this result transmit herlinda reference range : /LPF. The reference range was not used to interpret this result as normal/abnormal . Ca Oxalate Joyce, UA Few (test code = 07519-4) Specimen Source (test code = 2795) ALIE (test code = ALIE) Solution Coordinator ID - [auto] Lab Interpretation Abnormal (test code = 11524-1) [facility]/Microscopic + Reflex to Culture 2020-05-19 16:45:00 Test Item Value Reference Range Interpretation Comments Color, UA (test code Yellow = 5778-6) Clarity, UA (test Cloudy code = 5767-9) Specific [place], UA 1.026 1.001-1.035 (test code = 5811-5) pH, UA (test code = 5.5 5.0-8.0 5803-2) Protein, UA (test 100 mg/dL Negative A code = 13621-0) Glucose, UA (test 30 mg/dL Negative A code = 365) Ketones, UA (test 10 mg/dL Negative A code = 2514-8) Bilirubin, UA (test Negative Negative code = 32713-6) Blood, UA (test code Moderate Negative A = 75852-1) Nitrite, UA (test Negative Negative code = 5802-4) Leukocytes, UA (test Trace Negative A code = 5799-2) Urobilinogen, UA 2.0 mg/dL 0.2-1.0 H (test code = 02542-7) RBC, UA (test code = 5 See_Comment [Autom ated 84703-0) message] The system which generated this result transmit herlinda reference range : /HPF. The reference range was not used to interpret this result as normal/abnormal . WBC, UA (test code = 10 See_Comment [Autom ated 5821-4) message] The system which generated this result transmit herlinda reference range : /HPF. The reference range was not used to interpret this result as normal/abnormal . Bacteria, UA (test Rare code = 59328-0) Mucus (test code = Many 8247-9) Squam Epithel, UA 2 See_Comment [Automate d (test code = 32987-4) messag e] The system which generated this result transmit herlinda reference range : /HPF. The reference range was not used to interpret this result as normal/abnormal . Hyaline Casts, UA 3 See_Comment [Automate d (test code = 42879-0) messag e] The system which generated this result transmit herlinda reference range : /LPF. The reference range was not used to interpret this result as normal/abnormal . Ca Oxalate Joyce, UA Few (test code = 44179-2) Specimen Source (test code = 2795) ALIE (test code = ALIE) Solution Coordinator ID - [auto] Lab Interpretation Abnormal (test code = 39375-9) [facility]/ [facility]FLEX URINE [id number] 16:45:00 Test Item Value Reference Range Interpretation Comments COLOR (BEAKER) (test code = 470) Yellow CLARITY (BEAKER) (test code = 469) Cloudy SPECIFIC GRAVITY UA (BEAKER) (test 1.026 1.001-1.035 code = 468) PH UA (BEAKER) (test code = 467) 5.5 5.0-8.0 PROTEIN UA (BEAKER) (test code = 100 mg/dL Negative A 464) GLUCOSE UA (BEAKER) (test code = 30 mg/dL Negative A 365) KETONES UA (BEAKER) (test code = 10 mg/dL Negative A 371) BILIRUBIN UA (BEAKER) (test code = Negative Negative 462) BLOOD UA (BEAKER) (test code = 461) Moderate Negative A NITRITE UA (BEAKER) (test code = Negative Negative 465) LEUKOCYTE ESTERASE UA (BEAKER) Trace Negative A (test code = 466) UROBILINOGEN UA (BEAKER) (test code 2.0 mg/dL 0.2-1.0 H = 463) RBC UA (BEAKER) (test code = 519) 5 /HPF WBC UA (BEAKER) (test code = 520) 10 /HPF BACTERIA (BEAKER) (test code = 517) Rare MUCUS (BEAKER) (test code = 1574) Many SQUAMOUS EPITHELIAL (BEAKER) (test 2 /HPF code = 516) HYALINE CASTS (BEAKER) (test code = 3 /LPF 514) CALCIUM OXALATE CRYSTALS (BEAKER) Few (test code = 518) SOURCE(BEAKER) (test code = 2795) Solution Coordinator ID - [auto]Osmolality, [id number] 15:19:00 Test Item Value Reference Range Interpretation Comments Osmolality, Ur (test code 398 See_Comment [ Automated message] = 2695-5) The system [employer] generated this result transmitted ref erence range: 50-1,200 mOsm/kg mOsm/kg . The reference range was not used to int erpret this result as normal/abnormal . Lab Interpretation (test Normal code = 98535-0) [facility] HospitalOsmolality, [id number] 15:19:00 Test Item Value Reference Range Interpretation Comments Osmolality, Ur (test code 398 See_Comment [ Automated message] = 2695-5) The system [employer] generated this result transmitted ref erence range: 50-1,200 mOsm/kg mOsm/kg . The reference range was not used to int erpret this result as normal/abnormal . Lab Interpretation (test Normal code = 25021-4) [facility] HospitalOSMOLALITY, [id number] 15:19:00 Test Item Value Reference Range Interpretation Comments OSMOLALITY URINE (BEAKER) (test 398 mOsm/kg 50-1,200 mOsm/kg code = 614) RAD, CHEST, 1 VIEW, NON [id number] 14:13:00Reason for exam:->feverShould this be performed at the bedside?->Yes [facility] : 1960 Sex: FFINAL REPORT Chest dated 05/19/2020 COMPARISON: May 13, 2020 Clinical Information: fever Comment: Heart is enlarged. Pulmonary vasculature is indistinct. Interstitial disease is seen bilaterally suggestive of vascular congestion or pulmonary edema. No pleural effusionor pneumothorax is seen. Signed: Cecy Garzaeport Verified Date/Time: 05/19/2020 14:13:02 Reading Location: [facility] Radiology Reading Room BASI METABOLIC [id number] 10:09:00 Test Item Value Reference Range Interpretation Comments SODIUM (BEAKER) 135 meq/L 136-145 L (test code = 381) POTASSIUM (BEAKER) 5.4 meq/L 3.5-5.1 H (test code = 379) CHLORIDE (BEAKER) 105 meq/L 98-107 (test code = 382) CO2 (BEAKER) (test 21 meq/L 22-29 L code = 355) BLOOD UREA NITROGEN 33 mg/dL 7-21 H (BEAKER) (test code = 354) CREATININE (BEAKER) 2.43 mg/dL 0.57-1.25 H (test code = 358) GLUCOSE RANDOM 152 mg/dL 70-105 H (BEAKER) (test code = 652) CALCIUM (BEAKER) 8.2 mg/dL 8.4-10.2 L (test code = 697) EGFR (BEAKER) (test 20 mL/min/1.73 ESTIMA HERLINDA GFR IS code = 1092) sq m NOT ACCURATE CREATININE CLEARANCE IN PREDICTING GLOMERULAR FILTRATION RATE . ESTIMATED GFR I S NOT APPLICABLE FOR DIALYSIS PATIEN TS. Solution Coordinator ID - VEE FCBC W/PLT COUNT & AUTO [id number] 09:56:00 Test Item Value Reference Range Interpretation Comments WHITE BLOOD CELL COUNT (BEAKER) 14.5 K/ L 3.5-10.5 H (test code = 775) RED BLOOD CELL COUNT (BEAKER) 4.16 M/ L 3.93-5.22 (test code = 761) HEMOGLOBIN (BEAKER) (test code = 12.2 GM/DL 11.2-15.7 410) HEMATOCRIT (BEAKER) (test code = 38.8 % 34.1-44.9 411) MEAN CORPUSCULAR VOLUME (BEAKER) 93.3 fL 79.4-94.8 (test code = 753) MEAN CORPUSCULAR HEMOGLOBIN 29.3 pg 25.6-32.2 (BEAKER) (test code = 751) MEAN CORPUSCULAR HEMOGLOBIN CONC 31.4 GM/DL 32.2-35.5 L (BEAKER) (test code = 752) RED CELL DISTRIBUTION WIDTH 14.4 % 11.7-14.4 (BEAKER) (test code = 412) PLATELET COUNT (BEAKER) (test 162 K/CU MM 150-450 code = 756) MEAN PLATELET VOLUME (BEAKER) 9.2 fL 9.4-12.3 L (test code = 754) NUCLEATED RED BLOOD CELLS 0 /100 WBC 0-0 (BEAKER) (test code = 413) NEUTROPHILS RELATIVE PERCENT 87 % (BEAKER) (test code = 429) LYMPHOCYTES RELATIVE PERCENT 9 % (BEAKER) (test code = 430) MONOCYTES RELATIVE PERCENT 4 % (BEAKER) (test code = 431) EOSINOPHILS RELATIVE PERCENT 0 % (BEAKER) (test code = 432) BASOPHILS RELATIVE PERCENT 0 % (BEAKER) (test code = 437) NEUTROPHILS ABSOLUTE COUNT 12.64 K/ L 1.56-6.13 H (BEAKER) (test code = 670) LYMPHOCYTES ABSOLUTE COUNT 1.28 K/ L 1.18-3.74 (BEAKER) (test code = 414) MONOCYTES ABSOLUTE COUNT (BEAKER) 0.57 K/ L 0.24-0.36 H (test code = 415) EOSINOPHILS ABSOLUTE COUNT 0.00 K/ L 0.04-0.36 L (BEAKER) (test code = 416) BASOPHILS ABSOLUTE COUNT (BEAKER) 0.01 K/ L 0.01-0.08 (test code = 417) IMMATURE GRANULOCYTES-RELATIVE 0 % 0-1 PERCENT (BEAKER) (test code = 2801) CT, BRAIN, WITHOUT [id number] 17:03:00Unlisted Reason for Exam - Click Yes and Enter Reason Below->No [facility] : 1960 Sex: FFINAL REPORT CT, BRAIN, WITHOUT CONTRAST INDICATION: Neuro deficit, acute, persistent or progressing TECHNIQUE: Noncontrast axial imaging was obtained from the vertex to the skull base. Axial images were reconstructed using a bone algorithm. DOSE REDUCTION: Dose modulation, iterative reconstruction, and/or weight-based adjustment of the mA/kV was utilized to reduce the radiation dose to as low as reasonably achievable. COMPARISON: None. FINDINGS: Intracranial: No intracranial hemorrhage or abnormal extra-axial collection. No evidence of acute territorial infarct. No mass effect. No hydrocephalus. Mild generalized cerebral volume loss. Scattered foci of hypoattenuationwithin the periventricular and subcortical white matter are a nonspecific finding commonly attributed to chronic small vessel ischemic disease. Incidental small midline lipoma. Osseous structures: No fracture. No suspicious lesion. Paranasal sinuses and mastoid air cells: No evidence of sinusitis. Mastoids are clear. Orbital contents: Globes are intact. IMPRESSION: No acute intracranial hemorrhage orCT evidence of territorial infarct. If there is persistent clinical concern for intracranial pathology, MR examination is recommended for further characterization. Signed: Pallavi ChaCl[facility] Centeri Date/Time: 05/18/2020 17:03:21 FL, FLUORO, NON-SPECIFIC, UP TO 1 HOUR 2020-05-18 09:12:06Reason for exam:->IMPLANTATION OF INTRATHECAL PUMP [facility] : 1960 Sex: FFluoroscopic unit utilized for a procedure performed in the OR. No interpretation was requested. Refer to the operative report for findings. Refer to PACS for patient radiation dose information.SARS-COV2/RT-PCR ([facility])2020-05-14 06:04:00 Test Item Value Reference Range Interpretation Comments SARS-COV2/RT-PCR (test Negative Not Detected, Negative, code = 7836624) See external report for linked test SARS-COV-2 PERFORMING LAB [facility] (test code = 6151904) Negative result for this test determines that SARS-CoV-2 RNA was not present in the specimen above the Limit of Detection (LOD). However, Negative results do not preclude SARS-CoV-2 infection and should not be used as the sole basis for treatment or patient management decisions. Negative results mustbe combined with clinical observations, patient history, and epidemiological information. A false negative result may occur if a specimen is improperly collected, transported or handled. A false negative result should be considered if patient's recent exposures or clinical presentation indicate that COVID-19 (SARS-CoV-2) is likely and diagnostic tests for other causes of illness are negative. Re-testing should be considered in cases of suspected false negatives.The limit of detection for this assay is 100 copies/mL.This SARS CoV-2 test is a real-time RT-PCR test intended for the qualitative detection of nucleic acid from SARS-CoV-2 in a nasopharyngeal swab specimen collected from individuals susp ected of COVID-19 by their healthcare provider.This test has not been Food and Drug Administration (FDA) cleared or approved. This is a modified version of an approved Emergency Use Authorization (EUA) and is in the process of review by the FDA. Once authorized by the FDA, the issued EUA will be effective until the declaration that circumstances exist justifying the authorization of the emergency use of in vitro diagnostic tests for detection and/or diagnosis of COVID-19 is terminated under Section 564(b)(2) of the Act or the EUA is revoked under Section 564(g) of the Act.Testing was performed using the [employer] SARS-CoV-2 assay.Fact Sheet for Healthcare Providers:https://www.Delfmems.cunha/johnny/ NI_LZRP-WqF-0_GHV_Rzkt_Menrs_65-564042.pdfFact Sheet for Healthcare Patients:https://www.Delfmems.PlayCrafter cholo/johnny/EW_IESR-YjE-4_Gfrjzhq_Yary_Brpix_LZ_33-868585J2.pdfPerforming Laboratory:[facility] [address] RAD, CHEST, 2 [id number] 13:51:00Reason for exam:->Chronic pain, pre-op [facility] : 1960 Sex: FFINAL REPORT TECHNIQUE: Frontal and lateral views of the chest. INDICATION: Chronic pain, pre-op COMPARISON: 09/11/2019. FINDINGS: LINES/TUBES: None. LUNGS: There is elevation of the right hemidiaphragm, unchanged.. No consolidation or pulmonary edema. PLEURA: No pleural effusion or pneumothorax. HEART AND MEDIASTINUM: The cardiomediastinal silhouette is within normal limits. SOFT TISSUES AND BONES: Postsurgical change from posterior thoracic spine fusion.. IMPRESSION:Noacute cardiopulmonary abnormalities. Signed: Rachael Hernandes MDReport Verified Date/Time: 05/13/2020 13:51:51 [facility] METABOLIC PANEL 2020-05-13 12:52:00 Test Item Value Reference Range Interpretation Comments SODIUM (BEAKER) 138 meq/L 136-145 (test code = 381) POTASSIUM (BEAKER) 4.1 meq/L 3.5-5.1 (test code = 379) CHLORIDE (BEAKER) 104 meq/L 98-107 (test code = 382) CO2 (BEAKER) (test 26 meq/L 22-29 code = 355) BLOOD UREA NITROGEN 13 mg/dL 7-21 (BEAKER) (test code = 354) CREATININE (BEAKER) 0.79 mg/dL 0.57-1.25 (test code = 358) GLUCOSE RANDOM 183 mg/dL 70-105 H (BEAKER) (test code = 652) CALCIUM (BEAKER) 8.8 mg/dL 8.4-10.2 (test code = 697) EGFR (BEAKER) (test 74 mL/min/1.73 ESTIMA HERLINDA GFR IS code = 1092) sq m NOT ACCURATE CREATININE CLEARANCE IN PREDICTING GLOMERULAR FILTRATION RATE . ESTIMATED GFR I S NOT APPLICABLE FOR DIALYSIS PATIEN TS. Solution Coordinator ID - PIAYA LPT/[id number] 12:46:00 Test Item Value Reference Range Interpretation Comments PROTIME (BEAKER) (test code = 14.0 seconds 11.9-14.2 759) INR (BEAKER) (test code = 370) 1.11 <=5.90 PARTIAL THROMBOPLASTIN TIME 37.5 seconds 22.5-36.0 H (BEAKER) (test code = 760) Effective 12/03/2018: PT Reference Range ChangeNew: 11.9-14.2 Previous: 11.7- 14.7RECOMMENDED COUMADIN/WARFARIN INR THERAPY RANGESSTANDARD DOSE: 2.0-3.0 Includes: PROPHYLAXIS for venous thrombosis, systemic embolization; TREATMENT for venous thrombosis and/or pulmonary embolus.HIGH RISK: Target INR is2.5-3.5 for patients wiht mechanical heart valves.CBC W/PLT COUNT & AUTO [id number] 12:37:00 Test Item Value Reference Range Interpretation Comments WHITE BLOOD CELL COUNT (BEAKER) 6.0 K/ L 3.5-10.5 (test code = 775) RED BLOOD CELL COUNT (BEAKER) 4.75 M/ L 3.93-5.22 (test code = 761) HEMOGLOBIN (BEAKER) (test code = 14.1 GM/DL 11.2-15.7 410) HEMATOCRIT (BEAKER) (test code = 42.9 % 34.1-44.9 411) MEAN CORPUSCULAR VOLUME (BEAKER) 90.3 fL 79.4-94.8 (test code = 753) MEAN CORPUSCULAR HEMOGLOBIN 29.7 pg 25.6-32.2 (BEAKER) (test code = 751) MEAN CORPUSCULAR HEMOGLOBIN CONC 32.9 GM/DL 32.2-35.5 (BEAKER) (test code = 752) RED CELL DISTRIBUTION WIDTH 13.3 % 11.7-14.4 (BEAKER) (test code = 412) PLATELET COUNT (BEAKER) (test 169 K/CU MM 150-450 code = 756) MEAN PLATELET VOLUME (BEAKER) 9.4 fL 9.4-12.3 (test code = 754) NUCLEATED RED BLOOD CELLS 0 /100 WBC 0-0 (BEAKER) (test code = 413) NEUTROPHILS RELATIVE PERCENT 65 % (BEAKER) (test code = 429) LYMPHOCYTES RELATIVE PERCENT 26 % (BEAKER) (test code = 430) MONOCYTES RELATIVE PERCENT 4 % (BEAKER) (test code = 431) EOSINOPHILS RELATIVE PERCENT 4 % (BEAKER) (test code = 432) BASOPHILS RELATIVE PERCENT 0 % (BEAKER) (test code = 437) NEUTROPHILS ABSOLUTE COUNT 3.90 K/ L 1.56-6.13 (BEAKER) (test code = 670) LYMPHOCYTES ABSOLUTE COUNT 1.57 K/ L 1.18-3.74 (BEAKER) (test code = 414) MONOCYTES ABSOLUTE COUNT (BEAKER) 0.23 K/ L 0.24-0.36 L (test code = 415) EOSINOPHILS ABSOLUTE COUNT 0.25 K/ L 0.04-0.36 (BEAKER) (test code = 416) BASOPHILS ABSOLUTE COUNT (BEAKER) 0.02 K/ L 0.01-0.08 (test code = 417) IMMATURE GRANULOCYTES-RELATIVE 0 % 0-1 PERCENT (BEAKER) (test code = 2801) RAD, CHEST, 2 [id number] 13:29:00Reason for exam:->Chronic Pain Disorder FINAL REPORT TECHNIQUE: Frontal and lateral chest radiographs dated 09/11/2019. CLINICAL HISTORY: Chronic pain disorder COMPARISON STUDY: Chest radiograph dated 03/12/2017 FINDINGS: Lungs are clear. No pleural effusion or pneumothorax. Cardiomediastinal silhouette is normal in size. No pulmonary edema. Spinal fusion hardware is unchanged in appearance, with no evidence of hardware related complications. IMPRESSION: Clear lungs. Signed: Tania Lea MDReport Verified Date/Time: 09/11/2019 13:29:52 Reading Location: [address] Radiology Reading Room URINALYSIS W/ REFLEX URINE CULTURE 2019-09-11 13:21:00 Test Item Value Reference Range Interpretation Comments COLOR (BEAKER) (test code = 470) Yellow CLARITY (BEAKER) (test code = 469) Hazy SPECIFIC GRAVITY UA (BEAKER) (test 1.021 1.001-1.035 code = 468) PH UA (BEAKER) (test code = 467) 5.5 5.0-8.0 PROTEIN UA (BEAKER) (test code = 20 mg/dL Negative A 464) GLUCOSE UA (BEAKER) (test code = Negative Negative 365) KETONES UA (BEAKER) (test code = Negative Negative 371) BILIRUBIN UA (BEAKER) (test code = Negative Negative 462) BLOOD UA (BEAKER) (test code = 461) Negative Negative NITRITE UA (BEAKER) (test code = Negative Negative 465) LEUKOCYTE ESTERASE UA (BEAKER) Moderate Negative A (test code = 466) UROBILINOGEN UA (BEAKER) (test code 0.2 mg/dL 0.2-1.0 = 463) RBC UA (BEAKER) (test code = 519) 1 /HPF WBC UA (BEAKER) (test code = 520) 33 /HPF BACTERIA (BEAKER) (test code = 517) Few MUCUS (BEAKER) (test code = 1574) Moderate SQUAMOUS EPITHELIAL (BEAKER) (test 4 /HPF code = 516) SOURCE(BEAKER) (test code = 2795) Solution Coordinator ID - [auto]Solution Coordinator ID - techBASIC METABOLIC [id number] 13:06:00 Test Item Value Reference Range Interpretation Comments SODIUM (BEAKER) 136 meq/L 136-145 (test code = 381) POTASSIUM (BEAKER) 3.7 meq/L 3.5-5.1 (test code = 379) CHLORIDE (BEAKER) 103 meq/L 98-107 (test code = 382) CO2 (BEAKER) (test 24 meq/L 22-29 code = 355) BLOOD UREA NITROGEN 11 mg/dL 7-21 (BEAKER) (test code = 354) CREATININE (BEAKER) 0.80 mg/dL 0.57-1.25 (test code = 358) GLUCOSE RANDOM 177 mg/dL 70-105 H (BEAKER) (test code = 652) CALCIUM (BEAKER) 9.0 mg/dL 8.4-10.2 (test code = 697) EGFR (BEAKER) (test 73 mL/min/1.73 ESTIMA HERLINDA GFR IS code = 1092) sq m NOT ACCURATE CREATININE CLEARANCE IN PREDICTING GLOMERULAR FILTRATION RATE . ESTIMATED GFR I S NOT APPLICABLE FOR DIALYSIS PATIEN REUBEN. Solution Coordinator ID - EVE [id number] 12:56:00 Test Item Value Reference Range Interpretation Comments PARTIAL THROMBOPLASTIN TIME 37.1 seconds 22.5-36.0 H (BEAKER) (test code = 760) PROTHROMBIN TIME/[id number] 12:55:00 Test Item Value Reference Range Interpretation Comments PROTIME (BEAKER) (test code = 13.8 seconds 11.9-14.2 759) INR (BEAKER) (test code = 370) 1.1 <=5.9 Effective 12/03/2018: PT Reference Range ChangeNew: 11.9-14.2 Previous: 11.7- 14.7RECOMMENDED COUMADIN/WARFARIN INR THERAPY RANGESSTANDARD DOSE: 2.0-3.0 Includes: PROPHYLAXIS for venous thrombosis, systemic embolization; TREATMENT for venous thrombosis and/or pulmonary embolus.HIGH RISK: Target INR is2.5-3.5 for patients wiht mechanical heart valves.CBC W/PLT COUNT & AUTO [id number] 12:46:00 Test Item Value Reference Range Interpretation Comments WHITE BLOOD CELL COUNT (BEAKER) 7.0 K/ L 3.5-10.5 (test code = 775) RED BLOOD CELL COUNT (BEAKER) 4.78 M/ L 3.93-5.22 (test code = 761) HEMOGLOBIN (BEAKER) (test code = 14.2 GM/DL 11.2-15.7 410) HEMATOCRIT (BEAKER) (test code = 42.6 % 34.1-44.9 411) MEAN CORPUSCULAR VOLUME (BEAKER) 89.1 fL 79.4-94.8 (test code = 753) MEAN CORPUSCULAR HEMOGLOBIN 29.7 pg 25.6-32.2 (BEAKER) (test code = 751) MEAN CORPUSCULAR HEMOGLOBIN CONC 33.3 GM/DL 32.2-35.5 (BEAKER) (test code = 752) RED CELL DISTRIBUTION WIDTH 13.4 % 11.7-14.4 (BEAKER) (test code = 412) PLATELET COUNT (BEAKER) (test 197 K/CU MM 150-450 code = 756) MEAN PLATELET VOLUME (BEAKER) 9.0 fL 9.4-12.3 L (test code = 754) NUCLEATED RED BLOOD CELLS 0 /100 WBC 0-0 (BEAKER) (test code = 413) NEUTROPHILS RELATIVE PERCENT 73 % (BEAKER) (test code = 429) LYMPHOCYTES RELATIVE PERCENT 18 % (BEAKER) (test code = 430) MONOCYTES RELATIVE PERCENT 3 % (BEAKER) (test code = 431) EOSINOPHILS RELATIVE PERCENT 4 % (BEAKER) (test code = 432) BASOPHILS RELATIVE PERCENT 0 % (BEAKER) (test code = 437) NEUTROPHILS ABSOLUTE COUNT 5.13 K/ L 1.56-6.13 (BEAKER) (test code = 670) LYMPHOCYTES ABSOLUTE COUNT 1.28 K/ L 1.18-3.74 (BEAKER) (test code = 414) MONOCYTES ABSOLUTE COUNT (BEAKER) 0.24 K/ L 0.24-0.36 (test code = 415) EOSINOPHILS ABSOLUTE COUNT 0.30 K/ L 0.04-0.36 (BEAKER) (test code = 416) BASOPHILS ABSOLUTE COUNT (BEAKER) 0.03 K/ L 0.01-0.08 (test code = 417) IMMATURE GRANULOCYTES-RELATIVE 0 % 0-1 PERCENT (BEAKER) (test code = 2801) AFB CULTURE + [id number] 18:02:00 Test Item Value Reference Interpretation Comments Range CULTURE (BEAKER) (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) Pyrazinamide (test S code = 157) Rifampin (test S code = 43) CULTURE (BEAKER) AA Mycobacteri um tuberculosis (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) complexId entification performed by:[facility] nt, [address] [facility], [facility] [address] AFB SMEAR (BEAKER) No acid fast (test code = 994) bacilli seen AFB CULTURE + [id number] 16:36:00 Test Item Value Reference Range Interpretation Comments CULTURE (BEAKER) (test No acid-fast bacilli code = 1095) isolated in 42 days AFB SMEAR (BEAKER) No acid fast bacilli (test code = 994) seen SHORT-LATENCY SPE, ALL [id number] 16:01:00INTRAOPERATIVE MONITORING REPORT Patient Name: Nann[facility] Surgery Date: March 12, 2017 [place] [id number] Monitoring began at 09:21 and ended at 13:17 Surgeon: Ray Villafuerte M.D. Examining Neurologist: Yelitza Kaye M.D. Monitoring Technologist: Byron Irwin, [facility] Procedure: T3-8 Fixation and Evacutation of Infection [...] essentially unchanged from those of post-positioning baselines. Yelitza Kaye M.D. G95.20 FUNGUS CULTURE + [id number] 11:14:00 Test Item Value Reference Range Interpretation Comments CULTURE (BEAKER) (test No fungus isolated in code = 1095) 28 days FUNGUS SMEAR (BEAKER) No fungi seen (test code = 1406) FUNGUS CULTURE + [id number] 10:27:00 Test Item Value Reference Range Interpretation Comments CULTURE (BEAKER) (test No fungus isolated in code = 1095) 28 days FUNGUS SMEAR (BEAKER) No fungi seen (test code = 1406) POCT-GLUCOSE [id number] 11:56:00 Test Item Value Reference Range Interpretation Comments POC-GLUCOSE METER 113 mg/dL 70-110 H TESTED AT [facility] [address] ([facility]) (test code = [facility] 1538) [id number] POCT-GLUCOSE [id number] 08:02:00 Test Item Value Reference Range Interpretation Comments POC-GLUCOSE METER 95 mg/dL 70-110 TESTED AT [facility] [address] ([facility]) (test code = [facility] [address] 1538) [id number] 07:03:00 Test Item Value Reference Range Interpretation Comments PHOSPHORUS (BEAKER) (test code = 3.9 mg/dL 2.3-4.7 604) [id number] 07:03:00 Test Item Value Reference Range Interpretation Comments MAGNESIUM (BEAKER) (test code = 1.8 mg/dL 1.6-2.6 627) BASIC METABOLIC [id number] 07:03:00 Test Item Value Reference Range Interpretation Comments SODIUM (BEAKER) 137 meq/L 136-145 (test code = 381) POTASSIUM (BEAKER) 4.1 meq/L 3.5-5.1 (test code = 379) CHLORIDE (BEAKER) 105 meq/L 98-107 (test code = 382) CO2 (BEAKER) (test 25 meq/L 22-29 code = 355) BLOOD UREA NITROGEN 16 mg/dL 7-21 (BEAKER) (test code = 354) CREATININE (BEAKER) 0.63 mg/dL 0.57-1.25 (test code = 358) GLUCOSE RANDOM 120 mg/dL 70-105 H (BEAKER) (test code = 652) CALCIUM (BEAKER) 8.7 mg/dL 8.4-10.2 (test code = 697) EGFR (BEAKER) (test 97 mL/min/1.73 ESTIMA HERLINDA GFR IS code = 1092) sq m NOT ACCURATE CREATININE CLEARANCE IN PREDICTING GLOMERULAR FILTRATION RATE . ESTIMATED GFR I S NOT APPLICABLE FOR DIALYSIS PATIEN TS. CBC W/PLT COUNT & AUTO [id number] 06:36:00 Test Item Value Reference Range Interpretation Comments WHITE BLOOD CELL COUNT (BEAKER) 6.5 K/ L 3.5-10.5 (test code = 775) RED BLOOD CELL COUNT (BEAKER) 3.38 M/ L 3.93-5.22 L (test code = 761) HEMOGLOBIN (BEAKER) (test code = 9.6 GM/DL 11.2-15.7 L 410) HEMATOCRIT (BEAKER) (test code = 30.9 % 34.1-44.9 L 411) MEAN CORPUSCULAR VOLUME (BEAKER) 91.4 fL 79.4-94.8 (test code = 753) MEAN CORPUSCULAR HEMOGLOBIN 28.4 pg 25.6-32.2 (BEAKER) (test code = 751) MEAN CORPUSCULAR HEMOGLOBIN CONC 31.1 GM/DL 32.2-35.5 L (BEAKER) (test code = 752) RED CELL DISTRIBUTION WIDTH 15.6 % 11.7-14.4 H (BEAKER) (test code = 412) PLATELET COUNT (BEAKER) (test 340 K/CU MM 150-450 code = 756) MEAN PLATELET VOLUME (BEAKER) 8.6 fL 9.4-12.3 L (test code = 754) NUCLEATED RED BLOOD CELLS 0 /100 WBC 0-0 (BEAKER) (test code = 413) NEUTROPHILS RELATIVE PERCENT 73 % (BEAKER) (test code = 429) LYMPHOCYTES RELATIVE PERCENT 14 % (BEAKER) (test code = 430) MONOCYTES RELATIVE PERCENT 7 % (BEAKER) (test code = 431) EOSINOPHILS RELATIVE PERCENT 3 % (BEAKER) (test code = 432) BASOPHILS RELATIVE PERCENT 1 % (BEAKER) (test code = 437) NEUTROPHILS ABSOLUTE COUNT 4.75 K/ L 1.56-6.13 (BEAKER) (test code = 670) LYMPHOCYTES ABSOLUTE COUNT 0.91 K/ L 1.18-3.74 L (BEAKER) (test code = 414) MONOCYTES ABSOLUTE COUNT (BEAKER) 0.44 K/ L 0.24-0.36 H (test code = 415) EOSINOPHILS ABSOLUTE COUNT 0.20 K/ L 0.04-0.36 (BEAKER) (test code = 416) BASOPHILS ABSOLUTE COUNT (BEAKER) 0.05 K/ L 0.01-0.08 (test code = 417) IMMATURE GRANULOCYTES-RELATIVE 3 % 0-1 H PERCENT (BEAKER) (test code = 2801) POCT-GLUCOSE [id number] 05:22:00 Test Item Value Reference Range Interpretation Comments POC-GLUCOSE METER 186 mg/dL 70-110 H TESTED AT [facility] 67[address] (BEAKER) (test code = [facility] 1538) [id number] POCT-GLUCOSE [id number] 21:10:00 Test Item Value Reference Range Interpretation Comments POC-GLUCOSE METER 173 mg/dL 70-110 H [facility]ED AT [facility] (test code = [facility] 1538) [id number] TISSUE [id number] 13:55:00Surgical Pathology Report Case: [id number] Authorizing Provider: Ray Villafuerte MD Collected: 03/12/2017 1243 Ordering Location: [facility] PERIOPERATIVE Received: 03/12/2017 1349 SERVICES Pathologist: Edmond Grewal MD Specimens: A) - Soft Tissue, Other, thoracic epidural tissue and bone B) -Soft Tissue, Other, thoracic epidural tissue #2 A. BONE, THORACIC, BIOPSY: -GRANULOMATOUS INFLAMMATION WITH NECROSIS -SPECIAL STAINS FOR ORGANISMS ARE NEGATIVE, PLEASE SEE MICROSCOPIC DESCRIPTIONB. SOFT TISSUE, THORACIC, BIOPSY: -GRANULOMATOUS INFLAMMATION WITH NECROSIS -SPECIAL STAINS FOR ORGANISMS ARE NEGATIVE Signing Pathologist Direct Phone Line: [phone] signed by Edmond Grewal MD on 03/21/2017 at 1:55 [id number] osteomyelitis A. Thoracic epidural tissue and [...] tissue measuring 1.2 x 1 x 0.3 cm,submitted entirely B1. There is no bone present. [...] above arenegative in this tissue as well.POCT-GLUCOSE [id number] 12:31:00 Test Item Value Reference Range Interpretation Comments POC-GLUCOSE METER 108 mg/dL 70-110 TESTED AT [place] [address] [facility] (test code = [facility] 1538) [id number] POCT-GLUCOSE [id number] 07:40:00 Test Item Value Reference Range Interpretation Comments POC-GLUCOSE METER 114 mg/dL 70-110 H TESTED AT [facility] [address] ([facility]) (test code = [facility] 1538) [id number] 07:19:00 Test Item Value Reference Range Interpretation Comments PHOSPHORUS (Zerto) (test code = 3.7 mg/dL 2.3-4.7 604) [id number] 07:19:00 Test Item Value Reference Range Interpretation Comments MAGNESIUM (BEAKER) (test code = 1.6 mg/dL 1.6-2.6 627) BASIC METABOLIC [id number] 07:19:00 Test Item Value Reference Range Interpretation Comments SODIUM (BEAKER) 134 meq/L 136-145 L (test code = 381) POTASSIUM (BEAKER) 4.1 meq/L 3.5-5.1 (test code = 379) CHLORIDE (BEAKER) 103 meq/L 98-107 (test code = 382) CO2 (BEAKER) (test 27 meq/L 22-29 code = 355) BLOOD UREA NITROGEN 13 mg/dL 7-21 (BEAKER) (test code = 354) CREATININE (BEAKER) 0.61 mg/dL 0.57-1.25 (test code = 358) GLUCOSE RANDOM 112 mg/dL 70-105 H (BEAKER) (test code = 652) CALCIUM (BEAKER) 8.6 mg/dL 8.4-10.2 (test code = 697) EGFR (BEAKER) (test 101 mL/min/1.73 ESTIM ATED GFR IS code = 1092) sq m NOT ACCURATE CREATININE CLEARANCE IN PREDICTING GLOMERULAR FILTRATION RATE . ESTIMATED GFR I S NOT APPLICABLE FOR DIALYSIS PATIEN TS. CBC W/PLT COUNT & AUTO [id number] 07:01:00 Test Item Value Reference Range Interpretation Comments WHITE BLOOD CELL COUNT (BEAKER) 8.0 K/ L 3.5-10.5 (test code = 775) RED BLOOD CELL COUNT (BEAKER) 2.98 M/ L 3.93-5.22 L (test code = 761) HEMOGLOBIN (BEAKER) (test code = 8.7 GM/DL 11.2-15.7 L 410) HEMATOCRIT (BEAKER) (test code = 27.1 % 34.1-44.9 L 411) MEAN CORPUSCULAR VOLUME (BEAKER) 90.9 fL 79.4-94.8 (test code = 753) MEAN CORPUSCULAR HEMOGLOBIN 29.2 pg 25.6-32.2 (BEAKER) (test code = 751) MEAN CORPUSCULAR HEMOGLOBIN CONC 32.1 GM/DL 32.2-35.5 L (BEAKER) (test code = 752) RED CELL DISTRIBUTION WIDTH 15.5 % 11.7-14.4 H (BEAKER) (test code = 412) PLATELET COUNT (BEAKER) (test 360 K/CU MM 150-450 code = 756) MEAN PLATELET VOLUME (BEAKER) 8.6 fL 9.4-12.3 L (test code = 754) NUCLEATED RED BLOOD CELLS 0 /100 WBC 0-0 (BEAKER) (test code = 413) NEUTROPHILS RELATIVE PERCENT 76 % (BEAKER) (test code = 429) LYMPHOCYTES RELATIVE PERCENT 13 % (BEAKER) (test code = 430) MONOCYTES RELATIVE PERCENT 7 % (BEAKER) (test code = 431) EOSINOPHILS RELATIVE PERCENT 2 % (BEAKER) (test code = 432) BASOPHILS RELATIVE PERCENT 0 % (BEAKER) (test code = 437) NEUTROPHILS ABSOLUTE COUNT 6.04 K/ L 1.56-6.13 (BEAKER) (test code = 670) LYMPHOCYTES ABSOLUTE COUNT 1.00 K/ L 1.18-3.74 L (BEAKER) (test code = 414) MONOCYTES ABSOLUTE COUNT (BEAKER) 0.58 K/ L 0.24-0.36 H (test code = 415) EOSINOPHILS ABSOLUTE COUNT 0.17 K/ L 0.04-0.36 (BEAKER) (test code = 416) BASOPHILS ABSOLUTE COUNT (BEAKER) 0.02 K/ L 0.01-0.08 (test code = 417) IMMATURE GRANULOCYTES-RELATIVE 2 % 0-1 H PERCENT (BEAKER) (test code = 2801) POCT-GLUCOSE [id number] 20:46:00 Test Item Value Reference Range Interpretation Comments POC-GLUCOSE METER 166 mg/dL 70-110 H TESTED AT [place] [address] ([facility]) (test code = [facility] [place] 1538) [id number] POCT-GLUCOSE [id number] 17:33:00 Test Item Value Reference Range Interpretation Comments POC-GLUCOSE METER 143 mg/dL 70-110 H TESTED AT [place] [address] ([facility]) (test code = [facility] [place] 1538) [id number] POCT-GLUCOSE [id number] 12:40:00 Test Item Value Reference Range Interpretation Comments POC-GLUCOSE METER 120 mg/dL 70-110 H TESTED AT [place] [address] (BEAKER) (test code = [place] 1538) [id number] 11:23:00 Test Item Value Reference Range Interpretation Comments MAGNESIUM (BEAKER) 1.8 mg/dL 1.6-2.6 Specimen slightly (test code = 627) hemolyzed [id number] 11:23:00 Test Item Value Reference Range Interpretation Comments PHOSPHORUS (BEAKER) 3.3 mg/dL 2.3-4.7 Specimen slightly (test code = 604) hemolyzed BASIC METABOLIC [id number] 11:23:00 Test Item Value Reference Range Interpretation Comments SODIUM (BEAKER) 135 meq/L 136-145 L (test code = 381) POTASSIUM (BEAKER) 4.6 meq/L 3.5-5.1 Specimen slightly (test code = 379) hemolyzed CHLORIDE (BEAKER) 104 meq/L 98-107 (test code = 382) CO2 (BEAKER) (test 22 meq/L 22-29 code = 355) BLOOD UREA NITROGEN 16 mg/dL 7-21 (BEAKER) (test code = 354) CREATININE (BEAKER) 0.65 mg/dL 0.57-1.25 Specimen slightly (test code = 358) hemolyzed GLUCOSE RANDOM 85 mg/dL 70-105 (BEAKER) (test code = 652) CALCIUM (BEAKER) 9.0 mg/dL 8.4-10.2 (test code = 697) EGFR (BEAKER) (test 94 mL/min/1.73 ESTIMA HERLINDA GFR IS code = 1092) sq m NOT ACCURATE CREATININE CLEARANCE IN PREDICTING GLOMERULAR FILTRATION RATE . ESTIMATED GFR I S NOT APPLICABLE FOR DIALYSIS PATIEN TS. CBC W/PLT COUNT & AUTO [id number] 10:48:00 Test Item Value Reference Range Interpretation Comments WHITE BLOOD CELL COUNT (BEAKER) 9.1 K/ L 3.5-10.5 (test code = 775) RED BLOOD CELL COUNT (BEAKER) 3.44 M/ L 3.93-5.22 L (test code = 761) HEMOGLOBIN (BEAKER) (test code = 10.0 GM/DL 11.2-15.7 L 410) HEMATOCRIT (BEAKER) (test code = 32.4 % 34.1-44.9 L 411) MEAN CORPUSCULAR VOLUME (BEAKER) 94.2 fL 79.4-94.8 (test code = 753) MEAN CORPUSCULAR HEMOGLOBIN 29.1 pg 25.6-32.2 (BEAKER) (test code = 751) MEAN CORPUSCULAR HEMOGLOBIN CONC 30.9 GM/DL 32.2-35.5 L (BEAKER) (test code = 752) RED CELL DISTRIBUTION WIDTH 15.5 % 11.7-14.4 H (BEAKER) (test code = 412) PLATELET COUNT (BEAKER) (test 423 K/CU MM 150-450 code = 756) MEAN PLATELET VOLUME (BEAKER) 8.7 fL 9.4-12.3 L (test code = 754) NUCLEATED RED BLOOD CELLS 0 /100 WBC 0-0 (BEAKER) (test code = 413) NEUTROPHILS RELATIVE PERCENT 73 % (BEAKER) (test code = 429) LYMPHOCYTES RELATIVE PERCENT 15 % (BEAKER) (test code = 430) MONOCYTES RELATIVE PERCENT 7 % (BEAKER) (test code = 431) EOSINOPHILS RELATIVE PERCENT 2 % (BEAKER) (test code = 432) BASOPHILS RELATIVE PERCENT 1 % (BEAKER) (test code = 437) NEUTROPHILS ABSOLUTE COUNT 6.67 K/ L 1.56-6.13 H (BEAKER) (test code = 670) LYMPHOCYTES ABSOLUTE COUNT 1.34 K/ L 1.18-3.74 (BEAKER) (test code = 414) MONOCYTES ABSOLUTE COUNT (BEAKER) 0.65 K/ L 0.24-0.36 H (test code = 415) EOSINOPHILS ABSOLUTE COUNT 0.21 K/ L 0.04-0.36 (BEAKER) (test code = 416) BASOPHILS ABSOLUTE COUNT (BEAKER) 0.06 K/ L 0.01-0.08 (test code = 417) IMMATURE GRANULOCYTES-RELATIVE 2 % 0-1 H PERCENT (BEAKER) (test code = 2801) POCT-GLUCOSE [id number] 07:49:00 Test Item Value Reference Range Interpretation Comments POC-GLUCOSE METER 112 mg/dL 70-110 H TESTED AT [facility] 6720 (BEAKER) (test code = [place] 1538) [id number] POCT-GLUCOSE [id number] 20:36:00 Test Item Value Reference Range Interpretation Comments POC-GLUCOSE METER 166 mg/dL 70-110 H TESTED AT [place] [address] (BEAKER) (test code = [place] 1538) [id number] POCT-GLUCOSE [id number] 16:55:00 Test Item Value Reference Range Interpretation Comments POC-GLUCOSE METER 131 mg/dL 70-110 H TESTED AT [place] [address] (BEAKER) (test code = [facility] [place] 1538) [id number] POCT-GLUCOSE [id number] 11:56:00 Test Item Value Reference Range Interpretation Comments POC-GLUCOSE METER 150 mg/dL 70-110 H TESTED AT [place] [address] (BEAKER) (test code = [facility] [place] 1538) [id number] POCT-GLUCOSE [id number] 07:35:00 Test Item Value Reference Range Interpretation Comments POC-GLUCOSE METER 105 mg/dL 70-110 TESTED AT [place] [address] (BEAKER) (test code = [facility] [place] 1538) [id number] 07:03:00 Test Item Value Reference Range Interpretation Comments PHOSPHORUS (BEAKER) (test code = 3.6 mg/dL 2.3-4.7 604) [id number] 07:03:00 Test Item Value Reference Range Interpretation Comments MAGNESIUM (BEAKER) (test code = 1.6 mg/dL 1.6-2.6 627) BASIC METABOLIC [id number] 07:03:00 Test Item Value Reference Range Interpretation Comments SODIUM (BEAKER) 136 meq/L 136-145 (test code = 381) POTASSIUM (BEAKER) 4.3 meq/L 3.5-5.1 (test code = 379) CHLORIDE (BEAKER) 107 meq/L 98-107 (test code = 382) CO2 (BEAKER) (test 24 meq/L 22-29 code = 355) BLOOD UREA NITROGEN 14 mg/dL 7-21 (BEAKER) (test code = 354) CREATININE (BEAKER) 0.59 mg/dL 0.57-1.25 (test code = 358) GLUCOSE RANDOM 113 mg/dL 70-105 H (BEAKER) (test code = 652) CALCIUM (BEAKER) 8.7 mg/dL 8.4-10.2 (test code = 697) EGFR (BEAKER) (test 105 mL/min/1.73 ESTIM ATED GFR IS code = 1092) sq m NOT ACCURATE CREATININE CLEARANCE IN PREDICTING GLOMERULAR FILTRATION RATE . ESTIMATED GFR I S NOT APPLICABLE FOR DIALYSIS PATIEN TS. CBC W/PLT COUNT & AUTO [id number] 06:49:00 Test Item Value Reference Range Interpretation Comments WHITE BLOOD CELL COUNT (BEAKER) 7.9 K/ L 3.5-10.5 (test code = 775) RED BLOOD CELL COUNT (BEAKER) 3.10 M/ L 3.93-5.22 L (test code = 761) HEMOGLOBIN (BEAKER) (test code = 8.8 GM/DL 11.2-15.7 L 410) HEMATOCRIT (BEAKER) (test code = 28.3 % 34.1-44.9 L 411) MEAN CORPUSCULAR VOLUME (BEAKER) 91.3 fL 79.4-94.8 (test code = 753) MEAN CORPUSCULAR HEMOGLOBIN 28.4 pg 25.6-32.2 (BEAKER) (test code = 751) MEAN CORPUSCULAR HEMOGLOBIN CONC 31.1 GM/DL 32.2-35.5 L (BEAKER) (test code = 752) RED CELL DISTRIBUTION WIDTH 14.9 % 11.7-14.4 H (BEAKER) (test code = 412) PLATELET COUNT (BEAKER) (test 371 K/CU MM 150-450 code = 756) MEAN PLATELET VOLUME (BEAKER) 8.5 fL 9.4-12.3 L (test code = 754) NUCLEATED RED BLOOD CELLS 0 /100 WBC 0-0 (BEAKER) (test code = 413) NEUTROPHILS RELATIVE PERCENT 73 % (BEAKER) (test code = 429) LYMPHOCYTES RELATIVE PERCENT 14 % (BEAKER) (test code = 430) MONOCYTES RELATIVE PERCENT 8 % (BEAKER) (test code = 431) EOSINOPHILS RELATIVE PERCENT 3 % (BEAKER) (test code = 432) BASOPHILS RELATIVE PERCENT 0 % (BEAKER) (test code = 437) NEUTROPHILS ABSOLUTE COUNT 5.71 K/ L 1.56-6.13 (BEAKER) (test code = 670) LYMPHOCYTES ABSOLUTE COUNT 1.10 K/ L 1.18-3.74 L (BEAKER) (test code = 414) MONOCYTES ABSOLUTE COUNT (BEAKER) 0.59 K/ L 0.24-0.36 H (test code = 415) EOSINOPHILS ABSOLUTE COUNT 0.25 K/ L 0.04-0.36 (AKER) (test code = 416) BASOPHILS ABSOLUTE COUNT ([facility]) 0.03 K/ L 0.01-0.08 (test code = 417) IMMATURE GRANULOCYTES-RELATIVE 2 % 0-1 H PERCENT ([facility]) (test code = 2801) POCT-GLUCOSE [id number] 21:16:00 Test Item Value Reference Range Interpretation Comments POC-GLUCOSE METER 159 mg/dL 70-110 H TESTED AT [place] [address] ([facility]) (test code = [facility] 1538) [id number] POCT-GLUCOSE [id number] 16:57:00 Test Item Value Reference Range Interpretation Comments POC-GLUCOSE METER 185 mg/dL 70-110 H TESTED AT [place] [address] ([facility]) (test code = [facility] 1538) [id number] POCT-GLUCOSE [id number] 11:30:00 Test Item Value Reference Range Interpretation Comments POC-GLUCOSE METER 142 mg/dL 70-110 H TESTED AT [place] [address] ([facility]) (test code = [facility] 1538) [id number] POCT-GLUCOSE [id number] 07:34:00 Test Item Value Reference Range Interpretation Comments POC-GLUCOSE METER 119 mg/dL 70-110 H TESTED AT [place] [address] ([facility]) (test code = [facility] 1538) [address] [id number] 07:15:00 Test Item Value Reference Range Interpretation Comments MAGNESIUM (BEAKER) 1.9 mg/dL 1.6-2.6 Specimen moderately (test code = 627) hemolyzed [id number] 07:15:00 Test Item Value Reference Range Interpretation Comments PHOSPHORUS (BEAKER) 3.9 mg/dL 2.3-4.7 Specimen moderately (test code = 604) hemolyzed BASIC METABOLIC [id number] 07:15:00 Test Item Value Reference Range Interpretation Comments SODIUM (BEAKER) 135 meq/L 136-145 L (test code = 381) POTASSIUM (BEAKER) 4.8 meq/L 3.5-5.1 Specimen moderately (test code = 379) hemolyzed CHLORIDE (BEAKER) 105 meq/L 98-107 (test code = 382) CO2 (BEAKER) (test 22 meq/L 22-29 code = 355) BLOOD UREA NITROGEN 11 mg/dL 7-21 (BEAKER) (test code = 354) CREATININE (BEAKER) 0.59 mg/dL 0.57-1.25 Specimen moderately (test code = 358) hemolyzed GLUCOSE RANDOM 130 mg/dL 70-105 H (BEAKER) (test code = 652) CALCIUM (BEAKER) 8.4 mg/dL 8.4-10.2 (test code = 697) EGFR (BEAKER) (test 105 mL/min/1.73 ESTIM ATED GFR IS code = 1092) sq m NOT ACCURATE CREATININE CLEARANCE IN PREDICTING GLOMERULAR FILTRATION RATE . ESTIMATED GFR I S NOT APPLICABLE FOR DIALYSIS PATIEN TS. CBC W/PLT COUNT & AUTO [id number] 06:34:00 Test Item Value Reference Range Interpretation Comments WHITE BLOOD CELL COUNT (BEAKER) 7.7 K/ L 3.5-10.5 (test code = 775) RED BLOOD CELL COUNT (BEAKER) 3.03 M/ L 3.93-5.22 L (test code = 761) HEMOGLOBIN (BEAKER) (test code = 8.8 GM/DL 11.2-15.7 L 410) HEMATOCRIT (BEAKER) (test code = 27.9 % 34.1-44.9 L 411) MEAN CORPUSCULAR VOLUME (BEAKER) 92.1 fL 79.4-94.8 (test code = 753) MEAN CORPUSCULAR HEMOGLOBIN 29.0 pg 25.6-32.2 (BEAKER) (test code = 751) MEAN CORPUSCULAR HEMOGLOBIN CONC 31.5 GM/DL 32.2-35.5 L (BEAKER) (test code = 752) RED CELL DISTRIBUTION WIDTH 14.7 % 11.7-14.4 H (BEAKER) (test code = 412) PLATELET COUNT (BEAKER) (test 361 K/CU MM 150-450 code = 756) MEAN PLATELET VOLUME (BEAKER) 9.5 fL 9.4-12.3 (test code = 754) NUCLEATED RED BLOOD CELLS 0 /100 WBC 0-0 (BEAKER) (test code = 413) NEUTROPHILS RELATIVE PERCENT 76 % (BEAKER) (test code = 429) LYMPHOCYTES RELATIVE PERCENT 12 % (BEAKER) (test code = 430) MONOCYTES RELATIVE PERCENT 7 % (BEAKER) (test code = 431) EOSINOPHILS RELATIVE PERCENT 3 % (BEAKER) (test code = 432) BASOPHILS RELATIVE PERCENT 0 % (BEAKER) (test code = 437) NEUTROPHILS ABSOLUTE COUNT 5.86 K/ L 1.56-6.13 (BEAKER) (test code = 670) LYMPHOCYTES ABSOLUTE COUNT 0.95 K/ L 1.18-3.74 L (BEAKER) (test code = 414) MONOCYTES ABSOLUTE COUNT (BEAKER) 0.54 K/ L 0.24-0.36 H (test code = 415) EOSINOPHILS ABSOLUTE COUNT 0.20 K/ L 0.04-0.36 (BEAKER) (test code = 416) BASOPHILS ABSOLUTE COUNT (BEAKER) 0.03 K/ L 0.01-0.08 (test code = 417) IMMATURE GRANULOCYTES-RELATIVE 2 % 0-1 H PERCENT (BEAKER) (test code = 2801) POCT-GLUCOSE [id number] 21:24:00 Test Item Value Reference Range Interpretation Comments POC-GLUCOSE METER 119 mg/dL 70-110 H TESTED AT [place] [address] ([facility]) (test code = SARAH [place] 1538) [address] ANAEROBIC [id number] 18:58:00 Test Item Value Reference Range Interpretation Comments CULTURE ([facility]) (test No anaerobes isolated code = 1095) POCT-GLUCOSE [id number] 18:10:00 Test Item Value Reference Range Interpretation Comments POC-GLUCOSE METER 153 mg/dL 70-110 H TESTED AT [place] [address] ([facility]) (test code = SARAH [place] 1538) [address] POCT-GLUCOSE [id number] 12:14:00 Test Item Value Reference Range Interpretation Comments POC-GLUCOSE METER 176 mg/dL 70-110 H TESTED AT [place] [address] ([facility]) (test code = SARAH [place] 1538) [address] POCT-GLUCOSE [id number] 08:13:00 Test Item Value Reference Range Interpretation Comments POC-GLUCOSE METER 149 mg/dL 70-110 H TESTED AT [place] [address] ([facility]) (test code = SARAH [place] 1538) [address] [id number] 05:36:00 Test Item Value Reference Range Interpretation Comments PHOSPHORUS (BEAKER) (test code = 4.1 mg/dL 2.3-4.7 604) [id number] 05:36:00 Test Item Value Reference Range Interpretation Comments MAGNESIUM (BEAKER) (test code = 1.6 mg/dL 1.6-2.6 627) BASIC METABOLIC [id number] 05:36:00 Test Item Value Reference Range Interpretation Comments SODIUM (BEAKER) 136 meq/L 136-145 (test code = 381) POTASSIUM (BEAKER) 4.5 meq/L 3.5-5.1 (test code = 379) CHLORIDE (BEAKER) 104 meq/L 98-107 (test code = 382) CO2 (BEAKER) (test 26 meq/L 22-29 code = 355) BLOOD UREA NITROGEN 12 mg/dL 7-21 (BEAKER) (test code = 354) CREATININE (BEAKER) 0.61 mg/dL 0.57-1.25 (test code = 358) GLUCOSE RANDOM 127 mg/dL 70-105 H (BEAKER) (test code = 652) CALCIUM (BEAKER) 8.8 mg/dL 8.4-10.2 (test code = 697) EGFR (BEAKER) (test 101 mL/min/1.73 ESTIM ATED GFR IS code = 1092) sq m NOT ACCURATE CREATININE CLEARANCE IN PREDICTING GLOMERULAR FILTRATION RATE . ESTIMATED GFR I S NOT APPLICABLE FOR DIALYSIS PATIEN TS. CBC W/PLT COUNT & AUTO [id number] 05:13:00 Test Item Value Reference Range Interpretation Comments WHITE BLOOD CELL COUNT (BEAKER) 9.0 K/ L 3.5-10.5 (test code = 775) RED BLOOD CELL COUNT (BEAKER) 3.12 M/ L 3.93-5.22 L (test code = 761) HEMOGLOBIN (BEAKER) (test code = 8.9 GM/DL 11.2-15.7 L 410) HEMATOCRIT (BEAKER) (test code = 27.9 % 34.1-44.9 L 411) MEAN CORPUSCULAR VOLUME (BEAKER) 89.4 fL 79.4-94.8 (test code = 753) MEAN CORPUSCULAR HEMOGLOBIN 28.5 pg 25.6-32.2 (BEAKER) (test code = 751) MEAN CORPUSCULAR HEMOGLOBIN CONC 31.9 GM/DL 32.2-35.5 L (BEAKER) (test code = 752) RED CELL DISTRIBUTION WIDTH 14.7 % 11.7-14.4 H (BEAKER) (test code = 412) PLATELET COUNT (BEAKER) (test 433 K/CU MM 150-450 code = 756) MEAN PLATELET VOLUME (BEAKER) 8.4 fL 9.4-12.3 L (test code = 754) NUCLEATED RED BLOOD CELLS 0 /100 WBC 0-0 (BEAKER) (test code = 413) NEUTROPHILS RELATIVE PERCENT 76 % (BEAKER) (test code = 429) LYMPHOCYTES RELATIVE PERCENT 11 % (BEAKER) (test code = 430) MONOCYTES RELATIVE PERCENT 6 % (BEAKER) (test code = 431) EOSINOPHILS RELATIVE PERCENT 3 % (BEAKER) (test code = 432) BASOPHILS RELATIVE PERCENT 0 % (BEAKER) (test code = 437) NEUTROPHILS ABSOLUTE COUNT 6.87 K/ L 1.56-6.13 H (BEAKER) (test code = 670) LYMPHOCYTES ABSOLUTE COUNT 1.02 K/ L 1.18-3.74 L (BEAKER) (test code = 414) MONOCYTES ABSOLUTE COUNT (BEAKER) 0.56 K/ L 0.24-0.36 H (test code = 415) EOSINOPHILS ABSOLUTE COUNT 0.29 K/ L 0.04-0.36 (BEAKER) (test code = 416) BASOPHILS ABSOLUTE COUNT (BEAKER) 0.03 K/ L 0.01-0.08 (test code = 417) IMMATURE GRANULOCYTES-RELATIVE 3 % 0-1 H PERCENT (BEAKER) (test code = 2801) POCT-GLUCOSE [id number] 21:49:00 Test Item Value Reference Range Interpretation Comments POC-GLUCOSE METER 175 mg/dL 70-110 H TESTED AT [facility] [address] (BEAKER) (test code = SARAH [place] 1538) [address] POCT-GLUCOSE [id number] 16:39:00 Test Item Value Reference Range Interpretation Comments POC-GLUCOSE METER 171 mg/dL 70-110 H TESTED AT [facility] [address] (BEAKER) (test code = SARAH [place] 1538) [address] CBC W/PLT COUNT & AUTO [id number] 13:31:00 Test Item Value Reference Range Interpretation Comments WHITE BLOOD CELL COUNT (BEAKER) 7.4 K/ L 3.5-10.5 (test code = 775) RED BLOOD CELL COUNT (BEAKER) 2.90 M/ L 3.93-5.22 L (test code = 761) HEMOGLOBIN (BEAKER) (test code = 8.5 GM/DL 11.2-15.7 L 410) HEMATOCRIT (BEAKER) (test code = 26.2 % 34.1-44.9 L 411) MEAN CORPUSCULAR VOLUME (BEAKER) 90.3 fL 79.4-94.8 (test code = 753) MEAN CORPUSCULAR HEMOGLOBIN 29.3 pg 25.6-32.2 (BEAKER) (test code = 751) MEAN CORPUSCULAR HEMOGLOBIN CONC 32.4 GM/DL 32.2-35.5 (BEAKER) (test code = 752) RED CELL DISTRIBUTION WIDTH 14.7 % 11.7-14.4 H (BEAKER) (test code = 412) PLATELET COUNT (BEAKER) (test 380 K/CU MM 150-450 code = 756) MEAN PLATELET VOLUME (BEAKER) 8.4 fL 9.4-12.3 L (test code = 754) NUCLEATED RED BLOOD CELLS 0 /100 WBC 0-0 (BEAKER) (test code = 413) NEUTROPHILS RELATIVE PERCENT 73 % (BEAKER) (test code = 429) LYMPHOCYTES RELATIVE PERCENT 13 % (BEAKER) (test code = 430) MONOCYTES RELATIVE PERCENT 7 % (BEAKER) (test code = 431) EOSINOPHILS RELATIVE PERCENT 3 % (BEAKER) (test code = 432) BASOPHILS RELATIVE PERCENT 1 % (BEAKER) (test code = 437) NEUTROPHILS ABSOLUTE COUNT 5.37 K/ L 1.56-6.13 (BEAKER) (test code = 670) LYMPHOCYTES ABSOLUTE COUNT 0.96 K/ L 1.18-3.74 L (BEAKER) (test code = 414) MONOCYTES ABSOLUTE COUNT (BEAKER) 0.49 K/ L 0.24-0.36 H (test code = 415) EOSINOPHILS ABSOLUTE COUNT 0.24 K/ L 0.04-0.36 (BEAKER) (test code = 416) BASOPHILS ABSOLUTE COUNT (BEAKER) 0.04 K/ L 0.01-0.08 (test code = 417) IMMATURE GRANULOCYTES-RELATIVE 4 % 0-1 H PERCENT (BEAKER) (test code = 2801) (MANUAL DIFFERENTIAL)2017-03-16 13:31:00 Test Item Value Reference Range Interpretation Comments NEUTROPHILS - REL (DIFF) (BEAKER) 78 % (test code = 1359) LYMPHOCYTES - REL (DIFF) (BEAKER) 10 % (test code = 1360) MONOCYTES - REL (DIFF) (BEAKER) 3 % (test code = 1361) EOSINOPHILS - REL (DIFF) (BEAKER) 2 % (test code = 1362) BASOPHILS - REL (DIFF) (BEAKER) 1 % (test code = 1363) METAMYELOCYTES-REL (DIFF) (BEAKER) 1 % 0-0 H (test code = 258) BANDS - REL (DIFF) (BEAKER) (test 5 % 0-10 code = 1348) NEUTROPHILS - ABS (DIFF) (BEAKER) 5.77 K/ L 1.80-8.00 (test code = 1365) LYMPHOCYTES - ABS (DIFF) (BEAKER) 0.74 K/ L 1.48-4.50 L (test code = 1366) MONOCYTES - ABS (DIFF) (BEAKER) 0.22 K/ L 0.00-1.30 (test code = 1367) EOSINOPHILS - ABS (DIFF) (BEAKER) 0.15 K/ L 0.00-0.50 (test code = 1368) BASOPHILS - ABS (DIFF) (BEAKER) 0.07 K/ L 0.00-0.20 (test code = 1369) METAMYELOCTYES - ABS (DIFF) 0.07 K/ L 0.00-0.00 H (BEAKER) (test code = 261) BANDS-ABS (DIFF) (BEAKER) (test 0.4 K/ L 0.0-0.8 code = 1349) TOTAL COUNTED (BEAKER) (test code = 100 1351) BANDS + SEGMENTED NEUTROPHILS 6.14 (BEAKER) (test code = 1352) WBC MORPHOLOGY (BEAKER) (test code Normal = 487) PLT MORPHOLOGY (BEAKER) (test code Normal = 486) ANISOCYTOSIS (BEAKER) (test code = 1+ few 961) HYPOCHROMIA (BEAKER) (test code = 1+ few 963) POIKILOCYTES (BEAKER) (test code = 1+ few 966) POLYCHROMATOPHILLIC RBCS(BEAKER) 1+ few (test code = 478) POCT-GLUCOSE [id number] 12:33:00 Test Item Value Reference Range Interpretation Comments POC-GLUCOSE METER 121 mg/dL 70-110 H TESTED AT [facility] [address] (BEAKER) (test code = SARAH Fall [place] 1538) [id number] POCT-GLUCOSE [id number] 08:46:00 Test Item Value Reference Range Interpretation Comments POC-GLUCOSE METER 94 mg/dL 70-110 TESTED AT [facility] [address] (BEAKER) ([facility] [address]) [id number] 07:18:00 Test Item Value Reference Range Interpretation Comments PHOSPHORUS (BEAKER) (test code = 3.5 mg/dL 2.3-4.7 604) [id number] 07:18:00 Test Item Value Reference Range Interpretation Comments MAGNESIUM (BEAKER) (test code = 1.7 mg/dL 1.6-2.6 627) COMPREHENSIVE METABOLIC [id number] 07:18:00 Test Item Value Reference Range Interpretation Comments TOTAL PROTEIN 6.4 gm/dL 6.0-8.3 (BEAKER) (test code = 770) ALBUMIN (BEAKER) 2.6 g/dL 3.5-5.0 L (test code = 1145) ALKALINE PHOSPHATASE 72 U/L 40-150 (BEAKER) (test code = 346) BILIRUBIN TOTAL 0.3 mg/dL 0.2-1.2 (BEAKER) (test code = 377) SODIUM (BEAKER) (test 134 meq/L 136-145 L code = 381) POTASSIUM (BEAKER) 4.4 meq/L 3.5-5.1 (test code = 379) CHLORIDE (BEAKER) 106 meq/L 98-107 (test code = 382) CO2 (BEAKER) (test 21 meq/L 22-29 L code = 355) BLOOD UREA NITROGEN 10 mg/dL 7-21 (BEAKER) (test code = 354) CREATININE (BEAKER) 0.55 mg/dL 0.57-1.25 L (test code = 358) GLUCOSE RANDOM 104 mg/dL 70-105 (BEAKER) (test code = 652) CALCIUM (BEAKER) 8.4 mg/dL 8.4-10.2 (test code = 697) AST (SGOT) (BEAKER) 37 U/L 5-34 H (test code = 353) ALT (SGPT) (BEAKER) 52 U/L 6-55 (test code = 347) EGFR (BEAKER) (test 114 ESTIMATE D GFR IS code = 1092) mL/min/1.73 sq NOT ACCURA TE m CREATININE CLEARANCE IN PREDICTING GLOMERULAR FILTRATION RATE . ESTIMATED GFR I S NOT APPLICABLE FOR DIALYSIS PATIEN TS. IRON, TIBC, % SAT. (WITHOUT FERRITIN)2017-03-16 06:46:00 Test Item Value Reference Range Interpretation Comments IRON (BEAKER) (test code = 547) 28 ug/dL 40-160 L TOTAL IRON BINDING CAPACITY 128 ug/dL 250-450 L (BEAKER) (test code = 769) IRON % SATURATION (2) (BEAKER) 22 % 20-55 (test code = 2590) POCT-GLUCOSE [id number] 23:36:00 Test Item Value Reference Range Interpretation Comments POC-GLUCOSE METER 174 mg/dL 70-110 [facility] ([facility]ER[facility] (test code = SARAH Fall [place] 1538) [id number] SURGICALLY OBTAINED CULTURE + GRAM [id number] 07:50:00 Test Item Value Reference Range Interpretation Comments CULTURE (BEAKER) (test code No growth = 1095) GRAM STAIN RESULT (BEAKER) <1+ WBCs (test code = 1123) GRAM STAIN RESULT (BEAKER) No organisms seen (test code = 61647) [id number] 05:40:00 Test Item Value Reference Range Interpretation Comments PHOSPHORUS (BEAKER) (test code = 3.2 mg/dL 2.3-4.7 604) [id number] 05:40:00 Test Item Value Reference Range Interpretation Comments MAGNESIUM (BEAKER) (test code = 1.7 mg/dL 1.6-2.6 627) BASIC METABOLIC [id number] 05:40:00 Test Item Value Reference Range Interpretation Comments SODIUM (BEAKER) 135 meq/L 136-145 L (test code = 381) POTASSIUM (BEAKER) 4.1 meq/L 3.5-5.1 (test code = 379) CHLORIDE (BEAKER) 104 meq/L 98-107 (test code = 382) CO2 (BEAKER) (test 24 meq/L 22-29 code = 355) BLOOD UREA NITROGEN 11 mg/dL 7-21 (BEAKER) (test code = 354) CREATININE (BEAKER) 0.56 mg/dL 0.57-1.25 L (test code = 358) GLUCOSE RANDOM 128 mg/dL 70-105 H (BEAKER) (test code = 652) CALCIUM (BEAKER) 8.2 mg/dL 8.4-10.2 L (test code = 697) EGFR (BEAKER) (test 112 mL/min/1.73 ESTIM ATED GFR IS code = 1092) sq m NOT ACCURATE CREATININE CLEARANCE IN PREDICTING GLOMERULAR FILTRATION RATE . ESTIMATED GFR I S NOT APPLICABLE FOR DIALYSIS PATIEN TS. CBC W/PLT COUNT & AUTO [id number] 05:37:00 Test Item Value Reference Range Interpretation Comments WHITE BLOOD CELL COUNT (BEAKER) 7.5 K/ L 3.5-10.5 (test code = 775) RED BLOOD CELL COUNT (BEAKER) 2.47 M/ L 3.93-5.22 L (test code = 761) HEMOGLOBIN (BEAKER) (test code = 7.0 GM/DL 11.2-15.7 L 410) HEMATOCRIT (BEAKER) (test code = 21.9 % 34.1-44.9 L 411) MEAN CORPUSCULAR VOLUME (BEAKER) 88.7 fL 79.4-94.8 (test code = 753) MEAN CORPUSCULAR HEMOGLOBIN 28.3 pg 25.6-32.2 (BEAKER) (test code = 751) MEAN CORPUSCULAR HEMOGLOBIN CONC 32.0 GM/DL 32.2-35.5 L (BEAKER) (test code = 752) RED CELL DISTRIBUTION WIDTH 14.6 % 11.7-14.4 H (BEAKER) (test code = 412) PLATELET COUNT (BEAKER) (test 376 K/CU MM 150-450 code = 756) MEAN PLATELET VOLUME (BEAKER) 8.7 fL 9.4-12.3 L (test code = 754) NUCLEATED RED BLOOD CELLS 0 /100 WBC 0-0 (BEAKER) (test code = 413) NEUTROPHILS RELATIVE PERCENT 74 % (BEAKER) (test code = 429) LYMPHOCYTES RELATIVE PERCENT 12 % (BEAKER) (test code = 430) MONOCYTES RELATIVE PERCENT 7 % (BEAKER) (test code = 431) EOSINOPHILS RELATIVE PERCENT 2 % (BEAKER) (test code = 432) BASOPHILS RELATIVE PERCENT 0 % (BEAKER) (test code = 437) NEUTROPHILS ABSOLUTE COUNT 5.58 K/ L 1.56-6.13 (BEAKER) (test code = 670) LYMPHOCYTES ABSOLUTE COUNT 0.90 K/ L 1.18-3.74 L (BEAKER) (test code = 414) MONOCYTES ABSOLUTE COUNT (BEAKER) 0.54 K/ L 0.24-0.36 H (test code = 415) EOSINOPHILS ABSOLUTE COUNT 0.17 K/ L 0.04-0.36 (BEAKER) (test code = 416) BASOPHILS ABSOLUTE COUNT (BEAKER) 0.03 K/ L 0.01-0.08 (test code = 417) IMMATURE GRANULOCYTES-RELATIVE 4 % 0-1 H PERCENT (BEAKER) (test code = 2801) POCT-GLUCOSE [id number] 17:52:00 Test Item Value Reference Range Interpretation Comments POC-GLUCOSE METER 120 mg/dL 70-110 H TESTED AT [facility] 67[address] (BEAKER) (test code = SARAH Fall [place] 1538) [address] HEMOGLOBIN AND [id number] 16:27:00 Test Item Value Reference Range Interpretation Comments HEMOGLOBIN (BEAKER) (test code = 7.3 GM/DL 11.2-15.7 L 410) HEMATOCRIT (BEAKER) (test code = 22.8 % 34.1-44.9 L 411) POCT-GLUCOSE [id number] 14:45:00 Test Item Value Reference Range Interpretation Comments POC-GLUCOSE METER 127 mg/dL 70-110 H TESTED AT [facility] 67[address] (BEAKER) (test code = SARAH Fall [place] 1538) [id number] POCT-GLUCOSE [id number] 11:32:00 Test Item Value Reference Range Interpretation Comments POC-GLUCOSE METER 196 mg/dL 70-110 H TESTED AT [facility] 67[address] (BEAKER) (test code = SARAH Fall [place] 1538) [address] POCT-GLUCOSE [id number] 08:24:00 Test Item Value Reference Range Interpretation Comments POC-GLUCOSE METER 114 mg/dL 70-110 H TESTED AT [facility] 6720 (BEAKER) (test code = SARAH [place] 1538) [address] CBC W/PLT COUNT & AUTO [id number] 05:46:00 Test Item Value Reference Range Interpretation Comments WHITE BLOOD CELL COUNT (BEAKER) 8.7 K/ L 3.5-10.5 (test code = 775) RED BLOOD CELL COUNT (BEAKER) 2.71 M/ L 3.93-5.22 L (test code = 761) HEMOGLOBIN (BEAKER) (test code = 7.7 GM/DL 11.2-15.7 L 410) HEMATOCRIT (BEAKER) (test code = 23.5 % 34.1-44.9 L 411) MEAN CORPUSCULAR VOLUME (BEAKER) 86.7 fL 79.4-94.8 (test code = 753) MEAN CORPUSCULAR HEMOGLOBIN 28.4 pg 25.6-32.2 (BEAKER) (test code = 751) MEAN CORPUSCULAR HEMOGLOBIN CONC 32.8 GM/DL 32.2-35.5 (BEAKER) (test code = 752) RED CELL DISTRIBUTION WIDTH 14.0 % 11.7-14.4 (BEAKER) (test code = 412) PLATELET COUNT (BEAKER) (test 345 K/CU MM 150-450 code = 756) MEAN PLATELET VOLUME (BEAKER) 8.8 fL 9.4-12.3 L (test code = 754) NUCLEATED RED BLOOD CELLS 0 /100 WBC 0-0 (BEAKER) (test code = 413) NEUTROPHILS RELATIVE PERCENT 83 % (BEAKER) (test code = 429) LYMPHOCYTES RELATIVE PERCENT 8 % (BEAKER) (test code = 430) MONOCYTES RELATIVE PERCENT 7 % (BEAKER) (test code = 431) EOSINOPHILS RELATIVE PERCENT 1 % (BEAKER) (test code = 432) BASOPHILS RELATIVE PERCENT 0 % (BEAKER) (test code = 437) NEUTROPHILS ABSOLUTE COUNT 7.19 K/ L 1.56-6.13 H (BEAKER) (test code = 670) LYMPHOCYTES ABSOLUTE COUNT 0.68 K/ L 1.18-3.74 L (BEAKER) (test code = 414) MONOCYTES ABSOLUTE COUNT (BEAKER) 0.63 K/ L 0.24-0.36 H (test code = 415) EOSINOPHILS ABSOLUTE COUNT 0.04 K/ L 0.04-0.36 (BEAKER) (test code = 416) BASOPHILS ABSOLUTE COUNT (BEAKER) 0.01 K/ L 0.01-0.08 (test code = 417) IMMATURE GRANULOCYTES-RELATIVE 2 % 0-1 H PERCENT (BEAKER) (test code = 2801) [id number] 05:39:00 Test Item Value Reference Range Interpretation Comments PHOSPHORUS (BEAKER) (test code = 2.8 mg/dL 2.3-4.7 604) [id number] 05:39:00 Test Item Value Reference Range Interpretation Comments MAGNESIUM (BEAKER) (test code = 1.7 mg/dL 1.6-2.6 627) BASIC METABOLIC [id number] 05:39:00 Test Item Value Reference Range Interpretation Comments SODIUM (BEAKER) 134 meq/L 136-145 L (test code = 381) POTASSIUM (BEAKER) 4.2 meq/L 3.5-5.1 (test code = 379) CHLORIDE (BEAKER) 104 meq/L 98-107 (test code = 382) CO2 (BEAKER) (test 25 meq/L 22-29 code = 355) BLOOD UREA NITROGEN 10 mg/dL 7-21 (BEAKER) (test code = 354) CREATININE (BEAKER) 0.57 mg/dL 0.57-1.25 (test code = 358) GLUCOSE RANDOM 131 mg/dL 70-105 H (BEAKER) (test code = 652) CALCIUM (BEAKER) 8.2 mg/dL 8.4-10.2 L (test code = 697) EGFR (BEAKER) (test 109 mL/min/1.73 ESTIM ATED GFR IS code = 1092) sq m NOT ACCURATE CREATININE CLEARANCE IN PREDICTING GLOMERULAR FILTRATION RATE . ESTIMATED GFR I S NOT APPLICABLE FOR DIALYSIS PATIEN TS. POCT-GLUCOSE [id number] 23:07:00 Test Item Value Reference Range Interpretation Comments POC-GLUCOSE METER 166 mg/dL 70-110 H TESTED AT [facility] 6720 (BEAKER) (test code = SARAH Juan David [place] 1538) [id number] POCT-GLUCOSE [id number] 18:11:00 Test Item Value Reference Range Interpretation Comments POC-GLUCOSE METER 155 mg/dL 70-110 H TESTED AT [place] [address] (BEAKER) (test code = SARAH Fall [facility] 1538) [id number] SPIN/CONCENTRATION [id number] 16:53:00 Test Item Value Reference Range Interpretation Comments CONCENTRATION CHARGED (BEAKER) (test Done code = 2657) OSMOLALITY, [id number] 12:42:00 Test Item Value Reference Range Interpretation Comments OSMOLALITY URINE (BEAKER) (test 295 mOsm/kg 40-1400 code = 614) POCT-GLUCOSE [id number] 12:13:00 Test Item Value Reference Range Interpretation Comments POC-GLUCOSE METER 137 mg/dL 70-110 H TESTED AT [place] [address] (BEAKER) (test code = SARAH Fall [facility] 1538) [address] [id number] 12:05:00 Test Item Value Reference Range Interpretation Comments MAGNESIUM (BEAKER) (test code = 1.8 mg/dL 1.6-2.6 627) POCT-GLUCOSE [id number] 08:19:00 Test Item Value Reference Range Interpretation Comments POC-GLUCOSE METER 151 mg/dL 70-110 H TESTED AT [place] [address] (BEAKER) (test code = [facility] Juan David [facility] 1538) [address] BASIC METABOLIC [id number] 04:02:00 Test Item Value Reference Range Interpretation Comments SODIUM (BEAKER) 132 meq/L 136-145 L (test code = 381) POTASSIUM (BEAKER) 4.6 meq/L 3.5-5.1 (test code = 379) CHLORIDE (BEAKER) 105 meq/L 98-107 (test code = 382) CO2 (BEAKER) (test 21 meq/L 22-29 L code = 355) BLOOD UREA NITROGEN 9 mg/dL 7-21 (BEAKER) (test code = 354) CREATININE (BEAKER) 0.62 mg/dL 0.57-1.25 (test code = 358) GLUCOSE RANDOM 138 mg/dL 70-105 H (BEAKER) (test code = 652) CALCIUM (BEAKER) 8.2 mg/dL 8.4-10.2 L (test code = 697) EGFR (BEAKER) (test 99 mL/min/1.73 ESTIMA HERLINDA GFR IS code = 1092) sq m NOT ACCURATE CREATININE CLEARANCE IN PREDICTING GLOMERULAR FILTRATION RATE . ESTIMATED GFR I S NOT APPLICABLE FOR DIALYSIS PATIEN TS. [id number] 04:00:00 Test Item Value Reference Range Interpretation Comments PHOSPHORUS (BEAKER) (test code = 3.6 mg/dL 2.3-4.7 604) [id number] 04:00:00 Test Item Value Reference Range Interpretation Comments MAGNESIUM (BEAKER) (test code = 1.6 mg/dL 1.6-2.6 627) CBC W/PLT COUNT & AUTO [id number] 03:53:00 Test Item Value Reference Range Interpretation Comments WHITE BLOOD CELL COUNT (BEAKER) 8.4 K/ L 3.5-10.5 (test code = 775) RED BLOOD CELL COUNT (BEAKER) 2.92 M/ L 3.93-5.22 L (test code = 761) HEMOGLOBIN (BEAKER) (test code = 8.3 GM/DL 11.2-15.7 L 410) HEMATOCRIT (BEAKER) (test code = 25.5 % 34.1-44.9 L 411) MEAN CORPUSCULAR VOLUME (BEAKER) 87.3 fL 79.4-94.8 (test code = 753) MEAN CORPUSCULAR HEMOGLOBIN 28.4 pg 25.6-32.2 (BEAKER) (test code = 751) MEAN CORPUSCULAR HEMOGLOBIN CONC 32.5 GM/DL 32.2-35.5 (BEAKER) (test code = 752) RED CELL DISTRIBUTION WIDTH 13.4 % 11.7-14.4 (BEAKER) (test code = 412) PLATELET COUNT (BEAKER) (test 327 K/CU MM 150-450 code = 756) MEAN PLATELET VOLUME (BEAKER) 8.9 fL 9.4-12.3 L (test code = 754) NUCLEATED RED BLOOD CELLS 0 /100 WBC 0-0 (BEAKER) (test code = 413) NEUTROPHILS RELATIVE PERCENT 92 % (BEAKER) (test code = 429) LYMPHOCYTES RELATIVE PERCENT 4 % (BEAKER) (test code = 430) MONOCYTES RELATIVE PERCENT 3 % (BEAKER) (test code = 431) EOSINOPHILS RELATIVE PERCENT 0 % (BEAKER) (test code = 432) BASOPHILS RELATIVE PERCENT 0 % (BEAKER) (test code = 437) NEUTROPHILS ABSOLUTE COUNT 7.75 K/ L 1.56-6.13 H ([facility]) (test code = 670) LYMPHOCYTES ABSOLUTE COUNT 0.37 K/ L 1.18-3.74 L ([facility]) (test code = 414) MONOCYTES ABSOLUTE COUNT (AKER) 0.26 K/ L 0.24-0.36 (test code = 415) EOSINOPHILS ABSOLUTE COUNT 0.00 K/ L 0.04-0.36 L ([facility]) (test code = 416) BASOPHILS ABSOLUTE COUNT ([facility]) 0.01 K/ L 0.01-0.08 (test code = 417) IMMATURE GRANULOCYTES-RELATIVE 1 % 0-1 PERCENT ([facility]) (test code = 2801) POCT-GLUCOSE [id number] 22:18:00 Test Item Value Reference Range Interpretation Comments POC-GLUCOSE METER 178 mg/dL 70-110 H TESTED AT [facility] 6720 ([facility]) (test code = SARAH [place] 1538) [address] HIV-1 ANTIGEN WITH HIV-1/2 [id number] 21:37:00 Test Item Value Reference Range Interpretation Comments HIV-1 ANTIGEN WITH HIV 1\\T\\2 Nonreactive Nonreactive ANTIBODY (2) ([facility]) (test code = 2586) RAD, CHEST, 1 VIEW, NON [id number] 20:16:00Reason for exam:->cough, evaluate for pneumoniaShould this [...] surgical clips in the gallbladder fossa. Signed: Gideon Vieira Verified Date/Time: 03/12/2017 20:16:07 Reading Location: [facility] Radiology Reading Room POCT- GLUCOSE [id number] 16:53:00 Test Item Value Reference Range Interpretation Comments POC-GLUCOSE METER 139 mg/dL 70-110 H TESTED AT [facility] 6720 (JOAQUÍN) (test code = SARAH [place] 1538) [address] [place], PRESCRIPTIONIST IN OR/30 MINUTE [id number] 15:01:00Reason for exam:- >stenosisIs the patient ?->NoWhen was patient's last menstrual cycle?->03/12/17FINAL REPORT Intraoperative fluoroscopy films performed by the [...] perform fluoroscopy. Signed: Vandana Yung Verified Date/Time:03/12/2017 15:01:36 Reading Location: [address] Consult Reading Room [place], PRESCRIPTIONIST IN OR/30 MINUTE [id number] 11:28:00Reason for exam:->thoracic laminectomy; fusion.FINAL REPORT Single [...] Barber Cooper Verified Date/Time: 03/12/2017 11:28:06Reading Location: [facility] C013V Neuro Reading Room Electronically signed by: BARBER COOPER M.D.on 03/12/2017 11:28 AMTSH/FREE T4 IF INDICATED 2017-03-12 05:48:00 Test Item Value Reference Range Interpretation Comments THYROID STIMULATING HORMONE 1.63 uIU/mL 0.35-4.94 (BEAKER) (test code = 772) COMPREHENSIVE METABOLIC [id number] 05:18:00 Test Item Value Reference Range Interpretation Comments TOTAL PROTEIN 8.1 gm/dL 6.0-8.3 (BEAKER) (test code = 770) ALBUMIN (BEAKER) 3.3 g/dL 3.5-5.0 L (test code = 1145) ALKALINE PHOSPHATASE 125 U/L 40-150 (BEAKER) (test code = 346) BILIRUBIN TOTAL 0.4 mg/dL 0.2-1.2 (BEAKER) (test code = 377) SODIUM (BEAKER) (test 136 meq/L 136-145 code = 381) POTASSIUM (BEAKER) 4.4 meq/L 3.5-5.1 (test code = 379) CHLORIDE (BEAKER) 104 meq/L 98-107 (test code = 382) CO2 (BEAKER) (test 23 meq/L 22-29 code = 355) BLOOD UREA NITROGEN 8 mg/dL 7-21 (BEAKER) (test code = 354) CREATININE (BEAKER) 0.67 mg/dL 0.57-1.25 (test code = 358) GLUCOSE RANDOM 115 mg/dL 70-105 H (BEAKER) (test code = 652) CALCIUM (BEAKER) 9.7 mg/dL 8.4-10.2 (test code = 697) AST (SGOT) (BEAKER) 61 U/L 5-34 H (test code = 353) ALT (SGPT) (BEAKER) 63 U/L 6-55 H (test code = 347) EGFR (BEAKER) (test 91 mL/min/1.73 ESTIMA HERLINDA GFR IS code = 1092) sq m NOT ACCURATE CREATININE CLEARANCE IN PREDICTING GLOMERULAR FILTRATION RATE . ESTIMATED GFR I S NOT APPLICABLE FOR DIALYSIS PATIEN TS. CBC W/PLT COUNT & AUTO [id number] 05:04:00 Test Item Value Reference Range Interpretation Comments WHITE BLOOD CELL COUNT (BEAKER) 7.0 K/ L 3.5-10.5 (test code = 775) RED BLOOD CELL COUNT (BEAKER) 3.92 M/ L 3.93-5.22 L (test code = 761) HEMOGLOBIN (BEAKER) (test code = 11.1 GM/DL 11.2-15.7 L 410) HEMATOCRIT (BEAKER) (test code = 33.5 % 34.1-44.9 L 411) MEAN CORPUSCULAR VOLUME (BEAKER) 85.5 fL 79.4-94.8 (test code = 753) MEAN CORPUSCULAR HEMOGLOBIN 28.3 pg 25.6-32.2 (BEAKER) (test code = 751) MEAN CORPUSCULAR HEMOGLOBIN CONC 33.1 GM/DL 32.2-35.5 (BEAKER) (test code = 752) RED CELL DISTRIBUTION WIDTH 13.4 % 11.7-14.4 (BEAKER) (test code = 412) PLATELET COUNT (BEAKER) (test 362 K/CU MM 150-450 code = 756) MEAN PLATELET VOLUME (BEAKER) 9.0 fL 9.4-12.3 L (test code = 754) NUCLEATED RED BLOOD CELLS 0 /100 WBC 0-0 (BEAKER) (test code = 413) NEUTROPHILS RELATIVE PERCENT 84 % (BEAKER) (test code = 429) LYMPHOCYTES RELATIVE PERCENT 9 % (BEAKER) (test code = 430) MONOCYTES RELATIVE PERCENT 4 % (BEAKER) (test code = 431) EOSINOPHILS RELATIVE PERCENT 3 % (BEAKER) (test code = 432) BASOPHILS RELATIVE PERCENT 0 % (BEAKER) (test code = 437) NEUTROPHILS ABSOLUTE COUNT 5.88 K/ L 1.56-6.13 (BEAKER) (test code = 670) LYMPHOCYTES ABSOLUTE COUNT 0.63 K/ L 1.18-3.74 L (BEAKER) (test code = 414) MONOCYTES ABSOLUTE COUNT (BEAKER) 0.29 K/ L 0.24-0.36 (test code = 415) EOSINOPHILS ABSOLUTE COUNT 0.18 K/ L 0.04-0.36 (BEAKER) (test code = 416) BASOPHILS ABSOLUTE COUNT (BEAKER) 0.01 K/ L 0.01-0.08 (test code = 417) IMMATURE GRANULOCYTES-RELATIVE 1 % 0-1 PERCENT (BEAKER) (test code = 2801) PROTHROMBIN [id number] 05:01:00 Test Item Value Reference Range Interpretation Comments PROTIME (BEAKER) (test code = 13.5 seconds 11.7-14.7 759) INR (BEAKER) (test code = 370) 1.0 <=5.9 RECOMMENDED COUMADIN/WARFARIN INR THERAPY RANGESSTANDARD DOSE: 2.0 - 3.0 Includes: PROPHYLAXIS forvenous thrombosis, systemic embolization; TREATMENT for venous thrombosis and/or pulmonary embolus.HIGH RISK: Target INR is 2.5-3.5 for patients with mechanical heart valves.CBC W/PLT COUNT & AUTO DIFFERENTIAL 2017-03-07 12:19:00 Test Item Value Reference Range Interpretation Comments WHITE BLOOD CELL COUNT (BEAKER) 5.5 K/ L 3.5-10.5 (test code = 775) RED BLOOD CELL COUNT (BEAKER) 3.27 M/ L 3.93-5.22 L (test code = 761) HEMOGLOBIN (BEAKER) (test code = 9.2 GM/DL 11.2-15.7 L 410) HEMATOCRIT (BEAKER) (test code = 28.2 % 34.1-44.9 L 411) MEAN CORPUSCULAR VOLUME (BEAKER) 86.2 fL 79.4-94.8 (test code = 753) MEAN CORPUSCULAR HEMOGLOBIN 28.1 pg 25.6-32.2 (BEAKER) (test code = 751) MEAN CORPUSCULAR HEMOGLOBIN CONC 32.6 GM/DL 32.2-35.5 (BEAKER) (test code = 752) RED CELL DISTRIBUTION WIDTH 13.2 % 11.7-14.4 (BEAKER) (test code = 412) PLATELET COUNT (BEAKER) (test 147 K/CU MM 150-450 L code = 756) MEAN PLATELET VOLUME (BEAKER) 9.6 fL 9.4-12.3 (test code = 754) NUCLEATED RED BLOOD CELLS 0 /100 WBC 0-0 (BEAKER) (test code = 413) NEUTROPHILS RELATIVE PERCENT 83 % (BEAKER) (test code = 429) LYMPHOCYTES RELATIVE PERCENT 12 % (BEAKER) (test code = 430) MONOCYTES RELATIVE PERCENT 4 % (BEAKER) (test code = 431) EOSINOPHILS RELATIVE PERCENT 1 % (BEAKER) (test code = 432) BASOPHILS RELATIVE PERCENT 0 % (BEAKER) (test code = 437) NEUTROPHILS ABSOLUTE COUNT 4.59 K/ L 1.56-6.13 (BEAKER) (test code = 670) LYMPHOCYTES ABSOLUTE COUNT 0.64 K/ L 1.18-3.74 L (BEAKER) (test code = 414) MONOCYTES ABSOLUTE COUNT (BEAKER) 0.24 K/ L 0.24-0.36 (test code = 415) EOSINOPHILS ABSOLUTE COUNT 0.03 K/ L 0.04-0.36 L (BEAKER) (test code = 416) BASOPHILS ABSOLUTE COUNT (BEAKER) 0.00 K/ L 0.01-0.08 L (test code = 417) IMMATURE GRANULOCYTES-RELATIVE 0 % 0-1 PERCENT (BEAKER) (test code = 2801) (MANUAL DIFFERENTIAL)2017-03-07 12:19:00 Test Item Value Reference Range Interpretation Comments TOTAL COUNTED (BEAKER) (test code = 1351) WBC MORPHOLOGY (BEAKER) (test code = Normal 487) PLT MORPHOLOGY (BEAKER) (test code = Normal 486) RBC MORPHOLOGY (BEAKER) (test code = Normal 762) POCT-GLUCOSE [id number] 11:50:00 Test Item Value Reference Range Interpretation Comments POC-GLUCOSE METER 138 mg/dL 70-110 H TESTED AT [place] [address] (BEAKER) (test code = [facility] 1538) [address] POCT-GLUCOSE [id number] 07:31:00 Test Item Value Reference Range Interpretation Comments POC-GLUCOSE METER 98 mg/dL 70-110 TESTED AT [place] [address] (BEAKER) (test code = [facility] [address] 1538) (MANUAL DIFFERENTIAL)2017-03-07 07:10:00 Test Item Value Reference Range Interpretation Comments TOTAL COUNTED (BEAKER) (test code = 1351) BANDS + SEGMENTED NEUTROPHILS c (BEAKER) (test code = 1352) MANUAL NRBC PER 100 CELLS (BEAKER) /100 WBC 0-0 c (test code = 1353) WBC MORPHOLOGY (BEAKER) (test code Normal = 487) PLT MORPHOLOGY (BEAKER) (test code Normal = 486) RBC MORPHOLOGY (BEAKER) (test code Normal = 762) CBC W/PLT COUNT & AUTO [id number] 07:09:00 Test Item Value Reference Range Interpretation Comments WHITE BLOOD CELL COUNT K/ L 3.5-10.5 cThis is a corrected (BEAKER) (test code = result . Previous 775) result was 5.4 K/ L on 03/07/2017 at 0455 CDT RED BLOOD CELL COUNT M/ L 3.93-5.22 cThis i s a corrected (BEAKER) (test code = result . Previous 761) result was 3.50 M/ L on 03/07/2017 at 0455 CDT HEMOGLOBIN (BEAKER) GM/DL 11.2-15.7 cThis is a corrected (test code = 410) result. Pr evious result was 9.9 GM/DL on 03/07/2017 at 0455 CDT HEMATOCRIT (BEAKER) % 34.1-44.9 clottedT his is a (test code = 411) corrected result. Previous result was 30.8 % on 2016 at 0455 CDT MEAN CORPUSCULAR VOLUME fL 79.4-94.8 cThi s is a corrected (BEAKER) (test code = result . Previous 753) result was 88.0 fL on 03/07/2017 at 04 55 CDT MEAN CORPUSCULAR pg 25.6-32.2 cThis is a corrected HEMOGLOBIN (BEAKER) result. Previous (test code = 751) result was 28.3 pg on 03/07/2017 at 04 55 CDT MEAN CORPUSCULAR GM/DL 32.2-35.5 cThis is a corrected HEMOGLOBIN CONC result. Prev ious (BEAKER) (test code = result was 32.1 GM/DL 752) on 03/07/2017 at 0455 CDT RED CELL DISTRIBUTION % 11.7-14.4 cThis is a corrected WIDTH (BEAKER) (test result. Previous code = 412) result was 13.2 % on 03/07/2017 at 04 55 CDT PLATELET COUNT (BEAKER) K/CU MM 150-450 cThi s is a corrected (test code = 756) result. Pr evious result was 55 K /CU MM on 03/07/2017 at 0455 CDT MEAN PLATELET VOLUME fL 9.4-12.3 cThis i s a corrected (BEAKER) (test code = result . Previous 754) result was 11.5 fL on 03/07/2017 at 04 55 CDT NUCLEATED RED BLOOD /100 WBC 0-0 cThis is a corrected CELLS (BEAKER) (test result. Previous code = 413) result was 0 /1 00 WBC on 03/07/2017 at 0455 CDT NEUTROPHILS RELATIVE % c PERCENT (BEAKER) (test code = 429) LYMPHOCYTES RELATIVE % c PERCENT (BEAKER) (test code = 430) MONOCYTES RELATIVE % c PERCENT (BEAKER) (test code = 431) EOSINOPHILS RELATIVE % c PERCENT (BEAKER) (test code = 432) BASOPHILS RELATIVE % c PERCENT (BEAKER) (test code = 437) NEUTROPHILS ABSOLUTE K/ L 1.56-6.13 c COUNT (BEAKER) (test code = 670) LYMPHOCYTES ABSOLUTE K/ L 1.18-3.74 cc COUNT (BEAKER) (test code = 414) MONOCYTES ABSOLUTE K/ L 0.24-0.36 c COUNT (BEAKER) (test code = 415) EOSINOPHILS ABSOLUTE K/ L 0.04-0.36 c COUNT (BEAKER) (test code = 416) BASOPHILS ABSOLUTE K/ L 0.01-0.08 c COUNT (BEAKER) (test code = 417) IMMATURE % 0-1 cThis is a emil ected GRANULOCYTES-RELATIVE result . Previous PERCENT (BEAKER) (test resul t was 1 % on code = 2801) 03/07/2017 at 04 55 CDT Clotted specimen called to Faith at 0545.COMPREHENSIVE METABOLIC PANEL 2017-03-07 05:05:00 Test Item Value Reference Range Interpretation Comments TOTAL PROTEIN 6.3 gm/dL 6.0-8.3 (BEAKER) (test code = 770) ALBUMIN (BEAKER) 2.9 g/dL 3.5-5.0 L (test code = 1145) ALKALINE PHOSPHATASE 77 U/L 40-150 (BEAKER) (test code = 346) BILIRUBIN TOTAL 0.8 mg/dL 0.2-1.2 (BEAKER) (test code = 377) SODIUM (BEAKER) (test 133 meq/L 136-145 L code = 381) POTASSIUM (BEAKER) 4.3 meq/L 3.5-5.1 (test code = 379) CHLORIDE (BEAKER) 104 meq/L 98-107 (test code = 382) CO2 (BEAKER) (test 22 meq/L 22-29 code = 355) BLOOD UREA NITROGEN 13 mg/dL 7-21 (BEAKER) (test code = 354) CREATININE (BEAKER) 0.60 mg/dL 0.57-1.25 (test code = 358) GLUCOSE RANDOM 111 mg/dL 70-105 H (BEAKER) (test code = 652) CALCIUM (BEAKER) 8.2 mg/dL 8.4-10.2 L (test code = 697) AST (SGOT) ([facility]) 25 U/L 5-34 (test code = 353) ALT (SGPT) ([facility]) 22 U/L 6-55 (test code = 347) EGFR ([facility]) (test 103 ESTIMATE D GFR IS code = 1092) mL/min/1.73 sq NOT ACCURA TE m CREATININE CLEARANCE IN PREDICTING GLOMERULAR FILTRATION RATE . ESTIMATED GFR I S NOT APPLICABLE FOR DIALYSIS PATIEN TS. POCT-GLUCOSE [id number] 16:45:00 Test Item Value Reference Range Interpretation Comments POC-GLUCOSE METER 135 mg/dL 70-110 H TESTED AT [facility] 6720 ([facility]) (test code = [place] 1538) [address] TISSUE [id number] 15:53:00Surgical Pathology Report Case: [id number] Authorizing Provider: Jaycob Cifuentes MD Collected: 02/28/2017 1050 Ordering Location: [address] Received: 03/01/2017 0743 Service Pathologist: Pritesh Ahn MD Specimen: Spine, Thoracic, T Spine biopsy BONE, THORACIC SPINE, BIOPSY: - GRANULOMATOUS INFLAMMATION - ACID FAST ORGANISMS IDENTIFIED (SEE COMMENT) - NEGATIVE FOR MALIGNANCY Signing Pathologist Direct Phone Line: [phone] signed by Pritesh Ahn MD on 03/06/2017 at 3:53 PMPreliminary result electronically signed by Pritesh Ahn MD on 03/05/2017 at 11:42 AMCorrelation with culture results is recommended to confirm the etiology of the acid fast organisms. Dr. Marilia Dewitt of the neurosurgery service was verbally notified ofthe diagnosis on 03/06/17 at 3:50 pm.[id number], [id number], [id number] biopsy of T-spineThe specimen isreceived in a formalin- filled container labeled with the patient's information and labeled "CT biopsy T-spine" and consists of an off-white bone core [...] organisms. In addition, there is no malignancyANAEROBIC [id number] 15:34:00 Test Item Value Reference Range Interpretation Comments CULTURE ([facility]) (test No anaerobes isolated code = 1095) POCT-GLUCOSE [id number] 12:23:00 Test Item Value Reference Range Interpretation Comments POC-GLUCOSE METER 137 mg/dL 70-110 H TESTED AT [facility] [address] ([facility]) (test code = [place] [place] 1538) [address] POCT-GLUCOSE [id number] 08:35:00 Test Item Value Reference Range Interpretation Comments POC-GLUCOSE METER 111 mg/dL 70-110 H TESTED AT [facility] [address] ([facility]) (test code = [place] [place] 1538) [address] CBC W/PLT COUNT & AUTO [id number] 08:14:00 Test Item Value Reference Range Interpretation Comments WHITE BLOOD CELL COUNT (BEAKER) 3.6 K/ L 3.5-10.5 (test code = 775) RED BLOOD CELL COUNT (BEAKER) 3.00 M/ L 3.93-5.22 L (test code = 761) HEMOGLOBIN (BEAKER) (test code = 8.4 GM/DL 11.2-15.7 L 410) HEMATOCRIT (BEAKER) (test code = 26.7 % 34.1-44.9 L 411) MEAN CORPUSCULAR VOLUME (BEAKER) 89.0 fL 79.4-94.8 (test code = 753) MEAN CORPUSCULAR HEMOGLOBIN 28.0 pg 25.6-32.2 (BEAKER) (test code = 751) MEAN CORPUSCULAR HEMOGLOBIN CONC 31.5 GM/DL 32.2-35.5 L (BEAKER) (test code = 752) RED CELL DISTRIBUTION WIDTH 13.1 % 11.7-14.4 (BEAKER) (test code = 412) PLATELET COUNT (BEAKER) (test code 72 K/CU MM 150-450 L = 756) MEAN PLATELET VOLUME (BEAKER) 12.3 fL 9.4-12.3 (test code = 754) NUCLEATED RED BLOOD CELLS (BEAKER) 0 /100 WBC 0-0 (test code = 413) IMMATURE GRANULOCYTES-RELATIVE 3 % 0-1 H PERCENT (BEAKER) (test code = 2801) (MANUAL DIFFERENTIAL)2017-03-06 08:14:00 Test Item Value Reference Range Interpretation Comments NEUTROPHILS - REL (DIFF) (BEAKER) 87 % (test code = 1359) LYMPHOCYTES - REL (DIFF) (BEAKER) 5 % (test code = 1360) MONOCYTES - REL (DIFF) (BEAKER) 5 % (test code = 1361) METAMYELOCYTES-REL (DIFF) (BEAKER) 3 % 0-0 H (test code = 258) NEUTROPHILS - ABS (DIFF) (BEAKER) 3.13 K/ L 1.80-8.00 (test code = 1365) LYMPHOCYTES - ABS (DIFF) (BEAKER) 0.18 K/ L 1.48-4.50 L (test code = 1366) MONOCYTES - ABS (DIFF) (BEAKER) 0.18 K/ L 0.00-1.30 (test code = 1367) METAMYELOCTYES - ABS (DIFF) 0.11 K/ L 0.00-0.00 H (BEAKER) (test code = 261) TOTAL COUNTED (BEAKER) (test code = 100 1351) WBC MORPHOLOGY (BEAKER) (test code Normal = 487) PLT MORPHOLOGY (BEAKER) (test code Normal = 486) RBC MORPHOLOGY (BEAKER) (test code Normal = 762) BASIC METABOLIC [id number] 05:47:00 Test Item Value Reference Range Interpretation Comments SODIUM (BEAKER) 131 meq/L 136-145 L (test code = 381) POTASSIUM (BEAKER) 3.2 meq/L 3.5-5.1 L (test code = 379) CHLORIDE (BEAKER) 109 meq/L 98-107 H (test code = 382) CO2 (BEAKER) (test 17 meq/L 22-29 L code = 355) BLOOD UREA NITROGEN 11 mg/dL 7-21 (BEAKER) (test code = 354) CREATININE (BEAKER) 0.53 mg/dL 0.57-1.25 L (test code = 358) GLUCOSE RANDOM 101 mg/dL 70-105 (BEAKER) (test code = 652) CALCIUM ([facility]) 6.4 mg/dL 8.4-10.2 L (test code = 697) EGFR ([facility]) (test 119 mL/min/1.73 ESTIM ATED GFR IS code = 1092) sq m NOT ACCURATE CREATININE CLEARANCE IN PREDICTING GLOMERULAR FILTRATION RATE . ESTIMATED GFR I S NOT APPLICABLE FOR DIALYSIS PATIEN TS. BODY FLUID CULTURE + GRAM [id number] 22:47:00 Test Item Value Reference Range Interpretation Comments CULTURE ([facility]) (test No growth code = 1095) GRAM STAIN RESULT <1+ White blood cells ([facility]) (test code = seen 1123) GRAM STAIN RESULT No organisms seen ([facility]) (test code = 46833) POCT-GLUCOSE [id number] 21:43:00 Test Item Value Reference Range Interpretation Comments POC-GLUCOSE METER 164 mg/dL 70-110 H TESTED AT [place] [address] ([facility]) (test code = [place] 1538) [address] POCT-GLUCOSE [id number] 18:43:00 Test Item Value Reference Range Interpretation Comments POC-GLUCOSE METER 140 mg/dL 70-110 H TESTED AT [place] [address] ([facility]) (test code = [place] 1538) [address] VANCOMYCIN LEVEL, [id number] 13:59:00 Test Item Value Reference Range Interpretation Comments VANCOMYCIN TROUGH ([facility]) (test 20.4 ug/mL 10.0-20.0 H code = 522) IMMEDIATELY PRIOR TO NEXT DOSEPOCT-GLUCOSE [id number] 11:57:00 Test Item Value Reference Range Interpretation Comments POC-GLUCOSE METER 146 mg/dL 70-110 H TESTED AT [place] [address] ([facility]) (test code = [place] 1538) [address] POCT-GLUCOSE [id number] 08:34:00 Test Item Value Reference Range Interpretation Comments POC-GLUCOSE METER 130 mg/dL 70-110 H TESTED AT [place] [address] ([facility]) (test code = [place] 1538) [address] POCT-GLUCOSE [id number] 21:38:00 Test Item Value Reference Range Interpretation Comments POC-GLUCOSE METER 187 mg/dL 70-110 H TESTED AT [place] [address] ([facility]) (test code = [facility] 1538) [address] POCT-GLUCOSE [id number] 12:24:00 Test Item Value Reference Range Interpretation Comments POC-GLUCOSE METER 121 mg/dL 70-110 H TESTED AT [place] [address] ([facility]) (test code = [facility] 1538) [address] POCT-GLUCOSE [id number] 08:47:00 Test Item Value Reference Range Interpretation Comments POC-GLUCOSE METER 144 mg/dL 70-110 H TESTED AT [place] [address] ([facility]) (test code = [facility] [place] [facility] 1538) [address] POCT-GLUCOSE [id number] 23:49:00 Test Item Value Reference Range Interpretation Comments POC-GLUCOSE METER 135 mg/dL 70-110 H TESTED AT [place] [address] ([facility]) (test code = [facility] [place] [facility] 1538) [address] POCT-GLUCOSE [id number] 20:50:00 Test Item Value Reference Range Interpretation Comments POC-GLUCOSE METER 151 mg/dL 70-110 H TESTED AT [place] [address] ([facility]) (test code = [facility] [place] [facility] 1538) [address] POCT-GLUCOSE [id number] 17:58:00 Test Item Value Reference Range Interpretation Comments POC-GLUCOSE METER 129 mg/dL 70-110 H TESTED AT [place] [address] ([facility]) (test code = [facility] [place] [facility] 1538) [address] BLOOD [id number] 11:00:00 Test Item Value Reference Range Interpretation Comments CULTURE ([facility]) (test No growth in 5 days code = 1095) BLOOD [id number] 11:00:00 Test Item Value Reference Range Interpretation Comments CULTURE (BEAKER) (test No growth in 5 days code = 1095) POCT-GLUCOSE [id number] 07:42:00 Test Item Value Reference Range Interpretation Comments POC-GLUCOSE METER 108 mg/dL 70-110 TESTED AT [place] [address] ([facility]) (test code = [facility] [place] [facility] 1538) [address] POCT-GLUCOSE [id number] 20:59:00 Test Item Value Reference Range Interpretation Comments POC-GLUCOSE METER 131 mg/dL 70-110 H TESTED AT [place] [address] (BEAKER) (test code = [place] 1538) [address] BASIC METABOLIC [id number] 13:38:00 Test Item Value Reference Range Interpretation Comments SODIUM (BEAKER) 133 meq/L 136-145 L (test code = 381) POTASSIUM (BEAKER) 4.1 meq/L 3.5-5.1 (test code = 379) CHLORIDE (BEAKER) 103 meq/L 98-107 (test code = 382) CO2 (BEAKER) (test 24 meq/L 22-29 code = 355) BLOOD UREA NITROGEN 12 mg/dL 7-21 (BEAKER) (test code = 354) CREATININE (BEAKER) 0.66 mg/dL 0.57-1.25 (test code = 358) GLUCOSE RANDOM 109 mg/dL 70-105 H (BEAKER) (test code = 652) CALCIUM (BEAKER) 8.5 mg/dL 8.4-10.2 (test code = 697) EGFR (BEAKER) (test 92 mL/min/1.73 ESTIMA HERLINDA GFR IS code = 1092) sq m NOT ACCURATE CREATININE CLEARANCE IN PREDICTING GLOMERULAR FILTRATION RATE . ESTIMATED GFR I S NOT APPLICABLE FOR DIALYSIS PATIEN TS. VANCOMYCIN LEVEL, [id number] 13:35:00 Test Item Value Reference Range Interpretation Comments VANCOMYCIN TROUGH (BEAKER) (test 14.0 ug/mL 10.0-20.0 code = 522) Draw before vanc doseCBC W/PLT COUNT & AUTO [id number] 13:15:00 Test Item Value Reference Range Interpretation Comments WHITE BLOOD CELL COUNT (BEAKER) 5.0 K/ L 3.5-10.5 (test code = 775) RED BLOOD CELL COUNT (BEAKER) 3.70 M/ L 3.93-5.22 L (test code = 761) HEMOGLOBIN (BEAKER) (test code = 10.4 GM/DL 11.2-15.7 L 410) HEMATOCRIT (BEAKER) (test code = 32.1 % 34.1-44.9 L 411) MEAN CORPUSCULAR VOLUME (BEAKER) 86.8 fL 79.4-94.8 (test code = 753) MEAN CORPUSCULAR HEMOGLOBIN 28.1 pg 25.6-32.2 (BEAKER) (test code = 751) MEAN CORPUSCULAR HEMOGLOBIN CONC 32.4 GM/DL 32.2-35.5 (BEAKER) (test code = 752) RED CELL DISTRIBUTION WIDTH 13.1 % 11.7-14.4 (BEAKER) (test code = 412) PLATELET COUNT (BEAKER) (test 262 K/CU MM 150-450 code = 756) MEAN PLATELET VOLUME (BEAKER) 9.0 fL 9.4-12.3 L (test code = 754) NUCLEATED RED BLOOD CELLS 0 /100 WBC 0-0 (BEAKER) (test code = 413) NEUTROPHILS RELATIVE PERCENT 74 % (BEAKER) (test code = 429) LYMPHOCYTES RELATIVE PERCENT 15 % (BEAKER) (test code = 430) MONOCYTES RELATIVE PERCENT 8 % (BEAKER) (test code = 431) EOSINOPHILS RELATIVE PERCENT 3 % (BEAKER) (test code = 432) BASOPHILS RELATIVE PERCENT 0 % (BEAKER) (test code = 437) NEUTROPHILS ABSOLUTE COUNT 3.65 K/ L 1.56-6.13 (BEAKER) (test code = 670) LYMPHOCYTES ABSOLUTE COUNT 0.74 K/ L 1.18-3.74 L (BEAKER) (test code = 414) MONOCYTES ABSOLUTE COUNT (BEAKER) 0.39 K/ L 0.24-0.36 H (test code = 415) EOSINOPHILS ABSOLUTE COUNT 0.14 K/ L 0.04-0.36 (BEAKER) (test code = 416) BASOPHILS ABSOLUTE COUNT (BEAKER) 0.02 K/ L 0.01-0.08 (test code = 417) IMMATURE GRANULOCYTES-RELATIVE 1 % 0-1 PERCENT (BEAKER) (test code = 2801) VANCOMYCIN LEVEL, [id number] 08:53:00 Test Item Value Reference Range Interpretation Comments VANCOMYCIN TROUGH (BEAKER) (test 5.5 ug/mL 10.0-20.0 L code = 522) BASIC METABOLIC [id number] 09:17:00 Test Item Value Reference Range Interpretation Comments SODIUM (BEAKER) 133 meq/L 136-145 L (test code = 381) POTASSIUM (BEAKER) 4.2 meq/L 3.5-5.1 (test code = 379) CHLORIDE (BEAKER) 104 meq/L 98-107 (test code = 382) CO2 (BEAKER) (test 23 meq/L 22-29 code = 355) BLOOD UREA NITROGEN 11 mg/dL 7-21 (BEAKER) (test code = 354) CREATININE (BEAKER) 0.69 mg/dL 0.57-1.25 (test code = 358) GLUCOSE RANDOM 101 mg/dL 70-105 (BEAKER) (test code = 652) CALCIUM (BEAKER) 8.2 mg/dL 8.4-10.2 L (test code = 697) EGFR (BEAKER) (test 88 mL/min/1.73 ESTIMA HERLINDA GFR IS code = 1092) sq m NOT ACCURATE CREATININE CLEARANCE IN PREDICTING GLOMERULAR FILTRATION RATE . ESTIMATED GFR I S NOT APPLICABLE FOR DIALYSIS PATIEN TS. PROTHROMBIN TIME/[id number] 09:12:00 Test Item Value Reference Range Interpretation Comments PROTIME (BEAKER) (test code = 14.0 seconds 11.7-14.7 759) INR (BEAKER) (test code = 370) 1.1 <=5.9 RECOMMENDED COUMADIN/WARFARIN INR THERAPY RANGESSTANDARD DOSE: 2.0 - 3.0 Includes: PROPHYLAXIS forvenous thrombosis, systemic embolization; TREATMENT for venous thrombosis and/or pulmonary embolus.HIGH RISK: Target INR is 2.5-3.5 for patients with mechanical heart valves.CBC W/PLT COUNT & AUTO DIFFERENTIAL 2017-02-28 09:00:00 Test Item Value Reference Range Interpretation Comments WHITE BLOOD CELL COUNT (BEAKER) 4.3 K/ L 3.5-10.5 (test code = 775) RED BLOOD CELL COUNT (BEAKER) 3.76 M/ L 3.93-5.22 L (test code = 761) HEMOGLOBIN (BEAKER) (test code = 10.7 GM/DL 11.2-15.7 L 410) HEMATOCRIT (BEAKER) (test code = 32.4 % 34.1-44.9 L 411) MEAN CORPUSCULAR VOLUME (BEAKER) 86.2 fL 79.4-94.8 (test code = 753) MEAN CORPUSCULAR HEMOGLOBIN 28.5 pg 25.6-32.2 (BEAKER) (test code = 751) MEAN CORPUSCULAR HEMOGLOBIN CONC 33.0 GM/DL 32.2-35.5 (BEAKER) (test code = 752) RED CELL DISTRIBUTION WIDTH 13.2 % 11.7-14.4 (BEAKER) (test code = 412) PLATELET COUNT (BEAKER) (test 295 K/CU MM 150-450 code = 756) MEAN PLATELET VOLUME (BEAKER) 8.9 fL 9.4-12.3 L (test code = 754) NUCLEATED RED BLOOD CELLS 0 /100 WBC 0-0 (BEAKER) (test code = 413) NEUTROPHILS RELATIVE PERCENT 71 % (BEAKER) (test code = 429) LYMPHOCYTES RELATIVE PERCENT 17 % (BEAKER) (test code = 430) MONOCYTES RELATIVE PERCENT 10 % (BEAKER) (test code = 431) EOSINOPHILS RELATIVE PERCENT 1 % (BEAKER) (test code = 432) BASOPHILS RELATIVE PERCENT 1 % (BEAKER) (test code = 437) NEUTROPHILS ABSOLUTE COUNT 3.07 K/ L 1.56-6.13 (BEAKER) (test code = 670) LYMPHOCYTES ABSOLUTE COUNT 0.72 K/ L 1.18-3.74 L (BEAKER) (test code = 414) MONOCYTES ABSOLUTE COUNT (BEAKER) 0.42 K/ L 0.24-0.36 H (test code = 415) EOSINOPHILS ABSOLUTE COUNT 0.05 K/ L 0.04-0.36 (BEAKER) (test code = 416) BASOPHILS ABSOLUTE COUNT (BEAKER) 0.02 K/ L 0.01-0.08 (test code = 417) IMMATURE GRANULOCYTES-RELATIVE 1 % 0-1 PERCENT (BEAKER) (test code = 2801) POCT-GLUCOSE [id number] 18:20:00 Test Item Value Reference Range Interpretation Comments POC-GLUCOSE METER 96 mg/dL 70-110 TESTED AT [facility] 6720 (BEAKER) (test code = [facility] [address] 1538) URINE [id number] 11:20:00 Test Item Value Reference Range Interpretation Comments CULTURE (BEAKER) (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) No growth [id number] 16:14:00 Test Item Value Reference Range Interpretation Comments PROTIME (BEAKER) (test code = 13.8 seconds 11.7-14.7 759) INR (BEAKER) (test code = 370) 1.1 <=5.9 PARTIAL THROMBOPLASTIN TIME 34.7 seconds 22.5-36.0 (BEAKER) (test code = 760) RECOMMENDED COUMADIN/WARFARIN INR THERAPY RANGESSTANDARD DOSE: 2.0 - 3.0 Includes: PROPHYLAXIS forvenous thrombosis, systemic embolization; TREATMENT for venous thrombosis and/or pulmonary embolus.HIGH RISK: Target INR is 2.5-3.5 for patients with mechanical heart valves.PROTHROMBIN [id number] 16:12:00 Test Item Value Reference Range Interpretation Comments PROTIME (BEAKER) (test code = 13.8 seconds 11.7-14.7 759) INR (BEAKER) (test code = 370) 1.1 <=5.9 RECOMMENDED COUMADIN/WARFARIN INR THERAPY RANGESSTANDARD DOSE: 2.0 - 3.0 Includes: PROPHYLAXIS forvenous thrombosis, systemic embolization; TREATMENT for venous thrombosis and/or pulmonary embolus.HIGH RISK: Target INR is 2.5-3.5 for patients with mechanical heart valves.HEMOGLOBIN [id number] 08:32:00 Test Item Value Reference Range Interpretation Comments HEMOGLOBIN A1C (BEAKER) (test code = 5.9 % 4.3-6.1 368) C-REACTIVE [id number] 07:46:00 Test Item Value Reference Range Interpretation Comments C-REACTIVE PROTEIN (BEAKER) (test 4.38 mg/dL 0.00-0.50 H code = 676) CBC W/PLT COUNT & AUTO [id number] 07:37:00 Test Item Value Reference Range Interpretation Comments WHITE BLOOD CELL COUNT (BEAKER) 4.1 K/ L 3.5-10.5 (test code = 775) RED BLOOD CELL COUNT (BEAKER) 4.26 M/ L 3.93-5.22 (test code = 761) HEMOGLOBIN (BEAKER) (test code = 12.0 GM/DL 11.2-15.7 410) HEMATOCRIT (BEAKER) (test code = 36.1 % 34.1-44.9 411) MEAN CORPUSCULAR VOLUME (BEAKER) 84.7 fL 79.4-94.8 (test code = 753) MEAN CORPUSCULAR HEMOGLOBIN 28.2 pg 25.6-32.2 (BEAKER) (test code = 751) MEAN CORPUSCULAR HEMOGLOBIN CONC 33.2 GM/DL 32.2-35.5 (BEAKER) (test code = 752) RED CELL DISTRIBUTION WIDTH 12.9 % 11.7-14.4 (BEAKER) (test code = 412) PLATELET COUNT (BEAKER) (test 400 K/CU MM 150-450 code = 756) MEAN PLATELET VOLUME (BEAKER) 9.2 fL 9.4-12.3 L (test code = 754) NUCLEATED RED BLOOD CELLS 0 /100 WBC 0-0 (BEAKER) (test code = 413) NEUTROPHILS RELATIVE PERCENT 87 % (BEAKER) (test code = 429) LYMPHOCYTES RELATIVE PERCENT 11 % (BEAKER) (test code = 430) MONOCYTES RELATIVE PERCENT 2 % (BEAKER) (test code = 431) EOSINOPHILS RELATIVE PERCENT 0 % (BEAKER) (test code = 432) BASOPHILS RELATIVE PERCENT 0 % (BEAKER) (test code = 437) NEUTROPHILS ABSOLUTE COUNT 3.56 K/ L 1.56-6.13 (BEAKER) (test code = 670) LYMPHOCYTES ABSOLUTE COUNT 0.45 K/ L 1.18-3.74 L (BEAKER) (test code = 414) MONOCYTES ABSOLUTE COUNT (BEAKER) 0.06 K/ L 0.24-0.36 L (test code = 415) EOSINOPHILS ABSOLUTE COUNT 0.00 K/ L 0.04-0.36 L (BEAKER) (test code = 416) BASOPHILS ABSOLUTE COUNT (BEAKER) 0.00 K/ L 0.01-0.08 L (test code = 417) IMMATURE GRANULOCYTES-RELATIVE 1 % 0-1 PERCENT (BEAKER) (test code = 2801) HEPATIC FUNCTION [id number] 06:20:00 Test Item Value Reference Range Interpretation Comments TOTAL PROTEIN (BEAKER) (test code = 8.0 gm/dL 6.0-8.3 770) ALBUMIN (BEAKER) (test code = 1145) 3.6 g/dL 3.5-5.0 BILIRUBIN TOTAL (BEAKER) (test code 0.3 mg/dL 0.2-1.2 = 377) BILIRUBIN DIRECT (BEAKER) (test 0.2 mg/dL 0.1-0.5 code = 706) ALKALINE PHOSPHATASE (BEAKER) (test 107 U/L 40-150 code = 346) AST (SGOT) (BEAKER) (test code = 44 U/L 5-34 H 353) ALT (SGPT) (BEAKER) (test code = 61 U/L 6-55 H 347) BASIC METABOLIC [id number] 06:20:00 Test Item Value Reference Range Interpretation Comments SODIUM (BEAKER) 135 meq/L 136-145 L (test code = 381) POTASSIUM (BEAKER) 4.6 meq/L 3.5-5.1 (test code = 379) CHLORIDE (BEAKER) 106 meq/L 98-107 (test code = 382) CO2 (BEAKER) (test 20 meq/L 22-29 L code = 355) BLOOD UREA NITROGEN 13 mg/dL 7-21 (BEAKER) (test code = 354) CREATININE (BEAKER) 0.79 mg/dL 0.57-1.25 (test code = 358) GLUCOSE RANDOM 196 mg/dL 70-105 H (BEAKER) (test code = 652) CALCIUM (BEAKER) 8.9 mg/dL 8.4-10.2 (test code = 697) EGFR (BEAKER) (test 75 mL/min/1.73 ESTIMA HERLINDA GFR IS code = 1092) sq m NOT ACCURATE CREATININE CLEARANCE IN PREDICTING GLOMERULAR FILTRATION RATE . ESTIMATED GFR I S NOT APPLICABLE FOR DIALYSIS PATIEN REUBEN.
[2021-03-21 22:55] LABS: Absolute Lymphocytes (CBC) 1.4 K/uL (0.7-4.9); Basophils % 0.4 % (0-1.3); Hematocrit 40.5 % (36.0-45.0); Lymphocytes % 14.8 % (15.3-44.8); MPV 6.6 fL (7.6-11.3); RBC Red Blood Cell Count 4.62 M/uL (3.86-4.86)
[2021-03-21 23:03] LABS: Albumin 3.4 g/dL (3.4-5.0); Bilirubin Direct 0.2 mg/dL (0-0.2); Bilirubin Total 0.5 mg/dL (0.2-1.0); Potassium 3.5 mmol/L (3.5-5.1); Protein, Total 8.6 g/dL (6.4-8.2)
[2021-03-21] MEDS ORDERED: HYDROMORPHONE HCL 1 MG/ML INJ ONE (23:04)
[2021-03-21] MEDS ORDERED: ONDANSETRON 4 MG/2 ML VIAL ONE (23:05)
[2021-03-21] MEDS ORDERED: NA CHLORIDE 0.9% 1,000 ML ONE (23:05)
[2021-03-21 23:33] LABS: Urine Blood Trace-intact (Negative); Urine Glucose Negative (Negative); Urine Protein Negative (Negative); Urine Specific Gravity 1.015 (1.005-1.030)
--- NOTE | 2021-03-22 00:29 | ER ---
Nurse's Notes [facility] Name: Nannette Hampton Age: 60 yrs Sex: Female : 1960 Arrival Date: 03/21/2021 Time: 21:35 Bed 15 Private MD: Diagnosis: Upper abdominal pain, unspecified;Nausea;Cystitis, unspecified without hematuria;Diverticulosis Presentation: 03/21 22:00 Chief complaint: Patient states: Abdominal pain (RUQ), diarrhea since this morning and lh3 nausea. Pt states that she missed her pain management appointment and did not know whether her pain pump was out. States pain is 8/10. denies radiation. Coronavirus screen: Vaccine status: Patient reports being unvaccinated. Patient was tested 2 days ago and tested negative. Ebola Screen: No symptoms or risks identified at this time. Initial Sepsis Screen: Does the patient meet any 2 criteria? No. Patient's initial sepsis screen is negative. Does the patient have a suspected source of infection? No. Patient's initial sepsis screen is negative. Risk Assessment: Do you want to hurt yourself or someone else? Patient reports no desire to harm self or others. Onset of symptoms was March 21, 2021. Transition of care: patient was not received from another setting of care. 22:00 Method Of Arrival: Wheelchair lh3 22:00 Acuity: TRAN 3 lh3 03/22 00:25 Note Provider at bedside. CT scan normal. Pt to be discharged home. df1 00:32 Note Pt resting in bed. No V/D noted. Pt has pain pump and missed follow up appt 3 df1 weeks prior. Awaiting DC papers. Triage Assessment: 03/21 22:04 General: Appears uncomfortable, Behavior is calm, cooperative, appropriate for age. lh3 Pain: Complains of pain in abdomen. GI: Abdomen is round non-distended, Abd is soft and non tender X 4 quads. Reports upper abdominal pain, diarrhea. Historical: - Allergies: 22:04 Demerol; lh3 22:04 Morphine; lh3 22:04 Phenergan; lh3 22:04 surgical tape; lh3 - PMHx: 22:04 Diabetes - IDDM; insomnia; Pott's Disease-TB of spine; Thyroid problem; lh3 - Immunization history:: Client reports having NOT received the Covid vaccine. - Social history:: Smoking status: Patient denies any tobacco usage or history of. Screenin:57 Abuse screen: Denies threats or abuse. Nutritional screening: No deficits noted. df1 Tuberculosis screening: No symptoms or risk factors identified. Fall Risk Ambulatory Aid- None/Bed Rest/Nurse Assist (0 pts). Exposure risk/Travel Screening: None identified. Assessment: 22:48 Pain: Pain currently is 8 out of 10 on a pain scale. lh3 23:56 General: Appears uncomfortable, obese, unkempt. Neuro: No deficits noted. df1 Cardiovascular: No deficits noted. Respiratory: No deficits noted. GI: Reports lower abdominal pain, upper abdominal pain. : No deficits noted. EENT: No deficits noted. Derm: No deficits noted. Musculoskeletal: No deficits noted. Vital Signs: 22:00 BP 183 / 95; Pulse 92; Resp 18; Temp 97.8; Pulse Ox 100% on R/A; Weight 106.59 kg; lh3 Height 5 ft. 1 in. (154.94 cm); 23:55 BP 176 / 87; Pulse 82; Resp 20; Pulse Ox 98% on R/A; df1 22:00 Body Mass Index 44.40 (106.59 kg, 154.94 cm) lh3 ED Course: 21:35 Patient arrived in ED. bp1 21:51 Varinder Kolb MD is Attending Physician. mh7 21:56 Cecille Salmeron is Primary Nurse. df1 22:04 Triage completed. lh3 22:04 Arm band placed on right wrist. lh3 22:38 Basic Metabolic Panel Sent. lh3 22:38 CBC with Diff Sent. lh3 22:38 Hepatic Function Sent. lh3 22:38 Lipase Sent. lh3 22:49 Inserted saline lock: 20 gauge in left antecubital area, using aseptic technique. Blood lh3 collected. 23:47 CT Abd/Pelvis - IV Contrast Only In Process Unspecified. EDMS 03/22 00:01 Patient has correct armband on for positive identification. Placed in gown. Bed in low df1 position. Call light in reach. Side rails up X 1. Adult w/ patient. 00:40 Urine Culture Sent. df1 00:52 No provider procedures requiring assistance completed. df1 00:52 IV discontinued, intact. df1 Administered Medications: 03/21 22:48 Drug: NS 0.9% 1000 ml Route: IV; Rate: 1000 ml; Site: left antecubital; [facility] 03/22 00:10 Follow up: IV Intake: 1000ml df1 03/21 22:48 Drug: Dilaudid (HYDROmorphone) 1 mg Route: IVP; Site: left antecubital; [facility] 03/22 00:10 Follow up: Response: No adverse reaction; Pain is unchanged, physician notified df1 03/21 22:48 Drug: Zofran (Ondansetron) 4 mg Route: IVP; Site: left antecubital; [facility] 03/22 00:09 Follow up: Response: No adverse reaction; Nausea is decreased df1 Intake: 00:10 IV: 1000ml; Total: 1000ml. df1 Outcome: 00:29 Discharge ordered by . 7 00:52 Discharged to home via wheelchair. df1 00:52 Condition: stable 00:52 Discharge instructions given to patient, significant other, Instructed on discharge instructions, follow up and referral plans. Demonstrated understanding of instructions, Prescriptions given X 3. 00:53 Patient left the ED. df1 Signatures: Dispatcher [employer] EDMS Aye Lora Maurice, MD MD 7 Monique Amaral RN RN 3 Cecille Salmeron df1
--- NOTE | 2021-03-22 00:29 | EDPHYS ---
Physician Documentation [facility] Name: Nannette Hampton Age: 60 yrs Sex: Female : 1960 Arrival Date: 03/21/2021 Time: 21:35 Bed 15 Private MD: ED Physician Varinder Kolb HPI: 03/21 22:05 This 60 yrs old Female presents to ER via Wheelchair with complaints of Fever, mh7 Nausea, Abdominal Pain. 22:05 The patient presents with abdominal pain in the right upper quadrant. Onset: The mh7 symptoms/episode began/occurred 2 week(s) ago. The symptoms do not radiate. 22:05 Associated signs and symptoms: Pertinent positives: fever, nausea, Subjective, mh7 Pertinent negatives: anorexia, blood in stools, chest pain, constipation, diarrhea, dysuria, headache, hematuria, palpitations, shortness of breath, vaginal discharge, vomiting, vomiting blood. 22:05 The symptoms are described as intermittent, vague, waxing/waning. Modifying factors: mh7 The symptoms are alleviated by nothing, the symptoms are aggravated by nothing. Severity of pain: At its worst the pain was moderate 5 day(s) ago, in the emergency department the pain is unchanged. Historical: - Allergies: 22:04 Demerol; lh3 22:04 Morphine; lh3 22:04 Phenergan; lh3 22:04 surgical tape; lh3 - PMHx: 22:04 Diabetes - IDDM; insomnia; Pott's Disease-TB of spine; Thyroid problem; lh3 - Immunization history:: Client reports having NOT received the Covid vaccine. - Social history:: Smoking status: Patient denies any tobacco usage or history of. ROS: 22:05 Constitutional: Negative for fever, chills, and weight loss, Eyes: Negative for injury, mh7 pain, redness, and discharge, ENT: Negative for injury, pain, and discharge, Neck: Negative for injury, pain, and swelling, Cardiovascular: Negative for chest pain, palpitations, and edema, Respiratory: Negative for shortness of breath, cough, wheezing, and pleuritic chest pain, Back: Negative for injury and pain, : Negative for injury, bleeding, discharge, and swelling, MS/Extremity: Negative for injury and deformity, Skin: Negative for injury, rash, and discoloration, Neuro: Negative for headache, weakness, numbness, tingling, and seizure, Psych: Negative for depression, anxiety, suicide ideation, homicidal ideation, and hallucinations, Allergy/Immunology: Negative for hives, rash, and allergies, Endocrine: Negative for neck swelling, polydipsia, polyuria, polyphagia, and marked weight changes, Hematologic/Lymphatic: Negative for swollen nodes, abnormal bleeding, and unusual bruising. Exam: 22:05 Constitutional: This is a well developed, well nourished patient who is awake, alert, mh7 and in no acute distress. Head/Face: Normocephalic, atraumatic. Eyes: Pupils equal round and reactive to light, extra-ocular motions intact. Lids and lashes normal. Conjunctiva and sclera are non-icteric and not injected. Cornea within normal limits. Periorbital areas with no swelling, redness, or edema. Neck: Trachea midline, no thyromegaly or masses palpated, and no cervical lymphadenopathy. Supple, full range of motion without nuchal rigidity, or vertebral point tenderness. No Meningismus. Chest/axilla: Normal chest wall appearance and motion. Nontender with no deformity. No lesions are appreciated. Cardiovascular: Regular rate and rhythm with a normal S1 and S2. No gallops, murmurs, or rubs. Normal PMI, no JVD. No pulse deficits. Respiratory: Lungs have equal breath sounds bilaterally, clear to auscultation and percussion. No rales, rhonchi or wheezes noted. No increased work of breathing, no retractions or nasal flaring. 22:05 Back: No spinal tenderness. No costovertebral tenderness. Full range of motion. Skin: Warm, dry with normal turgor. Normal color with no rashes, no lesions, and no evidence of cellulitis. MS/ Extremity: Pulses equal, no cyanosis. Neurovascular intact. Full, normal range of motion. Neuro: Awake and alert, GCS 15, oriented to person, place, time, and situation. Cranial nerves II-XII grossly intact. Motor strength 5/5 in all extremities. Sensory grossly intact. Cerebellar exam normal. Normal gait. Psych: Awake, alert, with orientation to person, place and time. Behavior, mood, and affect are within normal limits. 22:05 Abdomen/GI: Inspection: obese scar(s), are noted in the right upper quadrant, Bowel sounds: normal, in all quadrants, Palpation: moderate abdominal tenderness, in the right upper quadrant and left upper quadrant, mass, is not appreciated, rebound tenderness, is not appreciated, voluntary guarding, is not appreciated, involuntary guarding, is not appreciated, no appreciated organomegaly, Rectal exam: the exam is deferred, because of patient request, Indicators: McBurney's point is not tender, Nuno's sign is negative, Rovsing's sign is negative, Obturator sign is negative, Psoas sign is negative, Liver: no appreciated palpable abnormalities, Hernia: not appreciated. Vital Signs: 22:00 BP 183 / 95; Pulse 92; Resp 18; Temp 97.8; Pulse Ox 100% on R/A; Weight 106.59 kg; lh3 Height 5 ft. 1 in. (154.94 cm); 23:55 BP 176 / 87; Pulse 82; Resp 20; Pulse Ox 98% on R/A; df1 22:00 Body Mass Index 44.40 (106.59 kg, 154.94 cm) 3 MDM: 03/22 00:26 Differential diagnosis: bowel obstruction, diverticulitis, gastritis, gastroesophageal mh7 reflux disease, non-specific abd pain, pancreatitis, Peptic Ulcer Disease, Pyelonephritis, Ureterolithiasis, urinary tract infection. Data reviewed: vital signs, nurses notes, lab test result(s), CBC, electrolytes, urinalysis, EKG, radiologic studies, CT scan. Data interpreted: Pulse oximetry: on room air is 98 %. Interpretation: normal. Counseling: I had a detailed discussion with the patient and/or guardian regarding: the historical points, exam findings, and any diagnostic results supporting the discharge/admit diagnosis, the presence of at least one elevated blood pressure reading (>120/80) during this emergency department visit, lab results, radiology results, the need for outpatient follow up, to return to the emergency department if symptoms worsen or persist or if there are any questions or concerns that arise at home. Response to treatment: the patient's symptoms have resolved after treatment, the patient's blood pressure is in an acceptable range, mental status has returned to baseline, the patient no longer shows bradycardia, the patient is not short of breath, the patient is not tachycardic, the patient's pain is gone, the patient's temperature has normalized. 00:29 Patient medically screened. [facility] 03/21 22:22 Order name: Basic Metabolic Panel [facility] 03/21 22:22 Order name: CBC with Diff [facility] 03/21 22:22 Order name: Hepatic Function [facility] 03/21 22:22 Order name: Lipase [facility] 03/21 22:23 Order name: Basic Metabolic Panel; Complete Time: 23:44 EDMS 03/21 22:23 Order name: Liver (Hepatic) Function; Complete Time: 23:44 EDMS 03/21 22:22 Order name: CT Abd/Pelvis - IV Contrast Only [facility] 03/21 22:23 Order name: Lipase; Complete Time: 23:44 EDMS 03/21 22:23 Order name: CBC with Automated Diff; Complete Time: 23:44 EDMI 03/21 23:32 Order name: Urine Dipstick-Ancillary; Complete Time: 23:44 EDMI 03/22 00:26 Order name: Urine Culture [facility] 03/21 22:22 Order name: IV Saline Lock; Complete Time: 22:38 [facility] 03/21 22:22 Order name: Labs collected and sent; Complete Time: 22:38 [facility] 03/21 22:22 Order name: Urine Dipstick-Ancillary (obtain specimen); Complete Time: 23:55 [facility] 03/21 22:22 Order name: EKG - Nurse/Tech; Complete Time: 23:11 [facility] Administered Medications: 03/21 22:48 Drug: NS 0.9% 1000 ml Route: IV; Rate: 1000 ml; Site: left antecubital; [facility] 03/22 00:10 Follow up: IV Intake: 1000ml df 03/21 22:48 Drug: Dilaudid (HYDROmorphone) 1 mg Route: IVP; Site: left antecubital; [facility] 03/22 00:10 Follow up: Response: No adverse reaction; Pain is unchanged, physician notified [facility] 03/21 22:48 Drug: Zofran (Ondansetron) 4 mg Route: IVP; Site: left antecubital; [facility] 03/22 00:09 Follow up: Response: No adverse reaction; Nausea is decreased df1 Disposition Summary: 03/22/21 00:29 Discharge Ordered Location: Home [facility] Problem: an ongoing problem [facility] Symptoms: have improved [facility] Condition: Stable [facility] Diagnosis - Upper abdominal pain, unspecified [facility] - Nausea [facility] - Cystitis, unspecified without hematuria 7 - Diverticulosis [facility] Followup: [facility] - With: Private Physician - When: 1 - 2 days - Reason: Worsening of condition, Recheck today's complaints, Continuance of care, Re-evaluation by your physician Discharge Instructions: - Discharge Summary Sheet [facility] - Diverticulosis [facility] - Nausea, Adult [facility] - Abdominal Pain, Adult, [id number] [facility] Forms: - Medication Reconciliation Form [facility] - Thank You Letter [facility] - Antibiotic Education [facility] - Prescription Opioid Use [facility] Prescriptions: - ondansetron 4 mg Oral tablet,disintegrating - place 1 tablet by TRANSLINGUAL route every 8 hours As needed; 10 tablet; [facility] Refills: 0, Product Selection Permitted - Cephalexin 500 mg Oral Capsule - take 1 capsule by ORAL route every 8 hours for 7 days; 14 capsule; Refills: 0, [facility] Product Selection Permitted - dicyclomine 20 mg Oral Tablet - take 1 tablet by ORAL route 4 times per day As needed; 20 tablet; Refills: 0, [facility] Product Selection Permitted Signatures: Dispatcher [employer] Varinder Edwards MD MD [facility] Monique Amaral RN RN 3 Cecille Salmeron df1
[2021-03-22 01:25] VITALS: TEMP 97.8
[2021-03-22 01:26] VITALS: BP 176/87; O2SAT 98
--- NOTE | 2021-03-22 11:20 | RAD REPORT ---
EXAM DESCRIPTION: CT - Abdomen Pelvis W Contrast - 03/22/2021 6:02 am CLINICAL HISTORY: Abd pain;Nausea / vomiting COMPARISON: 03/04/2018 TECHNIQUE: CT of the abdomen and pelvis performed following IV administration of iodinated contras t. This exam was performed according to our departmental dose-optimization program, which includes au tomated exposure control, adjustment of the mA and/or kV according to patient size and/or use of iter ative reconstruction technique. FINDINGS: Lung Bases: Minimal dependent atelectasis. Bones: Posterior devon and screw fixation of the thoracic spine partially visualized. Multilevel endpla te spondylosis and facet arthropathy. Postoperative change with vertebral body fusion at L3-L5 Abdomen: Liver: The liver has normal size and density. No intrahepatic biliary dilatation. Gallbladder: Prior cholecystectomy. Spleen, Pancreas, and Adrenal Glands: Stable 1.1 cm right adrenal adenoma previously demonstrated t o be of low density compatible with a lipid rich adrenal adenoma. Spleen, pancreas, and left adrenal glands are unremarkable. Kidneys: No hydronephrosis or obstructing calculus. Vasculature: Aortoiliac atherosclerosis. IVC is unremarkable. The portal vein is patent. The proxim al visceral and renal arteries are patent. Stomach: The stomach and duodenum have normal course. Other: No free intraperitoneal air. No free fluid or lymphadenopathy. Right anterior abdominal daniel bcutaneous generator. Pelvis: Bladder: Mild wall thickening of the urinary bladder. Bowel: No dilated loops of large or small bowel. Scattered diverticula colon. Appendix: Normal appendix. Pelvis: Prior hysterectomy. IMPRESSION: 1. Mild wall thickening of the urinary bladder. This could be seen with cystitis. 2. Diverticulosis without evidence of acute diverticulitis. 3. Stable 1.1 cm lipid rich right adrenal adenoma. No follow-up imaging recommended. Electronically signed by: Aristides Shelton 03/22/2021 12:09 AM CDT Due to temporary technical issues with the PACS/Fluency reporting system, reports are being signed by the in house radiologists without review as a courtesy to insure prompt reporting. The interpreting radiologist is fully responsible for the content of the report.
--- NOTE | 2021-03-22 14:38 | EKG ---
Test Date: 2021-03-21 Test Time: 23:07:52 Linux Admin: ALBERTO MEASUREMENT RESULTS: Intervals: Rate: 82 WA: 184 QRSD: 94 QT: 426 QTc: 497 [place]: P: 27 WA: 184 QRS: -13 T: 18 INTERPRETIVE STATEMENTS: Normal sinus rhythm Prolonged QT Abnormal ECG Compared to ECG 03/28/2019 13:29:05 Prolonged QT interval now present Electronically Signed On 03-22-21 14:38:23 CDT by [place]
== END 2021-03-22 00:53 | disposition home or self-care (01) ==
LOC: ER 21:33
DX: N30.90 Cystitis, unspecified without hematuria (principal); K57.90 Diverticulosis of intestine, part unspecified, without perforation or abscess without bleeding; R11.0 Nausea; E11.9 Type 2 diabetes mellitus without complications; Z88.5 Allergy status to narcotic agent; Z88.8 Allergy status to other drugs, medicaments and biological substances; Z91.048 Other nonmedicinal substance allergy status
CPT/HCPCS: 93005; 87088; 85025; 87086; 80048; 36415; 80076; 87077; 87186; 81003; 83690; 74177; 96375; 96374; 99284; Q9967; J1170; J7030; J2405